=== PATIENT | female | born 1950 | race Caucasian/White ===

== ENCOUNTER → 2019-10-12 | Outpatient (CLI) | payer MEDICARE ==
--- NOTE | 2019-10-12 16:05 | US ---
"EXAMINATION TYPE: US kidneys/renal and bladder DATE OF EXAM: 10/12/2019 COMPARISON: NONE CLINICAL HISTORY: N18.3 CKD STAGE 3. EXAM MEASUREMENTS: Right Kidney: 12.1 x 5.5 x 6.8 cm Left Kidney: 11.6 x 4.7 x 4.7 cm Right Kidney: Masslike area measures 8.3 x 6.8 x 7.9 cm, possible 2 small satellite masses at inferio r end. Left Kidney: Focal hypoechoic area midpole measures 2.7 x 2.7 x 2.5 cm Bladder: wnl Bilateral Jets seen: Yes There is no evidence for hydronephrosis at this point in time. No nephrolithiasis is seen. The urina ry bladder is anechoic. Bilateral ureteral jets are seen. IMPRESSION: 1. Masslike area of the right kidney measures up to 8.3 cm. This is highly suspicious for neoplasm. F ull characterization with three-phase enhanced CT abdomen is recommended. 2. Focal hypoechoic area in the left mid pole does not demonstrate clear increased or transmission an d cannot be evaluated without recommended CT. A Yellow level critical message alert has been initiated for Kong Barbosa MD via the [employer] galo 360 | Critical Results System on 10/12/2019 4:02 PM. This message alert has been sent to Michael Barbosa MD via the preferences provided by the clinician for the receipt of Radiology Critical Findings. Message ID [id number]."
[2019-10-12 16:23] LABS: Creatinine 24 Hour,Urine 760.5 mg/24hr (800.0-1800.0)
[2019-10-12 19:07] LABS: Total Protein 24 Hour,Urine 143 mg/24hr (42.0-225.0); Total Volume 24 Hour,Urine 1300 mls (250-2400)
== END | disposition home or self-care (01) ==
LOC: RADUSWWP 15:11
PROVIDERS: ATTEND Family Medicine
DX: N28.89 Other specified disorders of kidney and ureter (principal); N18.3 Chronic kidney disease, stage 3 (moderate); Z88.2 Allergy status to sulfonamides; Z88.8 Allergy status to other drugs, medicaments and biological substances
CPT/HCPCS: 76770; 81050; 82575; 84156

== ENCOUNTER → 2019-11-16 | Outpatient (CLI) | payer MEDICARE ==
--- NOTE | 2019-11-17 09:25 | NM ---
EXAMINATION TYPE: NM parathyroid w/spect DATE OF EXAM: 11/16/2019 COMPARISON: NONE HISTORY: Hypercalcemia TECHNIQUE: Following administration of 24.0 mCi Tc99m Sestamibi. Anterior projection images of the neck and ches t were obtained 10 minutes and 3 hours post injection. SPECT images of the neck and chest were obtai rob and reconstructed in three axes. FINDINGS: Thyroid tracer washout: Delayed images demonstrate near-complete tracer washout from the right lobe t hyroid. Parathyroid uptake: 3 hour delayed images show persistent uptake within the region of the left thyroi d bed Normal uptake: There is physiological tracer uptake in the myocardium, salivary glands, and thyroid g land. 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
== END | disposition home or self-care (01) ==
LOC: RADNMMAIN 10:41
PROVIDERS: ATTEND Internal Medicine
DX: E83.52 Hypercalcemia (principal)
CPT/HCPCS: 78071; A9500

== ENCOUNTER → 2019-12-04 | Outpatient (CLI) | payer MEDICARE ==
[2019-12-04 11:51] LABS: Basophils # (A) 0.1 k/uL (0-0.2); Basophils % (A) 1 %; Eosinophils # (A) 0.1 k/uL (0-0.7); Eosinophils % (A) 2 %; HCT 42.8 % (34.0-46.0); HGB 13.3 gm/dL (11.4-16.0); Lymphocytes % (A) 24 %; MCH 28.1 pg (25.0-35.0); MCHC 31.1 g/dL (31.0-37.0); MCV 90.3 fL (80.0-100.0); Mean Platelet Volume 7.4; Monocytes # (A) 0.5 k/uL (0-1.0); Monocytes % (A) 6 %; Neutrophils # (A) 5.6 k/uL (1.3-7.7); Neutrophils % (A) 66 %; Platelet Count 337 k/uL (150-450); RBC 4.74 m/uL (3.80-5.40); RDW 14.7 % (11.5-15.5); WBC 8.4 k/uL (3.8-10.6)
[2019-12-04 11:56] LABS: Ionized Calcium 6.3 mg/dL (4.5-5.3)
[2019-12-04 12:16] LABS: Appearance,Urine Cloudy (Clear); Bacteria,Urine Occasional /hpf; Bilirubin,Urine Negative (Negative); Blood,Urine Negative (Negative); Color,Urine Yellow; Glucose,Urine (UA) Negative (Negative); Hyaline Casts,Urine 24 /lpf (0-2); Ketones,Urine Negative (Negative); Leukocyte Esterase,Urine Negative (Negative); Mucus,Urine Rare /hpf; Nitrite,Urine Negative (Negative); PH, Urine 5.5 (5.0-8.0); Protein,Urine Negative (Negative); RBC,Urine <1 /hpf (0-5); Squamous Epithelial Cell,Urine 8 /hpf (0-4); Urobilinogen,Urine <2.0 mg/dL (<2.0); WBC,Urine <1 /hpf (0-5)
[2019-12-04 17:38] LABS: Urine Creatinine 51.4 mg/dL
[2019-12-04 18:37] LABS: Ferritin 48.3 ng/mL (10.0-291.0)
[2019-12-04 18:46] LABS: % Iron Saturation 10.33 (12.00-45.00); African American GFR (CKD) 34.6 (60.0-200.0); Albumin 4.1 g/dL (3.80-4.90); Albumin/Globulin Ratio 1.46 (1.60-3.17); Anion Gap 10.6 mmol/L (4.00-12.00); BUN/Creat Ratio 22.94 Ratio (12.00-20.00); Calcium 10.8 mg/dL (8.7-10.3); Carbon Dioxide 21.4 mmol/L (21.6-31.8); Globulin 2.8 g/dL (1.6-3.3); Non-African American GFR(CKD) 29.8 (60.0-200.0); Phosphorus 3.1 mg/dL (2.4-5.1); Potassium 4.3 mmol/L (3.5-5.5); Total Bilirubin 0.3 mg/dL (0.3-1.2); Total Protein 6.9 g/dL (6.2-8.2); Uric Acid 7.2 mg/dL (2.9-7.7)
[2019-12-05 01:34] LABS: Calcium 24 Hour,Urine 57.2 mg/24Hr (100.0-250.0)
== END ==
LOC: LABWHC1 10:37
PROVIDERS: ATTEND Internal Medicine
DX: E83.52 Hypercalcemia (principal); N18.3 Chronic kidney disease, stage 3 (moderate); D63.1 Anemia in chronic kidney disease; E83.39 Other disorders of phosphorus metabolism; M10.9 Gout, unspecified; E55.9 Vitamin D deficiency, unspecified
CPT/HCPCS: 36415; 80053; 81001; 81050; 82043; 82164; 82306; 82330; 82340; 82570; 82728; 83519; 83540; 83550; 83735; 83883; 83970; 84100; 84166; 84550; 85025; 86334

== ENCOUNTER → 2019-12-11 | Outpatient (CLI) | payer MEDICARE ==
--- NOTE | 2019-12-11 14:58 | MM ---
Reason for exam: screening (asymptomatic). Last mammogram was performed 4 years and 10 months ago. History: Patient is postmenopausal. Took hormonal contraceptives for 7 years beginning at age 16. Physical Findings: A clinical breast exam by your physician is recommended on an annual basis and results should be correlated with mammographic findings. MG 3D Screening Mammo W/Cad Bilateral CC and MLO view(s) were taken. Prior study comparison: February 14, 2015, bilateral MG screening mammo w CAD. December 15, 2012, bilateral digital screening mammo w/CAD. There are scattered fibroglandular densities. There are benign appearing round linear calcifications bilaterally. There is chronic nodularity in the right breast. There is no new dominant lesion. ASSESSMENT: Benign, BI-RAD 2 RECOMMENDATION: Routine screening mammogram of both breasts in 1 year.
== END | disposition home or self-care (01) ==
LOC: RADMAMWWP 09:43
PROVIDERS: ATTEND Family Medicine
DX: Z12.31 Encounter for screening mammogram for malignant neoplasm of breast (principal)
CPT/HCPCS: 77063; 77067

== ENCOUNTER → 2019-12-29 | Outpatient (CLI) | payer MEDICARE ==
[2019-12-29 12:36] LABS: Basophils # (A) 0.1 k/uL (0-0.2); Basophils % (A) 1 %; Eosinophils # (A) 0.2 k/uL (0-0.7); Eosinophils % (A) 2 %; HCT 43.4 % (34.0-46.0); HGB 13.2 gm/dL (11.4-16.0); Hypochromasia Slight; Lymphocytes # (A) 2.1 k/uL (1.0-4.8); Lymphocytes % (A) 25 %; MCH 28.4 pg (25.0-35.0); MCHC 30.4 g/dL (31.0-37.0); MCV 93.5 fL (80.0-100.0); Mean Platelet Volume 7.1; Monocytes # (A) 0.4 k/uL (0-1.0); Monocytes % (A) 5 %; Neutrophils # (A) 5.4 k/uL (1.3-7.7); Neutrophils % (A) 65 %; Platelet Count 292 k/uL (150-450); RBC 4.64 m/uL (3.80-5.40); RDW 14.9 % (11.5-15.5); WBC 8.2 k/uL (3.8-10.6)
[2019-12-29 12:42] LABS: Calcium 9.6 mg/dL (8.4-10.2); Potassium 4.6 mmol/L (3.5-5.1)
[2019-12-29 12:50] LABS: Appearance,Urine Clear (Clear); Bilirubin,Urine Negative (Negative); Blood,Urine Negative (Negative); Color,Urine Yellow; Glucose,Urine (UA) Negative (Negative); Ketones,Urine Negative (Negative); Leukocyte Esterase,Urine Negative (Negative); Nitrite,Urine Negative (Negative); Protein,Urine Negative (Negative); Specific Gravity,Urine 1.008 (1.001-1.035); Urobilinogen,Urine <2.0 mg/dL (<2.0)
--- NOTE | 2019-12-29 16:08 | XR ---
EXAMINATION TYPE: XR chest 2V DATE OF EXAM: 12/29/2019 COMPARISON: NONE HISTORY: Shortness of breath TECHNIQUE: Frontal and lateral views of the chest are obtained. FINDINGS: There is no focal air space opacity, pleural effusion, or pneumothorax seen. The cardiac silhouette size is within normal limits. The aorta is dense. The osseous structures are intact. IMPRESSION: No acute cardiopulmonary process.
== END | disposition home or self-care (01) ==
LOC: LABPAT 11:33
PROVIDERS: ATTEND Urology
DX: Z01.818 Encounter for other preprocedural examination (principal); Z01.812 Encounter for preprocedural laboratory examination; C64.9 Malignant neoplasm of unspecified kidney, except renal pelvis; R06.02 Shortness of breath; R58 Hemorrhage, not elsewhere classified; Z51.81 Encounter for therapeutic drug level monitoring
CPT/HCPCS: 36415; 71046; 80048; 81003; 85025; 85610

== ENCOUNTER 2020-01-05 10:23 | Inpatient (IN) | payer MEDICARE ==
[2019-12-31 09:06] VITALS: BMI 43.5
--- NOTE | 2020-01-04 20:05 | P.HPIHPCON ---
History of Present Illness H&P Date: 01/05/20 Chief Complaint: right sided renal mass Ms Epperson is 69 yo female with hx of right sided renal mass. I discussed with her given the size of the tumor and complexity of the tumor a partial nephrectomy is not feasible. . We discussed with him the options of robotic ass isted radical nephrectomy vs open radical nephrectomy. He understood the risk of benefit of each approach. Discussed with him with robotic radical nephrectomy there is risk of bleeding, infection and injury to nearby organs. Discussed with him risk of injury to the liver, bowel, blood vessels. Discussed with him risk from anesthesia including heart attack, stroke, blood clot and even . I discussed with her given her CKD there is a risk she would require diaylsis post nephrectomy. I discussed with her the option of renal biopsy and benefit and risk from that, she declined a renal biopsy. Of note she underwent a sestamibi scan which showed low likelihood of Oncocytoma.She understood all risks and agreed to proceed with surgery Consent for Procedure: I have explained the operation/procedure to the patient, including the risks, benefits, side effects, alternative therapies (including not receiving the proposed treatment or service), the likelihood of the patient achieving his/her goals, and potential recuperation problems for the procedure/sedation/analgesia, as well as any blood products, if indicated. I also explained to the patient the risks, benefits and side effects of the alternatives, as well as the risks related to not receiving the proposed procedure, care, treatment, or services. - Constitutional Constitutional: Denies chills, Denies fever - Cardiovascular Cardiovascular: Denies chest pain, Denies dyspnea on exertion - Respiratory Respiratory: Denies cough, Denies dyspnea Past Medical History Past Medical History: Cancer, Diabetes Mellitus, GERD/Reflux, Hyperlipidemia, Hypertension Additional Past Medical History / Comment(s): rt kidney mass-pt states has kidney cancer History of Any Multi-Drug Resistant Organisms: None Reported Past Surgical History: Tonsillectomy, Tubal Ligation Past Anesthesia/Blood Transfusion Reactions: No Reported Reaction Smoking Status: Never smoker - Past Family History Mother Family Medical History: Cancer Additional Family Medical History / Comment(s): throat cancer Medications and Allergies Home Medications Medication Instructions Recorded Confirmed Type ALPRAZolam [Xanax] 0.25 mg PO DAILY PRN 12/31/19 12/31/19 History Allopurinol [Zyloprim] 100 mg PO DAILY 12/31/19 12/31/19 History Cinacalcet [Sensipar] 30 mg PO MOTU 12/31/19 12/31/19 History Furosemide [Lasix] 40 mg PO DAILY 12/31/19 12/31/19 History Insulin Lispro Protamin/Lispro 42 unit SQ AC-TID 12/31/19 12/31/19 History [humaLOG Mix 75-25 Kwikpen] Losartan Potassium [Cozaar] 100 mg PO DAILY 12/31/19 12/31/19 History Metoprolol Tartrate [Lopressor] 100 mg PO BID 12/31/19 12/31/19 History Omeprazole 20 mg PO DAILY 12/31/19 12/31/19 History Potassium Chloride [Klor-Con 10] 10 meq PO DAILY 12/31/19 12/31/19 History Simvastatin [Zocor] 20 mg PO HS 12/31/19 12/31/19 History Zolpidem [Ambien] 5 mg PO HS PRN 12/31/19 12/31/19 History amLODIPine BESYLATE 10 mg PO DAILY 12/31/19 12/31/19 History buPROPion HCL [Wellbutrin SR] 150 mg PO Q12H 12/31/19 12/31/19 History flavoxATE HCL [Flavoxate HCl] 200 mg PO TID 12/31/19 12/31/19 History hydrALAZINE HCL [Apresoline] 50 mg PO TID 12/31/19 12/31/19 History Allergies Allergy/AdvReac Type Severity Reaction Status Date / Time MILAGRO Inhibitors Allergy Cough Verified 12/31/19 08:50 clonidine [From Catapres] Allergy Cough Verified 12/31/19 08:50 hydrochlorothiazide Allergy Cough Verified 12/31/19 08:50 [From HydroDiuril] pseudoephedrine Allergy Rash/Hives Verified 12/31/19 08:50 angiotensin receptor blockers Allergy Cough Uncoded 12/31/19 08:50 Surgical - Exam - General well developed, well nourished, no distress, no pain - Respiratory normal expansion, normal respiratory effort - Abdomen Abdomen: soft, non tender - Psychiatric oriented to time, oriented to person, oriented to place Assessment and Plan Assessment: 69 yo with hx of right sided renal mass -OR for R sided radical nephrectomy
[2020-01-05] MEDS ORDERED: DEXAMETHASONE SOD PHOSPHATE 10 MG/ML 1 ML VIAL IV ONE (10:53)
[2020-01-05] MEDS ORDERED: MIDAZOLAM 2 MG/2 ML VIAL IV PRN (10:53)
[2020-01-05] MEDS ORDERED: ONDANSETRON 4 MG/2 ML VIAL IVP ONE (10:53)
[2020-01-05] MEDS ORDERED: LIDOCAINE 1% 20 ML VIAL (10MG/ML) FOR IV START INTRADERMA ONE ×2 (11:23)
[2020-01-05] MEDS: LACTATED RINGERS 1,000 ML IV SCH (11:23)
[2020-01-05 11:25] LABS: Glucose,Whole Blood 131 mg/dL (75-99)
[2020-01-05] MEDS ORDERED: MIDAZOLAM 2 MG/2 ML VIAL IVP ONE (11:28)
[2020-01-05] MEDS ORDERED: fentaNYL (PF) 50 MCG/ML 2 ML AMP IV ONE (11:29)
[2020-01-05] MEDS ORDERED: GLYCOPYRROLATE 0.2 MG/ML 2 ML VIAL ONE (11:49)
[2020-01-05] MEDS ORDERED: PROPOFOL 10 MG/ML 20 ML VIAL IV ONE (11:49)
[2020-01-05] MEDS ORDERED: SUCCINYLCHOLINE CHLORIDE 100 MG/5 ML SYR IV ONE (11:49)
[2020-01-05] MEDS ORDERED: DEXAMETHASONE SOD PHOSPHATE 4 MG/ML 1 ML VIAL ONE (11:49)
[2020-01-05] MEDS ORDERED: ROPIVACAINE 5 MG/ML 30 ML VIAL ONE (11:49)
[2020-01-05] MEDS ORDERED: MIDAZOLAM 2 MG/2 ML VIAL ONE (11:49)
[2020-01-05] MEDS ORDERED: fentaNYL (PF) 50 MCG/ML 2 ML AMP ONE (11:49)
[2020-01-05] MEDS ORDERED: ROCURONIUM BROMIDE 10 MG/ML 10 ML VIAL IV ONE (11:49)
[2020-01-05] MEDS ORDERED: NEOSTIGMINE 1 MG/ML 10 ML VIAL ONE (11:49)
[2020-01-05] MEDS ORDERED: LIDOCAINE 1% INJ 10MG/ML (20 ML MDV) ONE (11:49)
--- NOTE | 2020-01-05 12:25 | P.ANPRN ---
Procedure Note - Anesthesia - Nerve Block Performed Right Transversus Abdominis Single Time Out Performed: Yes Date of Procedure: 01/05/20 Procedure Start Time: 11:28 Procedure Stop Time: 11:37 Location of Patient: PreOp Indication: Requested by Surgeon Specifically requested for management of pain by DrSanti: Mane Moran Sedation Type: Sedate with meaningful contact maintained Preparation: Sterile Prep Position: Supine Needle Types: Pajunk Needle Gauge: 21 Ultrasound used to visualize needle placement: Yes Ultrasound used to observe medication spread: Yes Injectate: 0.5% Ropivacaine (see comment for volume) (20 ml) Blood Aspirated: No Pain Paresthesia on Injection Noted: No Resistance on Injection: Normal (plus dexamethason 4 mg)
[2020-01-05] MEDS ORDERED: BUPIVACAINE (PF) 0.5% 30 ML VIAL SQ ONE ×2 (13:05)
[2020-01-05] MEDS ORDERED: ACETAMINOPHEN TAB 325 MG TAB PO PRN (14:32)
[2020-01-05] MEDS ORDERED: ALPRAZolam 0.25 MG TAB PO PRN (14:35)
[2020-01-05] MEDS ORDERED: diphenhydrAMINE 50 MG/ML 1 ML VIAL IVP ONE (14:58)
[2020-01-05] MEDS: fentaNYL (PF) 50 MCG/ML 2 ML AMP IV PRN ×4 (14:58→15:37)
--- NOTE | 2020-01-05 15:03 | P.OP ---
Date of Procedure: 01/05/20 Preoperative Diagnosis: right renal mass Postoperative Diagnosis: same Procedure(s) Performed: robotic assisted radical nephrectomy on right Implants: none Anesthesia: AGUSTIN Surgeon: Mane Moran Patch Sander #1: Christiano Castro Estimated Blood Loss (ml): 200 Pathology: other (right kidney) Condition: stable Disposition: PACU Indications for Procedure: Ms Epperson is 69 yo female with hx of right sided renal mass. I discussed with her given the size of the tumor and complexity of the tumor a partial nephrectomy is not feasible. . We discussed with him the options of robotic assisted radical nephrectomy vs open radical nephrectomy. He understood the risk of benefit of each approach. Discussed with him with robotic radical nephrectomy there is risk of bleeding, infection and injury to nearby organs. Discussed with him risk of injury to the liver, bowel, blood vessels. Discussed with him risk from anesthesia including heart attack, stroke, blood clot and even . I discussed with her given her CKD there is a risk she would require diaylsis post nephrectomy. I discussed with her the option of renal biopsy and benefit and risk from that, she declined a renal biopsy. Of note she underwent a sestamibi scan which showed low likelihood of Oncocytoma.She understood all risks and agreed to proceed with surgery Description of Procedure: The patient was taken to the operating room . General anesthesia was induced. She was prepped and draped in sterile fashion, and was placed in modified flank position . All pressure points were padded. The abdominal insufflation was achieved with the Veress needle. A 8 mm camera port was placed. Robotic trocars and statistical assistant ports were placed under direct vision. a 5 mm liver retractor was placed. . The robot was docked into place. The colon was mobilized medially by incising along the white line of Toldt. Next the duodenum was kocherized. At this time the vena cava was exposed. Next the ureter was retracted anteriorly off the psoas muscle. Dissection proceeded cranially towards the renal hilum. The upper pole attachments were dissected. Care was taken to safely mobilize the kidney free of all visceral structures.The renal vessels were further dissected. The hilum was ligated using the vascular stapler. The adrenal gland was mobilized. Lateral and remaining kidney attachments were released. The ureter w as dissected further distally. The ureter was ligated using the vascular stapler. The kidney was placed in an Endo Catch bag. The robot was then de- docked and the specimen was then removed by extending the statistical assistant port. Fascia was closed with 1 layers using #1 Stratafix. Skin was closed with subcuticular sutures and dermabond. The patient was awoken from general anesthesia in stable condition. Please refer to the final pathology report for final diagnosis
[2020-01-05 15:17] LABS: Glucose,Whole Blood 177 mg/dL (75-99)
[2020-01-05] MEDS: HYDROmorphone 1 MG/ML 1 ML SYRINGE IVP ONE ×4 (15:40→16:40)
[2020-01-05] MEDS ORDERED: CINACALCET 30 MG TAB PO SCH (17:00)
[2020-01-05 17:14] LABS: Glucose,Whole Blood 198 mg/dL (75-99)
[2020-01-05] MEDS: INSULN ASP PRT/INSULIN ASPART 100 UNIT/ML 10 ML VIAL SQ SCH ×2 (18:21→22:04)
[2020-01-05] MEDS: HEPARIN SODIUM,PORCINE 5,000 UNIT/ML 1 ML VIAL SQ SCH ×2 (18:21→23:48)
[2020-01-05] MEDS: METHOCARBAMOL 750 MG TAB PO SCH ×2 (18:21→21:45)
[2020-01-05] MEDS: OXYBUTYNIN XL 5 MG TAB.ER.24 PO SCH (18:21)
[2020-01-05] MEDS: SODIUM CHLORIDE 0.9% 1,000 ML IV SCH (18:22)
[2020-01-05 19:50] LABS: Glucose,Whole Blood 221 mg/dL (75-99)
[2020-01-05] MEDS: ONDANSETRON 4 MG/2 ML VIAL IVP PRN (19:54)
[2020-01-05] MEDS: HYDROmorphone 1 MG/ML 1 ML SYRINGE IVP PRN (19:55)
[2020-01-05] MEDS: METOPROLOL TARTRATE 50 MG TAB PO SCH (21:45)
[2020-01-05] MEDS: ATORVASTATIN 10 MG TAB PO SCH (21:45)
[2020-01-05] MEDS: buPROPion SR 150 MG TABLET.ER PO SCH (21:45)
[2020-01-05 21:50] LABS: HCT 39.1 % (34.0-46.0); Hypochromasia Moderate; MCH 28.8 pg (25.0-35.0); MCHC 30.6 g/dL (31.0-37.0); Mean Platelet Volume 7.3; Platelet Count 283 k/uL (150-450); RBC 4.17 m/uL (3.80-5.40); RDW 15.2 % (11.5-15.5); WBC 11.9 k/uL (3.8-10.6)
[2020-01-05 21:52] LABS: Calcium 9.8 mg/dL (8.4-10.2); Potassium 5.2 mmol/L (3.5-5.1)
[2020-01-06] MEDS: SODIUM CHLORIDE 0.9% 1,000 ML IV SCH ×3 (02:54→12:59)
[2020-01-06] MEDS: HYDROmorphone 1 MG/ML 1 ML SYRINGE IVP PRN ×2 (05:10→20:47)
[2020-01-06 05:24] LABS: Glucose,Whole Blood 180 mg/dL (75-99)
[2020-01-06 06:54] LABS: Glucose,Whole Blood 165 mg/dL (75-99)
[2020-01-06 08:07] LABS: Calcium 9.5 mg/dL (8.4-10.2); Magnesium 1.9 mg/dL (1.6-2.3); Potassium 5.2 mmol/L (3.5-5.1)
[2020-01-06] MEDS: OXYBUTYNIN XL 5 MG TAB.ER.24 PO SCH (08:21)
[2020-01-06] MEDS: PANTOPRAZOLE 40 MG TABLET PO SCH (08:21)
[2020-01-06] MEDS: buPROPion SR 150 MG TABLET.ER PO SCH ×2 (08:21→20:42)
[2020-01-06] MEDS: INSULN ASP PRT/INSULIN ASPART 100 UNIT/ML 10 ML VIAL SQ SCH ×3 (08:22→17:39)
[2020-01-06] MEDS: ALLOPURINOL 100 MG TAB PO SCH (08:22)
[2020-01-06] MEDS: METHOCARBAMOL 750 MG TAB PO SCH ×4 (08:22→20:41)
[2020-01-06] MEDS: HEPARIN SODIUM,PORCINE 5,000 UNIT/ML 1 ML VIAL SQ SCH ×2 (08:22→17:42)
[2020-01-06] MEDS: LOSARTAN 50 MG TAB PO SCH (08:22)
[2020-01-06] MEDS: METOPROLOL TARTRATE 50 MG TAB PO SCH ×2 (08:22→20:41)
[2020-01-06] MEDS ORDERED: POTASSIUM CHLORIDE ER 10 MEQ TAB.ER.PRT PO SCH (09:00)
[2020-01-06] MEDS ORDERED: FUROSEMIDE 40 MG TAB PO SCH (09:00)
--- NOTE | 2020-01-06 11:13 | P.NPCON ---
History of Present Illness - Reason for Consult chronic renal failure - History of Present Illness Reason for consultation: Chronic kidney disease History of present illness: Patient is a 69-year-old female seen in renal consultation for chronic kidney disease. Patient has chronic kidney disease stage III with baseline creatinine 1.5-1.7. Patient was recently noted to have a kidney mass and underwent right- sided nephrectomy on January 05. Her creatinine today is 1.9. She denies chest pain or shortness of breath. Denies edema. She has a Goldberg catheter in place and is nonoliguric. No vomiting or diarrhea. Oral intake is gradually improving. Denies regular use of nonsteroidals. Hemodynamically stable. No active complaints at this time. Vital signs are stable. General: The patient appeared well nourished and normally developed. HEENT: Head exam is unremarkable. Neck is without jugular venous distension. LUNGS: Lungs are clear to auscultation and percussion. Breath sounds decreased. HEART: Rate and Rhythm are regular. First and second heart sounds normal. No murmurs, rubs or gallops. ABDOMEN: Abdominal exam reveals normal bowel sounds. Non-tender and non- distended. No evidence of peritonitis. EXTREMITITES: No clubbing, cyanosis, or edema. Past Medical History Past Medical History: Cancer, Diabetes Mellitus, GERD/Reflux, Hyperlipidemia, Hypertension Additional Past Medical History / Comment(s): rt kidney mass-pt states has kidney cancer History of Any Multi-Drug Resistant Organisms: None Reported Past Surgical History: Tonsillectomy, Tubal Ligation Past Anesthesia/Blood Transfusion Reactions: No Reported Reaction Smoking Status: Never smoker - Past Family History Mother Family Medical History: Cancer Additional Family Medical History / Comment(s): throat cancer Medications and Allergies Home Medications Medication Instructions Recorded Confirmed Type ALPRAZolam [Xanax] 0.25 mg PO DAILY PRN 12/31/19 12/31/19 History Allopurinol [Zyloprim] 100 mg PO DAILY 12/31/19 12/31/19 History Cinacalcet [Sensipar] 30 mg PO MOTU 12/31/19 12/31/19 History Furosemide [Lasix] 40 mg PO DAILY 12/31/19 12/31/19 History Insulin Lispro Protamin/Lispro 42 unit SQ AC-TID 12/31/19 12/31/19 History [humaLOG Mix 75-25 Kwikpen] Losartan Potassium [Cozaar] 100 mg PO DAILY 12/31/19 12/31/19 History Metoprolol Tartrate [Lopressor] 100 mg PO BID 12/31/19 12/31/19 History Omeprazole 20 mg PO DAILY 12/31/19 12/31/19 History Potassium Chloride [Klor-Con 10] 10 meq PO DAILY 12/31/19 12/31/19 History Simvastatin [Zocor] 20 mg PO HS 12/31/19 12/31/19 History Zolpidem [Ambien] 5 mg PO HS PRN 12/31/19 12/31/19 History amLODIPine BESYLATE 10 mg PO DAILY 12/31/19 12/31/19 History buPROPion HCL [Wellbutrin SR] 150 mg PO Q12H 12/31/19 12/31/19 History flavoxATE HCL [Flavoxate HCl] 200 mg PO TID 12/31/19 12/31/19 History hydrALAZINE HCL [Apresoline] 50 mg PO TID 12/31/19 12/31/19 History Allergies Allergy/AdvReac Type Severity Reaction Status Date / Time MILAGRO Inhibitors Allergy Cough Verified 01/05/20 11:03 clonidine [From Catapres] Allergy Cough Verified 01/05/20 11:03 hydrochlorothiazide Allergy Cough Verified 01/05/20 11:03 [From HydroDiuril] pseudoephedrine Allergy Rash/Hives Verified 01/05/20 11:03 angiotensin receptor blockers Allergy Cough Uncoded 01/05/20 11:03 Physical Exam Vitals: Vital Signs Temp Pulse Resp BP Pulse Ox 01/06/20 05:00 97.8 F 87 18 147/67 95 01/05/20 22:00 96 01/05/20 20:31 97.5 F L 69 18 139/62 95 01/05/20 18:15 97.3 F L 70 18 152/79 94 L 01/05/20 17:13 69 16 106/76 92 L 01/05/20 16:15 73 16 159/69 93 L 01/05/20 15:45 68 16 143/65 100 01/05/20 15:16 69 16 129/56 95 01/05/20 15:00 70 16 146/67 98 01/05/20 14:46 98.4 F 85 19 148/85 97 02/04/20 11:47 70 16 164/72 98 Intake and Output 01/05/20 01/06/20 01/06/20 22:59 06:59 14:59 Intake Total 400 900 Output Total 350 250 Balance 50 650 Intake: IV 200 Intake, IV Titration 900 Amount Sodium Chloride 0.9% 1, 900 000 ml @ 100 mls/hr IV . Q10H [facility] Rx#:[id number] Oral 200 Output: Urine 150 250 Uretheral (Goldberg) 100 250 Emesis 200 Other: Voiding Method Indwelling Catheter Indwelling Catheter Weight 111.2 kg Results - Lab Results Most recent lab results Calcium 9.5 mg/dL (8.4-10.2) 01/06/20 07:30 Magnesium 1.9 mg/dL (1.6-2.3) 01/06/20 07:30 01/05/20 20:44 01/06/20 07:30 Assessment and Plan Plan: Assessment: 1. Chronic kidney disease stage III with baseline creatinine in the range of 1.5-1.7. However need to establish new baseline as she underwent right-sided nephrectomy yesterday. Creatinine 1.9 today. 2. Right kidney mass status post nephrectomy. 3. Metabolic acidosis secondary to chronic kidney disease. 4. Mild hyperkalemia secondary to chronic kidney disease and metabolic acidosis. Patient is also on losartan. 5. Insulin-dependent diabetes mellitus. 6. Primary hyperparathyroidism maintained on Sensipar. Patient has an appointment with surgery outpatient for possible parathyroidectomy. Calcium l evel stable. 7. Hypertension with chronic kidney disease. Controlled. Plan: Hep-Lock IV fluids. Hold Lasix for now. Add oral sodium bicarbonate. Encourage oral intake. Repeat electrolytes in the morning. Thank you for the consultation. I will continue to follow patient with you during her hospital stay.
[2020-01-06 11:41] LABS: Glucose,Whole Blood 110 mg/dL (75-99)
[2020-01-06] MEDS: SODIUM BICARBONATE TAB 650 MG TAB PO SCH ×2 (12:59→20:41)
[2020-01-06] MEDS ORDERED: BENZOCAINE/MENTHOL LOZENG 1 EACH LOZENGE MUCOUS MEM PRN (15:14)
--- NOTE | 2020-01-06 16:13 | PN ---
PROGRESS NOTE DATE OF SERVICE: 01/06/2020 CHIEF COMPLAINT: Status post right nephrectomy. HISTORY OF PRESENT ILLNESS: This lady is doing well and she is not having a great deal of pain. She has had no fever or chills and she is not nauseated. PHYSICAL EXAMINATION: Chest is clear. Cardiac exam is normal. Color is good and hydration is good. Dressings are dry. Blood sugar and blood pressure are normal. IMPRESSION: 1. Status post right nephrectomy for renal cell carcinoma. 2. Hypertension. 3. Diabetes. PLAN: Monitor her blood sugars and vital signs today. She is expected to go home tomorrow. MMODL / IJN: [id number] /
[2020-01-06 17:39] LABS: Glucose,Whole Blood 55 mg/dL (75-99)
[2020-01-06] MEDS: hydrALAZINE HCL 50 MG TAB PO SCH ×2 (17:42→20:41)
[2020-01-06 18:02] LABS: Glucose,Whole Blood 46 mg/dL (75-99)
[2020-01-06 18:26] LABS: Glucose,Whole Blood 58 mg/dL (75-99)
[2020-01-06 18:46] LABS: Glucose,Whole Blood 64 mg/dL (75-99)
--- NOTE | 2020-01-06 19:49 | CONS ---
CONSULTATION CHIEF COMPLAINT: Renal mass. HISTORY OF PRESENT ILLNESS: This 69-year-old white female with type 2 IDDM under good control and is brought in for an elective nephrectomy. There is a mass in the right kidney which was found accidentally. She has had no hematuria. Her diabetes is under good control. She does have chronic kidney disease and this may be an issue after her nephrectomy. REVIEW OF SYSTEMS: She has had no headaches, CVAs, TIAs, change in vision or hearing, headaches, chest pain, shortness of breath, heart disease, murmurs, rheumatic fever, orthopnea, PND, angina, infarctions, syncope, palpitations, etc. She has had no abdominal pain, nausea, vomiting, hematemesis, melena, hematochezia, jaundice, hepatitis, cirrhosis, dysuria, frequency, urgency, incontinence, etc. Past medical history, family history, personal and social histories reveal that she is ALLERGIC TO CATAPRES, ARBS, MILAGRO INHIBITORS, THIAZIDE DIURETICS, AND SULFA. MEDICATIONS: She is on allopurinol 100 mg once a day, losartan 100 mg once a day, omeprazole 20 mg once a day, metoprolol 100 mg twice a day, hydralazine 100 mg t.i.d., Ambien 5 q.h.s. p.r.n., Humalog 75/25 42 units 3 times a day, Wellbutrin 150 mg twice a day, Xanax 0.25 t.i.d. p.r.n., amlodipine 10 mg once a day, potassium 10 mEq once a day, simvastatin 20 q.h.s. and Lasix 40 mg once a day. She has never been a smoker or drinker. PHYSICAL EXAMINATION: Blood pressure 122/76, pulse 68 and regular. Respirations 16. She is afebrile. In general, she appeared to be overweight, in no acute distress. Skin color is normal. Skin is warm, dry. Lymph nodes not enlarged. Head, ears, eyes, nose, mouth, and throat were normal. Neck veins not distended. Thyroid is not enlarged. Chest is clear to auscultation and percussion. Cardiac exam demonstrated normal sinus rhythm and no murmurs or extra sounds. Abdomen is soft, nontender without visceromegaly or masses. Flanks were nontender. Bowel sounds present. Extremities are normal. Neurological she is intact. She is admitted to the hospital with diagnoses: 1. Right renal mass. 2. Hypertension. 3. Insulin dependent diabetes mellitus with good control. 4. Hypertension. PLAN: To follow postoperatively and monitor vital signs, blood sugars, etc. Hopefully, her renal function will remain adequate. Thank you for this consultation. AMAURY / JONATHAN: [id number] /
[2020-01-06 20:40] LABS: Glucose,Whole Blood 81 mg/dL (75-99)
[2020-01-06] MEDS: ATORVASTATIN 10 MG TAB PO SCH (20:47)
[2020-01-06] MEDS: BENZOCAINE/MENTHOL LOZENG 1 EACH LOZENGE MUCOUS MEM PRN (20:47)
--- NOTE | 2020-01-06 22:38 | P.PN ---
Subjective Progress Note Date: 01/06/20 Principal diagnosis: right sided renal mass No acute overnight event, pain is controlled, tolerating diet, has not ambulated yet Objective - Vital Signs Vital signs: Vital Signs Temp 97.3 F L 01/06/20 21:00 Pulse 64 01/06/20 21:00 Resp 20 01/06/20 21:00 BP 138/79 01/06/20 21:00 Pulse Ox 95 01/06/20 21:00 Intake & Output 01/06/20 01/06/20 01/07/20 06:59 18:59 06:59 Intake Total 1100 400 Output Total 550 350 Balance 550 50 Intake: Intake, IV Titration 900 400 Amount Sodium Chloride 0.9% 1, 900 000 ml @ 100 mls/hr IV . Q10H [facility] Rx#:[id number] Sodium Chloride 0.9% 1, 400 000 ml @ 50 mls/hr IV . Q20H [facility] Rx#:[id number] Oral 200 Output: Urine 350 350 Uretheral ([place]) 350 Emesis 200 Other: Voiding Method Indwelling Catheter Toilet # Voids 1 - Constitutional General appearance: Present: no acute distress - Gastrointestinal General gastrointestinal: Present: soft. Absent: distended - Integumentary Integumentary Comment(s): Incision: CDI - Psychiatric Psychiatric: Present: A&O x's 3 - Labs CBC & Chem 7: 01/05/20 20:44 01/06/20 18:50 Labs: Abnormal Lab Results - Last 24 Hours (Table) 01/06/20 01/06/20 01/06/20 Range/Units 05:23 06:52 07:30 Potassium 5.2 H (3.5-5.1) mmol/L Chloride 109 H (98-107) mmol/L Carbon Dioxide 19 L (22-30) mmol/L BUN 43 H (7-17) mg/dL Creatinine 1.90 H (0.52-1.04) mg/dL Glucose 175 H (74-99) mg/dL POC Glucose (mg/dL) 180 H 165 H (75-99) mg/dL 01/06/20 01/06/20 01/06/20 Range/Units 11:36 17:37 17:59 Potassium (3.5-5.1) mmol/L Chloride (98-107) mmol/L Carbon Dioxide (22-30) mmol/L BUN (7-17) mg/dL Creatinine (0.52-1.04) mg/dL Glucose (74-99) mg/dL POC Glucose (mg/dL) 110 H 55 L 46 L (75-99) mg/dL 01/06/20 01/06/20 01/06/20 Range/Units 18:24 18:44 18:50 Potassium (3.5-5.1) mmol/L Chloride (98-107) mmol/L Carbon Dioxide (22-30) mmol/L BUN (7-17) mg/dL Creatinine (0.52-1.04) mg/dL Glucose 73 L (74-99) mg/dL POC Glucose (mg/dL) 58 L 64 L (75-99) mg/dL Assessment and Plan Assessment: POD #1 S/P right sided radical nephrectomy Plan: -D/C sauceda -ambulate -Discharge home tomorrow
[2020-01-07] MEDS: HEPARIN SODIUM,PORCINE 5,000 UNIT/ML 1 ML VIAL SQ SCH ×3 (00:05→15:58)
[2020-01-07 04:40] LABS: Glucose,Whole Blood 54 mg/dL (75-99)
[2020-01-07 05:08] LABS: Glucose,Whole Blood 49 mg/dL (75-99)
[2020-01-07 05:39] LABS: Glucose,Whole Blood 55 mg/dL (75-99)
[2020-01-07] MEDS ORDERED: DEXTROSE 10 % IN WATER 250 ML IV ONE (05:45)
[2020-01-07 06:30] LABS: Glucose,Whole Blood 161 mg/dL (75-99)
[2020-01-07 07:00] LABS: Glucose,Whole Blood 117 mg/dL (75-99)
[2020-01-07] MEDS: INSULN ASP PRT/INSULIN ASPART 100 UNIT/ML 10 ML VIAL SQ SCH ×3 (07:34→17:54)
[2020-01-07 08:16] LABS: Calcium 9.7 mg/dL (8.4-10.2); Magnesium 1.8 mg/dL (1.6-2.3); Potassium 4.3 mmol/L (3.5-5.1)
[2020-01-07] MEDS: hydrALAZINE HCL 50 MG TAB PO SCH ×3 (10:18→21:19)
[2020-01-07] MEDS: METHOCARBAMOL 750 MG TAB PO SCH ×4 (10:18→21:19)
[2020-01-07] MEDS: ALLOPURINOL 100 MG TAB PO SCH (10:18)
[2020-01-07] MEDS: amLODIPine 10 MG TAB PO SCH (10:18)
[2020-01-07] MEDS: METOPROLOL TARTRATE 50 MG TAB PO SCH ×2 (10:19→21:19)
[2020-01-07] MEDS: OXYBUTYNIN XL 5 MG TAB.ER.24 PO SCH (10:19)
[2020-01-07] MEDS: PANTOPRAZOLE 40 MG TABLET PO SCH (10:19)
[2020-01-07] MEDS: SODIUM BICARBONATE TAB 650 MG TAB PO SCH ×2 (10:19→21:19)
[2020-01-07] MEDS: buPROPion SR 150 MG TABLET.ER PO SCH ×2 (10:19→21:19)
[2020-01-07] MEDS: LOSARTAN 50 MG TAB PO SCH (10:19)
[2020-01-07 10:34] LABS: Glucose,Whole Blood 91 mg/dL (75-99)
--- NOTE | 2020-01-07 10:48 | P.PN ---
Subjective Patient is seen in follow-up for acute kidney injury on chronic kidney disease. Creatinine 2.33 today. Patient vomited this morning. No diarrhea. No chest pain or shortness of breath. Vital signs are stable. General: The patient appeared well nourished and normally developed. HEENT: Head exam is unremarkable. Neck is without jugular venous distension. LUNGS: Lungs are clear to auscultation and percussion. Breath sounds decreased. HEART: Rate and Rhythm are regular. First and second heart sounds normal. No murmurs, rubs or gallops. ABDOMEN: Abdominal exam reveals normal bowel sounds. Non-tender and non- distended. No evidence of peritonitis. EXTREMITITES: No clubbing, cyanosis, or edema. Objective - Vital Signs Vital signs: Vital Signs Temp 97.3 F L 01/07/20 04:48 Pulse 75 01/07/20 04:48 Resp 18 01/07/20 04:48 BP 144/68 01/07/20 04:48 Pulse Ox 93 L 01/07/20 04:48 Intake & Output 01/06/20 01/07/20 01/07/20 18:59 06:59 18:59 Intake Total 400 Output Total 350 Balance 50 Intake: Intake, IV Titration 400 Amount Sodium Chloride 0.9% 1, 400 000 ml @ 50 mls/hr IV . Q20H [facility] Rx#:[id number] Output: Urine 350 Other: Voiding Method Toilet Toilet # Voids 1 2 - Labs CBC & Chem 7: 01/05/20 20:44 01/07/20 07:38 Labs: Abnormal Lab Results - Last 24 Hours (Table) 01/06/20 01/06/20 01/06/20 Range/Units 11:36 17:37 17:59 BUN (7-17) mg/dL Creatinine (0.52-1.04) mg/dL Glucose (74-99) mg/dL POC Glucose (mg/dL) 110 H 55 L 46 L (75-99) mg/dL 01/06/20 01/06/20 01/06/20 Range/Units 18:24 18:44 18:50 BUN (7-17) mg/dL Creatinine (0.52-1.04) mg/dL Glucose 73 L (74-99) mg/dL POC Glucose (mg/dL) 58 L 64 L (75-99) mg/dL 01/07/20 01/07/20 01/07/20 Range/Units 04:38 04:57 05:37 BUN (7-17) mg/dL Creatinine (0.52-1.04) mg/dL Glucose (74-99) mg/dL POC Glucose (mg/dL) 54 L 49 L 55 L (75-99) mg/dL 01/07/20 01/07/20 01/07/20 Range/Units 06:29 06:59 07:38 BUN 49 H (7-17) mg/dL Creatinine 2.33 H (0.52-1.04) mg/dL Glucose 110 H (74-99) mg/dL POC Glucose (mg/dL) 161 H 117 H (75-99) mg/dL Assessment and Plan Plan: Assessment: 1. Chronic kidney disease stage III with baseline creatinine in the range of 1 .5-1.7. However need to establish new baseline as she underwent right-sided nephrectomy on January 05. Creatinine 2.33 today. 2. Right kidney mass status post nephrectomy. 3. Metabolic acidosis secondary to chronic kidney disease maintained on oral sodium bicarbonate. Better. 4. Mild hyperkalemia secondary to chronic kidney disease and metabolic acidosis. Patient is also on losartan. Improved. 5. Insulin-dependent diabetes mellitus. 6. Primary hyperparathyroidism maintained on Sensipar. Patient has an appointment with surgery outpatient for possible parathyroidectomy. Calcium level stable. 7. Hypertension with chronic kidney disease. Controlled. Plan: Encouraged oral intake. Repeat electrolytes in the morning. Avoid nephrotoxins. Maintain gentle hydration.
[2020-01-07 12:00] LABS: Glucose,Whole Blood 89 mg/dL (75-99)
[2020-01-07] MEDS: SODIUM CHLORIDE 0.9% 1,000 ML IV SCH (15:59)
[2020-01-07] MEDS: ONDANSETRON 4 MG/2 ML VIAL IVP PRN (16:00)
[2020-01-07 16:49] LABS: Glucose,Whole Blood 86 mg/dL (75-99)
--- NOTE | 2020-01-07 17:15 | P.PN ---
Subjective Progress Note Date: 01/07/20 Principal diagnosis: right sided renal mass Was complaining of nausea with two episode of emesis. Pain is controlled, passing flatus. has not ambulated Objective - Vital Signs Vital signs: Vital Signs Temp 98 F 01/07/20 12:23 Pulse 90 01/07/20 12:23 Resp 18 01/07/20 12:23 BP 151/73 01/07/20 12:23 Pulse Ox 95 01/07/20 12:23 Intake & Output 01/06/20 01/07/20 01/07/20 18:59 06:59 18:59 Intake Total 400 400 Output Total 350 Balance 50 400 Intake: Intake, IV Titration 400 400 Amount Sodium Chloride 0.9% 1, 400 400 000 ml @ 50 mls/hr IV . Q20H [facility] Rx#:[id number] Output: Urine 350 Other: Voiding Method Toilet Toilet Toilet # Voids 1 2 - Gastrointestinal General gastrointestinal: Absent: distended, tenderness - Psychiatric Psychiatric: Present: A&O x's 3 - Labs CBC & Chem 7: 01/05/20 20:44 01/07/20 07:38 Labs: Abnormal Lab Results - Last 24 Hours (Table) 01/06/20 01/06/20 01/06/20 Range/Units 17:37 17:59 18:24 BUN (7-17) mg/dL Creatinine (0.52-1.04) mg/dL Glucose (74-99) mg/dL POC Glucose (mg/dL) 55 L 46 L 58 L (75-99) mg/dL 01/06/20 01/06/20 01/07/20 Range/Units 18:44 18:50 04:38 BUN (7-17) mg/dL Creatinine (0.52-1.04) mg/dL Glucose 73 L (74-99) mg/dL POC Glucose (mg/dL) 64 L 54 L (75-99) mg/dL 01/07/20 01/07/20 01/07/20 Range/Units 04:57 05:37 06:29 BUN (7-17) mg/dL Creatinine (0.52-1.04) mg/dL Glucose (74-99) mg/dL POC Glucose (mg/dL) 49 L 55 L 161 H (75-99) mg/dL 01/07/20 01/07/20 Range/Units 06:59 07:38 BUN 49 H (7-17) mg/dL Creatinine 2.33 H (0.52-1.04) mg/dL Glucose 110 H (74-99) mg/dL POC Glucose (mg/dL) 117 H (75-99) mg/dL Assessment and Plan Assessment: POD #1 S/P right sided radical nephrectomy Plan: -Zofran for nausea -ambulate -Potential discharge home tomorrow
[2020-01-07 20:15] LABS: Glucose,Whole Blood 98 mg/dL (75-99)
--- NOTE | 2020-01-07 21:11 | PN ---
PROGRESS NOTE CHIEF COMPLAINT: Carcinoma of the right kidney. HISTORY OF PRESENT ILLNESS: This lady is having some problems with nausea and vomiting. She is having some discomfort in the abdomen, but she is passing a small amount of gas. PHYSICAL EXAMINATION: Her vital signs are normal. Her chest is clear. Cardiac exam is normal. The abdomen is slightly distended and slightly tender. Bowel sounds are heard. IMPRESSION: 1. Status post right nephrectomy. 2. Nausea. PLAN: Antiemetics and continue to monitor her nausea and discomfort. MMODL / IJN: [id number] /
[2020-01-07] MEDS: ATORVASTATIN 10 MG TAB PO SCH (21:19)
[2020-01-08] MEDS: HEPARIN SODIUM,PORCINE 5,000 UNIT/ML 1 ML VIAL SQ SCH ×4 (00:04→23:14)
[2020-01-08] MEDS: SODIUM CHLORIDE 0.9% 1,000 ML IV SCH (02:34)
[2020-01-08 07:18] LABS: Glucose,Whole Blood 125 mg/dL (75-99)
[2020-01-08] MEDS: INSULN ASP PRT/INSULIN ASPART 100 UNIT/ML 10 ML VIAL SQ SCH ×3 (08:39→17:31)
[2020-01-08] MEDS: LOSARTAN 50 MG TAB PO SCH (08:40)
[2020-01-08] MEDS: buPROPion SR 150 MG TABLET.ER PO SCH ×2 (08:40→20:39)
[2020-01-08] MEDS: METHOCARBAMOL 750 MG TAB PO SCH ×4 (08:40→20:39)
[2020-01-08] MEDS: SODIUM BICARBONATE TAB 650 MG TAB PO SCH ×2 (08:40→20:39)
[2020-01-08] MEDS: METOPROLOL TARTRATE 50 MG TAB PO SCH ×2 (08:41→20:40)
[2020-01-08] MEDS: OXYBUTYNIN XL 5 MG TAB.ER.24 PO SCH (08:41)
[2020-01-08] MEDS: amLODIPine 10 MG TAB PO SCH (08:41)
[2020-01-08] MEDS: PANTOPRAZOLE 40 MG TABLET PO SCH (08:41)
[2020-01-08] MEDS: hydrALAZINE HCL 50 MG TAB PO SCH ×3 (08:41→20:40)
[2020-01-08] MEDS: ALLOPURINOL 100 MG TAB PO SCH (08:41)
[2020-01-08] MEDS: BENZOCAINE/MENTHOL LOZENG 1 EACH LOZENGE MUCOUS MEM PRN ×2 (08:44→21:31)
[2020-01-08 09:39] LABS: Potassium 4.4 mmol/L (3.5-5.1)
[2020-01-08 11:48] LABS: Glucose,Whole Blood 127 mg/dL (75-99)
--- NOTE | 2020-01-08 11:51 | P.PN ---
Subjective Patient is seen in follow-up for acute kidney injury on chronic kidney disease. Creatinine slightly worse at 2.41 today. No vomiting today. Feels better today. No diarrhea. No chest pain or shortness of breath. Vital signs are stable. General: The patient appeared well nourished and normally developed. HEENT: Head exam is unremarkable. Neck is without jugular venous distension. LUNGS: Lungs are clear to auscultation and percussion. Breath sounds decreased. HEART: Rate and Rhythm are regular. First and second heart sounds normal. No mur murs, rubs or gallops. ABDOMEN: Abdominal exam reveals normal bowel sounds. Non-tender and non-dist ended. No evidence of peritonitis. EXTREMITITES: No clubbing, cyanosis, or edema. Objective - Vital Signs Vital signs: Vital Signs Temp 98.1 F 01/08/20 05:04 Pulse 79 01/08/20 05:04 Resp 18 01/08/20 05:04 BP 149/65 01/08/20 05:04 Pulse Ox 91 L 01/08/20 05:04 Intake & Output 01/07/20 01/08/20 01/08/20 18:59 06:59 18:59 Intake Total 400 1800 Balance 400 1800 Intake: Intake, IV Titration 400 600 Amount Sodium Chloride 0.9% 1, 400 600 000 ml @ 50 mls/hr IV . Q20H [facility] Rx#:[id number] Oral 1200 Other: Voiding Method Toilet Toilet Toilet # Voids 1 - Labs CBC & Chem 7: 01/05/20 20:44 01/08/20 08:58 Labs: Abnormal Lab Results - Last 24 Hours (Table) 01/08/20 01/08/20 01/08/20 Range/Units 07:13 08:58 11:38 BUN 45 H (7-17) mg/dL Creatinine 2.41 H (0.52-1.04) mg/dL Glucose 131 H (74-99) mg/dL POC Glucose (mg/dL) 125 H 127 H (75-99) mg/dL Assessment and Plan Plan: Assessment: 1. Chronic kidney disease stage III with baseline creatinine in the range of 1.5-1.7. However need to establish new baseline as she underwent right-sided nephrectomy on January 05. Creatinine 2.41 today. 2. Right kidney mass status post nephrectomy. 3. Metabolic acidosis secondary to chronic kidney disease maintained on oral sodium bicarbonate. Better. 4. Mild hyperkalemia secondary to chronic kidney disease and metabolic acidosis. Patient is also on losartan. Improved. 5. Insulin-dependent diabetes mellitus. 6. Primary hyperparathyroidism maintained on Sensipar. Patient has an appoin tment with surgery outpatient for possible parathyroidectomy. Calcium level stable. 7. Hypertension with chronic kidney disease. Controlled. Plan: Encouraged oral intake. Repeat electrolytes in the morning. Avoid nephrotoxins. Maintain gentle hydration. Continue to hold diuretics.
--- NOTE | 2020-01-08 16:13 | P.PN ---
Subjective Progress Note Date: 01/08/20 Principal diagnosis: right sided renal mass POD #3 S/P Right sided radical nephrectomy No acute overnight events, pain is controlled. Denies any nausea and vomiting. is ambulating and passing flatus Objective - Vital Signs Vital signs: Vital Signs Temp 98.4 F 01/08/20 11:30 Pulse 82 01/08/20 11:30 Resp 18 01/08/20 11:30 BP 167/83 01/08/20 11:30 Pulse Ox 95 01/08/20 11:30 Intake & Output 01/07/20 01/08/20 01/08/20 18:59 06:59 18:59 Intake Total 400 1800 400 Balance 400 1800 400 Intake: Intake, IV Titration 400 600 400 Amount Sodium Chloride 0.9% 1, 400 600 400 000 ml @ 50 mls/hr IV . Q20H [facility] Rx#:[id number] Oral 1200 Other: Voiding Method Toilet Toilet Toilet # Voids 1 - Constitutional General appearance: Present: no acute distress, obese - Gastrointestinal General gastrointestinal: Present: soft. Absent: distended, tenderness - Psychiatric Psychiatric: Present: A&O x's 3 - Labs CBC & Chem 7: 01/05/20 20:44 01/08/20 08:58 Labs: Abnormal Lab Results - Last 24 Hours (Table) 01/08/20 01/08/20 01/08/20 Range/Units 07:13 08:58 11:38 BUN 45 H (7-17) mg/dL Creatinine 2.41 H (0.52-1.04) mg/dL Glucose 131 H (74-99) mg/dL POC Glucose (mg/dL) 125 H 127 H (75-99) mg/dL Assessment and Plan Assessment: POD #3 S/P right sided radical nephrectomy Plan: -ambulate -We will recheck her Chem-7, if creating stable will discharge home tomorrow
[2020-01-08 17:04] LABS: Glucose,Whole Blood 155 mg/dL (75-99)
[2020-01-08 20:19] LABS: Glucose,Whole Blood 78 mg/dL (75-99)
[2020-01-08] MEDS: ATORVASTATIN 10 MG TAB PO SCH (21:02)
--- NOTE | 2020-01-08 21:13 | PN ---
PROGRESS NOTE CHIEF COMPLAINT: Status post right nephrectomy. HISTORY OF PRESENT ILLNESS: This lady is doing a lot better today. She is not nauseated. She is passing gas. Vital signs are normal. PHYSICAL EXAMINATION: Color is good. Chest is clear. Cardiac exam is normal. Abdomen is soft and bowel sounds are present. IMPRESSION: 1. Status post right nephrectomy. 2. Hypertension. 3. Diabetes. PLAN: Progress activity and diet and await for further recommendations from Urology. MMODL / IJN: [id number] /
[2020-01-09] MEDS: SODIUM CHLORIDE 0.9% 1,000 ML IV SCH (05:45)
[2020-01-09 07:06] LABS: Glucose,Whole Blood 98 mg/dL (75-99)
[2020-01-09] MEDS: SODIUM BICARBONATE TAB 650 MG TAB PO SCH (08:41)
[2020-01-09] MEDS: HEPARIN SODIUM,PORCINE 5,000 UNIT/ML 1 ML VIAL SQ SCH (08:41)
[2020-01-09] MEDS: amLODIPine 10 MG TAB PO SCH (08:42)
[2020-01-09] MEDS: buPROPion SR 150 MG TABLET.ER PO SCH (08:42)
[2020-01-09] MEDS: LOSARTAN 50 MG TAB PO SCH (08:42)
[2020-01-09] MEDS: ALLOPURINOL 100 MG TAB PO SCH (08:42)
[2020-01-09] MEDS: hydrALAZINE HCL 50 MG TAB PO SCH (08:42)
[2020-01-09] MEDS: METOPROLOL TARTRATE 50 MG TAB PO SCH (08:43)
[2020-01-09] MEDS: METHOCARBAMOL 750 MG TAB PO SCH ×2 (08:43→12:35)
[2020-01-09] MEDS: OXYBUTYNIN XL 5 MG TAB.ER.24 PO SCH (08:43)
[2020-01-09] MEDS: PANTOPRAZOLE 40 MG TABLET PO SCH (08:45)
[2020-01-09] MEDS: INSULN ASP PRT/INSULIN ASPART 100 UNIT/ML 10 ML VIAL SQ SCH ×2 (08:45→12:19)
[2020-01-09 11:08] LABS: Glucose,Whole Blood 108 mg/dL (75-99)
[2020-01-09 11:43] VITALS: BP 173/73; PULSE 74; RESP 17; TEMP 97.5
--- NOTE | 2020-01-09 12:35 | P.PN ---
Subjective Progress Note Date: 01/09/20 Follow-up for acute kidney injury on chronic kidney disease. Feels better today. No nausea vomiting diarrhea. Objective - Vital Signs Vital signs: Vital Signs Temp 97.5 F L 01/09/20 11:08 Pulse 74 01/09/20 11:08 Resp 17 01/09/20 11:08 BP 173/73 01/09/20 11:08 Pulse Ox 94 L 01/09/20 11:08 Intake & Output 01/08/20 01/09/20 01/09/20 18:59 06:59 18:59 Intake Total 400 600 Balance 400 600 Intake: Intake, IV Titration 400 600 Amount Sodium Chloride 0.9% 1, 400 600 000 ml @ 50 mls/hr IV . Q20H [facility] Rx#:[id number] Other: Voiding Method Toilet Toilet Toilet # Voids 1 - Exam No acute distress S1-S2 heard Lungs clear No edema - Labs CBC & Chem 7: 01/05/20 20:44 01/08/20 08:58 Labs: Abnormal Lab Results - Last 24 Hours (Table) 01/08/20 01/09/20 Range/Units 17:03 11:06 POC Glucose (mg/dL) 155 H 108 H (75-99) mg/dL Assessment and Plan Assessment: #1 acute kidney injury with rising creatinine. No new labs to compare today. #2 chronic kidney disease stage III with a baseline of 1.5-1.7 MG per DL. Unclear baseline because of recent nephrectomy. #3 metabolic acidosis #4 primary hyperparathyroidism on Sensipar #5 hypertension with chronic kidney disease #6 right nephrectomy Plan: #1 no new labs today. She admits she is going home today. 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 Fernández as outpatient in a week. #2 hold losartan and diuretics at discharge #3 avoid nephrotoxic agents and hypotensive episodes #4 if stays in the hospital. Check labs in the morning
--- NOTE | 2020-01-09 13:06 | P.DS ---
Providers Date of admission: 01/08/20 15:44 Attending physician: Mane Moran MD Consults: 01/05/20 14:43 Consult Physician Routine Consulting Provider: Irwin Fernández Consult Reason/Comments: CKD, underwent Nephrectomy Do you want consulting provider notified?: Yes 01/07/20 12:03 Consult Physician Routine Consulting Provider: Kong Barbosa Consult Reason/Comments: medical management Do you want consulting provider notified?: Yes Primary care physician: Kong Barbosa Hospital Course: Ms. Reynolds is 69 yo female with hx of right sided renal mass she underwent a robotic radical nephrectomy on 2. Case uncomplicated, please see op note dated 2 for full surgery details. She was admitted to the floor post operatively. Goldberg was removed on POD #1. She was prolonged hospital course secondary to her Oxygen requirement and her CKD. She was discharged home on POD #4. At time of discharge she was tolerating diet, ambulating and pain was controlled. At time of her discharge her creat stabalized at 2.4 Patient Condition at Discharge: Good Plan - Discharge Summary Discharge Rx Participant: No New Discharge Prescriptions: Discontinued Furosemide [Lasix] 40 mg PO DAILY Losartan Potassium [Cozaar] 100 mg PO DAILY No Action buPROPion HCL [Wellbutrin SR] 150 mg PO Q12H Simvastatin [Zocor] 20 mg PO HS ALPRAZolam [Xanax] 0.25 mg PO DAILY PRN PRN Reason: Anxiety Omeprazole 20 mg PO DAILY Metoprolol Tartrate [Lopressor] 100 mg PO BID hydrALAZINE HCL [Apresoline] 50 mg PO TID Potassium Chloride [Klor-Con 10] 10 meq PO DAILY Insulin Lispro Protamin/Lispro [humaLOG Mix 75-25 Kwikpen] 42 unit SQ AC-TID flavoxATE HCL [Flavoxate HCl] 200 mg PO TID amLODIPine BESYLATE 10 mg PO DAILY Cinacalcet [Sensipar] 30 mg PO MOTU Zolpidem [Ambien] 5 mg PO HS PRN PRN Reason: Insomnia Allopurinol [Zyloprim] 100 mg PO DAILY Discharge Medication List ALPRAZolam [Xanax] 0.25 mg PO DAILY PRN 12/31/19 [History] Allopurinol [Zyloprim] 100 mg PO DAILY 12/31/19 [History] Cinacalcet [Sensipar] 30 mg PO MOTU 12/31/19 [History] Insulin Lispro Protamin/Lispro [humaLOG Mix 75-25 Kwikpen] 42 unit SQ AC-TID 12/31/19 [History] Metoprolol Tartrate [Lopressor] 100 mg PO BID 12/31/19 [History] Omeprazole 20 mg PO DAILY 12/31/19 [History] Potassium Chloride [Klor-Con 10] 10 meq PO DAILY 12/31/19 [History] Simvastatin [Zocor] 20 mg PO HS 12/31/19 [History] Zolpidem [Ambien] 5 mg PO HS PRN 12/31/19 [History] amLODIPine BESYLATE 10 mg PO DAILY 12/31/19 [History] buPROPion HCL [Wellbutrin SR] 150 mg PO Q12H 12/31/19 [History] flavoxATE HCL [Flavoxate HCl] 200 mg PO TID 12/31/19 [History] hydrALAZINE HCL [Apresoline] 50 mg PO TID 12/31/19 [History] Follow up Appointment(s)/Referral(s): Irwin Fernández DO [STAFF PHYSICIAN] - 1 Week Mane Moran MD [STAFF PHYSICIAN] - 1 Week Activity/Diet/Wound Care/Special Instructions: You may shower, but no baths No heavy lifting or straining for 6 weeks Stop taking your Lasix and Losartan, Follow up with Dr Woods to discuss management of your hypertension medications
--- NOTE | 2020-01-09 16:14 | PN ---
PROGRESS NOTE CHIEF COMPLAINT: Status post right nephrectomy. HISTORY OF PRESENT ILLNESS: This lady is doing well. She has not had a bowel movement yet, but she is passing gas. Pain is under good control and she has no nausea. She expects to go home today. PHYSICAL EXAMINATION: Color is good and chest is clear. Cardiac exam is normal. The abdomen is soft and bowel sounds are present. IMPRESSION: 1. Status post right nephrectomy. 2. Insulin-dependent diabetes mellitus. 3. Hypertension. PLAN: Go home today and we will follow her up some time this week. MMODL / IJN: [id number] /
== END 2020-01-09 14:00 | disposition home or self-care (01) | DRG 657 ==
LOC: OR 10:23 → 5NMEDONC 16:49 → OR 01-07 09:01 → OBSVTOIN 01-07 09:01 → 5NMEDONC 01-07 09:01 → INTOOBSV 01-07 09:01 → OBSVTOIN 01-08 15:44
PROVIDERS: ADMIT Urology; ATTEND Urology
PROC: 8E0W4CZ Robotic Assisted Procedure of Trunk Region, Percutaneous Endoscopic Approach (ICD-10-PCS; 2020-01-05)
PROC: 0TT04ZZ Resection of Right Kidney, Percutaneous Endoscopic Approach (ICD-10-PCS; principal; 2020-01-05 11:55)
DX: C64.1 Malignant neoplasm of right kidney, except renal pelvis (principal); E87.2 Acidosis; N17.9 Acute kidney failure, unspecified; Z68.41 Body mass index [BMI] 40.0-44.9, adult; E11.22 Type 2 diabetes mellitus with diabetic chronic kidney disease; E21.0 Primary hyperparathyroidism; E78.5 Hyperlipidemia, unspecified; E87.5 Hyperkalemia; I12.9 Hypertensive chronic kidney disease with stage 1 through stage 4 chronic kidney disease, or unspecified chronic kidney disease; N18.3 Chronic kidney disease, stage 3 (moderate); Z79.4 Long term (current) use of insulin; Z79.899 Other long term (current) drug therapy; Z80.8 Family history of malignant neoplasm of other organs or systems; Z88.8 Allergy status to other drugs, medicaments and biological substances; Z98.51 Tubal ligation status; E66.3 Overweight
CPT/HCPCS: 64486; 80048; 82947; 83735; 85027; 86850; 86900; 86901; 88305; 88307

== ENCOUNTER 2020-01-10 17:36 | Inpatient (IN) | payer MEDICARE ==
[2020-01-10] MEDS ORDERED: SODIUM CHLORIDE 0.9% 1,000 ML IV STA ×2 (18:20)
[2020-01-10] MEDS ORDERED: ACETAMINOPHEN TAB 500 MG TAB PO STA (18:20)
[2020-01-10] MEDS ORDERED: SODIUM CHLORIDE 0.9% 500 ML 500 ML IV STA (18:20)
[2020-01-10] MEDS ORDERED: IBUPROFEN 600 MG TAB PO STA (18:20)
--- NOTE | 2020-01-10 18:20 | ED ---
Fever HPI - General Chief Complaint: Nausea/Vomiting/Diarrhea Stated Complaint: vomiting Time Seen by Provider: 01/10/20 17:49 Source: patient, RN notes reviewed, old records reviewed Mode of arrival: wheelchair Limitations: no limitations - History of Present Illness Initial Comments: This is a 29-year-old female DF for evaluation not feeling well dehydration fever or chills sweats. Patient is positive medical history for recent kidney surgery secondary to tumor mass. Patient is also a cough and occasional shortness of breath. No abdominal pain currently no dysuria no rashes noted. No known sick contacts aside from the recent inpatient hospitalization. MD Complaint: fever, malaise, weakness -: days(s) Temperature Source: subjective Context: recent procedure Associated Symptoms: chills, myalgias, cough Treatments Prior to Arrival: none - Related Data Home Medications Medication Instructions Recorded Confirmed ALPRAZolam [Xanax] 0.25 mg PO DAILY PRN 12/31/19 12/31/19 Allopurinol [Zyloprim] 100 mg PO DAILY 12/31/19 12/31/19 Cinacalcet [Sensipar] 30 mg PO MOTU 12/31/19 12/31/19 Insulin Lispro Protamin/Lispro 42 unit SQ AC-TID 12/31/19 12/31/19 [humaLOG Mix 75-25 Kwikpen] Metoprolol Tartrate [Lopressor] 100 mg PO BID 12/31/19 12/31/19 Omeprazole 20 mg PO DAILY 12/31/19 12/31/19 Potassium Chloride [Klor-Con 10] 10 meq PO DAILY 12/31/19 12/31/19 Simvastatin [Zocor] 20 mg PO HS 12/31/19 12/31/19 Zolpidem [Ambien] 5 mg PO HS PRN 12/31/19 12/31/19 amLODIPine BESYLATE 10 mg PO DAILY 12/31/19 12/31/19 buPROPion HCL [Wellbutrin SR] 150 mg PO Q12H 12/31/19 12/31/19 flavoxATE HCL [Flavoxate HCl] 200 mg PO TID 12/31/19 12/31/19 hydrALAZINE HCL [Apresoline] 50 mg PO TID 12/31/19 12/31/19 Allergies Allergy/AdvReac Type Severity Reaction Status Date / Time MILAGRO Inhibitors Allergy Cough Verified 01/10/20 17:46 clonidine [From Catapres] Allergy Cough Verified 01/10/20 17:46 hydrochlorothiazide Allergy Cough Verified 01/10/20 17:46 [From HydroDiuril] pseudoephedrine Allergy Rash/Hives Verified 01/10/20 17:46 angiotensin receptor blockers Allergy Cough Uncoded 01/10/20 17:46 Review of Systems ROS Statement: Those systems with pertinent positive or pertinent negative responses have been documented in the HPI. ROS Other: All systems not noted in ROS Statement are negative. Past Medical History Past Medical History: Cancer, Diabetes Mellitus, GERD/Reflux, Hyperlipidemia, Hypertension Additional Past Medical History / Comment(s): rt kidney mass-pt states has kidney cancer History of Any Multi-Drug Resistant Organisms: None Reported Past Surgical History: Tonsillectomy, Tubal Ligation Additional Past Surgical History / Comment(s): right kidney removal Past Anesthesia/Blood Transfusion Reactions: No Reported Reaction Past Psychological History: Depression Smoking Status: Never smoker Past Alcohol Use History: None Reported Past Drug Use History: None Reported - Past Family History Mother Family Medical History: Cancer Additional Family Medical History / Comment(s): throat cancer General Exam Limitations: no limitations General appearance: alert, in no apparent distress Head exam: Present: atraumatic, normocephalic, normal inspection Eye exam: Present: normal appearance, PERRL, EOMI. Absent: scleral icterus, conjunctival injection, periorbital swelling ENT exam: Present: normal exam, mucous membranes dry Neck exam: Present: normal inspection. Absent: tenderness, meningismus, lymphadenopathy Respiratory exam: Present: normal lung sounds bilaterally. Absent: respiratory distress, wheezes, rales, rhonchi, stridor Cardiovascular Exam: Present: normal rhythm, tachycardia, normal heart sounds. Absent: systolic murmur, diastolic murmur, rubs, gallop, clicks GI/Abdominal exam: Present: soft, normal bowel sounds. Absent: distended, tenderness, guarding, rebound, rigid Extremities exam: Present: normal inspection, full ROM, normal capillary refill. Absent: tenderness, pedal edema, joint swelling, calf tenderness Back exam: Present: normal inspection Neurological exam: Present: alert, oriented X3, CN II-XII intact Psychiatric exam: Present: normal affect, normal mood Skin exam: Present: warm, dry, intact, normal color. Absent: rash Course Vital Signs 01/10/20 01/10/20 17:40 19:17 Temperature 102.7 F H 98.5 F Pulse Rate 109 H 100 Respiratory 20 18 Rate Blood Pressure 160/84 169/56 O2 Sat by Pulse 92 L 93 L Oximetry - Reevaluation(s) Reevaluation #1: 01/10/20 18:20 Medical record is reviewed Reevaluation #2: 01/10/20 20:09 Patient's symptoms are improved with IV hydration and fever control Reevaluation #3: 01/10/20 20:09 We'll treat patient with antibiotics secondary to cough, patient is also positive for flu - Consultations Consultation #1: Spoke with Dr. Barbosa regarding admission, he is agreeable Medical Decision Making - Medical Decision Making 69 female to the ED for eval. Fever. Patient was placed on IV antibiotics to possible underlying symptomatic pneumonia as well as treatment for flu. - Lab Data Result diagrams: 01/10/20 18:33 01/10/20 18:33 Lab Results 01/10/20 01/10/20 01/10/20 Range/Units 18:33 18:33 18:33 WBC 9.7 (3.8-10.6) k/uL RBC 3.72 L (3.80-5.40) m/uL Hgb 10.8 L (11.4-16.0) gm/dL Hct 34.1 (34.0-46.0) % MCV 91.6 (80.0-100.0) fL MCH 29.0 (25.0-35.0) pg MCHC 31.6 (31.0-37.0) g/dL RDW 15.4 (11.5-15.5) % Plt Count 221 (150-450) k/uL Neutrophils % 87 % Lymphocytes % 3 % Monocytes % 7 % Eosinophils % 0 % Basophils % 1 % Neutrophils # 8.4 H (1.3-7.7) k/uL Lymphocytes # 0.3 L (1.0-4.8) k/uL Monocytes # 0.7 (0-1.0) k/uL Eosinophils # 0.0 (0-0.7) k/uL Basophils # 0.1 (0-0.2) k/uL PT (9.0-12.0) sec INR (<1.2) APTT (22.0-30.0) sec Sodium 137 (137-145) mmol/L Potassium 4.2 (3.5-5.1) mmol/L Chloride 107 (98-107) mmol/L Carbon Dioxide 21 L (22-30) mmol/L Anion Gap 9 mmol/L BUN 29 H (7-17) mg/dL Creatinine 2.02 H (0.52-1.04) mg/dL Est GFR (CKD-EPI)AfAm 28 (>60 ml/min/1.73 sqM) Est GFR (CKD-EPI)NonAf 24 (>60 ml/min/1.73 sqM) Glucose 175 H (74-99) mg/dL Plasma Lactic Acid Bryn 2.3 H* (0.7-2.0) mmol/L Calcium 9.6 (8.4-10.2) mg/dL Phosphorus 1.8 L (2.5-4.5) mg/dL Magnesium 1.7 (1.6-2.3) mg/dL Total Bilirubin 1.0 (0.2-1.3) mg/dL AST 41 H (14-36) U/L ALT 20 (4-34) U/L Alkaline Phosphatase 130 H (38-126) U/L Troponin I (0.000-0.034) ng/mL NT-Pro-B Natriuret Pep pg/mL Total Protein 6.5 (6.3-8.2) g/dL Albumin 3.3 L (3.5-5.0) g/dL Influenza Type A RNA (Not Detectd) Influenza Type B (PCR) (Not Detectd) 01/10/20 01/10/20 01/10/20 Range/Units 18:33 18:33 18:33 WBC (3.8-10.6) k/uL RBC (3.80-5.40) m/uL Hgb (11.4-16.0) gm/dL Hct (34.0-46.0) % MCV (80.0-100.0) fL MCH (25.0-35.0) pg MCHC (31.0-37.0) g/dL RDW (11.5-15.5) % Plt Count (150-450) k/uL Neutrophils % % Lymphocytes % % Monocytes % % Eosinophils % % Basophils % % Neutrophils # (1.3-7.7) k/uL Lymphocytes # (1.0-4.8) k/uL Monocytes # (0-1.0) k/uL Eosinophils # (0-0.7) k/uL Basophils # (0-0.2) k/uL PT 10.3 (9.0-12.0) sec INR 1.0 (<1.2) APTT 19.3 L (22.0-30.0) sec Sodium (137-145) mmol/L Potassium (3.5-5.1) mmol/L Chloride (98-107) mmol/L Carbon Dioxide (22-30) mmol/L Anion Gap mmol/L BUN (7-17) mg/dL Creatinine (0.52-1.04) mg/dL Est GFR (CKD-EPI)AfAm (>60 ml/min/1.73 sqM) Est GFR (CKD-EPI)NonAf (>60 ml/min/1.73 sqM) Glucose (74-99) mg/dL Plasma Lactic Acid Bryn (0.7-2.0) mmol/L Calcium (8.4-10.2) mg/dL Phosphorus (2.5-4.5) mg/dL Magnesium (1.6-2.3) mg/dL Total Bilirubin (0.2-1.3) mg/dL AST (14-36) U/L ALT (4-34) U/L Alkaline Phosphatase (38-126) U/L Troponin I 0.089 H* (0.000-0.034) ng/mL NT-Pro-B Natriuret Pep 08178 pg/mL Total Protein (6.3-8.2) g/dL Albumin (3.5-5.0) g/dL Influenza Type A RNA (Not Detectd) Influenza Type B (PCR) (Not Detectd) 01/10/20 Range/Units 18:46 WBC (3.8-10.6) k/uL RBC (3.80-5.40) m/uL Hgb (11.4-16.0) gm/dL Hct (34.0-46.0) % MCV (80.0-100.0) fL MCH (25.0-35.0) pg MCHC (31.0-37.0) g/dL RDW (11.5-15.5) % Plt Count (150-450) k/uL Neutrophils % % Lymphocytes % % Monocytes % % Eosinophils % % Basophils % % Neutrophils # (1.3-7.7) k/uL Lymphocytes # (1.0-4.8) k/uL Monocytes # (0-1.0) k/uL Eosinophils # (0-0.7) k/uL Basophils # (0-0.2) k/uL PT (9.0-12.0) sec INR (<1.2) APTT (22.0-30.0) sec Sodium (137-145) mmol/L Potassium (3.5-5.1) mmol/L Chloride (98-107) mmol/L Carbon Dioxide (22-30) mmol/L Anion Gap mmol/L BUN (7-17) mg/dL Creatinine (0.52-1.04) mg/dL Est GFR (CKD-EPI)AfAm (>60 ml/min/1.73 sqM) Est GFR (CKD-EPI)NonAf (>60 ml/min/1.73 sqM) Glucose (74-99) mg/dL Plasma Lactic Acid Bryn (0.7-2.0) mmol/L Calcium (8.4-10.2) mg/dL Phosphorus (2.5-4.5) mg/dL Magnesium (1.6-2.3) mg/dL Total Bilirubin (0.2-1.3) mg/dL AST (14-36) U/L ALT (4-34) U/L Alkaline Phosphatase (38-126) U/L Troponin I (0.000-0.034) ng/mL NT-Pro-B Natriuret Pep pg/mL Total Protein (6.3-8.2) g/dL Albumin (3.5-5.0) g/dL Influenza Type A RNA Detected H (Not Detectd) Influenza Type B (PCR) Not Detected (Not Detectd) - EKG Data -: EKG Interpreted by Me (EKG shows sinus tachycardia 116, MI 160, QRS 86, QTc 439) - Radiology Data Radiology results: report reviewed (Chest x-rays negative for significant acute disease maybe some atelectasis versus effusion), image reviewed Disposition Clinical Impression: Fever, Postoperative fever, Influenza A Disposition: ADMITTED IP TO THIS HOSP Condition: Fair Is patient prescribed a controlled substance at d/c from ED?: No Referrals: Kong Barbosa MD [Primary Care Provider] - 1-2 days
[2020-01-10 18:54] LABS: Basophils # (A) 0.1 k/uL (0-0.2); Basophils % (A) 1 %; Eosinophils % (A) 0 %; HCT 34.1 % (34.0-46.0); HGB 10.8 gm/dL (11.4-16.0); Lymphocytes # (A) 0.3 k/uL (1.0-4.8); Lymphocytes % (A) 3 %; MCHC 31.6 g/dL (31.0-37.0); MCV 91.6 fL (80.0-100.0); Mean Platelet Volume 7.4; Monocytes # (A) 0.7 k/uL (0-1.0); Monocytes % (A) 7 %; Neutrophils # (A) 8.4 k/uL (1.3-7.7); Neutrophils % (A) 87 %; Platelet Count 221 k/uL (150-450); RBC 3.72 m/uL (3.80-5.40); RDW 15.4 % (11.5-15.5); WBC 9.7 k/uL (3.8-10.6)
[2020-01-10 19:07] LABS: Potassium 4.2 mmol/L (3.5-5.1)
[2020-01-10 19:08] LABS: Albumin 3.3 g/dL (3.5-5.0); Calcium 9.6 mg/dL (8.4-10.2); Magnesium 1.7 mg/dL (1.6-2.3); Phosphorus 1.8 mg/dL (2.5-4.5); Total Protein 6.5 g/dL (6.3-8.2)
--- NOTE | 2020-01-10 19:13 | XR ---
EXAMINATION TYPE: XR chest 2V DATE OF EXAM: 01/10/2020 COMPARISON: 12/29/2019 HISTORY: Short of breath TECHNIQUE: 2 views FINDINGS: There is no heart failure nor confluent pneumonic infiltrate. There is some pleural reactio n at the posterior lung bases. Bony thorax is intact. There are no hilar masses. IMPRESSION: There is new mild pleural reaction or fluid at the lung bases compared to last exam. No o bvious heart failure.
[2020-01-10 19:14] LABS: Prothrombin Time 10.3 sec (9.0-12.0)
[2020-01-10 19:17] LABS: Partial Thromboplastin Time 19.3 sec (22.0-30.0)
[2020-01-10] MEDS ORDERED: PIPERACILLIN-TAZOBACTAM 3.375 GM in SODIUM CHLORIDE 0.9% 100 ML IVPB STA (20:07)
[2020-01-10] MEDS ORDERED: LEVOFLOXACIN 750MG-D5W PMX 750 MG in DEXTROSE/WATER 1 150ML.BAG IVPB STA (20:07)
[2020-01-10] MEDS ORDERED: PNEUMONIA PROTOCOL UTILIZED 1 EACH MISC PO PRN (20:07)
[2020-01-10] MEDS ORDERED: OSELTAMIVIR 75 MG CAP PO STA (20:08)
[2020-01-10] MEDS ORDERED: ACETAMINOPHEN TAB 325 MG TAB PO PRN (20:09)
[2020-01-10 22:07] LABS: Appearance,Urine Clear (Clear); Bilirubin,Urine Negative (Negative); Blood,Urine Negative (Negative); Color,Urine Yellow; Glucose,Urine (UA) Negative (Negative); Hyaline Casts,Urine 1 /lpf (0-2); Ketones,Urine Trace (Negative); Leukocyte Esterase,Urine Small (Negative); Mucus,Urine Rare /hpf; Nitrite,Urine Negative (Negative); PH, Urine 5.5 (5.0-8.0); Protein,Urine 1+ (Negative); RBC,Urine 1 /hpf (0-5); Specific Gravity,Urine 1.014 (1.001-1.035); Squamous Epithelial Cell,Urine 3 /hpf (0-4); Urobilinogen,Urine <2.0 mg/dL (<2.0); WBC,Urine 1 /hpf (0-5)
[2020-01-10] MEDS: IPRATROPIUM-ALBUTEROL 3 ML NEB INHALATION PRN (22:14)
--- NOTE | 2020-01-10 23:24 | US ---
EXAMINATION TYPE: US venous doppler duplex LE DATE OF EXAM: 01/10/2020 10:51 PM COMPARISON: NONE CLINICAL HISTORY: PE. SOB SIDE PERFORMED: Bilateral TECHNIQUE: The lower extremity deep venous system is examined utilizing real time linear array sonog nikolas with graded compression, doppler sonography and color-flow sonography. VESSELS IMAGED: External Iliac Vein (EIV) Common Femoral Vein Deep Femoral Vein Greater Saphenous Vein * Femoral Vein Popliteal Vein Small Saphenous Vein * Proximal Calf Veins (* superficial vessels) Morbidly obese pt, difficult exam Bilateral popliteal vein compressions unable to be clearly visualized due to pt's large size, color flow visualized Right Leg: Negative for DVT Left Leg: Negative for DVT IMPRESSION: No evidence of deep venous thrombosis in both legs.
[2020-01-11] MEDS ORDERED: buPROPion SR 150 MG TABLET.ER PO SCH (04:00)
[2020-01-11] MEDS: hydrALAZINE HCL 50 MG TAB PO SCH ×4 (04:03→20:46)
[2020-01-11] MEDS: METOPROLOL TARTRATE 50 MG TAB PO SCH ×3 (04:03→20:46)
[2020-01-11 04:07] LABS: Glucose,Whole Blood 143 mg/dL (75-99)
[2020-01-11] MEDS: IPRATROPIUM-ALBUTEROL 3 ML NEB INHALATION PRN ×3 (06:13→15:06)
[2020-01-11 07:20] LABS: Glucose,Whole Blood 114 mg/dL (75-99)
[2020-01-11 07:27] LABS: Basophils # (A) 0.1 k/uL (0-0.2); Basophils % (A) 2 %; Eosinophils # (A) 0.1 k/uL (0-0.7); Eosinophils % (A) 1 %; HCT 32.8 % (34.0-46.0); HGB 10.3 gm/dL (11.4-16.0); Hypochromasia Slight; Lymphocytes # (A) 0.4 k/uL (1.0-4.8); Lymphocytes % (A) 5 %; MCH 28.8 pg (25.0-35.0); MCHC 31.2 g/dL (31.0-37.0); MCV 92.4 fL (80.0-100.0); Mean Platelet Volume 7.6; Monocytes # (A) 0.6 k/uL (0-1.0); Monocytes % (A) 7 %; Neutrophils # (A) 6.7 k/uL (1.3-7.7); Neutrophils % (A) 83 %; Platelet Count 205 k/uL (150-450); RBC 3.55 m/uL (3.80-5.40); RDW 15.5 % (11.5-15.5)
[2020-01-11] MEDS: INSULIN ASPART (NovoLOG) 100 UNIT/ML VIAL SQ SCH ×4 (08:08→20:48)
[2020-01-11] MEDS: INSULN ASP PRT/INSULIN ASPART 100 UNIT/ML 10 ML VIAL SQ SCH ×3 (08:11→17:23)
[2020-01-11] MEDS: PIPERACILLIN-TAZOBACTAM 3.375 GM in SODIUM CHLORIDE 0.9% 100 ML IVPB SCH ×2 (08:11→17:30)
[2020-01-11] MEDS: OXYBUTYNIN 15 MG TAB.ER.24 PO SCH (08:12)
[2020-01-11] MEDS: PANTOPRAZOLE 40 MG TABLET PO SCH (08:12)
[2020-01-11] MEDS: POTASSIUM CHLORIDE ER 10 MEQ TAB.ER.PRT PO SCH (08:12)
[2020-01-11] MEDS: buPROPion SR 150 MG TABLET.ER PO SCH ×2 (08:12→20:46)
[2020-01-11] MEDS: ALLOPURINOL 100 MG TAB PO SCH (08:12)
[2020-01-11] MEDS: amLODIPine 10 MG TAB PO SCH (08:12)
[2020-01-11] MEDS: CINACALCET 30 MG TAB PO SCH (08:12)
[2020-01-11] MEDS ORDERED: OSELTAMIVIR 75 MG CAP PO SCH (09:00)
[2020-01-11 12:01] LABS: Glucose,Whole Blood 132 mg/dL (75-99)
--- NOTE | 2020-01-11 13:25 | XR ---
EXAMINATION TYPE: XR chest 2V DATE OF EXAM: 01/11/2020 COMPARISON: 01/10/2020 TECHNIQUE: PA and lateral views submitted. HISTORY: Cough FINDINGS: There is a left perihilar and lower lobe infiltrate with small effusion. Increased interstitium. Biap ical pleural thickening. Heart is enlarged. Atherosclerotic change aorta. IMPRESSION: 1. Correlate for CHF otherwise consider pneumonia.
--- NOTE | 2020-01-11 13:25 | NM ---
EXAMINATION TYPE: NM pul vent and perfuse DATE OF EXAM: 01/11/2020 COMPARISON: Chest x-ray 01/11/2020 HISTORY: Shortness of breath TECHNIQUE: Utilizing inhalation of 37.5 mCi Tc 99m DTPA aerosol and intravenous injection of 5.3 mCi of Tc 99m MAA, ventilation and perfusion images are acquired post injection in multiple projections. FINDINGS: Exam limited by reduced radiotracer uptake and ventilation images. There appears to be matched defect in the left upper lobe. IMPRESSION: Limited exam with triple match involving the left lung suggestive of intermediate probability for pul monary embolism
[2020-01-11 17:13] LABS: Glucose,Whole Blood 129 mg/dL (75-99)
[2020-01-11] MEDS: LOSARTAN 50 MG TAB PO SCH (17:31)
[2020-01-11] MEDS: ATORVASTATIN 10 MG TAB PO SCH (20:46)
[2020-01-11 20:49] LABS: Glucose,Whole Blood 132 mg/dL (75-99)
[2020-01-11] MEDS ORDERED: LEVOFLOXACIN 750MG-D5W PMX 750 MG in DEXTROSE/WATER 1 150ML.BAG IVPB SCH (21:00)
[2020-01-11 21:55] LABS: Potassium 4.4 mmol/L (3.5-5.1)
--- NOTE | 2020-01-11 23:04 | PN ---
PROGRESS NOTE CHIEF COMPLAINT: Dehydration, influenza and intractable nausea and vomiting. HISTORY OF PRESENT ILLNESS: This lady is still quite nauseated and throwing up. She has had no melena, hematochezia or diarrhea. PHYSICAL EXAMINATION: She is still dehydrated. Mucous membranes are dry. Neck is supple. Chest is clear. Cardiac exam demonstrates tachycardia and the abdomen is soft and nontender. Bowel sounds are present and slightly hyperactive. Extremities are normal. IMPRESSION: 1. Influenza A. 2. Intractable nausea and vomiting. 3. Dehydration. 4. Type 2 diabetes. PLAN: Continue with IV fluids and antiemetics. MMODL / IJN: [id number] /
--- NOTE | 2020-01-11 23:04 | HP ---
HISTORY AND PHYSICAL CHIEF COMPLAINT: Fever, cough, chills, nausea and vomiting. HISTORY OF PRESENT ILLNESS: This is another admission for this 69-year-old white female who just went home 2 or 3 days ago after a right nephrectomy for renal cell carcinoma. She went home and did well for a day or so, then developed cough, fever, chills, headache, myalgias, nausea and vomiting. She tested positive for influenza A and was admitted. REVIEW OF SYSTEMS: She has had no neurologic problems, visual or hearing changes, hemoptysis, chest pain, hematemesis, melena, hematochezia, dysuria, frequency, urgency, etc. Blood sugars are elevated. Past medical history, family history, and personal and social histories are all otherwise unremarkable and unchanged from her recent admitting and discharge summaries. PHYSICAL EXAMINATION: Blood pressure is 142/90 with a pulse of 97, respirations 32, and she is afebrile. In general she appeared to be slightly dehydrated. Skin color was normal. Head, ears, eyes, nose, mouth and throat were normal except for coryza. Chest was clear to auscultation. Cardiac exam demonstrated sinus tachycardia and the abdomen was soft and nontender without any masses or visceromegaly. Bowel sounds were present. Extremities were normal. Neurologically she was intact. ADMITTING DIAGNOSES: She is admitted to the hospital with the diagnoses: 1. Influenza A. 2. Intractable nausea and vomiting. 3. Dehydration. 4. Type 2 oau-[id number]-nosqiviyc diabetes mellitus. 5. Status post recent right nephrectomy for renal cell carcinoma. PLAN: 1. Bed rest. 2. IV fluids. 3. Antiemetics. MMODL / SIRENAN: [id number] /
[2020-01-11] MEDS ORDERED: VANCOMYCIN IV PER PHARMACY 1 EACH MISC MISCELLANE PRN (23:32)
--- NOTE | 2020-01-11 23:43 | P.CONS ---
History of Present Illness - Reason for Consult Consult date: 01/11/20 Fever Requesting physician: Kong Barbosa - Chief Complaint cough and fever x few days - History of Present Illness Patient is a 69 year female who is status post right nephrectomy because of for tumor that was done on 01/05/2020 patient subsequently discharged home however the patient now presented back to [facility] yesterday with chief complaints of increasing shortness of breath and cough apparently has symptom has been going on since surgery patient complaining of cough which is mostly moderate in intensity congested with occasional sputum no hemoptysis with associated shortness of breath along with fever and chills, the patient on [facility] did have a fever of 102F she was tachycardic with heart rate 109, the patient white count was not elevated did have a left shift though UA was negative patient influenza A PCR came back positive chest x-ray showing bibasilar infiltrate question of pneumonia the patient has been admitted to the hospital the patient was started on Zosyn and Levaquin patient blood cultures obtained on admission one of them is coming positive gram-positive cocci in chains infectious disease has been consulted for further recommendation regarding antibiotic therapy Review of Systems Positive point has been mentioned in the HPI rest of the systems are negative Past Medical History Past Medical History: Cancer, Diabetes Mellitus, GERD/Reflux, Hyperlipidemia, Hypertension Additional Past Medical History / Comment(s): rt kidney mass-pt states has kidney cancer removed 01/05/2020 History of Any Multi-Drug Resistant Organisms: None Reported Past Surgical History: Tonsillectomy, Tubal Ligation Additional Past Surgical History / Comment(s): right kidney removal Past Anesthesia/Blood Transfusion Reactions: No Reported Reaction Past Psychological History: Depression Smoking Status: Never smoker Past Alcohol Use History: None Reported Past Drug Use History: None Reported - Past Family History Mother Family Medical History: Cancer Additional Family Medical History / Comment(s): throat cancer Medications and Allergies Home Medications Medication Instructions Recorded Confirmed Type ALPRAZolam [Xanax] 0.25 mg PO TID PRN 12/31/19 01/11/20 History Allopurinol [Zyloprim] 100 mg PO DAILY 12/31/19 01/11/20 History Cinacalcet [Sensipar] 30 mg PO MOTU 12/31/19 01/11/20 History Insulin Lispro Protamin/Lispro 42 unit SQ AC-TID 12/31/19 01/11/20 History [humaLOG Mix 75-25 Kwikpen] Metoprolol Tartrate [Lopressor] 100 mg PO BID 12/31/19 01/11/20 History Omeprazole 20 mg PO DAILY 12/31/19 01/11/20 History Potassium Chloride [Klor-Con 10] 10 meq PO DAILY 12/31/19 01/11/20 History Simvastatin [Zocor] 20 mg PO HS 12/31/19 01/11/20 History Zolpidem [Ambien] 5 mg PO HS PRN 12/31/19 01/11/20 History amLODIPine BESYLATE 10 mg PO DAILY 12/31/19 01/11/20 History buPROPion HCL [Wellbutrin SR] 150 mg PO Q12H 12/31/19 01/11/20 History flavoxATE HCL [Flavoxate HCl] 200 mg PO TID 12/31/19 01/11/20 History Furosemide [Lasix] 40 mg PO DAILY 01/11/20 01/11/20 History Losartan Potassium [Cozaar] 100 mg PO DAILY 01/11/20 01/11/20 History hydrALAZINE HCL [Apresoline] 100 mg PO TID 01/11/20 01/11/20 History Allergies Allergy/AdvReac Type Severity Reaction Status Date / Time MILAGRO Inhibitors Allergy Cough Verified 01/11/20 10:49 clonidine [From Catapres] Allergy Cough Verified 01/11/20 10:49 hydrochlorothiazide Allergy Cough Verified 01/11/20 10:49 [From HydroDiuril] pseudoephedrine Allergy Rash/Hives Verified 01/11/20 10:49 angiotensin receptor blockers Allergy Cough Uncoded 01/10/20 17:46 Physical Exam Vitals: Vital Signs Temp Pulse Pulse Pulse Resp BP BP 01/11/20 21:20 98.3 F 99 24 172/63 01/11/20 15:15 98 01/11/20 15:06 98 01/11/20 12:20 98.1 F 90 18 141/75 01/11/20 11:03 88 01/11/20 10:52 86 01/11/20 06:19 84 01/11/20 06:14 84 01/11/20 06:07 98.5 F 84 24 169/77 01/11/20 04:15 102 H 22 01/11/20 03:20 98.0 F 106 H 22 168/82 01/11/20 02:51 98.2 F 87 16 131/49 Pulse Ox 01/11/20 21:20 92 L 01/11/20 15:15 01/11/20 15:06 01/11/20 12:20 92 L 01/11/20 11:03 01/11/20 10:52 01/11/20 06:19 01/11/20 06:14 01/11/20 06:07 91 L 01/11/20 04:15 01/11/20 03:20 93 L 01/11/20 02:51 89 L Intake and Output 01/11/20 01/11/20 01/12/20 14:59 22:59 06:59 Intake Total 900 540 Balance 900 540 Intake: Intake, IV Titration 900 Amount Piperacillin-Tazobactam 3 100 .375 gm In Sodium Chloride 0.9% 100 ml @ 25 mls/hr IVPB Q8HR JASE Rx# :[id number] Sodium Chloride 0.9% 1, 800 000 ml @ 100 mls/hr IV . Q10H STA Rx#:[id number] Oral 540 Other: # Voids 2 1 # Bowel Movements 1 GENERAL DESCRIPTION: An elderly female lying in bed, no distress. No tachypnea or accessory muscle of respiration use. HEENT: Shows Pallor , no scleral icterus. Oral mucous membrane is dry. No pharyngeal erythema or thrush NECK: Trachea central, no thyromegaly. LUNGS: Unlabored breathing. Coarse breath sounds at the bases bilaterally. No wheeze or crackle. HEART: S1, S2, regular rate and rhythm. No loud murmur ABDOMEN: Soft, no tenderness , anterior abdominal wall incision looks clean she did have significant bruising though, no organomegaly EXTREMITIES: No edema of feet. SKIN: No rash, no masses palpable. NEUROLOGICAL: The patient is awake, alert, oriented x3, mood and affect normal. Results CBC & Chem 7: 01/11/20 07:12 01/11/20 21:28 Labs: Abnormal Lab Results - Last 24 Hours (Table) 01/11/20 01/11/20 01/11/20 Range/Units 04:05 07:12 07:14 RBC 3.55 L (3.80-5.40) m/uL Hgb 10.3 L (11.4-16.0) gm/dL Hct 32.8 L (34.0-46.0) % Lymphocytes # 0.4 L (1.0-4.8) k/uL Sodium (137-145) mmol/L Chloride (98-107) mmol/L Carbon Dioxide (22-30) mmol/L BUN (7-17) mg/dL Creatinine (0.52-1.04) mg/dL Glucose (74-99) mg/dL POC Glucose (mg/dL) 143 H 114 H (75-99) mg/dL 01/11/20 01/11/20 01/11/20 Range/Units 11:54 17:02 20:48 RBC (3.80-5.40) m/uL Hgb (11.4-16.0) gm/dL Hct (34.0-46.0) % Lymphocytes # (1.0-4.8) k/uL Sodium (137-145) mmol/L Chloride (98-107) mmol/L Carbon Dioxide (22-30) mmol/L BUN (7-17) mg/dL Creatinine (0.52-1.04) mg/dL Glucose (74-99) mg/dL POC Glucose (mg/dL) 132 H 129 H 132 H (75-99) mg/dL 01/11/20 Range/Units 21:28 RBC (3.80-5.40) m/uL Hgb (11.4-16.0) gm/dL Hct (34.0-46.0) % Lymphocytes # (1.0-4.8) k/uL Sodium 136 L (137-145) mmol/L Chloride 110 H (98-107) mmol/L Carbon Dioxide 17 L (22-30) mmol/L BUN 30 H (7-17) mg/dL Creatinine 1.87 H (0.52-1.04) mg/dL Glucose 125 H (74-99) mg/dL POC Glucose (mg/dL) (75-99) mg/dL Microbiology - Last 24 Hours (Table) 01/10/20 20:35 Blood Culture - Preliminary Blood No Growth after 24 hours 01/10/20 18:33 Blood Culture Gram Stain - Preliminary Blood 01/10/20 18:33 Blood Culture - Final Blood Assessment and Plan Assessment: 1-patient presented to the hospital with sepsis in this patient who did have a fever tachycardia predominately respiratory symptoms in this patient who did have a congested cough with evidence of bilateral pulmonary fitted highly suspicious for pneumonia concern for possible nosocomial pathogen in view of the symptoms started after surgery however community acquired pathogen not excluded 2-patient with a positive blood culture with gram-positive cocci in chains questionably strep pneumo and the source of pneumonia 3-acute influenza A (1) Sepsis Current Visit: Yes Status: Acute Code(s): A41.9 - SEPSIS, UNSPECIFIED ORGANISM SNOMED Code(s): 49367139 (2) Gram-positive bacteremia Current Visit: Yes Status: Acute Code(s): R78.81 - BACTEREMIA SNOMED Code(s): 825366527727 (3) Influenza A Current Visit: Yes Status: Acute Code(s): J10.1 - FLU DUE TO OTH IDENT INFLUENZA VIRUS W OTH RESP MANIFEST SNOMED Code(s): 057494275 Plan: 1- blood cultures will be repeated to document clearance of bacteremia 2-obtain sputum for Gram stain and culture 3-Tamiflu 75 mg by mouth twice a day for 5 days 4-discontinue Zosyn and Levaquin 5-Vancomycin pharmacy to dose target trough of 15 while watching his kidney function and Vanco trough closely 6-Rocephin 2 g daily We will follow on clinical condition and cultures to further adjust medication if needed Thank you for this consultation will follow this patient with you Time with Patient: Greater than 30
[2020-01-12] MEDS ORDERED: VANCOMYCIN 2,000 MG in SODIUM CHLORIDE 0.9% 500 ML 500 ML IVPB ONE (00:30)
[2020-01-12 07:13] LABS: Glucose,Whole Blood 111 mg/dL (75-99)
[2020-01-12] MEDS ORDERED: LEVOFLOXACIN 750MG-D5W PMX 750 MG in DEXTROSE/WATER 1 150ML.BAG IVPB SCH (09:00)
[2020-01-12] MEDS: IPRATROPIUM-ALBUTEROL 3 ML NEB INHALATION PRN ×3 (09:05→22:33)
[2020-01-12] MEDS: INSULIN ASPART (NovoLOG) 100 UNIT/ML VIAL SQ SCH ×4 (09:12→21:53)
[2020-01-12] MEDS: INSULN ASP PRT/INSULIN ASPART 100 UNIT/ML 10 ML VIAL SQ SCH ×3 (09:13→17:44)
[2020-01-12] MEDS: METOPROLOL TARTRATE 50 MG TAB PO SCH ×2 (09:15→22:14)
[2020-01-12] MEDS: LOSARTAN 50 MG TAB PO SCH (09:15)
[2020-01-12] MEDS: POTASSIUM CHLORIDE ER 10 MEQ TAB.ER.PRT PO SCH (09:15)
[2020-01-12] MEDS: PANTOPRAZOLE 40 MG TABLET PO SCH (09:16)
[2020-01-12] MEDS: ALLOPURINOL 100 MG TAB PO SCH (09:16)
[2020-01-12] MEDS: amLODIPine 10 MG TAB PO SCH (09:16)
[2020-01-12] MEDS: OXYBUTYNIN 15 MG TAB.ER.24 PO SCH (09:16)
[2020-01-12] MEDS: hydrALAZINE HCL 50 MG TAB PO SCH ×3 (09:16→22:14)
[2020-01-12] MEDS: buPROPion SR 150 MG TABLET.ER PO SCH ×2 (09:16→22:14)
[2020-01-12] MEDS: OSELTAMIVIR 60 MG/10 ML ORAL SYRINGE PO SCH (09:17)
[2020-01-12] MEDS: CINACALCET 30 MG TAB PO SCH (10:20)
[2020-01-12 11:02] LABS: Basophils # (A) 0.1 k/uL (0-0.2); Basophils % (A) 1 %; Eosinophils % (A) 0 %; HCT 34.4 % (34.0-46.0); HGB 10.6 gm/dL (11.4-16.0); Hypochromasia Slight; Lymphocytes # (A) 0.8 k/uL (1.0-4.8); Lymphocytes % (A) 10 %; MCH 28.6 pg (25.0-35.0); MCHC 30.8 g/dL (31.0-37.0); MCV 92.8 fL (80.0-100.0); Mean Platelet Volume 7.6; Monocytes # (A) 0.4 k/uL (0-1.0); Monocytes % (A) 5 %; Neutrophils # (A) 6.7 k/uL (1.3-7.7); Neutrophils % (A) 83 %; Platelet Count 217 k/uL (150-450); RDW 15.7 % (11.5-15.5); WBC 8.1 k/uL (3.8-10.6)
[2020-01-12 11:50] LABS: Albumin 2.8 g/dL (3.5-5.0); Potassium 4.3 mmol/L (3.5-5.1); Total Bilirubin 0.6 mg/dL (0.2-1.3); Total Protein 5.9 g/dL (6.3-8.2)
[2020-01-12 11:55] LABS: Glucose,Whole Blood 144 mg/dL (75-99)
--- NOTE | 2020-01-12 12:45 | P.GSCN ---
History of Present Illness Consult date: 01/11/20 Reason for Consult: Dyspnea on exertion, renal cell carcinoma Requesting physician: Kong Barbosa History of present illness: The patient is a 69-year-old white female well-known to our service. She was recently found to have an 8 cm right renal mass and underwent a robotic-assisted laparoscopic right radical nephrectomy on 01/05/2020. Pathologically, she was found to have grade 1 renal cell carcinoma, clear cell variant, without involvement of the perinephric fat or surgical margins. She was discharged home on 01/09/2020. She presented back to the emergency room the following day with a primary complaint of dyspnea on exertion. Review of Systems - Constitutional Reports poor appetite, Denies chills, Denies fever - Cardiovascular Reports dyspnea on exertion, Denies chest pain - Gastrointestinal Denies abdominal pain Past Medical History Past Medical History: Cancer, Diabetes Mellitus, GERD/Reflux, Hyperlipidemia, Hypertension Additional Past Medical History / Comment(s): rt kidney mass-pt states has kidney cancer removed 01/05/2020 History of Any Multi-Drug Resistant Organisms: None Reported Past Surgical History: Tonsillectomy, Tubal Ligation Additional Past Surgical History / Comment(s): right kidney removal Past Anesthesia/Blood Transfusion Reactions: No Reported Reaction Past Psychological History: Depression Smoking Status: Never smoker Past Alcohol Use History: None Reported Past Drug Use History: None Reported - Past Family History Mother Family Medical History: Cancer Additional Family Medical History / Comment(s): throat cancer Medications and Allergies Home Medications Medication Instructions Recorded Confirmed Type ALPRAZolam [Xanax] 0.25 mg PO TID PRN 12/31/19 01/11/20 History Allopurinol [Zyloprim] 100 mg PO DAILY 12/31/19 01/11/20 History Cinacalcet [Sensipar] 30 mg PO MOTU 12/31/19 01/11/20 History Insulin Lispro Protamin/Lispro 42 unit SQ AC-TID 12/31/19 01/11/20 History [humaLOG Mix 75-25 Kwikpen] Metoprolol Tartrate [Lopressor] 100 mg PO BID 12/31/19 01/11/20 History Omeprazole 20 mg PO DAILY 12/31/19 01/11/20 History Potassium Chloride [Klor-Con 10] 10 meq PO DAILY 12/31/19 01/11/20 History Simvastatin [Zocor] 20 mg PO HS 12/31/19 01/11/20 History Zolpidem [Ambien] 5 mg PO HS PRN 12/31/19 01/11/20 History amLODIPine BESYLATE 10 mg PO DAILY 12/31/19 01/11/20 History buPROPion HCL [Wellbutrin SR] 150 mg PO Q12H 12/31/19 01/11/20 History flavoxATE HCL [Flavoxate HCl] 200 mg PO TID 12/31/19 01/11/20 History Furosemide [Lasix] 40 mg PO DAILY 01/11/20 01/11/20 History Losartan Potassium [Cozaar] 100 mg PO DAILY 01/11/20 01/11/20 History hydrALAZINE HCL [Apresoline] 100 mg PO TID 01/11/20 01/11/20 History Allergies Allergy/AdvReac Type Severity Reaction Status Date / Time MILAGRO Inhibitors Allergy Cough Verified 01/11/20 10:49 clonidine [From Catapres] Allergy Cough Verified 01/11/20 10:49 hydrochlorothiazide Allergy Cough Verified 01/11/20 10:49 [From HydroDiuril] pseudoephedrine Allergy Rash/Hives Verified 01/11/20 10:49 angiotensin receptor blockers Allergy Cough Uncoded 01/10/20 17:46 Surgical - Exam Vital Signs Temp Pulse Resp BP Pulse Ox 102.7 F H 109 H 20 160/84 92 L 01/10/20 17:40 01/10/20 17:40 01/10/20 17:40 01/10/20 17:40 01/10/20 17:40 - General well developed, well nourished, no distress - Respiratory normal respiratory effort - Abdomen Soft, non-tender, non-distended. Incisions are clean, dry, and intact. Abdominal wall ecchymosis is noted, as expected. Results - Labs 01/12/20 10:34 01/12/20 10:34 Abnormal Lab Results - Last 24 Hours (Table) 01/10/20 01/10/20 01/11/20 Range/Units 18:33 21:45 04:05 RBC (3.80-5.40) m/uL Hgb (11.4-16.0) gm/dL Hct (34.0-46.0) % Lymphocytes # (1.0-4.8) k/uL POC Glucose (mg/dL) 143 H (75-99) mg/dL Troponin I 0.089 H* (0.000-0.034) ng/mL Urine Protein 1+ H (Negative) Urine Ketones Trace H (Negative) Ur Leukocyte Esterase Small H (Negative) Urine Mucus Rare H (None) /hpf 01/11/20 01/11/20 01/11/20 Range/Units 07:12 07:14 11:54 RBC 3.55 L (3.80-5.40) m/uL Hgb 10.3 L (11.4-16.0) gm/dL Hct 32.8 L (34.0-46.0) % Lymphocytes # 0.4 L (1.0-4.8) k/uL POC Glucose (mg/dL) 114 H 132 H (75-99) mg/dL Troponin I (0.000-0.034) ng/mL Urine Protein (Negative) Urine Ketones (Negative) Ur Leukocyte Esterase (Negative) Urine Mucus (None) /hpf 01/11/20 Range/Units 17:02 RBC (3.80-5.40) m/uL Hgb (11.4-16.0) gm/dL Hct (34.0-46.0) % Lymphocytes # (1.0-4.8) k/uL POC Glucose (mg/dL) 129 H (75-99) mg/dL Troponin I (0.000-0.034) ng/mL Urine Protein (Negative) Urine Ketones (Negative) Ur Leukocyte Esterase (Negative) Urine Mucus (None) /hpf Microbiology - Last 24 Hours (Table) 01/10/20 18:33 Blood Culture Gram Stain - Preliminary Blood 01/10/20 18:33 Blood Culture - Final Blood Diabetes panel 01/11/20 Range/Units 07:12 Potassium 4.3 (3.5-5.1) mmol/L Pituitary panel 01/11/20 Range/Units 07:12 Potassium 4.3 (3.5-5.1) mmol/L Adrenal panel 01/11/20 Range/Units 07:12 Potassium 4.3 (3.5-5.1) mmol/L Assessment and Plan (1) Cancer of kidney Current Visit: No Status: Acute Code(s): C64.9 - MALIGNANT NEOPLASM OF UNSP KIDNEY, EXCEPT RENAL PELVIS SNOMED Code(s): 065256473 Plan: The patient's primary complaint is dyspnea on exertion. She also reports generalized malaise and decreased appetite. There are no findings to suggest i ntra-abdominal pathology. She was reassured that her pathology report was favorable, and that adjuvant therapy will not be recommended.
--- NOTE | 2020-01-12 14:42 | XR ---
EXAMINATION TYPE: XR chest 2V DATE OF EXAM: 01/12/2020 COMPARISON: Chest x-ray 01/11/2020 HISTORY: Shortness of breath TECHNIQUE: Frontal and lateral views of the chest are obtained. FINDINGS: Retrocardiac density with obscured left hemidiaphragm persists. Questionable right upper l obe airspace disease. No evident pneumothorax. Heart is enlarged. Aorta is dense. There are overlying cardiac leads. Central vascularity is increased, there is perihilar vascular indistinctness. IMPRESSION: There may be progression of patient's airspace disease possibly right upper lobe. Correl ate for congestive heart failure. Pneumonia not excluded.
[2020-01-12 17:27] LABS: Glucose,Whole Blood 110 mg/dL (75-99)
[2020-01-12 18:22] LABS: Hemoglobin A1C 5.3 % (4.0-6.0)
--- NOTE | 2020-01-12 20:33 | PN ---
PROGRESS NOTE CHIEF COMPLAINT: Influenza. HISTORY OF PRESENT ILLNESS: This lady is not doing well. She is quite short of breath and she is quite congested. She has had no cough, hemoptysis, chest pain etc. PHYSICAL EXAMINATION: She does have bilateral rales and rhonchi scattered throughout both lung wallace anterior and posteriorly. Color is good. VITAL SIGNS: Normal. Abdomen is soft, nontender. IMPRESSION: 1. Influenza. 2. Bronchitis. 3. Rule out other etiology of pulmonary congestion. PLAN: 1. Updrafts. 2. BNP. 3. D-dimer. 4. Repeat chest x-ray. MMODL / IJN: [id number] /
[2020-01-12 20:49] LABS: Glucose,Whole Blood 107 mg/dL (75-99)
[2020-01-12] MEDS: ATORVASTATIN 10 MG TAB PO SCH (22:14)
--- NOTE | 2020-01-12 23:41 | PN ---
PROGRESS NOTE DATE OF SERVICE: 01/12/2020 REASON FOR FOLLOWUP: 1. Acute influenza. 2. Pneumonia with bacteremia. INTERVAL HISTORY: The patient is currently afebrile. The patient is breathing slightly comfortably. The patient continues to have a cough, but less productive. No chest pain. No nausea, no vomiting. No abdominal pain. No diarrhea. PHYSICAL EXAMINATION: Blood pressure 156/71 with a pulse of 78, temperature 97.9. She is 92% on 6 L nasal cannula. General description is an elderly female lying in bed in no distress. RESPIRATORY SYSTEM: Unlabored breathing. Coarse breath sounds bilaterally. No wheeze. HEART: S1, S2. Regular rate and rhythm. ABDOMEN: Soft. No tenderness. LABS: Hemoglobin is 10.6, white count 8.1, creatinine 1.98. Blood cultures with alpha- hemolytic Streptococcus. Blood culture repeat is so far negative. DIAGNOSTIC IMPRESSION AND PLAN: 1. Patient admitted to hospital with a fever and a cough in this patient who did have a diagnosis of acute influenza, for which she will continue with Tamiflu to finish a 5-day course of therapy. 2. Patient with possible pneumonia with Gram-positive bacteremia, alpha-hemolytic streptococcus, possible Streptococcus pneumoniae. Patient is covered with ceftriaxone and vancomycin. That will continue while monitoring her kidney function closely. Continue with supportive care. MMODL / IJN: [id number] /
[2020-01-13] MEDS: ZOLPIDEM 5 MG TAB PO PRN (02:41)
[2020-01-13] MEDS ORDERED: VANCOMYCIN 2,000 MG in SODIUM CHLORIDE 0.9% 500 ML 500 ML IVPB ONE (05:00)
[2020-01-13 07:23] LABS: Glucose,Whole Blood 102 mg/dL (75-99)
[2020-01-13] MEDS: INSULIN ASPART (NovoLOG) 100 UNIT/ML VIAL SQ SCH ×4 (07:32→22:03)
[2020-01-13] MEDS: INSULN ASP PRT/INSULIN ASPART 100 UNIT/ML 10 ML VIAL SQ SCH ×3 (07:36→16:54)
[2020-01-13] MEDS: amLODIPine 10 MG TAB PO SCH (07:37)
[2020-01-13] MEDS: buPROPion SR 150 MG TABLET.ER PO SCH ×2 (07:37→22:11)
[2020-01-13] MEDS: METOPROLOL TARTRATE 50 MG TAB PO SCH ×2 (07:37→22:02)
[2020-01-13] MEDS: LOSARTAN 50 MG TAB PO SCH (07:37)
[2020-01-13] MEDS: hydrALAZINE HCL 50 MG TAB PO SCH ×3 (07:37→22:02)
[2020-01-13] MEDS: POTASSIUM CHLORIDE ER 10 MEQ TAB.ER.PRT PO SCH (07:37)
[2020-01-13] MEDS: OXYBUTYNIN 15 MG TAB.ER.24 PO SCH (07:37)
[2020-01-13] MEDS: ALLOPURINOL 100 MG TAB PO SCH (07:38)
[2020-01-13] MEDS: PANTOPRAZOLE 40 MG TABLET PO SCH (07:38)
[2020-01-13] MEDS: OSELTAMIVIR 60 MG/10 ML ORAL SYRINGE PO SCH (07:38)
[2020-01-13 12:08] LABS: Glucose,Whole Blood 113 mg/dL (75-99)
[2020-01-13] MEDS: IPRATROPIUM-ALBUTEROL 3 ML NEB INHALATION PRN ×3 (12:15→20:38)
[2020-01-13] MEDS: FUROSEMIDE 10 MG/ML 4 ML VIAL IV SCH ×2 (12:46→18:19)
[2020-01-13 13:09] LABS: Basophils # (A) 0.1 k/uL (0-0.2); Basophils % (A) 1 %; Eosinophils % (A) 0 %; HCT 34.3 % (34.0-46.0); HGB 10.7 gm/dL (11.4-16.0); Hypochromasia Slight; Lymphocytes # (A) 1.1 k/uL (1.0-4.8); Lymphocytes % (A) 10 %; MCH 28.6 pg (25.0-35.0); MCHC 31.2 g/dL (31.0-37.0); MCV 91.6 fL (80.0-100.0); Mean Platelet Volume 7.6; Monocytes # (A) 0.5 k/uL (0-1.0); Monocytes % (A) 5 %; Neutrophils # (A) 9.2 k/uL (1.3-7.7); Neutrophils % (A) 82 %; Platelet Count 288 k/uL (150-450); RBC 3.74 m/uL (3.80-5.40); RDW 15.8 % (11.5-15.5); WBC 11.3 k/uL (3.8-10.6)
[2020-01-13 13:18] LABS: Calcium 9.1 mg/dL (8.4-10.2); Potassium 4.7 mmol/L (3.5-5.1); Total Bilirubin 0.7 mg/dL (0.2-1.3); Total Protein 6.2 g/dL (6.3-8.2)
--- NOTE | 2020-01-13 14:31 | XR ---
EXAMINATION TYPE: XR chest 2V DATE OF EXAM: 01/13/2020 COMPARISON: 01/12/2020 TECHNIQUE: PA and lateral views submitted. HISTORY: Shortness of breath FINDINGS: Diffuse bilateral airspace disease with pleural effusion and cardiomegaly. No pneumothorax. Atheroscl erotic change aorta. Hypertrophic and degenerative change of the spine. IMPRESSION: 1. Correlate for pulmonary edema versus diffuse pneumonia.
[2020-01-13 17:06] LABS: Glucose,Whole Blood 115 mg/dL (75-99)
[2020-01-13] MEDS ORDERED: FUROSEMIDE 10 MG/ML 10 ML VIAL IV STA (18:15)
[2020-01-13] MEDS ORDERED: methylPREDNISolone SOD SUCCI 125 MG/2 ML VIAL IV STA (18:15)
--- NOTE | 2020-01-13 20:23 | PN ---
PROGRESS NOTE CHIEF COMPLAINT: Influenza and shortness of breath. HISTORY OF PRESENT ILLNESS: This lady is getting more and more short of breath. She has had no fever or chills and she has had no chest pain, hemoptysis, purulent sputum production, etc. She has had no chest pain, abdominal pain, etc. PHYSICAL EXAMINATION: Blood pressure and vital signs are normal. She is afebrile. Head, ears, eyes, nose, mouth and throat are normal. Chest demonstrates extensive rales, rhonchi and expiratory wheezing in both lung wallace. Cardiac exam demonstrates tachycardia. Abdomen is soft and nontender. Bowel sounds are present. Extremities are normal. IMPRESSION: 1. Respiratory distress. 2. ? congestive heart failure? 3. Pneumonitis. 4. Rule out pulmonary embolism. PLAN: 1. Echocardiogram. 2. IV Lasix. 3. Repeat laboratory studies. 4. Consult with Pulmonology and Cardiology. MMODL / IJN: [id number] /
[2020-01-13 20:33] LABS: Glucose,Whole Blood 135 mg/dL (75-99)
[2020-01-13] MEDS: ATORVASTATIN 10 MG TAB PO SCH (22:02)
[2020-01-13] MEDS: HEPARIN SODIUM,PORCINE 5,000 UNIT/ML 1 ML VIAL SQ SCH (22:04)
--- NOTE | 2020-01-13 23:11 | PN ---
PROGRESS NOTE DATE OF SERVICE: 01/13/2020 REASON FOR FOLLOWUP: 1. Acute influenza. 2. Pneumonia with bacteremia. INTERVAL HISTORY: The patient is currently afebrile. The patient breathing slightly comfortably. The patient continued to have a cough though slightly decreased intensity. Remains to be dry in nature. No nausea, no vomiting. No abdominal pain. No diarrhea. PHYSICAL EXAMINATION: Blood pressure 142/84 with a pulse of 89, temperature 97.7, she is 91% on 6 L nasal cannula. General description is an elderly female lying in bed in no distress. Respiratory system: Unlabored breathing decreased intensity of breath sounds. No wheeze. Heart S1, S2. Regular rate and rhythm. ABDOMEN: Soft, no tenderness. LABS: Hemoglobin is 10.7, white count 11.3, creatinine is 1.81. Blood culture with alpha- hemolytic Streptococcus. Had a detailed discussion with the lab and with the sensitivity. DIAGNOSTIC IMPRESSION AND PLAN: Patient admitted to the hospital with increasing shortness of breath and cough. This patient has been diagnosed with acute influenza and pneumonia. Blood culture with Strep. Possible . Patient is covered with Rocephin and vancomycin to continue along with Tamiflu. Waiting for the ID and sensitivity. Continue supportive care. MMODL / IJN: [id number] /
[2020-01-13] MEDS: methylPREDNISolone SOD SUCCI 40 MG/ML 1 ML VIAL IV SCH (23:59)
--- NOTE | 2020-01-14 07:10 | ECHOF ---
Referral Reason:CHF MEASUREMENTS -------- HEIGHT: 160.0 cm WEIGHT: 117.9 kg BP: 178/75 RVIDd: 3.6 cm (< 3.3) IVSd: 1.3 cm (0.6 - 1.1) LVIDd: 4.6 cm (3.9 - 5.3) LVPWd: 1.1 cm (0.6 - 1.1) IVSs: 1.9 cm LVIDs: 3.0 cm LVPWs: 1.6 cm LA Diam: 3.8 cm (2.7 - 3.8) LAESV Index (A-L): 26.43 ml/m Ao Diam: 2.8 cm (2.0 - 3.7) AV Cusp: 1.9 cm (1.5 - 2.6) MV EXCURSION: 16.216 mm (> 18.000) MV EF SLOPE: 55 mm/s (70 - 150) EPSS: 0.5 cm MV E Jermaine: 1.30 m/s MV DecT: 233 ms MV A Jermaine: 1.17 m/s MV E/A Ratio: 1.11 RAP: 5.00 mmHg RVSP: 50.21 mmHg FINDINGS -------- Sinus rhythm. This was a technically adequate study. The left ventricular size is normal. There is mild concentric left ventricular hypertrophy. Overa ll left ventricular systolic function is normal with, an EF between 60 - 65 %. The right ventricle is mildly enlarged. Normal LA size by volume 22+/-6 ml/m2. The right atrium is normal in size. Interatrial and interventricular septum intact. The aortic valve is trileaflet and appears structurally normal. The mitral valve is normal. Mild tricuspid regurgitation present. There is moderate pulmonary hypertension. The right ventric ular systolic pressure, as measured by Doppler, is 50.21mmHg. The pulmonic valve was not well visualized. The aortic root size is normal. Normal inferior vena cava with normal inspiratory collapse consistent with estimated right atrial pre ssure of 5 mmHg. The inferior vena cava is mildly dilated. There is a trivial pericardial effusion present. CONCLUSIONS -------- 1. Sinus rhythm. 2. This was a technically adequate study. 3. The left ventricular size is normal. 4. There is mild concentric left ventricular hypertrophy. 5. Overall left ventricular systolic function is normal with, an EF between 60 - 65 %. 6. The right ventricle is mildly enlarged. 7. Normal LA size by volume 22+/-6 ml/m2. 8. The right atrium is normal in size. 9. Interatrial and interventricular septum intact. 10. The aortic valve is trileaflet and appears structurally normal. 11. The mitral valve is normal. 12. Mild tricuspid regurgitation present. 13. There is moderate pulmonary hypertension. 14. The right ventricular systolic pressure, as measured by Doppler, is 50.21mmHg. 15. The pulmonic valve was not well visualized. 16. The aortic root size is normal. 17. Normal inferior vena cava with normal inspiratory collapse consistent with estimated right atrial pressure of 5 mmHg. 18. The inferior vena cava is mildly dilated. 19. There is a trivial pericardial effusion present. [employer]: SONIA Aragon
[2020-01-14 07:17] LABS: Glucose,Whole Blood 162 mg/dL (75-99)
[2020-01-14] MEDS: methylPREDNISolone SOD SUCCI 40 MG/ML 1 ML VIAL IV SCH (08:15)
[2020-01-14] MEDS: HEPARIN SODIUM,PORCINE 5,000 UNIT/ML 1 ML VIAL SQ SCH ×2 (08:16→21:44)
[2020-01-14] MEDS: INSULIN ASPART (NovoLOG) 100 UNIT/ML VIAL SQ SCH ×4 (08:16→21:45)
[2020-01-14] MEDS: INSULN ASP PRT/INSULIN ASPART 100 UNIT/ML 10 ML VIAL SQ SCH ×3 (08:16→18:05)
[2020-01-14] MEDS: FUROSEMIDE 10 MG/ML 4 ML VIAL IV SCH ×2 (08:17→21:44)
--- NOTE | 2020-01-14 08:24 | CDI ---
Documentation Clarification Form Date: 01/14/2020 07:25:18 AM From: Elisabeth Burciaga RN, CCDS Admit Date: 01/10/2020 08:09:00 PM Patient Name: Quiana Reynolds Visit Number: [id number] Discharge Date: ATTENTION: The Clinical Documentation Specialists (CDI) and [facility] Coding Staff appreciate your assistance in clarifying documentation. Please respond to the clarification below the line at the bottom and electronically sign. The CDI & [facility] Coding staff will review the response and follow-up if needed. Please note: Queries are made part of the Legal Health Record. If you have any questions, please contact the author of this message via ITS. Dr. Kong Barbosa The patient presented to the emergency department on 01/10/20 with nausea, vomiting and diarrhea. She had cough and occasional shortness of breath. The ED assessment/impression was fever, Influenza A 01/11/20 ID (Dr. Dougherty) Impression: "Patient presented to the hospital with sepsis in this patient who did have fever tachycardia predominately respiratory symptoms" "sepsis, gram-positive bacteremia, influenza A" 01/12/20 ID (Dr. Dougherty) Impression: Patient with possible pneumonia with Gram- positive bacteremia alpha-hemolytic streptococcus, "possible Streptococcus pneumonia". "Patient is covered with Ceftriaxone and Vancomycin." History/Risk Factors: Clinical Indicators: 69-year-old to ER for evaluation of not feeling well dehydration fever, chills, sweats, cough and occasional shortness of breath. Vital signs on admission 01/10 at 17:40: 160/84 109 20 102.7 92 % 01/10 Labs: WBC 9.7 BUN29, Creatinine 2.02 Influenza A detected; Troponin I 0.089 01/10 Lactic acid: 2.3 Blood cultures: 01/10 Alpha Hemolytic Streptococcus, Final: Gram Positive Cocci 01/10 Chest x-ray: New mild pleural reaction or fluid at the lung bases. No obvious heart failure 01/11 Chest x-ray: Correlate for CHF otherwise consider pneumonia Treatment: Tamiflu 75 m po STA than @ 12HR, 9 doses Vancomycin 2,000 mg IV once, continue per pharmacy protocol Rocephin 2 gm IV Q 24 HR Duoneb 0.5 mg-3mg/soln Q 4 HRS PRN Solu-Medrol 125 MG IV once stat; than 40 mg IV q 8 HR / .9 Saline 500mls/hr x1IV Bolus, .9 Saline 1000 mls hr IV Bolus X2 In your professional opinion, please clarify if these findings signify one of the following conditions: Sepsis ruled in and present on admission Sepsis ruled out Other, please specify Unable to determine Identify the (suspected) organism Link or clarify if there is associated (due to/with): Organ failure Shock SIRS Criteria (2 or more of the following may indicate SIRS): -Temperature < 96.8F (36C) or > 101.0F (38.3C) -Heart Rate > 90 bpm -Respiratory Rate > 20 breaths/min or PaCO2 < 32 mmHg -White Blood Cell Count > 12,000 or < 4,000 cells/mm3 or > 10% bands -Lactate >2.0 mmol/L (>4.0 is equivalent to septic shock) (Last Revision: March 2018) MTDD
[2020-01-14] MEDS: hydrALAZINE HCL 50 MG TAB PO SCH ×3 (09:03→21:43)
[2020-01-14] MEDS: buPROPion SR 150 MG TABLET.ER PO SCH ×2 (09:04→21:56)
[2020-01-14] MEDS: POTASSIUM CHLORIDE ER 10 MEQ TAB.ER.PRT PO SCH (09:04)
[2020-01-14] MEDS: METOPROLOL TARTRATE 50 MG TAB PO SCH ×2 (09:05→21:43)
[2020-01-14] MEDS: amLODIPine 10 MG TAB PO SCH (09:05)
[2020-01-14] MEDS: PANTOPRAZOLE 40 MG TABLET PO SCH (09:05)
[2020-01-14] MEDS: ALLOPURINOL 100 MG TAB PO SCH (09:05)
[2020-01-14] MEDS: LOSARTAN 50 MG TAB PO SCH (09:06)
[2020-01-14] MEDS: OXYBUTYNIN 15 MG TAB.ER.24 PO SCH (09:06)
[2020-01-14] MEDS: OSELTAMIVIR 60 MG/10 ML ORAL SYRINGE PO SCH (09:06)
--- NOTE | 2020-01-14 09:14 | CDI ---
Documentation Clarification Form Date: 01/14/2020 08:27:53 AM From: Elisabeth Burciaga Phone: Admit Date: 01/10/2020 08:09:00 PM Patient Name: Quiana Reynolds Visit Number: [id number] Discharge Date: ATTENTION: The Clinical Documentation Specialists (CDI) and [facility] Coding Staff appreciate your assistance in clarifying documentation. Please respond to the clarification below the line at the bottom and electronically sign. The CDI & [facility] Coding staff will review the response and follow-up if needed. Please note: Queries are made part of the Legal Health Record. If you have any questions, please contact the author of this message via ITS. Dr. Kong Barbosa 01/11 in the H&P patient complaints of fever, cough, chills, nausea and vomiting. On admission 01/10 her BUN 29, Creatinine 2.02, GFR 24. The lab findings are not specified and further clarification is needed. History/Risk Factors: Diabetes Mellitus, Hypertension, Renal cell cancer, Right kidney removal Clinical Indicators: 69-year-old female who present on 01/10 to ED with complaints of nausea, vomiting and diarrhea. She had fever, malaise, and weakness on admission. She is positive for recent kidney surgery secondary to tumor mass with removal of right kidney on 01/05/20. Patients baseline 01/10/20 BUN 29 CR/ 2.02 GFR 24 01/11 08:00 BUN 30 Cr 1.87 GFR 27 01/12 08:00 BUN 29 Cr 1.98 GFR 25 01/13 12:00 BUN 36 Cr 1.88 GFR 27 Treatment: 01/10 IV Fluid bolus .9 NS 500 mls/hr X1, IV Bolus .9 NS 1000 mls/hr X2 Monitor BUN, CR, CBC, LYTES In order to capture the severity of condition, please clarify if the condition signifies: Acute renal failure Please specifies etiology (if known): Cortical Necrosis Medullary Necrosis Tubular Necrosis Acute on chronic renal failure CKD Stage 3 GFR 30-59 CKD Stage 4 GFR 15-29 Chronic renal failure/Chronic Kidney diseases (CKD) please stage (if known): CKD Stage 3 GFR 30-59 CKD Stage 4 GFR 15-29 Other, please specify Unable to determine (Last Revision: March 2018) MTDD
[2020-01-14 10:04] LABS: Vancomycin,Random 24.8 ug/mL
--- NOTE | 2020-01-14 10:19 | P.CRDCN ---
History of Present Illness History of present illness: HISTORY OF PRESENTING ILLNESS This is a pleasant 69-year-old female past medical history significant for kidney carcinoma status post removal, diabetes mellitus, hypertension and d yslipidemia. She denies prior history of coronary artery disease. We have been asked to see in consultation for elevated troponin. She presented to the hospital 01/10/2020 with symptoms of fever, cough and shortness of breath. She has been diagnosed with Influenza A and underlying pneumonia. She was initiated on antibiotics, tamiflu and IV steroids. Chest x-ray on admission revealed mild pleural reaction or fluid Up on the basis with no heart failure. Repeat yesterday revealed pneumonia versus pulmonary edema. Echocardiogram obtained revealed hyperdynamic LV systolic function with ejection fraction 60-65%, mild TR and moderate pulmonary hypertension with an RVSP of 50 mmHg. Laboratory data reviewed, WBC 11.3, hemoglobin 10.7, platelets 288, d-dimer 3.8, sodium 137, potassium 4.7, creatinine 1.88 with a GFR 27, troponin 0.089, 0.042, 0.039 and T proBNP 6300. Currently maintained on amlodipine 10 mg daily, atorvastatin 10 mg daily, Lasix 40 mg IV twice a day, hydralazine 100 mg 3 times a day, losartan 100 mg daily and Lopressor 100 mg twice a day. EKG on admission reveals sinus tachycardia with a heart rate of 116 with PACs. Bilateral lower extremity Doppler negative for DVTs, VQ scan was a limited study with triple matched involving the left lung suggestive of intermediate probability for PE. She is seen and examined sitting up in bed in no acute distress. She denies chest pain, shortness of breath, dizziness or palpitations. She states yesterday was a rough day but today she is feeling much better overall. REVIEW OF SYSTEMS At the time of my exam: CONSTITUTIONAL: Denies fever or chills. CARDIOVASCULAR: Denies chest pain, shortness of breath, orthopnea, PND or p alpitations. RESPIRATORY: Denies cough. GASTROINTESTINAL: Denies abdominal pain, diarrhea, constipation, nausea or vomiting. MUSCULOSKELETAL: Denies myalgias. NEUROLOGIC: Denies numbness, tingling or weakness. ENDOCRINE: Denies fatigue, weight change, polydipsia or polyurina. GENITOURINARY: Denies burning, hematuria or urgency with micturation. HEMATOLOGIC: Denies history of anemia or bleeding. PHYSICAL EXAMINATION Blood pressure 143/75 heart rate 84 afebrile and maintaining oxygen saturation on nasal cannula. CONSTITUTIONAL: No apparent distress. Obese. HEENT: Head is normocephalic. Pupils are equal, round. Sclerae anicteric. Mucous membranes of the mouth are moist. No JVD. No carotid bruit. CHEST EXAMINATION: Faint bibasilar rales. No rhonchi or wheezes. No chest wall tenderness is noted on palpation or with deep breathing. Diminished bilaterally. HEART EXAMINATION: Regular rate and rhythm. S1, S2 heard. No murmurs, gallops or rub. ABDOMEN: Soft, nontender. Positive bowel sounds. EXTREMITIES: 2+ peripheral pulses, no lower extremity edema and no calf tenderness. NEUROLOGIC EXAMINATION: Patient is awake, alert and oriented x3. ASSESSMENT Influenza A Pneumonia Bacteremia Leukocytosis Troponin elevation secondary to sepsis. No rise and fall pattern, not suggestive of myocardial injury. s/p right nephrectomy secondary to carcinoma Diabetes mellitus Hypertension Dyslipidemia Morbid obesity, BMI 46 PLAN Echocardiogram reviewed, no wall motion abnormalities. Troponin elevation not suggestive of myocardial injury. Continue current medical regimen. We will follow along as needed, thank you kindly for this consultation. Nurse Practitioner note has been reviewed, I agree with a documented findings and plan of care. Patient was seen and examined. Past Medical History Past Medical History: Cancer, Diabetes Mellitus, GERD/Reflux, Hyperlipidemia, Hypertension Additional Past Medical History / Comment(s): rt kidney mass-pt states has kidney cancer removed 01/05/2020 History of Any Multi-Drug Resistant Organisms: None Reported Past Surgical History: Tonsillectomy, Tubal Ligation Additional Past Surgical History / Comment(s): right kidney removal Past Anesthesia/Blood Transfusion Reactions: No Reported Reaction Past Psychological History: Depression Smoking Status: Never smoker Past Alcohol Use History: None Reported Past Drug Use History: None Reported - Past Family History Mother Family Medical History: Cancer Additional Family Medical History / Comment(s): throat cancer Medications and Allergies Home Medications Medication Instructions Recorded Confirmed Type ALPRAZolam [Xanax] 0.25 mg PO TID PRN 12/31/19 01/11/20 History Allopurinol [Zyloprim] 100 mg PO DAILY 12/31/19 01/11/20 History Cinacalcet [Sensipar] 30 mg PO MOTU 12/31/19 01/11/20 History Insulin Lispro Protamin/Lispro 42 unit SQ AC-TID 12/31/19 01/11/20 History [humaLOG Mix 75-25 Kwikpen] Metoprolol Tartrate [Lopressor] 100 mg PO BID 12/31/19 01/11/20 History Omeprazole 20 mg PO DAILY 12/31/19 01/11/20 History Potassium Chloride [Klor-Con 10] 10 meq PO DAILY 12/31/19 01/11/20 History Simvastatin [Zocor] 20 mg PO HS 12/31/19 01/11/20 History Zolpidem [Ambien] 5 mg PO HS PRN 12/31/19 01/11/20 History amLODIPine BESYLATE 10 mg PO DAILY 12/31/19 01/11/20 History buPROPion HCL [Wellbutrin SR] 150 mg PO Q12H 12/31/19 01/11/20 History flavoxATE HCL [Flavoxate HCl] 200 mg PO TID 12/31/19 01/11/20 History Furosemide [Lasix] 40 mg PO DAILY 01/11/20 01/11/20 History Losartan Potassium [Cozaar] 100 mg PO DAILY 01/11/20 01/11/20 History hydrALAZINE HCL [Apresoline] 100 mg PO TID 01/11/20 01/11/20 History Allergies Allergy/AdvReac Type Severity Reaction Status Date / Time MILAGRO Inhibitors Allergy Cough Verified 01/11/20 10:49 clonidine [From Catapres] Allergy Cough Verified 01/11/20 10:49 hydrochlorothiazide Allergy Cough Verified 01/11/20 10:49 [From HydroDiuril] pseudoephedrine Allergy Rash/Hives Verified 01/11/20 10:49 angiotensin receptor blockers Allergy Cough Uncoded 01/10/20 17:46 Physical Exam Vitals: Vital Signs Temp Pulse Pulse Resp BP Pulse Ox 01/14/20 07:24 97.8 F 82 23 149/64 97 01/14/20 06:02 97.8 F 80 22 162/53 95 01/13/20 20:51 93 01/13/20 20:38 89 01/13/20 20:25 97.7 F 89 24 142/84 91 L 01/13/20 16:43 88 24 01/13/20 16:29 89 24 90 L 02/12/20 12:27 80 01/13/20 12:16 77 01/13/20 12:05 91 L 01/13/20 12:00 97.7 F 80 23 163/69 88 L Intake and Output 01/13/20 01/14/20 01/14/20 22:59 06:59 14:59 Output Total 450 375 Balance -450 -375 Output: Urine 450 375 Other: Voiding Method Toilet Toilet # Voids 0 Results 01/13/20 12:36 01/13/20 12:36 Cardiac Enzymes 01/13/20 01/13/20 01/13/20 Range/Units 12:36 12:36 18:29 AST 41 H (14-36) U/L Troponin I 0.042 H* 0.039 H* (0.000-0.034) ng/mL CBC 01/13/20 Range/Units 12:36 WBC 11.3 H (3.8-10.6) k/uL RBC 3.74 L (3.80-5.40) m/uL Hgb 10.7 L (11.4-16.0) gm/dL Hct 34.3 (34.0-46.0) % Plt Count 288 (150-450) k/uL Comprehensive Metabolic Panel 01/13/20 Range/Units 12:36 Sodium 137 (137-145) mmol/L Potassium 4.7 (3.5-5.1) mmol/L Chloride 110 H (98-107) mmol/L Carbon Dioxide 17 L (22-30) mmol/L BUN 36 H (7-17) mg/dL Creatinine 1.88 H (0.52-1.04) mg/dL Glucose 122 H (74-99) mg/dL Calcium 9.1 (8.4-10.2) mg/dL AST 41 H (14-36) U/L ALT 20 (4-34) U/L Alkaline Phosphatase 119 (38-126) U/L Total Protein 6.2 L (6.3-8.2) g/dL Albumin 3.0 L (3.5-5.0) g/dL Current Medications Generic Name Dose Route Start Last Admin Trade Name Freq PRN Reason Stop Dose Admin Acetaminophen 650 mg 01/10/20 20:09 Tylenol Tab PO Q4HR PRN Fever and/ or Pain Albuterol/Ipratropium 3 ml 01/10/20 20:07 01/13/20 20:38 Duoneb 0.5 Mg-3 Mg/3 Ml Soln INHALATION 3 ml RT-Q4H PRN Administration shortness of breath Allopurinol 100 mg 01/11/20 09:00 01/14/20 09:05 Zyloprim PO 100 mg DAILY JASE Administration Alprazolam 0.25 mg 01/11/20 03:35 Xanax PO DAILY PRN Anxiety Amlodipine Besylate 10 mg 01/11/20 09:00 01/14/20 09:05 Norvasc PO 10 mg DAILY JASE Administration Atorvastatin Calcium 10 mg 01/11/20 21:00 01/13/20 22:02 Lipitor PO 10 mg HS JASE Administration Bupropion HCl 150 mg 01/11/20 09:00 01/14/20 09:04 Wellbutrin Sr PO 150 mg Q12H JASE Administration Cinacalcet 30 mg 01/11/20 09:00 01/12/20 10:20 Sensipar PO 30 mg MoTu@0900 JASE Administration Furosemide 40 mg 01/13/20 12:30 01/14/20 08:17 Lasix IV 40 mg Q12HR JASE Administration Heparin Sodium (Porcine) 5,000 unit 01/13/20 21:00 01/14/20 08:16 Heparin SQ 5,000 unit Q12HR JASE Administration Hydralazine HCl 100 mg 01/11/20 16:00 01/14/20 09:03 Apresoline PO 100 mg TID JASE Administration Ceftriaxone Sodium 2 gm/ 50 mls @ 100 mls/hr 01/12/20 09:00 01/14/20 08:17 Sodium Chloride IVPB 100 mls/hr Q24HR JASE Administration Insulin Aspart 42 unit 01/11/20 07:30 01/14/20 08:16 Novolog Mix 70-30 Vial SQ 42 unit AC-TID JASE Administration Insulin Aspart 0 unit 01/11/20 07:30 01/14/20 08:16 Novolog SQ 2 unit ACHS JASE Administration Protocol Losartan Potassium 100 mg 01/11/20 12:00 01/14/20 09:06 Cozaar PO 100 mg DAILY JASE Administration Methylprednisolone Sodium Succinate 40 mg 01/14/20 00:00 01/14/20 08:15 Solu-Medrol IV 40 mg Q8HR JASE Administration Metoprolol Tartrate 100 mg 01/11/20 04:00 01/14/20 09:05 Lopressor PO 100 mg BID JASE Administration Miscellaneous Information 1 each 01/10/20 20:07 Pneumonia Protocol Utilized PO ONCE PRN Per Protocol Miscellaneous Information 1 each 01/11/20 23:32 Pharmacy To Dose Iv Vancomycin MISCELLANE DIRECTED PRN Per Protocol Protocol Oseltamivir Phosphate 30 mg 01/12/20 09:00 01/14/20 09:06 Tamiflu PO 01/15/20 09:01 30 mg DAILY JASE Administration Oxybutynin Chloride 15 mg 01/11/20 09:00 01/14/20 09:06 Ditropan Xl PO 15 mg DAILY JASE Administration Pantoprazole Sodium 40 mg 01/11/20 09:00 01/14/20 09:05 Protonix PO 40 mg DAILY JASE Administration Potassium Chloride 10 meq 01/11/20 09:00 01/14/20 09:04 K-Dur 10 PO 10 meq DAILY JASE Administration Zolpidem Tartrate 5 mg 01/11/20 04:00 01/13/20 02:41 Ambien PO 5 mg HS PRN Administration Insomnia Intake and Output 01/13/20 01/14/20 01/14/20 22:59 06:59 14:59 Output Total 450 375 Balance -450 -375 Output: Urine 450 375 Other: Voiding Method Toilet Toilet # Voids 0 01/13/20 12:36 01/13/20 12:36
[2020-01-14] MEDS: IPRATROPIUM-ALBUTEROL 3 ML NEB INHALATION PRN ×3 (10:28→19:51)
[2020-01-14 12:11] LABS: Glucose,Whole Blood 117 mg/dL (75-99)
[2020-01-14 17:11] LABS: Glucose,Whole Blood 169 mg/dL (75-99)
--- NOTE | 2020-01-14 17:37 | PN ---
PROGRESS NOTE CHIEF COMPLAINT: Difficulty breathing. HISTORY OF PRESENT ILLNESS: This lady feels that she is doing a little bit better. She is a little bit less congested. She has had no fever or chills and she has had no purulent sputum production. The etiology for this event is not clear. PHYSICAL EXAMINATION: Breath sounds are better. She has slightly less wheezing, fewer rhonchi and is much less dyspneic. Cardiac exam is normal. IMPRESSION: 1. Acute respiratory failure. 2. Reactive airway disease, etiology unknown. 3. Status post right nephrectomy. 4. Diabetes. 5. Hypertension. PLAN: Continue with current program and introduce Pulmicort 0.5 mL twice a day. MMODL / IJN: [id number] /
--- NOTE | 2020-01-14 19:33 | PN ---
PROGRESS NOTE DATE OF SERVICE: 01/14/2020. REASON FOR FOLLOWUP: 1. Acute influenza. 2. Pneumonia with bacteremia. INTERVAL HISTORY: The patient is currently afebrile. The patient has been breathing comfortably. The patient continues to have some cough and is bringing up some sputum. No hemoptysis. No chest pain. No nausea, no vomiting, no abdominal pain, no diarrhea. PHYSICAL EXAMINATION: Blood pressure 129/78 with a pulse of 84, temperature 98.7. She is 94% on 6 L nasal cannula. General description is an elderly female up in the bed in no distress. RESPIRATORY SYSTEM: Unlabored breathing. Coarse breath sounds in the bases. No wheeze. HEART: S1, S2. Regular rate and rhythm. ABDOMEN: Soft. No tenderness. LABS: The patient's creatinine is up to 2.12. Vancomycin trough is slightly elevated. Blood with alpha-hemolytic strep which unfortunately has not been identified yet. DIAGNOSTIC IMPRESSION AND PLAN: 1. Patient admitted to hospital with a fever and respiratory symptoms has been diagnosed with acute influenza, for which the patient continues on Tamiflu to finish her 5-day course of therapy. 2. Patient with pneumonia and evidence of alpha-hemolytic Streptococcus bacteremia with concern for possible . Patient to continue Rocephin. Will discontinue vancomycin and monitor her kidney function closely. MMODL / IJN: [id number] /
[2020-01-14] MEDS ORDERED: BUDESONIDE 0.5 MG/2 ML NEBU INHALATION SCH (20:00)
[2020-01-14 20:14] LABS: Glucose,Whole Blood 181 mg/dL (75-99)
--- NOTE | 2020-01-14 20:34 | CONS ---
CONSULTATION PULMONARY/CRITICAL CARE CONSULTATION: DATE OF SERVICE: January 14, 2020 HISTORY OF PRESENT ILLNESS: This is a 69-year-old female who apparently was admitted to the hospital back on January 10. She was recently in the hospital. According to her urologist, she was found to have an 8 cm right renal mass. On January 05, she underwent a robotically assisted laparoscopic right radical nephrectomy. Pathologically, she was found to have a grade 1 renal cell carcinoma, clear cell variant. There was no involvement of the perinephric fat or surgical margins. She was discharged in good health on January 09, but re-presented to the hospital on the . She came in primarily with shortness of breath on exertion. Currently, she is receiving nasal O2. Her chest x-ray shows fluid overload. Her N-terminal proBNP is elevated. The patient does have a cough. She is not producing any phlegm. In addition, she has some fever, chills, and muscle aches. She was found to be influenza A positive. The patient has no prior history of any lung issues per se. She is a lifelong nonsmoker. PAST MEDICAL HISTORY: Positive for renal cell carcinoma or hypernephroma, diabetes mellitus, GERD, hyperlipidemia, hypertension. She had a mass on the right kidney, 8 cm in size, that was robotically removed on January 05. She was discharged from the hospital on that admission on the . SURGICAL HISTORY: Includes previous tonsillectomy and tubal ligation. SOCIAL HISTORY: Negative for tobacco, alcohol or illicit drug use. FAMILY HISTORY: Positive for mother with throat cancer. HOME MEDICATIONS: Include Xanax, Zyloprim, Sensipar, insulin, metoprolol, omeprazole, potassium chloride, simvastatin, Ambien, amlodipine, Wellbutrin, Lasix, losartan and Apresoline. ALLERGIES: INCLUDE MILAGRO INHIBITORS, CATAPRES, HYDRODIURIL, SUDAFED, AND ARBS. REVIEW OF SYSTEMS: CONSTITUTIONAL negative. NEUROLOGIC negative. HEENT negative. CARDIOVASCULAR negative. PULMONARY shortness of breath. Dry cough. GI negative. negative. RHEUMATOLOGIC negative. IMMUNOLOGIC negative. ENDOCRINOLOGIC negative. DERMATOLOGIC negative. PHYSICAL EXAMINATION: VITAL SIGNS: Current vital signs are reviewed. Temperature is 98.7. Heart rate 78, respiratory rate 20, blood pressure 129/78, mean 95, 6 L saturation 96%. GENERAL: Appears in no acute distress. Certainly not having any respiratory distress. HEENT examination is grossly unremarkable. NECK: Supple. Full range of motion. No adenopathy. Neck veins are flat. CARDIOVASCULAR: Examination reveals regular rhythm and rate. Heart rate mid 70s to low 80s. S1, S2 normal. Heart sounds are regular. There is no murmur. LUNGS: Reveal bibasilar crackles. Breath sounds are diminished. There are no wheezes or rhonchi. ABDOMEN: Obese. Bowel sounds are heard. EXTREMITIES are intact. There is some lower extremity edema, 1+ and pitting. SKIN: Without rash. NEUROLOGIC: Examination is brief but nonfocal. She has had a couple of chest x-rays here in the hospital. They all show evidence of pulmonary edema. She had a ventilation perfusion lung scan that was determined to be indeterminate. Dopplers of lower extremities are negative. LABS: Reviewed. White count 11.3, hemoglobin 10.7, hematocrit 34.3, platelet count 288,000. PT/INR, PTT all normal. D-dimer 3.8. Sodium 137, potassium 4.7, chloride 110, CO2 17, anion gap is 10, BUN and creatinine were 36 and 1.88. Her troponin was 0.089 and 0.039. Her N-terminal proBNPs have been 12,179 and 6300. Albumin is 3. Urine is thought to be negative. There is 1+ protein, trace ketones and very small leukocyte esterase. No bacteria. Influenza A was detected. Echocardiogram showed excellent systolic function with an ejection fraction of 60-65 percent. The rest of the echo looks pretty good. Medications are evaluated. ASSESSMENT: 1. Shortness of breath, likely multifactorial, in part related to underlying influenza pneumonitis, fluid overload, and possible pneumonia. 2. Recent robotically assisted laparoscopic right nephrectomy for hypernephroma. 3. No history to suggest intrinsic lung disease. 4. Diabetes mellitus. 5. Gastroesophageal reflux disease. 6. Hyperlipidemia. 7. Hypertension. 8. Obesity. 9. Insomnia. 10.Anxiety. PLAN: Patient's medications are reviewed. Additional recommendations and suggestions are forthcoming. We will keep her on oxygen therapy and bronchodilators. I do not believe she needs corticosteroids. Antibiotics are fine for right now. I will check a procalcitonin level. I am not sure that she has an active bacterial infection. She may have some viral pneumonitis, secondary to influenza A. Additional recommendations and suggestions are forthcoming. Prognosis is guarded. MMODL / IJN: [id number] / MTDD
[2020-01-14] MEDS: ATORVASTATIN 10 MG TAB PO SCH (21:44)
[2020-01-15 07:07] LABS: Glucose,Whole Blood 143 mg/dL (75-99)
[2020-01-15] MEDS: POTASSIUM CHLORIDE ER 10 MEQ TAB.ER.PRT PO SCH (07:59)
[2020-01-15] MEDS: OSELTAMIVIR 60 MG/10 ML ORAL SYRINGE PO SCH (08:00)
[2020-01-15] MEDS: amLODIPine 10 MG TAB PO SCH (08:00)
[2020-01-15] MEDS: buPROPion SR 150 MG TABLET.ER PO SCH ×2 (08:00→21:29)
[2020-01-15] MEDS: FUROSEMIDE 10 MG/ML 4 ML VIAL IV SCH ×2 (08:00→15:55)
[2020-01-15] MEDS: OXYBUTYNIN 15 MG TAB.ER.24 PO SCH (08:00)
[2020-01-15] MEDS: hydrALAZINE HCL 50 MG TAB PO SCH ×3 (08:01→21:29)
[2020-01-15] MEDS: ALLOPURINOL 100 MG TAB PO SCH (08:01)
[2020-01-15] MEDS: INSULIN ASPART (NovoLOG) 100 UNIT/ML VIAL SQ SCH ×4 (08:01→21:30)
[2020-01-15] MEDS: LOSARTAN 50 MG TAB PO SCH (08:01)
[2020-01-15] MEDS: INSULN ASP PRT/INSULIN ASPART 100 UNIT/ML 10 ML VIAL SQ SCH ×3 (08:01→17:28)
[2020-01-15] MEDS: METOPROLOL TARTRATE 50 MG TAB PO SCH ×2 (08:01→21:30)
[2020-01-15] MEDS: PANTOPRAZOLE 40 MG TABLET PO SCH (08:01)
[2020-01-15] MEDS: HEPARIN SODIUM,PORCINE 5,000 UNIT/ML 1 ML VIAL SQ SCH ×2 (08:08→21:30)
[2020-01-15] MEDS: IPRATROPIUM-ALBUTEROL 3 ML NEB INHALATION PRN ×3 (09:41→19:03)
[2020-01-15 11:50] LABS: Glucose,Whole Blood 96 mg/dL (75-99)
--- NOTE | 2020-01-15 13:44 | P.PN ---
Subjective Progress Note Date: 01/15/20 Principal diagnosis: Dyspnea secondary to fluid volume overload, influenza pneumonitis and possible pneumonia The patient is seen today 01/15/2020 in follow-up on the regular medical floor. She is awake and alert in no acute distress. She is still having ongoing issues with shortness of breath, cough and congestion. Maintaining O2 saturations in the 90s on 6 L high flow nasal cannula. Sputum culture positive for Annette only. Follow-up blood cultures show no growth. Creatinine 2.30. She remains on DuoNeb inhalations, antibiotics in the form of ceftriaxone, IV diuretics. Objective - Vital Signs Vital signs: Vital Signs Temp 98.2 F 01/15/20 07:33 Pulse 80 01/15/20 09:52 Resp 23 01/15/20 08:00 BP 167/62 01/15/20 07:33 Pulse Ox 96 01/15/20 07:33 Intake & Output 01/14/20 01/15/20 01/15/20 18:59 06:59 18:59 Intake Total 590 Balance 590 Weight 118 kg Intake: IV 50 cefTRIAXone 2 gm In 50 Sodium Chloride 0.9% 50 ml @ 100 mls/hr IVPB Q24HR [facility] Rx#:[id number] Oral 540 Other: Voiding Method Toilet Bedside Commode # Voids 2 2 1 # Bowel Movements 1 1 - Exam GENERAL EXAM: Alert, still somewhat dyspneic, on 6 L high flow nasal cannula, fairly comfortable in no apparent distress. HEAD: Normocephalic. EYES: Normal reaction of pupils, equal size. NOSE: Clear with pink turbinates. THROAT: No erythema or exudates. NECK: No masses, no JVD. CHEST: No chest wall deformity. LUNGS: Equal air entry with crackles in the posterior bases, scattered rhonchi. CVS: S1 and S2 normal with no audible murmur, regular rhythm. ABDOMEN: No hepatosplenomegaly, normal bowel sounds, no guarding or rigidity. SPINE: No scoliosis or deformity SKIN: No rashes CENTRAL NERVOUS SYSTEM: No focal deficits, tone is normal in all 4 extremities. EXTREMITIES: There is no peripheral edema. No clubbing, no cyanosis. Peripheral pulses are intact. - Labs CBC & Chem 7: 01/13/20 12:36 01/15/20 09:01 Labs: Abnormal Lab Results - Last 24 Hours (Table) 01/14/20 01/14/20 01/15/20 Range/Units 16:59 20:08 06:55 Creatinine (0.52-1.04) mg/dL POC Glucose (mg/dL) 169 H 181 H 143 H (75-99) mg/dL 01/15/20 Range/Units 09:01 Creatinine 2.30 H (0.52-1.04) mg/dL POC Glucose (mg/dL) (75-99) mg/dL Microbiology - Last 24 Hours (Table) 01/10/20 18:33 Blood Culture Gram Stain - Final Blood Blood Culture - Final Alpha Hemolytic Streptococcus 01/13/20 21:15 Gram Stain - Preliminary Sputum Sputum Culture - Preliminary Annette albicans 01/11/20 21:28 Blood Culture - Preliminary Blood No Growth after 72 hours 01/10/20 20:35 Blood Culture - Preliminary Blood No Growth after 96 hours 01/13/20 12:36 Blood Culture - Preliminary Blood No Growth after 24 hours Assessment and Plan Assessment: 1 Acute hypoxic respiratory failure secondary to influenza pneumonitis, fluid v olume overload and possible pneumonia. 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 Joya. He did increase her Lasix from 40 mg IV every 12 to 40 mg IV every 8 hours. She remains on ceftriaxone. Continue to bronchodilators. She's completed her course of Tamiflu. Follow-up chest x-ray in the a.m. We'll continue to follow. I, the cosigning physician, performed a history & physical examination of the patient. Lungs sounds with crackles in the posterior bases, scattered rhonchi Maintaining good O2 saturations in the 90s on 6 L high flow nasal cannula. I discussed the assessment and plan of care with my nurse practitioner, Patty Hussein. I attest to the above note as dictated by her.
--- NOTE | 2020-01-15 14:47 | PN ---
PROGRESS NOTE CHIEF COMPLAINT: Pulmonary congestion, pneumonitis and bronchitis. HISTORY OF PRESENT ILLNESS: This lady is doing a little bit better. She is still very congested and short of breath, but she is improving. REVIEW OF SYSTEMS: She has had no chest pain, hemoptysis, chills, fever, etc. PHYSICAL EXAMINATION: She still has extensive rales and rhonchi throughout both lung wallace. Cardiac exam is normal. Abdomen is soft. IMPRESSION: 1. Bronchial pneumonia. 2. Bronchitis. 3. Congestive heart failure. PLAN: Continue with the current program until she is stable enough to move about without oxygen. MMODL / IJN: [id number] /
--- NOTE | 2020-01-15 16:24 | CDI ---
Documentation Clarification Form Date: 01/15/2020 04:04:09 PM From: Elisabeth Burciaga RN, CCDS Admit Date: 01/10/2020 08:09:00 PM Patient Name: Quiana Reynolds Visit Number: [id number] Discharge Date: ATTENTION: The Clinical Documentation Specialists (CDI) and [facility] Coding Staff appreciate your assistance in clarifying documentation. Please respond to the clarification below the line at the bottom and electronically sign. The CDI & [facility] Coding staff will review the response and follow-up if needed. Please note: Queries are made part of the Legal Health Record. If you have any questions, please contact the author of this message via ITS. Dr. Kong Barbosa CHF is documented in your progress note on 01/15/20 and further clarification for the acuity and type of CHF. History/Risk Factors: Hypertension, Diabetes Mellitus Clinical Indicators: ED on 01/10 with complaint of vomiting fever weakness cough and shortness of breath. 01/11 Chest x-ray: Correlate fro CHF otherwise consider pneumonia 01/12 Chest x-ray: There may be progression of patient's airspace disease possibly right upper lobe. Correlate for congestive heart failure. Pneumonia not excluded. 01/13 ECHO Overall left ventricular systolic function is normal, with an EF between 60- 65 % 01/10/20 VS/Pulse OX: 164/84 109 20 102.7 92 % RA 01/14/20 at 10:11 VS: 143/75 84 23 97 % 6/L NC, noted at o8:00 on 01/14 shortness of breath, labored, pursed lip breathing. respiratory depth-shallow, pattern-Irregular 01/10 BNP:19075, 01/12 BNP 7960, 01/13 BNP 6300 Treatment: Monitor O2 Sat's (titrate) Lasix 40 mg IV Q 8HR Monitor I/0 Monitor Chest x-ray (per orders) In your professional opinion, can you please clarify the acuity and type of CHF if known? Acute Diastolic Heart Failure: Unable to Determine Other, please specify (Last Revision: March 2018) MTDD
[2020-01-15 16:59] LABS: Glucose,Whole Blood 103 mg/dL (75-99)
[2020-01-15 20:39] LABS: Glucose,Whole Blood 180 mg/dL (75-99)
[2020-01-15] MEDS: ATORVASTATIN 10 MG TAB PO SCH (21:29)
--- NOTE | 2020-01-15 22:50 | PN ---
PROGRESS NOTE DATE OF SERVICE: 01/15/2020. REASON FOR FOLLOWUP: 1. Acute influenza. 2. Pneumonia with bacteremia. INTERVAL HISTORY: The patient is currently afebrile. The patient has been breathing comfortably. The patient denies having any chest pain or shortness of breath. Cough has decreased in intensity. No nausea, no vomiting. No abdominal pain or diarrhea. PHYSICAL EXAMINATION: Blood pressure 157/62 with a pulse of 72, temperature 97.8. She is 94% on 6 L nasal cannula. General description is an elderly female lying in bed in no distress. RESPIRATORY SYSTEM: Some coarse breath sounds at the bases. No wheeze. HEART: S1, S2. Regular rate and rhythm. ABDOMEN: Soft. No tenderness. LABS: Creatinine is 2.30. DIAGNOSTIC IMPRESSION AND PLAN: 1. Patient with acute influenza the patient had completed her 5-day course of Tamiflu. 2. Patient with pneumonia with bacteremia. Unfortunately, blood culture has not been finalized. Sputum is showing a elza. Patient is covered with Rocephin 2 grams daily. Hopefully to finish therapy with oral antibiotics. Continue with supportive care. MMODL / IJN: [id number] /
[2020-01-16] MEDS: FUROSEMIDE 10 MG/ML 4 ML VIAL IV SCH ×3 (00:12→17:15)
[2020-01-16 07:14] LABS: Glucose,Whole Blood 93 mg/dL (75-99)
--- NOTE | 2020-01-16 08:48 | XR ---
EXAMINATION TYPE: XR chest 2V DATE OF EXAM: 01/16/2020 HISTORY: CHF. REFERENCE: Previous study dated 01/13/2020. FINDINGS: There is a worsening right-sided opacity and a stable left-sided opacity. The heart is not appear enlarged. There is blunting of both CP angles. I could not exclude small effusions. IMPRESSION: 1. WORSENING RIGHT-SIDED OPACITY. 2. STABLE LEFT-SIDED OPACITY. 3. I COULD NOT EXCLUDE SMALL, BILATERAL EFFUSIONS.
[2020-01-16] MEDS: INSULIN ASPART (NovoLOG) 100 UNIT/ML VIAL SQ SCH ×4 (08:53→21:50)
[2020-01-16] MEDS: LOSARTAN 50 MG TAB PO SCH (09:05)
[2020-01-16] MEDS: OXYBUTYNIN 15 MG TAB.ER.24 PO SCH (09:05)
[2020-01-16] MEDS: ALLOPURINOL 100 MG TAB PO SCH (09:05)
[2020-01-16] MEDS: amLODIPine 10 MG TAB PO SCH (09:05)
[2020-01-16] MEDS: POTASSIUM CHLORIDE ER 10 MEQ TAB.ER.PRT PO SCH (09:05)
[2020-01-16] MEDS: buPROPion SR 150 MG TABLET.ER PO SCH ×2 (09:05→21:50)
[2020-01-16] MEDS: PANTOPRAZOLE 40 MG TABLET PO SCH (09:05)
[2020-01-16] MEDS: METOPROLOL TARTRATE 50 MG TAB PO SCH ×2 (09:05→21:50)
[2020-01-16] MEDS: hydrALAZINE HCL 50 MG TAB PO SCH ×3 (09:05→21:50)
[2020-01-16] MEDS: HEPARIN SODIUM,PORCINE 5,000 UNIT/ML 1 ML VIAL SQ SCH ×2 (09:06→21:50)
[2020-01-16] MEDS: INSULN ASP PRT/INSULIN ASPART 100 UNIT/ML 10 ML VIAL SQ SCH ×3 (09:06→17:15)
[2020-01-16] MEDS: guaiFENesin-Coden 100-10MG/5ML 10 ML CUP PO PRN ×2 (09:22→22:35)
[2020-01-16 11:18] LABS: Glucose,Whole Blood 111 mg/dL (75-99)
--- NOTE | 2020-01-16 13:30 | PN ---
PROGRESS NOTE PULMONARY/CRITICAL CARE PROGRESS NOTE: DATE OF SERVICE: 01/16/2020 This is a 69-year-old female with a history of acute hypoxemic respiratory failure secondary to influenza pneumonitis. She also likely has fluid overload and possible bacterial pneumonia. 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 Yesterday, we did bump up her Lasix from 40 q.12 to 40 q.8. Her breathing is about the same as it was yesterday. She remains on ceftriaxone. She is also completing her Tamiflu. She apparently now has developed some nausea, vomiting, and diarrhea as well. Current vital signs are reviewed. Temperature 98.1, heart rate 81, respiratory rate 22, blood pressure 178/68 mean 104, saturations are 90% to 91% on 6 L nasal cannula. Appears mildly tachypneic and dyspneic. HEENT: Examination is grossly unremarkable. Nasal O2 in place. NECK: Supple, full range of motion. No adenopathy. Neck veins are flat. CARDIOVASCULAR: Examination reveals regular rhythm and rate. S1, S2 normal. Heart sounds are distant. Heart rate 81. LUNGS: Reveal some coarse rhonchi bilaterally. Some bibasilar crackles. No wheezes. ABDOMEN: Obese, bowel sounds are heard. EXTREMITIES: Intact. There is edema. SKIN: Without rash. NEUROLOGIC: Examination is brief but nonfocal. Microbiologic study show blood cultures positive for alpha hemolytic streptococci. Chest x-ray shows diffuse bilateral infiltrates, more significant on the right side. LABS: Reviewed. Currently, no new labs from today. Medications are reviewed. Currently, from the pulmonary standpoint, she is on Rocephin, guaifenesin with codeine for cough, and updrafts. In addition, the patient's Lasix was increased from 40 q.12 to 40 q.8. ASSESSMENT: 1. Acute hypoxemic respiratory failure, multifactorial, in part related to influenza pneumonitis, fluid overload, and possible bacterial pneumonia. 2. Recent robotically-assisted laparoscopic right nephrectomy for hypernephroma. 3. Diabetes mellitus. 4. Gastroesophageal reflux disease. 5. Hyperlipidemia. 6. Hypertension. 7. Obesity. 8. Insomnia. 9. Anxiety. PLAN: Currently, the patient's situation is about the same. The chest x-ray is worse on the right side. Will continue to follow closely. Additional recommendations and suggestions are forthcoming. Microbiologic studies are negative say for the alpha hemolytic strep in her bloodstream. Will continue to follow. MMODL / IJN: [id number] /
[2020-01-16] MEDS: IPRATROPIUM-ALBUTEROL 3 ML NEB INHALATION PRN ×2 (15:54→19:51)
[2020-01-16 17:15] LABS: Glucose,Whole Blood 113 mg/dL (75-99)
[2020-01-16 21:02] LABS: Glucose,Whole Blood 183 mg/dL (75-99)
[2020-01-16] MEDS: ATORVASTATIN 10 MG TAB PO SCH (21:50)
--- NOTE | 2020-01-16 23:43 | PN ---
PROGRESS NOTE CHIEF COMPLAINT: Influenza pneumonia. HISTORY OF PRESENT ILLNESS: This lady is doing a little bit better. She is complaining of some diarrhea and stool will be obtained for Clostridium difficile toxin. Shortness of breath and congestion are improving. PHYSICAL EXAMINATION: Color is improved. She is sitting up in a chair. She still has bilateral wheezing, rhonchi and rales, but chest is slowly clearing. Cardiac exam is normal. Abdomen is soft, nontender. IMPRESSION: 1. Influenza pneumonia. 2. Status post right nephrectomy. 3. Diarrhea. PLAN: 1. She will be given something to help with her cough. 2. Stool for Clostridium difficile toxin. 3. Continue current program and she is slowly improving. MMODL / IJN: [id number] /
[2020-01-17] MEDS: FUROSEMIDE 10 MG/ML 4 ML VIAL IV SCH ×3 (00:59→18:05)
[2020-01-17 06:57] LABS: Glucose,Whole Blood 170 mg/dL (75-99)
[2020-01-17] MEDS: HEPARIN SODIUM,PORCINE 5,000 UNIT/ML 1 ML VIAL SQ SCH ×2 (07:29→23:52)
[2020-01-17] MEDS: INSULIN ASPART (NovoLOG) 100 UNIT/ML VIAL SQ SCH ×4 (07:30→22:01)
[2020-01-17] MEDS: INSULN ASP PRT/INSULIN ASPART 100 UNIT/ML 10 ML VIAL SQ SCH ×3 (07:30→17:44)
[2020-01-17] MEDS: OXYBUTYNIN 15 MG TAB.ER.24 PO SCH (07:31)
[2020-01-17] MEDS: LOSARTAN 50 MG TAB PO SCH (07:31)
[2020-01-17] MEDS: POTASSIUM CHLORIDE ER 10 MEQ TAB.ER.PRT PO SCH (07:31)
[2020-01-17] MEDS: METOPROLOL TARTRATE 50 MG TAB PO SCH ×2 (07:31→23:51)
[2020-01-17] MEDS: amLODIPine 10 MG TAB PO SCH (07:31)
[2020-01-17] MEDS: ALLOPURINOL 100 MG TAB PO SCH (07:31)
[2020-01-17] MEDS: buPROPion SR 150 MG TABLET.ER PO SCH ×2 (07:31→23:52)
[2020-01-17] MEDS: CHOLESTYRAMINE (WITH SUGAR) 4 GM PACKET PO SCH ×2 (07:31→18:05)
[2020-01-17] MEDS: PANTOPRAZOLE 40 MG TABLET PO SCH (07:31)
[2020-01-17] MEDS: hydrALAZINE HCL 50 MG TAB PO SCH ×3 (07:31→23:51)
[2020-01-17] MEDS: guaiFENesin-Coden 100-10MG/5ML 10 ML CUP PO PRN (07:32)
[2020-01-17 08:03] LABS: Basophils # (A) 0.1 k/uL (0-0.2); Basophils % (A) 1 %; Eosinophils % (A) 0 %; HGB 10.3 gm/dL (11.4-16.0); Lymphocytes % (A) 12 %; MCH 28.3 pg (25.0-35.0); MCHC 31.4 g/dL (31.0-37.0); MCV 90.2 fL (80.0-100.0); Mean Platelet Volume 7.9; Monocytes # (A) 0.6 k/uL (0-1.0); Monocytes % (A) 6 %; Neutrophils % (A) 79 %; Platelet Count 223 k/uL (150-450); RBC 3.65 m/uL (3.80-5.40); RDW 15.9 % (11.5-15.5); WBC 8.8 k/uL (3.8-10.6)
[2020-01-17 08:19] LABS: Potassium 3.6 mmol/L (3.5-5.1)
[2020-01-17] MEDS: IPRATROPIUM-ALBUTEROL 3 ML NEB INHALATION PRN ×3 (11:18→19:45)
--- NOTE | 2020-01-17 11:38 | PN ---
PROGRESS NOTE DATE OF SERVICE: 01/16/2020 REASON FOR FOLLOW UP: 1. Acute influenza. 2. Pneumonia. INTERVAL HISTORY: The patient is currently afebrile. She is breathing more comfortably. She continues to have a cough, though decreased in intensity, less productive. No nausea, no vomiting, no abdominal pain or diarrhea. PHYSICAL EXAMINATION: VITAL SIGNS: Blood pressure 155/69 with a pulse of 95, temperature 98.1, she is 94% on 10 liters of high-flow oxygen. General description is an elderly female, lying in bed, in no distress. RESPIRATORY SYSTEM: Unlabored breathing with decreased intensity of breath sounds at the bases. HEART: S1 and S2. Regular rate and rhythm. ABDOMEN: Soft. No tenderness. LABORATORY DATA: No new labs have been obtained for the last few days. Sputum has been Annette albicans. Blood culture has been negative. DIAGNOSTIC IMPRESSION AND PLAN: 1. Patient with acute influenza that has been adequately treated. She received a five day course of oral Tamiflu. 2. Patient with pneumonia with alpha-hemolytic streptococcal bacteremia. Unfortunately, that was not finalized, although requested. We will repeat her blood culture tomorrow. Continue with Rocephin. With her symptom of diarrhea, we will check a stool for C diff and treat if positive. MMODL / IJN: [id number] /
[2020-01-17 11:44] LABS: Glucose,Whole Blood 73 mg/dL (75-99)
--- NOTE | 2020-01-17 12:54 | P.PN ---
Subjective Progress Note Date: 01/17/20 Principal diagnosis: Dyspnea secondary to fluid volume overload, influenza pneumonitis and possible pneumonia The patient is seen today 01/17/2020 in follow-up on the regular medical floor. She is currently resting comfortably in bed. She continues to have ongoing issues with shortness of breath, cough and congestion. Not much improved. Requiring 10 L high flow nasal cannula to maintain O2 saturations in the low 90s. She's afebrile. Sputum culture positive for Annette only. Follow-up blood cultures reveal no growth. White count 8.8. Hemoglobin 10.3. Sodium 138. Potassium 3.6. Creatinine 2.59. She is continued on DuoNeb inhalations, antibiotics in the form of ceftriaxone. She remains on IV diuretics. Heparin for DVT prophylaxis. Protonix for GI prophylaxis. She has complete her course of Tamiflu. Objective - Vital Signs Vital signs: Vital Signs Temp 97.8 F 01/17/20 04:30 Pulse 74 01/17/20 11:31 Resp 24 01/17/20 04:30 BP 149/69 01/17/20 04:30 Pulse Ox 92 L 01/17/20 04:30 Intake & Output 01/16/20 01/17/20 01/17/20 18:59 06:59 18:59 Weight 115.8 kg Other: Voiding Method Bedside Commode # Voids 3 4 # Bowel Movements 1 - Exam GENERAL EXAM: Alert, still somewhat dyspneic, on 10 L high flow nasal cannula, fairly comfortable in no apparent distress. HEAD: Normocephalic. EYES: Normal reaction of pupils, equal size. NOSE: Clear with pink turbinates. THROAT: No erythema or exudates. NECK: No masses, no JVD. CHEST: No chest wall deformity. LUNGS: Equal air entry with crackles in the posterior bases, scattered rhonchi. CVS: S1 and S2 normal with no audible murmur, regular rhythm. ABDOMEN: No hepatosplenomegaly, normal bowel sounds, no guarding or rigidity. SPINE: No scoliosis or deformity SKIN: No rashes CENTRAL NERVOUS SYSTEM: No focal deficits, tone is normal in all 4 extremities. EXTREMITIES: There is no peripheral edema. No clubbing, no cyanosis. Peripheral pulses are intact. - Labs CBC & Chem 7: 01/17/20 07:04 01/17/20 07:04 Labs: Abnormal Lab Results - Last 24 Hours (Table) 01/16/20 01/16/20 01/17/20 Range/Units 17:12 21:01 06:54 RBC (3.80-5.40) m/uL Hgb (11.4-16.0) gm/dL Hct (34.0-46.0) % RDW (11.5-15.5) % BUN (7-17) mg/dL Creatinine (0.52-1.04) mg/dL Glucose (74-99) mg/dL POC Glucose (mg/dL) 113 H 183 H 170 H (75-99) mg/dL 01/17/20 01/17/20 01/17/20 Range/Units 07:04 07:04 11:42 RBC 3.65 L (3.80-5.40) m/uL Hgb 10.3 L (11.4-16.0) gm/dL Hct 33.0 L (34.0-46.0) % RDW 15.9 H (11.5-15.5) % BUN 62 H (7-17) mg/dL Creatinine 2.59 H (0.52-1.04) mg/dL Glucose 170 H (74-99) mg/dL POC Glucose (mg/dL) 73 L (75-99) mg/dL Microbiology - Last 24 Hours (Table) 01/11/20 21:28 Blood Culture - Preliminary Blood No Growth after 120 hours 01/10/20 20:35 Blood Culture - Final Blood No Growth after 144 hours 01/13/20 12:36 Blood Culture - Preliminary Blood No Growth after 72 hours 01/13/20 21:15 Gram Stain - Final Sputum Sputum Culture - Final Annette albicans Assessment and Plan Assessment: 1 Acute hypoxic respiratory failure secondary to influenza pneumonitis, fluid volume overload and possible pneumonia. 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 Joya. She is still requiring high flow nasal cannula currently at 10 L. We'll repeat a chest x-ray in the a.m. She remains on ceftriaxone. Continue to bronchodilators. We'll continue to follow. I, the cosigning physician, performed a history & physical examination of the patient. Lungs sounds with crackles in the posterior bases, scattered rhonchi Maintaining good O2 saturations in the 90s on 10 L high flow nasal cannula. I discussed the assessment and plan of care with my nurse practitioner, Patty Hussein. I attest to the above note as dictated by her.
[2020-01-17 16:51] LABS: Glucose,Whole Blood 92 mg/dL (75-99)
--- NOTE | 2020-01-17 19:49 | PN ---
PROGRESS NOTE CHIEF COMPLAINT: Influenza pneumonia. HISTORY OF PRESENT ILLNESS: This lady is still slowly improving. She is still congested, short of breath, but each day she is slightly better. PHYSICAL EXAM: Rales and rhonchi are still present along with some wheezing, but they are diminished. Cardiac exam is normal. Abdomen is soft, nontender. IMPRESSION: Influenza pneumonia. PLAN: Continue with current program with updrafts and diuretics and she will probably be able to go home in the next day or 2. MMODL / IJN: [id number] /
--- NOTE | 2020-01-17 22:46 | PN ---
PROGRESS NOTE DATE OF SERVICE: 01/17/2020 REASON FOR FOLLOWUP: 1. Acute influenza A. 2. Pneumonia. INTERVAL HISTORY: The patient is currently afebrile. She is breathing comfortably. Denies having any chest pain. She did have some cough but not bringing up any sputum. No nausea, no vomiting. Overall abdominal pain and diarrhea have improved. PHYSICAL EXAMINATION: Blood pressure 127/55 with a pulse of 71, temperature 97.7, she is 94% on room air. General description is an elderly female up in the bed in no distress. Respiratory system: Unlabored breathing. Decreased breath sounds at the bases, no wheeze. Heart S1, S2. Regular rate and rhythm. Abdomen soft, no tenderness. LABS: Hemoglobin 10.8, white count 8.8, creatinine 2.59. Sputum with Annette albicans. DIAGNOSTIC IMPRESSION/PLAN: 1. Patient with acute influenza A for which the patient will get a five day course of oral Levaquin. 2. Patient with pneumonia with positive blood culture alpha-hemolytic streptococcal bacteremia. Unfortunately, that was not finalized although requested. Sputum has been ( ) negative for any resistant pathogen. Patient covered with Rocephin, transition to oral antibiotic on discharge. Continue supportive care. MMODL / IJN: [id number] /
[2020-01-17] MEDS: ATORVASTATIN 10 MG TAB PO SCH (23:51)
[2020-01-18 00:03] LABS: Glucose,Whole Blood 140 mg/dL (75-99)
[2020-01-18] MEDS: FUROSEMIDE 10 MG/ML 4 ML VIAL IV SCH ×4 (01:19→22:39)
[2020-01-18] MEDS: guaiFENesin-Coden 100-10MG/5ML 10 ML CUP PO PRN (01:23)
[2020-01-18 07:22] LABS: Glucose,Whole Blood 138 mg/dL (75-99)
--- NOTE | 2020-01-18 07:54 | XR ---
EXAMINATION TYPE: XR chest 2V DATE OF EXAM: 01/18/2020 COMPARISON: 01/16/2020 TECHNIQUE: PA and lateral views submitted. HISTORY: Cough FINDINGS: Heart is normal in size. Bilateral patchy areas of infiltrate greater on the right. No sizable pleura l effusion or pneumothorax. Biapical pleural thickening. Findings are stable from prior exam. IMPRESSION: 1. Stable x-ray correlate for multifocal pneumonia or atypical pneumonia. Asymmetric pulmonary edema also in the differential diagnosis. Correlate clinically.
[2020-01-18] MEDS: IPRATROPIUM-ALBUTEROL 3 ML NEB INHALATION PRN ×4 (08:15→20:06)
[2020-01-18] MEDS: METOPROLOL TARTRATE 50 MG TAB PO SCH ×2 (08:27→21:25)
[2020-01-18] MEDS: INSULIN ASPART (NovoLOG) 100 UNIT/ML VIAL SQ SCH ×4 (08:27→20:55)
[2020-01-18] MEDS: hydrALAZINE HCL 50 MG TAB PO SCH ×3 (08:27→21:25)
[2020-01-18] MEDS: LOSARTAN 50 MG TAB PO SCH (08:27)
[2020-01-18] MEDS: buPROPion SR 150 MG TABLET.ER PO SCH ×2 (08:27→21:25)
[2020-01-18] MEDS: CHOLESTYRAMINE (WITH SUGAR) 4 GM PACKET PO SCH ×2 (08:27→17:35)
[2020-01-18] MEDS: HEPARIN SODIUM,PORCINE 5,000 UNIT/ML 1 ML VIAL SQ SCH ×2 (08:28→21:25)
[2020-01-18] MEDS: OXYBUTYNIN 15 MG TAB.ER.24 PO SCH (08:28)
[2020-01-18] MEDS: amLODIPine 10 MG TAB PO SCH (08:28)
[2020-01-18] MEDS: CINACALCET 30 MG TAB PO SCH (08:28)
[2020-01-18] MEDS: PANTOPRAZOLE 40 MG TABLET PO SCH (08:28)
[2020-01-18] MEDS: ALLOPURINOL 100 MG TAB PO SCH (08:28)
[2020-01-18] MEDS: POTASSIUM CHLORIDE ER 10 MEQ TAB.ER.PRT PO SCH (08:31)
[2020-01-18] MEDS: INSULN ASP PRT/INSULIN ASPART 100 UNIT/ML 10 ML VIAL SQ SCH ×3 (08:31→17:20)
[2020-01-18 11:56] LABS: Glucose,Whole Blood 65 mg/dL (75-99)
[2020-01-18 12:11] LABS: Glucose,Whole Blood 62 mg/dL (75-99)
[2020-01-18 12:19] LABS: Glucose,Whole Blood 76 mg/dL (75-99)
--- NOTE | 2020-01-18 13:13 | P.PN ---
Subjective Progress Note Date: 01/18/20 Principal diagnosis: Dyspnea secondary to fluid volume overload, influenza pneumonitis and possible pneumonia The patient is seen today January 18 2020 in follow-up on the regular medical floor. She is currently sitting up in a chair at bedside. Awake and alert in no acute distress. She is feeling a bit better today compared to yesterday. Still on 10 L high flow nasal cannula. Sputum culture with Annette only. Follow-up blood cultures reveal no growth. She is continued on DuoNeb inhalations, antibiotics in the form of ceftriaxone. She remains on IV diuretics. Heparin for DVT prophylaxis. Protonix for GI prophylaxis. She has complete her course of Tamiflu. Objective - Vital Signs Vital signs: Vital Signs Temp 97.7 F 01/18/20 12:00 Pulse 68 01/18/20 12:00 Resp 22 01/18/20 12:00 BP 177/50 01/18/20 12:00 Pulse Ox 98 01/18/20 12:00 Intake & Output 01/17/20 01/18/20 01/18/20 18:59 06:59 18:59 Intake Total 540 100 Balance 540 100 Intake: Oral 540 100 Other: Voiding Method Bedside Commode Bedside Commode # Voids 2 1 1 # Bowel Movements 1 - Exam GENERAL EXAM: Alert, still somewhat dyspneic, on 10 L high flow nasal cannula, fairly comfortable in no apparent distress. HEAD: Normocephalic. EYES: Normal reaction of pupils, equal size. NOSE: Clear with pink turbinates. THROAT: No erythema or exudates. NECK: No masses, no JVD. CHEST: No chest wall deformity. LUNGS: Equal air entry with crackles in the posterior bases, scattered rhonchi. CVS: S1 and S2 normal with no audible murmur, regular rhythm. ABDOMEN: No hepatosplenomegaly, normal bowel sounds, no guarding or rigidity. SPINE: No scoliosis or deformity SKIN: No rashes CENTRAL NERVOUS SYSTEM: No focal deficits, tone is normal in all 4 extremities. EXTREMITIES: There is no peripheral edema. No clubbing, no cyanosis. Peripheral pulses are intact. - Labs CBC & Chem 7: 01/17/20 07:04 01/17/20 07:04 Labs: Abnormal Lab Results - Last 24 Hours (Table) 01/17/20 01/18/20 01/18/20 Range/Units 07:04 00:00 07:19 POC Glucose (mg/dL) 140 H 138 H (75-99) mg/dL Procalcitonin 0.34 H (0.02-0.09) ng/mL 01/18/20 01/18/20 Range/Units 11:44 12:00 POC Glucose (mg/dL) 65 L 62 L (75-99) mg/dL Procalcitonin (0.02-0.09) ng/mL Microbiology - Last 24 Hours (Table) 01/11/20 21:28 Blood Culture - Final Blood No Growth after 144 hours 01/13/20 12:36 Blood Culture - Preliminary Blood No Growth after 96 hours Assessment and Plan Assessment: 1 Acute hypoxic respiratory failure secondary to influenza pneumonitis, fluid volume overload and pneumonia. 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 Wooten. She is improved today damon red to yesterday. We will titrate down the FiO2 as tolerated. Repeat a chest x-ray in the a.m. She remains on ceftriaxone. Continue bronchodilators. Continue diuretics. We'll continue to follow. I, the cosigning physician, performed a history & physical examination of the patient. Lungs sounds with crackles in the posterior bases, scattered rhonchi. Maintaining good O2 saturations in the 90s on 10 L high flow nasal cannula. I discussed the assessment and plan of care with my nurse practitioner, Patty Hussein. I attest to the above note as dictated by her.
[2020-01-18 17:13] LABS: Glucose,Whole Blood 98 mg/dL (75-99)
--- NOTE | 2020-01-18 19:44 | PN ---
PROGRESS NOTE CHIEF COMPLAINT: Influenza pneumonia. HISTORY OF PRESENT ILLNESS: This lady is slowly improving. PHYSICAL EXAMINATION: She is a little bit less congested every day. She still has rales and rhonchi bilaterally and she is still very short of breath just ambulating to the bathroom. Cardiac exam is normal. IMPRESSION: Influenza pneumonia. PLAN: Continue with current treatment until she is stable enough to be discharged. MMODL / IJN: [id number] /
[2020-01-18 20:52] LABS: Glucose,Whole Blood 127 mg/dL (75-99)
[2020-01-18] MEDS: ATORVASTATIN 10 MG TAB PO SCH (21:25)
--- NOTE | 2020-01-19 05:47 | PN ---
PROGRESS NOTE DATE OF SERVICE: 01/18/2020 REASON FOR FOLLOWUP: 1. Acute influenza. 2. Pneumonia. INTERVAL HISTORY: The patient is afebrile. She has been breathing slightly comfortably. The patient denies having any chest pain, cough has decreased in intensity. No nausea, no vomiting. No abdominal pain. Diarrhea resolved. PHYSICAL EXAMINATION: Blood pressure 177/50 with a pulse of 68 temperature is 97.7. She is 98% on high-flow oxygen. General description is an elderly female, lying in bed in no distress. RESPIRATORY SYSTEM: Unlabored breathing. Coarse breath sounds in the bases. No wheeze. HEART: S1, S2. Regular rate and rhythm. ABDOMEN: Soft, no tenderness. LABS: No new labs have been obtained today. DIAGNOSTIC IMPRESSION AND PLAN: 1. Patient with acute influenza which has been adequately treated. 2. The patient with pneumonia possibly community acquired. Sputum has been negative for resistant pathogen. Patient covered with Rocephin, finishing therapy with oral antibiotic on discharge. Continue with supportive care. MMODL / IJN: [id number] /
--- NOTE | 2020-01-19 07:18 | XR ---
EXAMINATION TYPE: XR chest 1V portable DATE OF EXAM: 01/19/2020 COMPARISON: 01/18/2020 HISTORY: Shortness of breath TECHNIQUE: Single frontal view of the chest is obtained. FINDINGS: Heart is normal in size. Bilateral patchy areas of infiltrate greater on the right. No siz able pleural effusion or pneumothorax. Biapical pleural thickening. Findings are stable from prior ex am. IMPRESSION: Stable x-ray correlate for multifocal pneumonia or atypical pneumonia. Asymmetric pulmon zac edema also in the differential diagnosis. Correlate clinically.
[2020-01-19] MEDS: IPRATROPIUM-ALBUTEROL 3 ML NEB INHALATION PRN ×3 (07:20→15:40)
[2020-01-19 07:22] LABS: Glucose,Whole Blood 181 mg/dL (75-99)
[2020-01-19] MEDS: INSULN ASP PRT/INSULIN ASPART 100 UNIT/ML 10 ML VIAL SQ SCH ×3 (07:37→17:56)
[2020-01-19] MEDS: INSULIN ASPART (NovoLOG) 100 UNIT/ML VIAL SQ SCH ×4 (07:38→21:07)
[2020-01-19] MEDS: hydrALAZINE HCL 50 MG TAB PO SCH ×3 (08:21→21:30)
[2020-01-19] MEDS: amLODIPine 10 MG TAB PO SCH (08:21)
[2020-01-19] MEDS: ALLOPURINOL 100 MG TAB PO SCH (08:21)
[2020-01-19] MEDS: LOSARTAN 50 MG TAB PO SCH (08:21)
[2020-01-19] MEDS: METOPROLOL TARTRATE 50 MG TAB PO SCH ×2 (08:21→21:30)
[2020-01-19] MEDS: HEPARIN SODIUM,PORCINE 5,000 UNIT/ML 1 ML VIAL SQ SCH ×2 (08:21→21:29)
[2020-01-19] MEDS: FUROSEMIDE 10 MG/ML 4 ML VIAL IV SCH (08:21)
[2020-01-19] MEDS: OXYBUTYNIN 15 MG TAB.ER.24 PO SCH (08:22)
[2020-01-19] MEDS: buPROPion SR 150 MG TABLET.ER PO SCH ×2 (08:22→21:30)
[2020-01-19] MEDS: CINACALCET 30 MG TAB PO SCH (08:22)
[2020-01-19] MEDS: PANTOPRAZOLE 40 MG TABLET PO SCH (09:02)
[2020-01-19] MEDS: POTASSIUM CHLORIDE ER 10 MEQ TAB.ER.PRT PO SCH (09:02)
--- NOTE | 2020-01-19 11:01 | P.PN ---
Subjective Progress Note Date: 01/19/20 On today's evaluation of 01/19/2020 and seeing the patient for a follow-up. The patient is in the hospital because of bilateral pneumonia. She checked positive for influenza A. Her blood was also positive for alphahemolytic strep. The patient is currently completed her antibiotics with Tamiflu. She is currently on IV Rocephin. Feeling well. Still on 10 L of oxygen by nasal cannula. Chest x-ray shows stable bilateral pulmonary infiltrates not majorly changed compared to yesterday. Clinically however the patient is feeling better and she is less congested compared to yesterday. She is afebrile. She is on IV Lasix. Creatinine is up to 2.5 and this is to be discontinued for now. Objective - Vital Signs Vital signs: Vital Signs Temp 98.1 F 01/19/20 08:29 Pulse 86 01/19/20 08:29 Resp 20 01/19/20 08:29 BP 151/66 01/19/20 08:29 Pulse Ox 95 01/19/20 08:29 Intake & Output 01/18/20 01/19/20 01/19/20 18:59 06:59 18:59 Other: Voiding Method Bedside Commode Bedside Commode Bedside Commode # Voids 1 2 # Bowel Movements 0 # Emeses 1 - Exam GENERAL EXAM: Alert, still somewhat dyspneic, on 10 L high flow nasal cannula, fairly comfortable in no apparent distress. HEAD: Normocephalic. EYES: Normal reaction of pupils, equal size. NOSE: Clear with pink turbinates. THROAT: No erythema or exudates. NECK: No masses, no JVD. CHEST: No chest wall deformity. LUNGS: Equal air entry with crackles in the posterior bases, scattered rhonchi. CVS: S1 and S2 normal with no audible murmur, regular rhythm. ABDOMEN: No hepatosplenomegaly, normal bowel sounds, no guarding or rigidity. SPINE: No scoliosis or deformity SKIN: No rashes CENTRAL NERVOUS SYSTEM: No focal deficits, tone is normal in all 4 extremities. EXTREMITIES: There is no peripheral edema. No clubbing, no cyanosis. Peripheral pulses are intact. - Labs CBC & Chem 7: 01/17/20 07:04 01/17/20 07:04 Labs: Abnormal Lab Results - Last 24 Hours (Table) 01/17/20 01/18/20 01/18/20 Range/Units 07:04 11:44 12:00 POC Glucose (mg/dL) 65 L 62 L (75-99) mg/dL Procalcitonin 0.34 H (0.02-0.09) ng/mL 01/18/20 01/19/20 Range/Units 20:46 07:18 POC Glucose (mg/dL) 127 H 181 H (75-99) mg/dL Procalcitonin (0.02-0.09) ng/mL Microbiology - Last 24 Hours (Table) 01/13/20 12:36 Blood Culture - Preliminary Blood No Growth after 120 hours Assessment and Plan Plan: 1 Acute hypoxic respiratory failure secondary to influenza pneumonitis, and possibly superinfection with strep as the patient was found to have output and with acceptable blood. Currently on Rocephin. Completed Tamiflu. 2 Recent robotically =-ssisted laparoscopic right nephrectomy for hyper nephroma 3 Diabetes mellitus 4 Esophageal reflux disease 5 Hyperlipidemia 6 Hypertension 7 Obesity noted 8 Insomnia 9 Anxiety 10 acute on chronic kidney injury. The patient has chronic kidney failure secondary to previous nephrectomy her baseline creatinine was around 1.7. She developed an acute kidney injury probably related to aggressive diuretics Plan: Discontinue the IV Lasix Encourage hydration orally Repeat the chest x-ray in a.m. Continue IV Rocephin Wean down the FiO2 down to 8 L and later on down to 6 or 5 L of possible Provide an incentive spirometer We'll continue to follow
[2020-01-19 11:57] LABS: Glucose,Whole Blood 67 mg/dL (75-99)
[2020-01-19] MEDS: CHOLESTYRAMINE (WITH SUGAR) 4 GM PACKET PO SCH ×2 (12:03→17:57)
[2020-01-19 12:16] LABS: Glucose,Whole Blood 78 mg/dL (75-99)
--- NOTE | 2020-01-19 13:39 | PN ---
PROGRESS NOTE CHIEF COMPLAINT: Influenza pneumonia. HISTORY OF PRESENT ILLNESS: This lady is still extremely dyspneic and can barely get to the bathroom and back. She is not running a fever. She has had no chest pain. PHYSICAL EXAM: Chest still demonstrates copious rales and rhonchi throughout with a prolonged expiratory phase. Cardiac exam is normal. Abdomen is soft, nontender. IMPRESSION: Influenza pneumonia with significant respiratory depression. PLAN: No change in program and continue with treatment until she is cleared enough that she can go home safely. MMODL / IJN: [id number] /
[2020-01-19 17:11] LABS: Glucose,Whole Blood 91 mg/dL (75-99)
[2020-01-19 20:54] LABS: Glucose,Whole Blood 118 mg/dL (75-99)
[2020-01-19] MEDS: guaiFENesin-Coden 100-10MG/5ML 10 ML CUP PO PRN (21:29)
[2020-01-19] MEDS: ATORVASTATIN 10 MG TAB PO SCH (21:30)
--- NOTE | 2020-01-20 05:33 | PN ---
PROGRESS NOTE DATE OF SERVICE: 01/19/2020. REASON FOR FOLLOWUP: 1. Acute influenza. 2. Pneumonia. INTERVAL HISTORY: The patient is currently afebrile. She has been breathing comfortably. The patient denies having any chest pain. Cough decreased in intensity. No nausea, no vomiting. No abdominal pain. Diarrhea has improved. PHYSICAL EXAMINATION: On examination, blood pressure 132/61 with pulse 86, temperature 98.7. She is 96% on 6 L high-flow oxygen. General description is an elderly female up in the chair in no distress. RESPIRATORY SYSTEM: Unlabored breathing, decreased breath sounds in the bases. No wheeze. HEART: S1, S2. Regular rate and rhythm. ABDOMEN: Soft, no tenderness. LABS: No new labs have been obtained today. DIAGNOSTIC IMPRESSION AND PLAN: 1. Patient with acute influenza adequately treated. 2. The patient with pneumonia, did have alpha-hemolytic streptococcus in the blood. requested to be has not been done by the micro lab. Follow up blood culture has been negative. Patient is currently on the Rocephin transition to the Ceftin to finish course of therapy. Continue with supportive care. MMODL / IJN: [id number] /
[2020-01-20 07:21] LABS: Glucose,Whole Blood 137 mg/dL (75-99)
[2020-01-20] MEDS: IPRATROPIUM-ALBUTEROL 3 ML NEB INHALATION PRN ×4 (07:52→21:23)
[2020-01-20] MEDS: INSULN ASP PRT/INSULIN ASPART 100 UNIT/ML 10 ML VIAL SQ SCH ×3 (08:00→17:02)
[2020-01-20] MEDS: INSULIN ASPART (NovoLOG) 100 UNIT/ML VIAL SQ SCH ×4 (08:01→22:05)
[2020-01-20] MEDS: HEPARIN SODIUM,PORCINE 5,000 UNIT/ML 1 ML VIAL SQ SCH ×2 (08:01→22:04)
[2020-01-20] MEDS: CHOLESTYRAMINE (WITH SUGAR) 4 GM PACKET PO SCH ×2 (08:02→17:07)
[2020-01-20] MEDS: METOPROLOL TARTRATE 50 MG TAB PO SCH ×2 (08:02→22:04)
[2020-01-20] MEDS: ALLOPURINOL 100 MG TAB PO SCH (08:03)
[2020-01-20] MEDS: amLODIPine 10 MG TAB PO SCH (08:03)
[2020-01-20] MEDS: LOSARTAN 50 MG TAB PO SCH (08:03)
[2020-01-20] MEDS: POTASSIUM CHLORIDE ER 10 MEQ TAB.ER.PRT PO SCH (08:03)
[2020-01-20] MEDS: hydrALAZINE HCL 50 MG TAB PO SCH ×3 (08:03→22:04)
[2020-01-20] MEDS: PANTOPRAZOLE 40 MG TABLET PO SCH (08:03)
[2020-01-20] MEDS: buPROPion SR 150 MG TABLET.ER PO SCH ×2 (08:05→22:05)
[2020-01-20] MEDS: OXYBUTYNIN 15 MG TAB.ER.24 PO SCH (08:05)
--- NOTE | 2020-01-20 09:47 | XR ---
EXAMINATION TYPE: XR chest 2V DATE OF EXAM: 01/20/2020 COMPARISON: Prior chest x-ray 01/19/2020 HISTORY: Shortness of breath TECHNIQUE: Frontal and lateral views of the chest are obtained. FINDINGS: Bilateral airspace disease is again seen. Aorta is dense. Heart size within normal limits accounting for patient rotation. No evident pneumothorax. IMPRESSION: Correlate for pneumonia, follow-up to resolution.
[2020-01-20 10:43] LABS: Calcium 8.7 mg/dL (8.4-10.2); Potassium 4.1 mmol/L (3.5-5.1)
[2020-01-20 12:06] LABS: Glucose,Whole Blood 172 mg/dL (75-99)
--- NOTE | 2020-01-20 12:52 | P.PN ---
Subjective Progress Note Date: 01/20/20 On today's evaluation of 01/20/2020 the patient is feeling better. She is less short of breath. She was able to get up and ambulate. She was on 10 L of oxygen yesterday and he weaned her down to 5 L. Her chest x-ray shows some slight improvement in the bilateral pulmonary infiltration. She was taken off the Lasix. She was encouraged to take oral hydration. Creatinine is down to 2.5. No chest pain. No fever or chills. No other significant events overnight. She is on IV Rocephin. The course of Tamiflu was completed. Off diuretics for now. Objective - Vital Signs Vital signs: Vital Signs Temp 97.1 F L 01/20/20 04:45 Pulse 69 01/20/20 11:21 Resp 20 01/20/20 04:45 BP 153/70 01/20/20 04:45 Pulse Ox 93 L 01/20/20 04:45 Intake & Output 01/19/20 01/20/20 01/20/20 18:59 06:59 18:59 Intake Total 540 Balance 540 Intake: Oral 540 Other: Voiding Method Bedside Commode Bedside Commode Bedside Commode # Voids 3 2 # Bowel Movements 1 - Exam GENERAL EXAM: Alert, still somewhat dyspneic, on 5 L high flow nasal cannula, fairly comfortable in no apparent distress. HEAD: Normocephalic. EYES: Normal reaction of pupils, equal size. NOSE: Clear with pink turbinates. THROAT: No erythema or exudates. NECK: No masses, no JVD. CHEST: No chest wall deformity. LUNGS: Equal air entry with crackles in the posterior bases, scattered rhonchi. CVS: S1 and S2 normal with no audible murmur, regular rhythm. ABDOMEN: No hepatosplenomegaly, normal bowel sounds, no guarding or rigidity. SPINE: No scoliosis or deformity SKIN: No rashes CENTRAL NERVOUS SYSTEM: No focal deficits, tone is normal in all 4 extremities. EXTREMITIES: There is no peripheral edema. No clubbing, no cyanosis. Peripheral pulses are intact. - Labs CBC & Chem 7: 01/17/20 07:04 01/20/20 10:09 Labs: Abnormal Lab Results - Last 24 Hours (Table) 01/19/20 01/20/20 01/20/20 Range/Units 20:43 07:13 10:09 Sodium 136 L (137-145) mmol/L BUN 44 H (7-17) mg/dL Creatinine 2.24 H (0.52-1.04) mg/dL Glucose 184 H (74-99) mg/dL POC Glucose (mg/dL) 118 H 137 H (75-99) mg/dL 01/20/20 Range/Units 11:49 Sodium (137-145) mmol/L BUN (7-17) mg/dL Creatinine (0.52-1.04) mg/dL Glucose (74-99) mg/dL POC Glucose (mg/dL) 172 H (75-99) mg/dL Microbiology - Last 24 Hours (Table) 01/13/20 12:36 Blood Culture - Final Blood No Growth after 144 hours Assessment and Plan Plan: 1 Acute hypoxic respiratory failure secondary to influenza pneumonitis, and possibly superinfection with strep as the patient was found to have output and with acceptable blood. Currently on Rocephin. Completed Tamiflu. Clinically the patient is feeling better. Oxidation is improved and the patient is currently down to 5 L of oxygen by nasal cannula. She remains on IV Rocephin for now. Chest x-ray shows bilateral disease, improved compared to yesterday. 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 The patient has chronic kidney failure secondary to previous nephrectomy her baseline creatinine was around 1.7. She developed an acute kidney injury probably related to aggressive diuretics. Kidney function is improving. Plan: Encourage hydration orally Repeat the chest x-ray in a.m. Continue IV Rocephin Wean down the FiO2 down 5 L of possible Provide an incentive spirometer We'll continue to follow
[2020-01-20] MEDS: guaiFENesin-Coden 100-10MG/5ML 10 ML CUP PO PRN ×2 (15:16→22:11)
[2020-01-20 16:58] LABS: Glucose,Whole Blood 124 mg/dL (75-99)
--- NOTE | 2020-01-20 18:57 | PN ---
PROGRESS NOTE DATE OF SERVICE: 01/20/2020 REASON FOR FOLLOWUP: 1. Acute influenza. 2. Pneumonia. INTERVAL HISTORY: The patient is currently afebrile. She has been breathing comfortably. The patient's cough has decreased in intensity. No nausea, vomiting. No abdominal pain and diarrhea has resolved. PHYSICAL EXAMINATION: Blood pressure 131/58 with a pulse of 80. Temperature 98.4. She is 93% on 5 L nasal cannula. General description is an elderly female up in the bed in no distress. Respiratory system: Unlabored breathing. Decreased breath sounds at the base. No wheeze. Heart S1, S2. Regular rate and rhythm. Abdomen soft, no tenderness. LABS: White count 8.8 as of 01/17. The patient creatinine is currently stable at 2.24. IMPRESSION/PLAN: 1. Acute with influenza that has been adequately treated. 2. The patient secondary bacterial pneumonia in this patient currently covered with Rocephin, sputum was negative for any resistant pathogen. FiO2 is down to 6 L. Plan to finish therapy with a short course of oral antibiotics. 3. Continue supportive care. MMODL / IJN: [id number] /
--- NOTE | 2020-01-20 19:57 | PN ---
PROGRESS NOTE CHIEF COMPLAINT: Influenza pneumonia. HISTORY OF PRESENT ILLNESS: This lady is slowly improving, but she is still very congested. She is able to get up and walk up and down the degroot now without being extremely short of breath and dropping her pulse ox. PHYSICAL EXAMINATION: She still has bilateral rhonchi and rales scattered throughout both lung wallace. Cardiac exam is normal. Abdomen is soft, nontender. IMPRESSION: Bilateral influenza bronchial pneumonia. PLAN: Continue to increase activity and she will probably be able to be discharged in the next few days. MMODL / IJN: [id number] /
[2020-01-20 21:01] LABS: Glucose,Whole Blood 144 mg/dL (75-99)
[2020-01-20] MEDS: ATORVASTATIN 10 MG TAB PO SCH (22:04)
[2020-01-21 07:11] LABS: Glucose,Whole Blood 157 mg/dL (75-99)
[2020-01-21] MEDS: PANTOPRAZOLE 40 MG TABLET PO SCH (07:23)
[2020-01-21] MEDS: LOSARTAN 50 MG TAB PO SCH (07:24)
[2020-01-21] MEDS: hydrALAZINE HCL 50 MG TAB PO SCH ×3 (07:24→21:14)
[2020-01-21] MEDS: OXYBUTYNIN 15 MG TAB.ER.24 PO SCH (07:24)
[2020-01-21] MEDS: METOPROLOL TARTRATE 50 MG TAB PO SCH ×2 (07:24→21:14)
[2020-01-21] MEDS: buPROPion SR 150 MG TABLET.ER PO SCH ×2 (07:24→21:17)
[2020-01-21] MEDS: amLODIPine 10 MG TAB PO SCH (07:25)
[2020-01-21] MEDS: HEPARIN SODIUM,PORCINE 5,000 UNIT/ML 1 ML VIAL SQ SCH ×2 (07:25→21:14)
[2020-01-21] MEDS: INSULN ASP PRT/INSULIN ASPART 100 UNIT/ML 10 ML VIAL SQ SCH ×2 (07:25→12:06)
[2020-01-21] MEDS: ALLOPURINOL 100 MG TAB PO SCH (07:25)
[2020-01-21] MEDS: POTASSIUM CHLORIDE ER 10 MEQ TAB.ER.PRT PO SCH (07:25)
[2020-01-21] MEDS: INSULIN ASPART (NovoLOG) 100 UNIT/ML VIAL SQ SCH ×4 (07:26→21:18)
[2020-01-21] MEDS: IPRATROPIUM-ALBUTEROL 3 ML NEB INHALATION PRN ×3 (08:24→20:33)
[2020-01-21] MEDS: CHOLESTYRAMINE (WITH SUGAR) 4 GM PACKET PO SCH ×2 (10:32→18:07)
--- NOTE | 2020-01-21 11:36 | XR ---
EXAMINATION TYPE: XR chest 2V DATE OF EXAM: 01/21/2020 COMPARISON: R chest x-ray 01/20/2020 HISTORY: Bilateral pneumonia TECHNIQUE: Frontal and lateral views of the chest are obtained. FINDINGS: Bilateral airspace disease persists. Heart size is stable. Aorta is dense. No pneumothorax or evident effusion. IMPRESSION: Stable findings. Correlate for pneumonia, edema
--- NOTE | 2020-01-21 11:54 | P.PN ---
Subjective Progress Note Date: 01/21/20 On today's evaluation of 01/21/2020, the patient is feeling well. She was on high flow oxygen at 10 L. I further down to 5 L. Unable to wean her further as the patient's oxygenation is borderline at this point in time. Nevertheless, she felt that she is feeling better. She has a dry cough. Chest x-ray still showing patchy bilateral pulmonary infiltrates which is gradually improving comparing all these x-rays. She completed the course of Tamiflu. She is currently on IV Rocephin. She is taking 2 g of Rocephin every 24 hours as the patient had positive alphahemolytic Streptococcus. Her surgical wound site over the abdomen is dry clean and intact. No chest pain. No pleurisy. No hemopt ysis. No fever. No chills. She is off diuretics. The follow-up blood work is pending from today. Objective - Vital Signs Vital signs: Vital Signs Temp 96.7 F L 01/21/20 04:10 Pulse 80 01/21/20 08:38 Resp 22 01/21/20 08:00 BP 170/73 01/21/20 04:10 Pulse Ox 93 L 01/21/20 08:26 Intake & Output 01/20/20 01/21/20 01/21/20 18:59 06:59 18:59 Weight 112.9 kg Other: Voiding Method Bedside Commode Bedside Commode # Voids 1 1 # Bowel Movements 1 - Exam GENERAL EXAM: Alert, still somewhat dyspneic, on 5 L high flow nasal cannula, fairly comfortable in no apparent distress. HEAD: Normocephalic. EYES: Normal reaction of pupils, equal size. NOSE: Clear with pink turbinates. THROAT: No erythema or exudates. NECK: No masses, no JVD. CHEST: No chest wall deformity. LUNGS: Equal air entry with crackles in the posterior bases, scattered rhonchi. CVS: S1 and S2 normal with no audible murmur, regular rhythm. ABDOMEN: No hepatosplenomegaly, normal bowel sounds, no guarding or rigidity. The surgical wound site over the anterior abdominal wall is dry clean and intact and there is adequate bowel sounds. No drainage and the wound is clean. SPINE: No scoliosis or deformity SKIN: No rashes CENTRAL NERVOUS SYSTEM: No focal deficits, tone is normal in all 4 extremities. EXTREMITIES: There is no peripheral edema. No clubbing, no cyanosis. Periph eral pulses are intact. - Labs CBC & Chem 7: 01/17/20 07:04 01/20/20 10:09 Labs: Abnormal Lab Results - Last 24 Hours (Table) 01/20/20 01/20/20 01/20/20 Range/Units 11:49 16:50 21:00 POC Glucose (mg/dL) 172 H 124 H 144 H (75-99) mg/dL 01/21/20 Range/Units 06:48 POC Glucose (mg/dL) 157 H (75-99) mg/dL Assessment and Plan Plan: 1 Acute hypoxic respiratory failure secondary to influenza pneumonitis, and possibly superinfection with strep as the patient was found to have output and with acceptable blood. Currently on Rocephin. Completed Tamiflu. Clinically the patient is feeling better. Oxidation is improved and the patient is currently down to 5 L of oxygen by nasal cannula. She remains on IV Rocephin for now. Chest x-ray shows bilateral disease stable compared to yesterday. The patient got wean down from 10 L down to 5 L. Nevertheless unable to wean any further because of her borderline oxygenation. 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 The patient has chronic kidney failure secondary to previous nephrectomy her baseline creatinine was around 1.7. She developed an acute kidney injury probably related to aggressive diuretics. Kidney function is improving. Plan: Currently is on incentive spirometer. Wean FiO2 possible. Continue IV Rocephin. Electrolytes today Pro-calcitonin today Chest x-ray in a.m. We'll continue to follow.
[2020-01-21 11:57] LABS: Glucose,Whole Blood 55 mg/dL (75-99)
[2020-01-21 12:20] LABS: Glucose,Whole Blood 69 mg/dL (75-99)
[2020-01-21 12:32] LABS: Glucose,Whole Blood 72 mg/dL (75-99)
[2020-01-21 13:33] LABS: Calcium 8.9 mg/dL (8.4-10.2); Potassium 4.4 mmol/L (3.5-5.1)
[2020-01-21 17:10] LABS: Glucose,Whole Blood 138 mg/dL (75-99)
[2020-01-21] MEDS: ATORVASTATIN 10 MG TAB PO SCH (21:14)
[2020-01-21 21:17] LABS: Glucose,Whole Blood 139 mg/dL (75-99)
--- NOTE | 2020-01-22 05:06 | PN ---
PROGRESS NOTE DATE OF SERVICE: 01/21/2020 REASON FOR FOLLOWUP: Pneumonia. INTERVAL HISTORY: The patient is currently afebrile. She is breathing comfortably. The patient denies having any chest pain. She did have a cough, though decreased intensity, less . No nausea, no vomiting. No abdominal pain. No diarrhea. PHYSICAL EXAMINATION: Blood pressure 151/65, pulse of 87, temperature of 96.6. She is 94% on 4 L nasal cannula. General description is an elderly female up in the chair in no distress. RESPIRATORY SYSTEM: Unlabored breathing. Decreased breath sounds in the bases. No wheeze. HEART: S1, S2. Regular rate and rhythm. ABDOMEN: Soft, no tenderness. LABS: Procalcitonin 0.31, creatinine is 2.25. DIAGNOSTIC IMPRESSION AND PLAN: 1. Patient with acute influenza adequately treated. 2. The patient with pneumonia. Chest x-ray has been stable. Patient is covered with Rocephin. Sputum has been negative for any resistant pathogen. Continue supportive care. MMODL / IJN: [id number] /
[2020-01-22 07:07] LABS: Glucose,Whole Blood 139 mg/dL (75-99)
[2020-01-22] MEDS: INSULIN ASPART (NovoLOG) 100 UNIT/ML VIAL SQ SCH ×4 (07:14→21:05)
[2020-01-22] MEDS: IPRATROPIUM-ALBUTEROL 3 ML NEB INHALATION PRN ×3 (07:24→18:30)
[2020-01-22] MEDS: HEPARIN SODIUM,PORCINE 5,000 UNIT/ML 1 ML VIAL SQ SCH ×2 (07:38→20:13)
[2020-01-22] MEDS: METOPROLOL TARTRATE 50 MG TAB PO SCH ×2 (07:38→20:13)
[2020-01-22] MEDS: PANTOPRAZOLE 40 MG TABLET PO SCH (07:38)
[2020-01-22] MEDS: ALLOPURINOL 100 MG TAB PO SCH (07:38)
[2020-01-22] MEDS: hydrALAZINE HCL 50 MG TAB PO SCH ×3 (07:38→20:12)
[2020-01-22] MEDS: LOSARTAN 50 MG TAB PO SCH (07:38)
[2020-01-22] MEDS: CHOLESTYRAMINE (WITH SUGAR) 4 GM PACKET PO SCH ×2 (07:38→17:10)
[2020-01-22] MEDS: amLODIPine 10 MG TAB PO SCH (07:39)
[2020-01-22] MEDS: OXYBUTYNIN 15 MG TAB.ER.24 PO SCH (07:39)
[2020-01-22] MEDS: POTASSIUM CHLORIDE ER 10 MEQ TAB.ER.PRT PO SCH (07:39)
[2020-01-22] MEDS: buPROPion SR 150 MG TABLET.ER PO SCH ×2 (07:39→20:12)
[2020-01-22 11:38] LABS: Glucose,Whole Blood 141 mg/dL (75-99)
--- NOTE | 2020-01-22 12:36 | P.PN ---
Subjective Progress Note Date: 01/22/20 On today's evaluation of 01/22/2020, the patient is on 4 L of oxygen by nasal cannula. Pulse ox is 91%. The follow-up chest x-rays to follow. The patient is currently on IV Rocephin 2 g every 24 hours. Note that she was septic with an alpha monitoring Streptococcus. Doing well. No new complaints. He was able to sit up on a chair or a bedside recliner. No nausea. No vomiting. Diarrhea. No abdominal pain. Renal function is stable. No other significant events overnight. The patient seems to getting anxious and she wants to go home. I told her that the chest x-ray from yesterday was showing bilateral consolidation in the follow-up chest x-ray was needed. Objective - Vital Signs Vital signs: Vital Signs Temp 97.2 F L 01/22/20 05:04 Pulse 76 01/22/20 12:19 Resp 18 01/22/20 11:18 BP 149/67 01/22/20 05:04 Pulse Ox 91 L 01/22/20 11:18 Intake & Output 01/21/20 01/22/20 01/22/20 18:59 06:59 18:59 Weight 113.7 kg 113.7 kg Other: Voiding Method Bedside Commode Bedside Commode # Voids 1 1 # Bowel Movements 1 1 - Exam GENERAL EXAM: Alert, still somewhat dyspneic, on 4 L high flow nasal cannula, fairly comfortable in no apparent distress. HEAD: Normocephalic. EYES: Normal reaction of pupils, equal size. NOSE: Clear with pink turbinates. THROAT: No erythema or exudates. NECK: No masses, no JVD. CHEST: No chest wall deformity. LUNGS: Equal air entry with crackles in the posterior bases, scattered rhonchi. CVS: S1 and S2 normal with no audible murmur, regular rhythm. ABDOMEN: No hepatosplenomegaly, normal bowel sounds, no guarding or rigidity. The surgical wound site over the anterior abdominal wall is dry clean and intact and there is adequate bowel sounds. No drainage and the wound is clean. SPINE: No scoliosis or deformity SKIN: No rashes CENTRAL NERVOUS SYSTEM: No focal deficits, tone is normal in all 4 extremities. EXTREMITIES: There is no peripheral edema. No clubbing, no cyanosis. Peripheral pulses are intact. - Labs CBC & Chem 7: 01/17/20 07:04 01/21/20 12:39 Labs: Abnormal Lab Results - Last 24 Hours (Table) 01/21/20 01/21/20 01/21/20 Range/Units 12:39 12:39 17:01 BUN 40 H (7-17) mg/dL Creatinine 2.25 H (0.52-1.04) mg/dL POC Glucose (mg/dL) 138 H (75-99) mg/dL Procalcitonin 0.31 H (0.02-0.09) ng/mL 01/21/20 01/22/20 01/22/20 Range/Units 21:15 07:04 11:36 BUN (7-17) mg/dL Creatinine (0.52-1.04) mg/dL POC Glucose (mg/dL) 139 H 139 H 141 H (75-99) mg/dL Procalcitonin (0.02-0.09) ng/mL Assessment and Plan Plan: 1 Acute hypoxic respiratory failure secondary to influenza pneumonitis, and possibly superinfection with strep as the patient was found to have output and with acceptable blood. Currently on Rocephin. Completed Tamiflu. Clinically the patient is feeling better. Nevertheless, the oxygenation is still impaired and the patient still requiring 4 L of oxygen by nasal cannula. 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 The patient has chronic kidney failure secondary to previous nephrectomy her baseline creatinine was around 1.7. She developed an acute kidney injury probably related to aggressive diuretics. Kidney function is improving. Note that the most recent creatinine currently is at 2.25 from yesterday. Plan: Currently is on incentive spirometer. Wean FiO2 possible. Currently she is down to 40s about 2 by nasal cannula. Continue IV Rocephin. Electrolytes today Pro-calcitonin level is elevated at 0.34. Nevertheless the patient has some underlying kidney failure which could impair the levels. Chest x-ray today is pending and this will be reviewed once available. I do not think she is ready for discharge. He has would like to wean the FiO2 further and evaluate her ability to walk and ambulate and assess his readiness to be discharged home. We'll continue to follow.
--- NOTE | 2020-01-22 13:05 | XR ---
EXAMINATION TYPE: XR chest 1V DATE OF EXAM: 01/22/2020 COMPARISON: Prior chest x-ray 01/21/2020 HISTORY: Pneumonia TECHNIQUE: Single frontal view of the chest is obtained. FINDINGS: Findings are similar to prior exam. Bilateral airspace disease persists. No evident pneumo thorax or pleural effusion. Heart size appears enlarged or at the upper limit of normal, aorta is den se. IMPRESSION: Stable findings. Correlate for pneumonia. Follow-up recommended.
--- NOTE | 2020-01-22 15:07 | PN ---
PROGRESS NOTE DATE OF SERVICE: 01/22/2020 REASON FOR FOLLOWUP: Pneumonia. INTERVAL HISTORY: The patient is currently afebrile. The patient overall is feeling better. He is breathing comfortably. The patient has cough but decreased intensity. No nausea, no vomiting. No abdominal pain, no diarrhea. PHYSICAL EXAMINATION: Blood pressure 149/65, pulse ( ), temperature 98.2. She is 92% on 4 L nasal cannula. General description is an elderly female up in the chair in no distress. Respiratory system: Unlabored breath. Decreased breath sounds in the bases. No wheeze. Heart S1, S2. Regular rate and rhythm. Abdomen soft, no tenderness. LABS: No new labs have been obtained. Chest x-ray - stable findings. DIAGNOSTIC IMPRESSION AND PLAN: 1. Patient with acute influenza, adequately treated. 2. Patient with pneumonia, sputum with Annette. Blood cultures ( ). All the blood cultures were negative. Patient is covered with Rocephin, to continue ( ). Continue supportive care. MMODL / IJN: [id number] /
[2020-01-22 16:56] LABS: Glucose,Whole Blood 125 mg/dL (75-99)
--- NOTE | 2020-01-22 19:31 | PN ---
PROGRESS NOTE DATE OF SERVICE: 01/21/2020 CHIEF COMPLAINT: Influenza pneumonia. HISTORY OF PRESENT ILLNESS: This lady still continues to struggle. She is still very congested and becomes winded with very little activity. PHYSICAL EXAMINATION: She still has decreased breath sounds throughout and extensive rales, rhonchi and wheezing with a congested cough. Cardiac exam is normal. Abdomen is soft, nontender. IMPRESSION: 1. Influenza, bronchial pneumonia. 2. Diabetes. 3. Carcinoma of the kidney. PLAN: Continue with current inpatient treatment until she is able to be safely discharged. MMODL / IJN: [id number] /
--- NOTE | 2020-01-22 19:40 | PN ---
PROGRESS NOTE DATE OF SERVICE: 01/22/2020 CHIEF COMPLAINT: Influenza pneumonia. HISTORY OF PRESENT ILLNESS: This lady has continued to have trouble. Apparently early this morning she had a great deal of difficulty with breathing and had received another updraft. Her progress is slow. PHYSICAL EXAMINATION: She is afebrile. Chest is the same with rales, rhonchi, wheezing and a prolonged expiratory phase. Cardiac exam is normal. Abdomen is soft, nontender. IMPRESSION: 1. Influenza pneumonia. 2. Diabetes. 3. Status post nephrectomy. PLAN: Continue with current program until she is able to be discharged. Progress is slow. MMODL / IJN: [id number] /
[2020-01-22] MEDS: ATORVASTATIN 10 MG TAB PO SCH (20:12)
[2020-01-22] MEDS: guaiFENesin-Coden 100-10MG/5ML 10 ML CUP PO PRN (20:13)
[2020-01-22 21:00] LABS: Glucose,Whole Blood 135 mg/dL (75-99)
[2020-01-23 07:23] LABS: Glucose,Whole Blood 139 mg/dL (75-99)
[2020-01-23] MEDS: IPRATROPIUM-ALBUTEROL 3 ML NEB INHALATION PRN ×3 (07:41→20:38)
[2020-01-23] MEDS: HEPARIN SODIUM,PORCINE 5,000 UNIT/ML 1 ML VIAL SQ SCH ×2 (08:00→20:00)
[2020-01-23] MEDS: LOSARTAN 50 MG TAB PO SCH (08:00)
[2020-01-23] MEDS: POTASSIUM CHLORIDE ER 10 MEQ TAB.ER.PRT PO SCH (08:00)
[2020-01-23] MEDS: INSULIN ASPART (NovoLOG) 100 UNIT/ML VIAL SQ SCH ×4 (08:00→20:12)
[2020-01-23] MEDS: ALLOPURINOL 100 MG TAB PO SCH (08:00)
[2020-01-23] MEDS: amLODIPine 10 MG TAB PO SCH (08:00)
[2020-01-23] MEDS: METOPROLOL TARTRATE 50 MG TAB PO SCH ×2 (08:00→20:00)
[2020-01-23] MEDS: hydrALAZINE HCL 50 MG TAB PO SCH ×3 (08:00→20:00)
[2020-01-23] MEDS: PANTOPRAZOLE 40 MG TABLET PO SCH (08:00)
[2020-01-23] MEDS: OXYBUTYNIN 15 MG TAB.ER.24 PO SCH (08:01)
[2020-01-23] MEDS: CHOLESTYRAMINE (WITH SUGAR) 4 GM PACKET PO SCH ×2 (08:01→17:14)
[2020-01-23] MEDS: buPROPion SR 150 MG TABLET.ER PO SCH ×2 (08:01→19:59)
[2020-01-23 08:11] LABS: HGB 9.7 gm/dL (11.4-16.0); MCH 28.3 pg (25.0-35.0); MCHC 31.4 g/dL (31.0-37.0); Mean Platelet Volume 7.9; Platelet Count 252 k/uL (150-450); RBC 3.45 m/uL (3.80-5.40); RDW 15.6 % (11.5-15.5); WBC 10.6 k/uL (3.8-10.6)
[2020-01-23 08:20] LABS: Calcium 8.9 mg/dL (8.4-10.2); Potassium 4.8 mmol/L (3.5-5.1)
--- NOTE | 2020-01-23 10:47 | P.PN ---
Subjective Progress Note Date: 01/23/20 On 01/23/2020 the patient is on 4 L. Unable to wean her down on it further as the patient desaturates below 90%. Chest x-ray from yesterday still showing stable bilateral pulmonary infiltrates. She does have some crackles bilaterally. She gets short of breath with limited amount of activity. No fever or chills. No chest pain. Creatinine continues to improve. No nausea. No vomiting. No abdominal pain.She remains on IV Rocephin 2 g every 24 hours. I'm going to add systemic steroids. I'm also going to obtain a noncontrast CAT scan of the chest to further characterize the pulmonary abnormalities. Objective - Vital Signs Vital signs: Vital Signs Temp 97.8 F 01/23/20 04:06 Pulse 80 01/23/20 07:53 Resp 18 01/23/20 08:00 BP 149/63 01/23/20 04:06 Pulse Ox 94 L 01/23/20 04:06 Intake & Output 01/22/20 01/23/20 01/23/20 18:59 06:59 18:59 Intake Total 540 Output Total 1 1 Balance 539 -1 Weight 113.7 kg Intake: Oral 540 Output: Stool 1 1 Other: Voiding Method Bedside Commode Bedside Commode Bedside Commode # Voids 2 1 # Bowel Movements 1 - Exam GENERAL EXAM: Alert, still somewhat dyspneic, on 4 L high flow nasal cannula, fairly comfortable in no apparent distress. HEAD: Normocephalic. EYES: Normal reaction of pupils, equal size. NOSE: Clear with pink turbinates. THROAT: No erythema or exudates. NECK: No masses, no JVD. CHEST: No chest wall deformity. LUNGS: Equal air entry with crackles in the posterior bases, scattered rhonchi. CVS: S1 and S2 normal with no audible murmur, regular rhythm. ABDOMEN: No hepatosplenomegaly, normal bowel sounds, no guarding or rigidity. The surgical wound site over the anterior abdominal wall is dry clean and intact and there is adequate bowel sounds. No drainage and the wound is clean. SPINE: No scoliosis or deformity SKIN: No rashes CENTRAL NERVOUS SYSTEM: No focal deficits, tone is normal in all 4 extremities. EXTREMITIES: There is no peripheral edema. No clubbing, no cyanosis. Peripheral pulses are intact. - Labs CBC & Chem 7: 01/23/20 07:48 01/23/20 07:48 Labs: Abnormal Lab Results - Last 24 Hours (Table) 01/22/20 01/22/20 01/22/20 Range/Units 11:36 16:54 20:55 RBC (3.80-5.40) m/uL Hgb (11.4-16.0) gm/dL Hct (34.0-46.0) % RDW (11.5-15.5) % Sodium (137-145) mmol/L BUN (7-17) mg/dL Creatinine (0.52-1.04) mg/dL Glucose (74-99) mg/dL POC Glucose (mg/dL) 141 H 125 H 135 H (75-99) mg/dL 01/23/20 01/23/20 01/23/20 Range/Units 07:16 07:48 07:48 RBC 3.45 L (3.80-5.40) m/uL Hgb 9.7 L (11.4-16.0) gm/dL Hct 31.0 L (34.0-46.0) % RDW 15.6 H (11.5-15.5) % Sodium 136 L (137-145) mmol/L BUN 34 H (7-17) mg/dL Creatinine 2.07 H (0.52-1.04) mg/dL Glucose 159 H (74-99) mg/dL POC Glucose (mg/dL) 139 H (75-99) mg/dL Assessment and Plan Plan: 1 Acute hypoxic respiratory failure secondary to influenza pneumonitis, and possibly superinfection with strep as the patient was found to have output and with acceptable blood. Currently on Rocephin. Completed Tamiflu. Clinically the patient is feeling better. Nevertheless, the oxygenation is still impaired and the patient still requiring 4 L of oxygen by nasal cannula. 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 Creatinine continues to improve and is down to 2.0. Plan: IV Solu-Medrol 40 mg every 8 hours Drop down the FiO2 to 3 L per minute nasal cannula Obtain a noncontrast CAT scan of the chest Continue IV Rocephin Not ready for discharge yet. We'll continue to follow.
[2020-01-23 11:59] LABS: Glucose,Whole Blood 119 mg/dL (75-99)
[2020-01-23] MEDS: methylPREDNISolone SOD SUCCI 40 MG/ML 1 ML VIAL IV SCH ×2 (12:43→15:00)
--- NOTE | 2020-01-23 13:18 | CT ---
EXAMINATION TYPE: CT chest wo con DATE OF EXAM: 01/23/2020 COMPARISON: None. HISTORY: Thai. Pulmonary infiltrate CT DLP: 672 mGycm. Automated Exposure Control for Dose Reduction was Utilized. TECHNIQUE: CT scan of the thorax is performed without IV contrast. FINDINGS: There are patchy, bilateral opacities most marked in the upper lobes bilaterally. There are bilateral pleural effusions, greater on the right left. There is no significant axillary adenopathy. There is some shotty mediastinal adenopathy. There is no pericardial fluid. The heart is enlarged. There is moderate atheromatous calcification of the visualized arterial tree including the coronary a rteries. There is a 1.1 x 2.4 cm calculus in the cortical region of the middle pole region of the left kidney. The right kidney has been removed. Visualized portions of the upper abdomen are unremarkable otherwi se. There is mild hypertrophic spondylosis within the spine. IMPRESSION: 1. DIFFUSE, PATCHY BILATERAL OPACITIES MOST MARKED IN THE UPPER LOBES BILATERALLY. 2. BILATERAL PLEURAL EFFUSIONS, GREATER ON THE RIGHT THAN THE LEFT. 3. CARDIOMEGALY. 4. CORTICAL CALCIFICATION IN THE LEFT KIDNEY. 5. DEGENERATIVE CHANGES WITHIN THE SPINE.
--- NOTE | 2020-01-23 15:25 | PN ---
PROGRESS NOTE CHIEF COMPLAINT: Pneumonia. HISTORY OF PRESENT ILLNESS: This lady continues to have extreme shortness of breath with congestion. It is improving, but only very slowly. PHYSICAL EXAMINATION: She has breath sounds bilaterally, but they are still significantly decreased with rales, rhonchi and wheezing bilaterally. Cardiac exam is normal. IMPRESSION: 1. Influenza pneumonia. 2. Congestive heart failure. 3. Diabetes. PLAN: No change in program. BMP will be repeated. AMAURY / IJN: [id number] /
[2020-01-23 17:02] LABS: Glucose,Whole Blood 161 mg/dL (75-99)
[2020-01-23] MEDS: ATORVASTATIN 10 MG TAB PO SCH (20:00)
[2020-01-23 20:17] LABS: Glucose,Whole Blood 252 mg/dL (75-99)
[2020-01-24] MEDS: methylPREDNISolone SOD SUCCI 40 MG/ML 1 ML VIAL IV SCH ×3 (00:38→16:38)
[2020-01-24] MEDS: METOPROLOL TARTRATE 50 MG TAB PO SCH ×2 (05:19→21:49)
[2020-01-24 07:05] LABS: Glucose,Whole Blood 233 mg/dL (75-99)
[2020-01-24] MEDS: INSULIN ASPART (NovoLOG) 100 UNIT/ML VIAL SQ SCH ×4 (07:45→22:02)
[2020-01-24] MEDS: POTASSIUM CHLORIDE ER 10 MEQ TAB.ER.PRT PO SCH (07:46)
[2020-01-24] MEDS: ALLOPURINOL 100 MG TAB PO SCH (07:46)
[2020-01-24] MEDS: hydrALAZINE HCL 50 MG TAB PO SCH ×3 (07:46→21:50)
[2020-01-24] MEDS: LOSARTAN 50 MG TAB PO SCH (07:46)
[2020-01-24] MEDS: CHOLESTYRAMINE (WITH SUGAR) 4 GM PACKET PO SCH ×2 (07:47→16:39)
[2020-01-24] MEDS: PANTOPRAZOLE 40 MG TABLET PO SCH (07:47)
[2020-01-24] MEDS: HEPARIN SODIUM,PORCINE 5,000 UNIT/ML 1 ML VIAL SQ SCH ×2 (07:47→21:50)
[2020-01-24] MEDS: amLODIPine 10 MG TAB PO SCH (07:47)
[2020-01-24] MEDS: buPROPion SR 150 MG TABLET.ER PO SCH ×2 (07:48→21:50)
[2020-01-24] MEDS: OXYBUTYNIN 15 MG TAB.ER.24 PO SCH (07:48)
[2020-01-24] MEDS: IPRATROPIUM-ALBUTEROL 3 ML NEB INHALATION PRN ×4 (08:33→20:02)
[2020-01-24 12:06] LABS: Glucose,Whole Blood 250 mg/dL (75-99)
--- NOTE | 2020-01-24 12:39 | P.PN ---
Subjective Progress Note Date: 01/24/20 On 01/24/2020, seeing the patient for a follow-up. She is comfortable on 4 L of oxygen by nasal cannula. Nevertheless, the noncontrast CAT scan of the chest that was done showed extensive consolidation bilaterally. Going back to the history, the patient had an influenza and following that she had a positive blood culture for strep. Since then, the patient completed the flu treatment and she has been on IV Rocephin. Nevertheless, her chest x-ray and pulmonary infiltrates have not. Repeat sputum Gram stain and culture showed positive annette. She remains on 4 L of oxygen by nasal cannula. I added IV Solu-Medrol yesterday. She is afebrile. Surgical wound site is dry clean and intact. Note that these are all new onset pulmonary patient did not have the those infiltrates based on the chest x-ray that was done on 12/29/2019. She may need a bronchoscopy to rule out any ongoing infectious cause for this pulmonary infiltration the hypoxemic respiratory failure. 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 Objective - Vital Signs Vital signs: Vital Signs Temp 97.7 F 01/24/20 05:15 Pulse 84 01/24/20 11:57 Resp 19 01/24/20 05:15 BP 185/62 01/24/20 05:15 Pulse Ox 92 L 01/24/20 05:15 Intake & Output 01/23/20 01/24/20 01/24/20 18:59 06:59 18:59 Weight 114.1 kg Other: Voiding Method Bedside Commode Bedside Commode # Voids 1 1 # Bowel Movements 1 0 - Exam GENERAL EXAM: Alert, still somewhat dyspneic, on 4 L high flow nasal cannula, fairly comfortable in no apparent distress. HEAD: Normocephalic. EYES: Normal reaction of pupils, equal size. NOSE: Clear with pink turbinates. THROAT: No erythema or exudates. NECK: No masses, no JVD. CHEST: No chest wall deformity. LUNGS: Equal air entry with crackles in the posterior bases, scattered rhonchi. CVS: S1 and S2 normal with no audible murmur, regular rhythm. ABDOMEN: No hepatosplenomegaly, normal bowel sounds, no guarding or rigidity. The surgical wound site over the anterior abdominal wall is dry clean and intact and there is adequate bowel sounds. No drainage and the wound is clean. SPINE: No scoliosis or deformity SKIN: No rashes CENTRAL NERVOUS SYSTEM: No focal deficits, tone is normal in all 4 extremities. EXTREMITIES: There is no peripheral edema. No clubbing, no cyanosis. Peripheral pulses are intact. - Labs CBC & Chem 7: 01/23/20 07:48 01/23/20 07:48 Labs: Abnormal Lab Results - Last 24 Hours (Table) 01/23/20 01/23/20 01/24/20 Range/Units 16:51 20:08 06:58 POC Glucose (mg/dL) 161 H 252 H 233 H (75-99) mg/dL 01/24/20 Range/Units 12:03 POC Glucose (mg/dL) 250 H (75-99) mg/dL Assessment and Plan Plan: 1 Acute hypoxic respiratory failure secondary to influenza pneumonitis, and possibly superinfection with strep as the patient was found to have output and with acceptable blood. Currently on Rocephin. Completed Tamiflu. Clinically the patient is feeling better. Nevertheless, the oxygenation is still impaired and the patient still requiring 4 L of oxygen by nasal cannula. The patient continued to be hypoxemic on 4 L of oxygen by nasal cannula to maintain a saturation above 90%. Chest x-ray showed dense consolidations bilaterally. There is ongoing pulmonary infiltration ongoing hypoxic respiratory failure. Repeat sputum analysis showed Annette. Meanwhile, the patient is still on IV Rocephin regarding alphahemolytic streptococcal positive blood cultures. Consider superinfection. 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 Creatinine continues to improve and is down to 2.0. Plan: IV Solu-Medrol 40 mg every 8 hours Continue IV Rocephin Consider bronchoscopy within the next 24-48 hours Not ready for discharge yet. We'll continue to follow.
[2020-01-24 16:51] LABS: Glucose,Whole Blood 321 mg/dL (75-99)
--- NOTE | 2020-01-24 17:24 | PN ---
PROGRESS NOTE DATE OF SERVICE: 01/24/2020 REASON FOR FOLLOWUP: Left lower lung pneumonia. INTERVAL HISTORY: The patient is currently afebrile. She has been breathing more comfortably. Denies having any chest pain. She did have some cough but not bringing up any sputum. No nausea or vomiting. No abdominal pain. No diarrhea. PHYSICAL EXAMINATION: Blood pressure 156/64 with a pulse of 94, temperature 98.2. She is 94% on 4 L nasal cannula. General description is an elderly female up in the chair in no distress. Respiratory system: Unlabored breathing. Decreased breath sounds in the bases. No wheeze. Heart S1, S2. Regular rate and rhythm. Abdomen soft, no tenderness. LABS: No new labs have been obtained today. Last white count was 10.6 on January 23 yesterday. Sputum has been Annette. Blood culture repeat has been negative. DIAGNOSTIC IMPRESSION AND PLAN: 1. Patient with acute influenza that has been adequately treated. 2. The patient with pneumonia, positive blood cultures which was not finalized despite request to the lab. The patient is currently on Rocephin to continue and hopefully to finish a short course of oral antibiotics and monitor clinical course closely. 3. Continue supportive care. MMODL / IJN: [id number] /
[2020-01-24] MEDS: ATORVASTATIN 10 MG TAB PO SCH (21:49)
[2020-01-24 22:00] LABS: Glucose,Whole Blood 314 mg/dL (75-99)
[2020-01-24] MEDS: guaiFENesin-Coden 100-10MG/5ML 10 ML CUP PO PRN (22:13)
--- NOTE | 2020-01-24 22:34 | PN ---
PROGRESS NOTE CHIEF COMPLAINT: Influenza pneumonia. HISTORY OF PRESENT ILLNESS: This lady continues to have difficulty. She is comfortable, sitting at rest with oxygen, whenever this taken off she becomes hypoxic. PHYSICAL EXAM: There are still rales and rhonchi although they might be slightly improved. Cardiac exam is normal. Abdomen is soft, nontender. Extremities are normal. IMPRESSION: 1. Influenza pneumonia with respiratory failure. 2. Diabetes. PLAN: Continue with conservative management. The end point of her problem is not clear. She may wind up having to go to a rehab facility. MMODL / IJN: [id number] /
[2020-01-25] MEDS: methylPREDNISolone SOD SUCCI 40 MG/ML 1 ML VIAL IV SCH ×3 (00:44→15:59)
[2020-01-25 07:13] LABS: Glucose,Whole Blood 249 mg/dL (75-99)
[2020-01-25] MEDS: INSULIN DETEMIR (LEVEMIR) 100 UNIT/ML SYR SQ SCH (07:40)
[2020-01-25] MEDS: CHOLESTYRAMINE (WITH SUGAR) 4 GM PACKET PO SCH ×2 (07:40→17:18)
[2020-01-25] MEDS: INSULIN ASPART (NovoLOG) 100 UNIT/ML VIAL SQ SCH ×4 (07:40→21:00)
[2020-01-25] MEDS: LOSARTAN 50 MG TAB PO SCH (07:41)
[2020-01-25] MEDS: PANTOPRAZOLE 40 MG TABLET PO SCH (07:41)
[2020-01-25] MEDS: METOPROLOL TARTRATE 50 MG TAB PO SCH ×2 (07:41→21:02)
[2020-01-25] MEDS: POTASSIUM CHLORIDE ER 10 MEQ TAB.ER.PRT PO SCH (07:42)
[2020-01-25] MEDS: ALLOPURINOL 100 MG TAB PO SCH (07:42)
[2020-01-25] MEDS: amLODIPine 10 MG TAB PO SCH (07:42)
[2020-01-25] MEDS: hydrALAZINE HCL 50 MG TAB PO SCH ×3 (07:42→21:02)
[2020-01-25] MEDS: HEPARIN SODIUM,PORCINE 5,000 UNIT/ML 1 ML VIAL SQ SCH ×2 (07:42→21:02)
[2020-01-25] MEDS: OXYBUTYNIN 15 MG TAB.ER.24 PO SCH (07:43)
[2020-01-25] MEDS: buPROPion SR 150 MG TABLET.ER PO SCH ×2 (07:43→21:01)
[2020-01-25] MEDS: CINACALCET 30 MG TAB PO SCH (07:43)
[2020-01-25 11:48] LABS: Glucose,Whole Blood 297 mg/dL (75-99)
[2020-01-25] MEDS: ALPRAZolam 0.25 MG TAB PO PRN (12:12)
--- NOTE | 2020-01-25 12:24 | P.PN ---
Subjective Progress Note Date: 01/25/20 Principal diagnosis: Dyspnea secondary to fluid volume overload, influenza pneumonitis and possible pneumonia The patient is seen today 01/25/2020 in follow-up on the regular medical floor. She is currently sitting up in a chair at the bedside. Awake and alert in no acute distress. She is still not quite back to her baseline as far as her pulmonary status. Still coughing and congested. Unable to expectorate any phlegm. Maintaining O2 saturations in the low 90s on 2 L/m per nasal cannula. Afebrile, hemodynamically stable. He is continued on DuoNeb inhalations, IV So leeanna-Medrol, ceftriaxone. Objective - Vital Signs Vital signs: Vital Signs Temp 98.5 F 01/25/20 04:15 Pulse 92 01/25/20 04:15 Resp 24 01/25/20 04:15 BP 138/64 01/25/20 04:15 Pulse Ox 93 L 01/25/20 04:15 Intake & Output 01/24/20 01/25/20 01/25/20 18:59 06:59 18:59 Intake Total 300 Output Total 0 Balance 300 Intake: Oral 300 Output: Stool 0 Other: Voiding Method Bedside Commode Bedside Commode # Voids 1 1 # Bowel Movements 1 1 - Exam GENERAL EXAM: Alert, pleasant 69-year-old female patient, up in a chair at the bedside, and 2 L nasal cannula, still somewhat dyspneic, fairly comfortable in no apparent distress. HEAD: Normocephalic. EYES: Normal reaction of pupils, equal size. NOSE: Clear with pink turbinates. THROAT: No erythema or exudates. NECK: No masses, no JVD. CHEST: No chest wall deformity. LUNGS: Equal air entry with crackles in the posterior bases, scattered rhonchi. CVS: S1 and S2 normal with no audible murmur, regular rhythm. ABDOMEN: No hepatosplenomegaly, normal bowel sounds, no guarding or rigidity. SPINE: No scoliosis or deformity SKIN: No rashes CENTRAL NERVOUS SYSTEM: No focal deficits, tone is normal in all 4 extremities. EXTREMITIES: There is no peripheral edema. No clubbing, no cyanosis. Peripheral pulses are intact. - Labs CBC & Chem 7: 01/23/20 07:48 01/23/20 07:48 Labs: Abnormal Lab Results - Last 24 Hours (Table) 01/24/20 01/24/20 01/25/20 Range/Units 16:49 21:58 07:09 POC Glucose (mg/dL) 321 H 314 H 249 H (75-99) mg/dL 01/25/20 Range/Units 11:42 POC Glucose (mg/dL) 297 H (75-99) mg/dL Assessment and Plan Assessment: 1 Acute hypoxic respiratory failure secondary to influenza pneumonitis, fluid volume overload and pneumonia. Currently on Rocephin. Completed Tamiflu. The oxygenation is still impaired and the patient still requiring 2 L of oxygen by nasal cannula. The patient continued to be hypoxemic on 2 L of oxygen by nasal cannula to maintain a saturation above 90%. Chest x-ray showed dense consolidations bilaterally. The patient is still on IV Rocephin regarding alphahemolytic streptococcal positive blood cultures. Consider superinfection. 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 Computed tomography scan of the chest continues to show diffuse, patchy bilateral opacities most marketed in the upper lobes bilaterally. Bilateral pleural effusions right greater than left. Cardiomegaly. 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 Campbell. The patient has been slow to progress. We'll plan for bronchoscopy with BAL tomorrow. She remains on ceftriaxone. Continue bronchodilators. IV Solu-Medrol. We'll continue to follow and make further recommendations based on her clinical status. I, the cosigning physician, performed a history & physical examination of the patient. Lungs sounds with crackles in the posterior bases, scattered rhonchi. Maintaining good O2 saturations in the 90s on 2 L nasal cannula. I discussed the assessment and plan of care with my nurse practitioner, Patty Hussein. I attest to the above note as dictated by her.
--- NOTE | 2020-01-25 16:14 | MISC ---
MISCELLANOUS REPORT QUERY: Sepsis ruled out. MMODL / IJN: [id number] /
--- NOTE | 2020-01-25 16:20 | MISC ---
MISCELLANOUS REPORT QUERY: Acute renal failure; it states none of those. Chronic renal failure is stage IV. MMODL / IJN: [id number] /
--- NOTE | 2020-01-25 16:26 | MISC ---
MISCELLANOUS REPORT QUERY: Acute diastolic heart failure. MMODL / IJN: [id number] /
[2020-01-25 17:00] LABS: Glucose,Whole Blood 195 mg/dL (75-99)
[2020-01-25] MEDS: LACTATED RINGERS 1,000 ML IV SCH (17:17)
--- NOTE | 2020-01-25 19:17 | PN ---
PROGRESS NOTE CHIEF COMPLAINT: Influenza pneumonia. HISTORY OF PRESENT ILLNESS: This lady continues to have difficulty. She still has a lot of shortness of breath when she is up and about. She is down to 2 or 3 liters of oxygen per nasal catheter, which is a slight improvement. PHYSICAL EXAMINATION: She still has extensive wheezing, rales, rhonchi, and productive cough. Cardiac exam is normal. The abdomen is soft. Extremities are normal. IMPRESSION: Persistent influenza pneumonia. PLAN: Wait for any further recommendations that may be made by Pulmonology. MMODL / IJN: [id number] /
[2020-01-25 20:37] LABS: Glucose,Whole Blood 219 mg/dL (75-99)
[2020-01-25] MEDS: guaiFENesin-Coden 100-10MG/5ML 10 ML CUP PO PRN (21:01)
[2020-01-25] MEDS: ATORVASTATIN 10 MG TAB PO SCH (21:01)
[2020-01-25] MEDS: ZOLPIDEM 5 MG TAB PO PRN (21:03)
[2020-01-26] MEDS: methylPREDNISolone SOD SUCCI 40 MG/ML 1 ML VIAL IV SCH ×3 (00:02→16:31)
--- NOTE | 2020-01-26 05:39 | PN ---
PROGRESS NOTE DATE OF SERVICE: 01/25/2020 REASON FOR FOLLOWUP: Pneumonia. INTERVAL HISTORY: The patient is currently afebrile. The patient is still complaining of shortness of breath. She did have a cough but not bringing up any sputum. No chest pain. No nausea, vomiting. No abdominal pain. No diarrhea. PHYSICAL EXAMINATION: On examination, her blood pressure is 161/69 with a pulse of 79, temperature 98.2. General description is an elderly female up in the chair in no distress. RESPIRATORY SYSTEM: Unlabored breathing with decreased breath sounds in the bases, no wheeze. HEART: S1, S2. Regular rate and rhythm. ABDOMEN: Soft, no tenderness. LABS: No new labs have been obtained today. DIAGNOSTIC IMPRESSION AND PLAN: Patient with a pneumonia versus bronchiolitis obliterans organizing pneumonia. This patient did have recent influenza and has been adequately treated. Possible bronchoscopy tomorrow. The patient is currently covered with Rocephin. Continue to monitor clinical course closely. MMODL / IJN: [id number] /
[2020-01-26] MEDS: IPRATROPIUM-ALBUTEROL 3 ML NEB INHALATION PRN ×4 (05:49→20:27)
[2020-01-26] MEDS ORDERED: FUROSEMIDE 10 MG/ML 4 ML VIAL IV STA (06:32)
[2020-01-26 07:17] LABS: Glucose,Whole Blood 203 mg/dL (75-99)
[2020-01-26] MEDS: POTASSIUM CHLORIDE ER 10 MEQ TAB.ER.PRT PO SCH (08:00)
[2020-01-26] MEDS: buPROPion SR 150 MG TABLET.ER PO SCH ×2 (08:00→21:37)
[2020-01-26] MEDS: hydrALAZINE HCL 50 MG TAB PO SCH ×3 (08:00→20:04)
[2020-01-26] MEDS: OXYBUTYNIN 15 MG TAB.ER.24 PO SCH (08:00)
[2020-01-26] MEDS: LOSARTAN 50 MG TAB PO SCH (08:00)
[2020-01-26] MEDS: CINACALCET 30 MG TAB PO SCH (08:00)
[2020-01-26] MEDS: METOPROLOL TARTRATE 50 MG TAB PO SCH ×2 (08:00→20:04)
[2020-01-26] MEDS: PANTOPRAZOLE 40 MG TABLET PO SCH (08:00)
[2020-01-26] MEDS: ALLOPURINOL 100 MG TAB PO SCH (08:01)
[2020-01-26] MEDS: amLODIPine 10 MG TAB PO SCH (08:01)
[2020-01-26] MEDS: INSULIN ASPART (NovoLOG) 100 UNIT/ML VIAL SQ SCH ×4 (08:01→21:37)
[2020-01-26] MEDS: INSULIN DETEMIR (LEVEMIR) 100 UNIT/ML SYR SQ SCH (08:01)
[2020-01-26] MEDS: HEPARIN SODIUM,PORCINE 5,000 UNIT/ML 1 ML VIAL SQ SCH ×2 (08:01→20:05)
[2020-01-26] MEDS: CHOLESTYRAMINE (WITH SUGAR) 4 GM PACKET PO SCH ×2 (08:02→17:54)
--- NOTE | 2020-01-26 09:05 | XR ---
EXAMINATION TYPE: XR chest 1V portable DATE OF EXAM: 01/26/2020 COMPARISON: Chest x-ray 01/22/2020, chest CT 01/23/2020 HISTORY: Shortness of breath TECHNIQUE: Single frontal view of the chest is obtained. FINDINGS: Findings similar to prior exams. IMPRESSION: Bilateral pneumonia. Patient's pleural effusions are not seen on frontal view.
[2020-01-26 09:49] LABS: ABG Base Excess -6.1 mmol/L; ABG HCO3 19 mmol/L (21-25); ABG Oxygen Saturation 97.1 % (94-97); ABG PCO2 34 mmHg (35-45); ABG PH 7.36 (7.35-7.45); ABG PO2 89 mmHg (83-108); ABG TCO2 20 mmol/L (19-24); Allen Test Performed? Yes
[2020-01-26 09:52] LABS: Anisocytosis Slight; HCT 32.2 % (34.0-46.0); HGB 10.2 gm/dL (11.4-16.0); MCH 28.7 pg (25.0-35.0); MCHC 31.6 g/dL (31.0-37.0); MCV 90.7 fL (80.0-100.0); Mean Platelet Volume 7.5; Platelet Count 375 k/uL (150-450); RBC 3.55 m/uL (3.80-5.40); RDW 16.1 % (11.5-15.5); WBC 12.3 k/uL (3.8-10.6)
--- NOTE | 2020-01-26 09:53 | P.PN ---
Subjective Progress Note Date: 01/26/20 Principal diagnosis: Dyspnea secondary to fluid volume overload, influenza pneumonitis and possible pneumonia The patient is seen today 01/26/2020 in follow-up on the regular medical floor. Earlier this morning she developed increasing shortness of breath, acute hypoxic respiratory failure requiring BiPAP support 10/5 and 50% FiO2. She was given a dose of Lasix. Chest x-ray shows bilateral worsening pneumonia. Yesterday she had been down to 2 L/m per nasal cannula. Throughout the night she was increased back to 10 L high flow nasal cannula to maintain saturations in the 90s. Initial sputum culture had revealed Annette only. She had been continuing on DuoNeb inhalations, IV Solu-Medrol, antibiotics in the form of ceftriaxone. The plan was for bronchoscopy with BAL this morning however based on her worsening condition we'll hold off for now. She'll be transferred to the ICU. Objective - Vital Signs Vital signs: Vital Signs Temp 96.2 F L 01/26/20 05:15 Pulse 75 01/26/20 05:58 Resp 22 01/26/20 05:20 BP 147/67 01/26/20 05:15 Pulse Ox 93 L 01/26/20 08:20 Intake & Output 01/25/20 01/26/20 01/26/20 18:59 06:59 18:59 Intake Total 540 Balance 540 Weight 116 kg Intake: Oral 540 Other: Voiding Method Bedside Commode Bedside Commode # Voids 2 2 # Bowel Movements 2 - Exam GENERAL EXAM: Alert, 69-year-old morbidly obese female patient, who developed respiratory distress stress this a.m. Placed on BiPAP 10/5 and 50% FiO2. HEAD: Normocephalic. EYES: Normal reaction of pupils, equal size. NOSE: Clear with pink turbinates. THROAT: No erythema or exudates. NECK: No masses, no JVD. CHEST: No chest wall deformity. LUNGS: Equal air entry with crackles in the posterior bases, scattered rhonchi. CVS: S1 and S2 normal with no audible murmur, regular rhythm. ABDOMEN: No hepatosplenomegaly, normal bowel sounds, no guarding or rigidity. SPINE: No scoliosis or deformity SKIN: No rashes CENTRAL NERVOUS SYSTEM: No focal deficits, tone is normal in all 4 extremities. EXTREMITIES: There is no peripheral edema. No clubbing, no cyanosis. Peripheral pulses are intact. - Labs CBC & Chem 7: 01/23/20 07:48 01/23/20 07:48 Labs: Abnormal Lab Results - Last 24 Hours (Table) 01/25/20 01/25/20 01/25/20 Range/Units 11:42 16:57 20:26 POC Glucose (mg/dL) 297 H 195 H 219 H (75-99) mg/dL 01/26/20 Range/Units 07:14 POC Glucose (mg/dL) 203 H (75-99) mg/dL Assessment and Plan Assessment: 1 Acute hypoxic respiratory failure secondary to influenza A pneumonitis, fluid volume overload and pneumonia. Currently on Rocephin. Completed Tamiflu. On 01/26/2020 the patient developed worsening shortness of breath, cough, congestion and hypoxic respiratory failure. She had been down to 2 L nasal cannula yesterday and throughout the night required up to 10 L high flow nasal cannula and eventually placed on BiPAP this morning 10/5 and 50% FiO2. Chest x- ray shows bilateral pneumonia. Plan was for bronchoscopy with BAL today. We'll hold off for now. Should the patient require intubation mechanical ventilatory support will definitely do the bronchoscopy. Sputum culture had revealed Annette only. The patient is still on IV Rocephin regarding alphahemolytic streptococcal positive blood cultures. Consider superinfection. 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 Computed tomography scan of the chest continues to show diffuse, patchy bilateral opacities most marketed in the upper lobes bilaterally. Bilateral pleural effusions right greater than left. 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 Campbell. Chest x-ray reviewed. Labs are pending. ABGs pending. The patient required increasing high flow nasal cannula throughout the night and eventual BiPAP support this morning 10/550% FiO2. We'll transfer her to the intensive care unit for further monitoring. We'll hold off on bronchoscopy with BAL to avoid probable intra/postoperative intubation. Should the patient worsen however and require intubation and mechanical ventilator support we'll do a bronchoscopy then. Adjust antibiotics accordingly. Continue DuoNeb inhalations, IV Solu-Medrol. We will continue to follow and make further recommendations based on her clinical status. I, the cosigning physician, performed a history & physical examination of the patient. Lungs sounds with crackles in the posterior bases, scattered rhonchi. Maintaining good O2 saturations in the 90s on 50% FiO2 on BiPAP 10/5. I discussed the assessment and plan of care with my nurse practitioner, Patty Hussein. I attest to the above note as dictated by her. Time with Patient: Greater than 30
[2020-01-26 09:56] LABS: Albumin 3.5 g/dL (3.5-5.0); Calcium 9.7 mg/dL (8.4-10.2); Potassium 5.7 mmol/L (3.5-5.1); Total Bilirubin 0.4 mg/dL (0.2-1.3)
[2020-01-26 10:18] LABS: Glucose,Whole Blood 205 mg/dL (75-99)
[2020-01-26 12:55] LABS: Glucose,Whole Blood 179 mg/dL (75-99)
[2020-01-26] MEDS: LACTATED RINGERS 1,000 ML IV SCH (13:02)
--- NOTE | 2020-01-26 15:17 | PN ---
PROGRESS NOTE DATE OF SERVICE: 01/26/2020 REASON FOR FOLLOWUP: Acute influenza with pneumonia. INTERVAL HISTORY: The patient has been transferred out of the ICU and she was noticed to have increasing shortness of breath early this morning. The patient has been dialyzed subsequently and did have some improvement in her symptoms. The patient did have a cough which has been dry in nature. No nausea, no vomiting. No abdominal pain and no diarrhea. PHYSICAL EXAMINATION: Blood pressure is 106/64 with a pulse of 74, temperature of 98, she is 93% on 6 L of oxygen. General description is an elderly female up in the bed in no distress. RESPIRATORY SYSTEM: Unlabored breathing, decreased breath sounds, no wheeze. HEART S1, S2. Regular rate and rhythm. ABDOMEN: Soft, no tenderness. LABS: Hemoglobin is 7.1, white count of 12.3, BUN of 55, creatinine is 2.41. DIAGNOSTIC IMPRESSION AND PLAN: Patient with acute respiratory failure, which is likely multifactorial in this patient who did have acute influenza that has been adequately treated now with a component of pneumonia. The patient is currently on Rocephin with no evidence of any resistant pathogen of sputum culture. Continue monitoring clinical course closely. Continue supportive care. MMODL / IJN: [id number] /
[2020-01-26] MEDS: FUROSEMIDE 10 MG/ML 4 ML VIAL IV SCH ×2 (16:31→20:04)
[2020-01-26 17:42] LABS: Glucose,Whole Blood 202 mg/dL (75-99)
[2020-01-26] MEDS: ATORVASTATIN 10 MG TAB PO SCH (20:04)
[2020-01-26] MEDS: ALPRAZolam 0.25 MG TAB PO PRN (20:09)
[2020-01-26 21:34] LABS: Glucose,Whole Blood 170 mg/dL (75-99)
[2020-01-27] MEDS: methylPREDNISolone SOD SUCCI 40 MG/ML 1 ML VIAL IV SCH ×4 (00:07→23:09)
[2020-01-27 03:39] LABS: ABG Base Excess -4.5 mmol/L; ABG HCO3 20 mmol/L (21-25); ABG Oxygen Saturation 96.6 % (94-97); ABG PCO2 34 mmHg (35-45); ABG PH 7.39 (7.35-7.45); ABG PO2 85 mmHg (83-108); ABG TCO2 22 mmol/L (19-24); Allen Test Performed? Yes
[2020-01-27 04:39] LABS: HCT 33.2 % (34.0-46.0); HGB 10.2 gm/dL (11.4-16.0); Hypochromasia Marked; MCH 28.7 pg (25.0-35.0); MCHC 30.7 g/dL (31.0-37.0); MCV 93.4 fL (80.0-100.0); Mean Platelet Volume 7.4; Platelet Count 301 k/uL (150-450); RBC 3.56 m/uL (3.80-5.40); RDW 15.6 % (11.5-15.5); WBC 8.5 k/uL (3.8-10.6)
[2020-01-27 04:49] LABS: Albumin 3.5 g/dL (3.5-5.0); Calcium 9.3 mg/dL (8.4-10.2); Potassium 5.2 mmol/L (3.5-5.1); Total Bilirubin 0.5 mg/dL (0.2-1.3); Total Protein 6.9 g/dL (6.3-8.2)
[2020-01-27 06:41] LABS: Glucose,Whole Blood 173 mg/dL (75-99)
[2020-01-27] MEDS: INSULIN ASPART (NovoLOG) 100 UNIT/ML VIAL SQ SCH ×4 (06:46→20:57)
[2020-01-27] MEDS: IPRATROPIUM-ALBUTEROL 3 ML NEB INHALATION PRN ×3 (07:33→16:42)
--- NOTE | 2020-01-27 08:05 | XR ---
EXAMINATION TYPE: XR chest 1V portable DATE OF EXAM: 01/27/2020 COMPARISON: Prior chest x-ray 01/26/2020 HISTORY: Pneumonia, congestive heart failure TECHNIQUE: Single frontal view of the chest is obtained. FINDINGS: There is some improvement in aeration bilaterally, density is less confluent. No evident p neumothorax or pleural effusion. Patient is rotated. Heart is likely stable. Aorta is dense. IMPRESSION: There is some improvement in aeration.
[2020-01-27] MEDS: INSULIN DETEMIR (LEVEMIR) 100 UNIT/ML SYR SQ SCH (08:51)
[2020-01-27] MEDS: METOPROLOL TARTRATE 50 MG TAB PO SCH ×2 (09:42→20:00)
[2020-01-27] MEDS: ALLOPURINOL 100 MG TAB PO SCH (09:42)
[2020-01-27] MEDS: PANTOPRAZOLE 40 MG TABLET PO SCH (09:42)
[2020-01-27] MEDS: LOSARTAN 50 MG TAB PO SCH (09:42)
[2020-01-27] MEDS: FUROSEMIDE 10 MG/ML 4 ML VIAL IV SCH ×2 (09:42→20:00)
[2020-01-27] MEDS: hydrALAZINE HCL 50 MG TAB PO SCH ×3 (09:42→20:00)
[2020-01-27] MEDS: amLODIPine 10 MG TAB PO SCH (09:42)
[2020-01-27] MEDS: HEPARIN SODIUM,PORCINE 5,000 UNIT/ML 1 ML VIAL SQ SCH ×2 (09:42→20:00)
[2020-01-27] MEDS: POTASSIUM CHLORIDE ER 10 MEQ TAB.ER.PRT PO SCH (09:43)
[2020-01-27] MEDS: OXYBUTYNIN 15 MG TAB.ER.24 PO SCH (10:22)
[2020-01-27] MEDS: buPROPion SR 150 MG TABLET.ER PO SCH ×2 (10:22→20:04)
[2020-01-27] MEDS: ALPRAZolam 0.25 MG TAB PO PRN (10:22)
[2020-01-27] MEDS: CHOLESTYRAMINE (WITH SUGAR) 4 GM PACKET PO SCH ×2 (10:22→17:09)
--- NOTE | 2020-01-27 11:06 | P.PN ---
Subjective Progress Note Date: 01/27/20 Principal diagnosis: Acute hypoxic respiratory failure secondary to influenza A pneumonitis, underlying pneumonia, and suspect fluid volume overload. The patient is seen today 01/26/2020 in follow-up on the regular medical floor. Earlier this morning she developed increasing shortness of breath, acute hypoxic respiratory failure requiring BiPAP support 10/5 and 50% FiO2. She was given a dose of Lasix. Chest x-ray shows bilateral worsening pneumonia. Yesterday she had been down to 2 L/m per nasal cannula. Throughout the night she was increased back to 10 L high flow nasal cannula to maintain saturations in the 90s. Initial sputum culture had revealed Annette only. She had been continuing on DuoNeb inhalations, IV Solu-Medrol, antibiotics in the form of ceftriaxone. The plan was for bronchoscopy with BAL this morning however based on her worsening condition we'll hold off for now. She'll be transferred to the ICU. Patient was reevaluated today in the ICU on 01/27/2020, patient is presently on BiPAP, she received Lasix yesterday, and her chest x-ray is showing significant improvement. There seems to be better aeration, and less interstitial edema noted in both lungs. Patient is on BiPAP with IPAP of 10 and EPAP of 5 and FiO2 of 40%. Her O2 saturation is 97% on this setting. Clinically the patient is feeling better, remains on diuretics, she remains on antibiotics, and she is also on bronchodilators. At one point I was considering bronchoscopy on this patient, however her pulmonary status remains marginal, and considering the patient is improving with diuretics, I will continue the same. No plans to perform bronchoscopy at this point. However will continue diuretics, continue antibiotics, and bronchodilators. Objective - Vital Signs Vital signs: Vital Signs Temp 97.5 F L 01/27/20 08:00 Pulse 100 01/27/20 10:00 Resp 22 01/27/20 10:00 BP 150/63 01/27/20 10:00 Pulse Ox 96 01/27/20 09:00 Intake & Output 01/26/20 01/27/20 01/27/20 18:59 06:59 18:59 Intake Total 60 240 80 Output Total 700 1000 4915 Balance -650 -733 -8805 Weight 117.1 kg 119.1 kg Intake: IV 60 240 80 Lactated Ringers 1,000 ml 60 240 80 @ 20 mls/hr IV .Q24H [facility] Rx#:[id number] Output: Urine 700 1000 1325 Other: Voiding Method Bedside Commode Bedside Commode - Exam GENERAL EXAM: Revealed 69-year-old female obese, on BiPAP, comfortable.. HEENT: PERRLA, EOMI, no icterus, no neck masses, no JVD, short obese neck was noted. CHEST: No chest wall deformity. LUNGS: Crackles and rhonchi noted bilaterally. Symmetrical chest expansion. CVS: S1 and S2 normal with 2/6 systolic murmur thought the precordium. ABDOMEN: No hepatosplenomegaly, normal bowel sounds, no guarding or rigidity. SPINE: No scoliosis or deformity SKIN: No rashes CENTRAL NERVOUS SYSTEM: Alert and oriented 3 no gross focal neurologic deficits. EXTREMITIES: There is no peripheral edema. No clubbing, no cyanosis. Peripheral pulses are intact. Psychiatric: Normal mood affect and normal mental status examination - Labs CBC & Chem 7: 01/27/20 04:15 01/27/20 04:15 Labs: Abnormal Lab Results - Last 24 Hours (Table) 01/26/20 01/26/20 01/26/20 Range/Units 11:09 11:09 12:54 RBC (3.80-5.40) m/uL Hgb (11.4-16.0) gm/dL Hct (34.0-46.0) % MCHC (31.0-37.0) g/dL RDW (11.5-15.5) % D-Dimer 2.13 H (<0.60) mg/L FEU ABG pCO2 (35-45) mmHg ABG HCO3 (21-25) mmol/L Sodium (137-145) mmol/L Potassium (3.5-5.1) mmol/L Chloride (98-107) mmol/L Carbon Dioxide (22-30) mmol/L BUN (7-17) mg/dL Creatinine (0.52-1.04) mg/dL Glucose (74-99) mg/dL POC Glucose (mg/dL) 179 H (75-99) mg/dL AST (14-36) U/L ALT (4-34) U/L Procalcitonin 0.17 H (0.02-0.09) ng/mL 01/26/20 01/26/20 01/27/20 Range/Units 17:41 21:32 03:37 RBC (3.80-5.40) m/uL Hgb (11.4-16.0) gm/dL Hct (34.0-46.0) % MCHC (31.0-37.0) g/dL RDW (11.5-15.5) % D-Dimer (<0.60) mg/L FEU ABG pCO2 34 L (35-45) mmHg ABG HCO3 20 L (21-25) mmol/L Sodium (137-145) mmol/L Potassium (3.5-5.1) mmol/L Chloride (98-107) mmol/L Carbon Dioxide (22-30) mmol/L BUN (7-17) mg/dL Creatinine (0.52-1.04) mg/dL Glucose (74-99) mg/dL POC Glucose (mg/dL) 202 H 170 H (75-99) mg/dL AST (14-36) U/L ALT (4-34) U/L Procalcitonin (0.02-0.09) ng/mL 01/27/20 01/27/20 01/27/20 Range/Units 04:15 04:15 06:39 RBC 3.56 L (3.80-5.40) m/uL Hgb 10.2 L (11.4-16.0) gm/dL Hct 33.2 L (34.0-46.0) % MCHC 30.7 L (31.0-37.0) g/dL RDW 15.6 H (11.5-15.5) % D-Dimer (<0.60) mg/L FEU ABG pCO2 (35-45) mmHg ABG HCO3 (21-25) mmol/L Sodium 136 L (137-145) mmol/L Potassium 5.2 H (3.5-5.1) mmol/L Chloride 108 H (98-107) mmol/L Carbon Dioxide 16 L (22-30) mmol/L BUN 65 H (7-17) mg/dL Creatinine 2.47 H (0.52-1.04) mg/dL Glucose 162 H (74-99) mg/dL POC Glucose (mg/dL) 173 H (75-99) mg/dL AST 52 H (14-36) U/L ALT 50 H (4-34) U/L Procalcitonin (0.02-0.09) ng/mL Assessment and Plan Assessment: Impression: Acute hypoxic respiratory failure, multifactorial. Secondary to: Influenza a infection Fluid overload and suspect some component of diastolic congestive heart failure, acute Underlying pneumonia is not entirely ruled out. Multiple comorbidities including recent laparoscopic right radical nephrectomy for renal cell carcinoma, Type 2 diabetes GERD with esophagitis Hypertension Morbid obesity Generalized anxiety disorder Dyslipidemia Recommendation: Continue diuretics. Continue BiPAP. Continue antibiotics. Continue bronchodilators. We'll continue to hold on bronchoscopy for now, We'll continue to monitor the patient in the ICU Repeat chest x-ray in a.m. Will follow. Time with Patient: Less than 30
[2020-01-27 11:49] LABS: Glucose,Whole Blood 239 mg/dL (75-99)
--- NOTE | 2020-01-27 14:58 | PN ---
PROGRESS NOTE DATE OF SERVICE: 01/27/2020 REASON FOR FOLLOWUP: Pneumonia. INTERVAL HISTORY: The patient is currently afebrile. She is noted to be pleasantly confused this morning. She is on BiPAP. Hemodynamically stable. No vomiting or any diarrhea reported. PHYSICAL EXAMINATION: Blood pressure is 147/66, pulse 85, temperature is 98.5, she is 95% on 5 L nasal cannula. General description is an elderly female up in the bed in no distress. RESPIRATORY SYSTEM: Decreased breath sounds, no wheeze. HEART: S1, S2. Regular rate and rhythm. ABDOMEN: Soft, no tenderness. LABS: Hemoglobin is 10.1, white count 8.5, BUN of 65, creatinine is 2.47. DIAGNOSTIC IMPRESSION AND PLAN: 1. Patient with acute influenza, has been adequately treated. 2. Patient with pneumonia +/- fluid overload. Patient clinically this morning with Rocephin to continue. . Will monitor clinical course closely. MMEMMAL / IJN: [id number] /
[2020-01-27] MEDS: LACTATED RINGERS 1,000 ML IV SCH (16:17)
[2020-01-27 16:48] LABS: Glucose,Whole Blood 202 mg/dL (75-99)
--- NOTE | 2020-01-27 16:49 | PN ---
PROGRESS NOTE CHIEF COMPLAINT: Acute respiratory failure and delirium. HISTORY OF PRESENT ILLNESS: This lady developed acute respiratory failure and shortness of breath yesterday and was transferred to the ICU. At this point, this looks mostly like a process secondary to her influenza pneumonia as well as congestive heart failure. BNP is high. She is in BiPAP at this time. The other concern is that her renal function seems to be deteriorating which was originally a concern when her kidney was taken out with regard to whether or no she could be supported on one kidney. REVIEW OF SYSTEMS: Unobtainable. PHYSICAL EXAMINATION: Vital signs are normal. She is delirious at this time. She is hallucinating. She does not drink alcohol at all. There is apparently no history of headache, chest pain, abdominal pain, etc. Color is good. Hydration is good. Chest demonstrates rales and rhonchi throughout with a loose and productive cough. Cardiac exam demonstrates tachycardia. The abdomen is soft. Extremities are normal. IMPRESSION: 1. Acute respiratory failure. 2. Delirium. 3. Viral pneumonitis. 4. Congestive heart failure. 5. Type 2 insulin-dependent diabetes mellitus. 6. Renal failure. 7. History of recent nephrectomy for renal cell carcinoma. PLAN: No change in her treatment management at this time and follow with Intensive Medicine. Nephrology may have to get involved if her renal function does not improve. MMODL / IJN: [id number] /
[2020-01-27] MEDS: ZOLPIDEM 5 MG TAB PO PRN (20:00)
[2020-01-27] MEDS: ATORVASTATIN 10 MG TAB PO SCH (20:00)
[2020-01-27 20:27] LABS: Glucose,Whole Blood 262 mg/dL (75-99)
[2020-01-27] MEDS ORDERED: HALOPERIDOL LACTATE 5 MG/ML 1 ML VIAL IVP ONE (23:03)
--- NOTE | 2020-01-28 00:28 | CT ---
EXAMINATION TYPE: CT brain wo con DATE OF EXAM: 01/28/2020 COMPARISON: None HISTORY: AMS from fall. R/O brain bleed. CT DLP: 1121.4 mGycm Automated exposure control for dose reduction was used. Ventricles have normal size. There is no mass effect nor midline shift. There is no sign of intracran ial hemorrhage. There is some patchy hypodensity in the periventricular white matter. The calvarium i s intact. IMPRESSION: White matter hypodensity suggestive of chronic small vessel ischemia or demyelinating disease. No hay dence of cortical infarct. No hemorrhage.
[2020-01-28 01:48] LABS: Glucose,Whole Blood 165 mg/dL (75-99)
[2020-01-28 06:45] LABS: Basophils % (A) 0 %; Eosinophils # (A) 0.1 k/uL (0-0.7); Eosinophils % (A) 1 %; HCT 30.2 % (34.0-46.0); HGB 9.7 gm/dL (11.4-16.0); Lymphocytes # (A) 0.5 k/uL (1.0-4.8); Lymphocytes % (A) 6 %; MCH 29.2 pg (25.0-35.0); MCHC 32.3 g/dL (31.0-37.0); MCV 90.3 fL (80.0-100.0); Mean Platelet Volume 7.7; Monocytes # (A) 0.4 k/uL (0-1.0); Monocytes % (A) 5 %; Neutrophils % (A) 88 %; Platelet Count 279 k/uL (150-450); RBC 3.34 m/uL (3.80-5.40); WBC 9.1 k/uL (3.8-10.6)
[2020-01-28 06:51] LABS: Glucose,Whole Blood 213 mg/dL (75-99)
[2020-01-28] MEDS: INSULIN ASPART (NovoLOG) 100 UNIT/ML VIAL SQ SCH ×4 (07:00→22:28)
[2020-01-28] MEDS: INSULIN DETEMIR (LEVEMIR) 100 UNIT/ML SYR SQ SCH (07:00)
[2020-01-28 07:09] LABS: Potassium 4.6 mmol/L (3.5-5.1)
--- NOTE | 2020-01-28 08:04 | XR ---
EXAMINATION TYPE: XR chest 1V portable DATE OF EXAM: 01/28/2020 COMPARISON: Prior chest x-ray 01/27/2020 HISTORY: Pneumonia, congestive heart failure TECHNIQUE: Single frontal view of the chest is obtained. FINDINGS: There may be some worsening of airspace disease in the perihilar locations. There are diff erences in technique. Heart is stable. No evident pneumothorax or pleural effusion. Difficult to excl ude mediastinal adenopathy. IMPRESSION: There may be slight worsening in patient's airspace disease
[2020-01-28] MEDS: HEPARIN SODIUM,PORCINE 5,000 UNIT/ML 1 ML VIAL SQ SCH ×2 (08:30→22:22)
[2020-01-28] MEDS: methylPREDNISolone SOD SUCCI 40 MG/ML 1 ML VIAL IV SCH ×2 (08:30→15:52)
[2020-01-28] MEDS: FUROSEMIDE 10 MG/ML 4 ML VIAL IV SCH ×2 (08:30→22:22)
[2020-01-28] MEDS: ALLOPURINOL 100 MG TAB PO SCH (08:31)
[2020-01-28] MEDS: hydrALAZINE HCL 50 MG TAB PO SCH ×3 (08:31→22:20)
[2020-01-28] MEDS: LOSARTAN 50 MG TAB PO SCH (08:31)
[2020-01-28] MEDS: PANTOPRAZOLE 40 MG TABLET PO SCH (08:31)
[2020-01-28] MEDS: METOPROLOL TARTRATE 50 MG TAB PO SCH ×2 (08:31→22:21)
[2020-01-28] MEDS: amLODIPine 10 MG TAB PO SCH (08:31)
[2020-01-28] MEDS: CHOLESTYRAMINE (WITH SUGAR) 4 GM PACKET PO SCH ×2 (08:31→17:17)
[2020-01-28] MEDS: POTASSIUM CHLORIDE ER 10 MEQ TAB.ER.PRT PO SCH (08:31)
[2020-01-28] MEDS: buPROPion SR 150 MG TABLET.ER PO SCH ×2 (08:32→22:21)
[2020-01-28] MEDS: OXYBUTYNIN 15 MG TAB.ER.24 PO SCH (08:32)
[2020-01-28 11:54] LABS: Glucose,Whole Blood 179 mg/dL (75-99)
--- NOTE | 2020-01-28 12:08 | P.PN ---
Subjective Progress Note Date: 01/28/20 Principal diagnosis: Acute hypoxic respiratory failure secondary to influenza A pneumonitis, underlying pneumonia, and suspect fluid volume overload. The patient is seen today 01/26/2020 in follow-up on the regular medical floor. Earlier this morning she developed increasing shortness of breath, acute hypoxic respiratory failure requiring BiPAP support 10/5 and 50% FiO2. She was given a dose of Lasix. Chest x-ray shows bilateral worsening pneumonia. Yesterday she had been down to 2 L/m per nasal cannula. Throughout the night she was increased back to 10 L high flow nasal cannula to maintain saturations in the 90s. Initial sputum culture had revealed Annette only. She had been continuing on DuoNeb inhalations, IV Solu-Medrol, antibiotics in the form of ceftriaxone. The plan was for bronchoscopy with BAL this morning however based on her worsening condition we'll hold off for now. She'll be transferred to the ICU. Patient was reevaluated today in the ICU on 01/27/2020, patient is presently on BiPAP, she received Lasix yesterday, and her chest x-ray is showing significant improvement. There seems to be better aeration, and less interstitial edema noted in both lungs. Patient is on BiPAP with IPAP of 10 and EPAP of 5 and FiO2 of 40%. Her O2 saturation is 97% on this setting. Clinically the patient is feeling better, remains on diuretics, she remains on antibiotics, and she is also on bronchodilators. At one point I was considering bronchoscopy on this patient, however her pulmonary status remains marginal, and considering the patient is improving with diuretics, I will continue the same. No plans to perform bronchoscopy at this point. However will continue diuretics, continue antibiotics, and bronchodilators. Reevaluated today on 01/28/20, remains in the intensive care unit, intermittently on BiPAP, presently on 6 L nasal cannula. Patient tells me that she is feeling better, however she continues to have quite abnormal chest x-ray, bilateral air space disease noted bilaterally. She also has diffuse rhonchi and wheezes bilaterally more so on forced expiratory maneuver. Cannot bring up much sputum, but feels congested. No fever no chills, no hemodynamic instability. O2 saturation is 93% on 6 L high flow nasal cannula. Remains on bronchodilators, diuretics, steroids, antibiotics, with some improvement, but clearly not ready to be discharged out of the ICU at this point yet. Objective - Vital Signs Vital signs: Vital Signs Temp 97.3 F L 01/28/20 08:00 Pulse 75 01/28/20 11:00 Resp 22 01/28/20 11:00 BP 141/96 01/28/20 11:00 Pulse Ox 93 L 01/28/20 11:00 Intake & Output 01/27/20 01/28/20 01/28/20 18:59 06:59 18:59 Intake Total 320 240 430 Output Total 1860 1095 705 Balance -1540 -855 -275 Weight 114.6 kg Intake: IV 320 240 130 Lactated Ringers 1,000 ml 220 240 80 @ 20 mls/hr IV .Q24H [facility] Rx#:[id number] cefTRIAXone 2 gm In 100 50 Sodium Chloride 0.9% 50 ml @ 100 mls/hr IVPB Q24HR [facility] Rx#:[id number] Oral 300 Output: Urine 1860 1095 705 Other: Voiding Method Indwelling Catheter Indwelling Catheter Indwelling Catheter - Exam GENERAL EXAM: Revealed 69-year-old female obese, on 6 L high flow nasal cannula, HEENT: PERRLA, EOMI, no icterus, no neck masses, no JVD, short obese neck was noted. CHEST: No chest wall deformity. LUNGS: Crackles and rhonchi noted bilaterally. Symmetrical chest expansion. CVS: S1 and S2 normal with 2/6 systolic murmur thought the precordium. ABDOMEN: No hepatosplenomegaly, normal bowel sounds, no guarding or rigidity. SPINE: No scoliosis or deformity SKIN: No rashes CENTRAL NERVOUS SYSTEM: Alert and oriented 3 no gross focal neurologic deficits. EXTREMITIES: There is no peripheral edema. No clubbing, no cyanosis. Peripheral pulses are intact. Psychiatric: Normal mood affect and normal mental status examination - Labs CBC & Chem 7: 01/28/20 06:30 01/28/20 06:30 Labs: Abnormal Lab Results - Last 24 Hours (Table) 01/27/20 01/27/20 01/28/20 Range/Units 16:45 20:26 01:45 RBC (3.80-5.40) m/uL Hgb (11.4-16.0) gm/dL Hct (34.0-46.0) % RDW (11.5-15.5) % Neutrophils # (1.3-7.7) k/uL Lymphocytes # (1.0-4.8) k/uL Sodium (137-145) mmol/L Carbon Dioxide (22-30) mmol/L BUN (7-17) mg/dL Creatinine (0.52-1.04) mg/dL Glucose (74-99) mg/dL POC Glucose (mg/dL) 202 H 262 H 165 H (75-99) mg/dL Calcium (8.4-10.2) mg/dL 01/28/20 01/28/20 01/28/20 Range/Units 06:30 06:30 06:49 RBC 3.34 L (3.80-5.40) m/uL Hgb 9.7 L (11.4-16.0) gm/dL Hct 30.2 L (34.0-46.0) % RDW 16.0 H (11.5-15.5) % Neutrophils # 8.0 H (1.3-7.7) k/uL Lymphocytes # 0.5 L (1.0-4.8) k/uL Sodium 134 L (137-145) mmol/L Carbon Dioxide 15 L (22-30) mmol/L BUN 77 H (7-17) mg/dL Creatinine 2.63 H (0.52-1.04) mg/dL Glucose 193 H (74-99) mg/dL POC Glucose (mg/dL) 213 H (75-99) mg/dL Calcium 8.0 L (8.4-10.2) mg/dL 01/28/20 Range/Units 11:51 RBC (3.80-5.40) m/uL Hgb (11.4-16.0) gm/dL Hct (34.0-46.0) % RDW (11.5-15.5) % Neutrophils # (1.3-7.7) k/uL Lymphocytes # (1.0-4.8) k/uL Sodium (137-145) mmol/L Carbon Dioxide (22-30) mmol/L BUN (7-17) mg/dL Creatinine (0.52-1.04) mg/dL Glucose (74-99) mg/dL POC Glucose (mg/dL) 179 H (75-99) mg/dL Calcium (8.4-10.2) mg/dL Assessment and Plan Assessment: Impression: Acute hypoxic respiratory failure, multifactorial. Secondary to: Influenza a infection Fluid overload and suspect some component of diastolic congestive heart failure, acute Underlying pneumonia is not entirely ruled out. Multiple comorbidities including recent laparoscopic right radical nephrectomy for renal cell carcinoma, Type 2 diabetes GERD with esophagitis Hypertension Morbid obesity Generalized anxiety disorder Dyslipidemia Recommendation: Continue diuretics. Continue BiPAP. As needed, presently on high flow nasal cannula at 6 L. Continue antibiotics. Continue bronchodilators. We'll continue to hold on bronchoscopy for now, We'll continue to monitor the patient in the ICU Patient may require bronchoscopy, however since he is marginal, she is not a good set up for bronchoscopy as she may require intubation and mechanical ventilation. Time with Patient: Less than 30
[2020-01-28] MEDS: PIPERACILLIN-TAZOBACTAM 3.375 GM in SODIUM CHLORIDE 0.9% 100 ML IVPB SCH (12:10)
--- NOTE | 2020-01-28 12:15 | PN ---
PROGRESS NOTE DATE OF SERVICE: 01/28/2020 CHIEF COMPLAINT: Influenza pneumonia with congestive heart failure and delirium. HISTORY OF PRESENT ILLNESS: This lady is struggling. Breathing is a little bit better and she is on nasal O2 at 6 to 7 L a minute and not on BiPAP. She remains confused and delirious. She apparently fell last night and struck her head. A CT of the brain was normal. REVIEW OF SYSTEMS: Unobtainable. She is not offering any complaints and states her breathing is better. PHYSICAL EXAM: Head ears, eyes, nose, mouth, and throat are normal. Breath sounds are diminished throughout with extensive rales and rhonchi with some expiratory wheezing. Cardiac exam is normal. The abdomen is soft, nontender. IMPRESSION: 1. Influenza pneumonia. 2. Influenza. 3. Congestive heart failure. 4. Delirium. 5. Insulin-dependent diabetes mellitus. 6. Status post nephrectomy. 7. Deteriorating renal function. PLAN: Continue to follow with intensive medicine. Will also ask Nephrology to follow as her GFR is falling. MMODL / IJN: [id number] /
[2020-01-28 12:33] LABS: Appearance,Urine Clear (Clear); Bacteria,Urine Rare /hpf; Bilirubin,Urine Negative (Negative); Blood,Urine Moderate (Negative); Color,Urine Light Yellow; Glucose,Urine (UA) Negative (Negative); Hyaline Casts,Urine 1 /lpf (0-2); Ketones,Urine Negative (Negative); Leukocyte Esterase,Urine Negative (Negative); Mucus,Urine Rare /hpf; Nitrite,Urine Negative (Negative); Protein,Urine Negative (Negative); RBC,Urine 135 /hpf (0-5); Specific Gravity,Urine 1.009 (1.001-1.035); Squamous Epithelial Cell,Urine <1 /hpf (0-4); Urobilinogen,Urine <2.0 mg/dL (<2.0); WBC,Urine 1 /hpf (0-5)
--- NOTE | 2020-01-28 13:09 | PN ---
PROGRESS NOTE DATE OF SERVICE: 01/28/2020 REASON FOR FOLLOWUP: Pneumonia. INTERVAL HISTORY: The patient is currently afebrile. However, the patient is pleasantly confused. Apparently, the patient did have a fall yesterday. CT of the brain was negative for any bleed. The patient remains to be sleepy, lethargic, though arousable; however, no report of any history. No vomiting or diarrhea has been reported. PHYSICAL EXAMINATION: Blood pressure 141/93 with a pulse of 75, temperature 97.7, saturation is 93% with oxygen. General description is an elderly female, lying in bed in no distress. RESPIRATORY SYSTEM: Unlabored breathing, decreased breath sounds at the base, no wheeze. HEART: S1, S2. Regular rate and rhythm. ABDOMEN: Soft, no tenderness. LABS: Hemoglobin 9.7, white count 9.1, BUN of 77, creatinine is 2.6. DIAGNOSTIC IMPRESSION AND PLAN: Patient admitted to the hospital with acute influenza and did have complex pneumonia, subsequent did have worsening of her clinical status, possible metabolic encephalopathy, less likely any worsening infection in view patient with no fever or elevated white count. However, will go ahead and repeat cultures and borderline antibiotic with Zosyn and monitor clinical course closely. Continue supportive care. MMODL / IJN: [id number] /
[2020-01-28] MEDS: ALPRAZolam 0.25 MG TAB PO PRN (15:51)
[2020-01-28] MEDS: SODIUM CHLORIDE 0.9% 500 ML 500 ML IV SCH (15:53)
[2020-01-28 16:40] LABS: Glucose,Whole Blood 169 mg/dL (75-99)
[2020-01-28 20:33] LABS: Glucose,Whole Blood 205 mg/dL (75-99)
--- NOTE | 2020-01-28 22:02 | CONS ---
CONSULTATION REASON FOR CONSULT: Renal failure. HISTORY OF PRESENT ILLNESS: Patient is a 69-year-old female who is status post right radical nephrectomy for renal cell cancer. It was clear cell variant without involvement of the perinephric fat. This was done on 01/05/2020. Patient was discharged home, and she came back with complaints of shortness of breath. She did have influenza on 01/10/2020. Influenza A was detected. Patient has been maintained on Tamiflu. However, she also had pneumonia, and patient is maintained on antibiotics. There was evidence of pulmonary vascular congestion and patient is also being diuresed at this time. Chest CT done on 01/23/2020 shows diffuse patchy bilateral opacities, cardiomegaly. Bilateral pleural effusions are noted. Patient's serum creatinine is currently at 2.6 mg/dL. It was at about 2.0 on admission this hospitalization. Previous creatinine was 1.59 prior to the nephrectomy. Currently patient has an indwelling Goldberg catheter. She has excellent urine output with 24-hour urine output of about 2.9 L. No IV fluids running. No nephrotoxic medications noted. Patient's blood pressure is actually on the higher side. She is maintained on Cozaar at 100 mg p.o. daily. PAST MEDICAL HISTORY: Renal cell cancer, status post right nephrectomy on 01/05/2020, type 2 diabetes, gastroesophageal reflux disease, hyperlipidemia, hypertension. PAST SURGICAL HISTORY: Recent nephrectomy, tonsillectomy, tubal ligation. SOCIAL HISTORY: Negative for smoking, drug abuse, alcohol abuse. MEDICATIONS: Medications at home prior to admission included Xanax, Zyloprim, Sensipar, metoprolol, omeprazole, potassium, Zocor, Ambien, amlodipine, Wellbutrin, Lasix, Cozaar, hydralazine. ALLERGIES: ALLERGIES are multiple, which include MILAGRO INHIBITORS causing cough, CLONIDINE causing cough. HYDROCHLOROTHIAZIDE also causes cough. PSEUDOEPHEDRINE causes rash and hives. ANGIOTENSIN RECEPTOR BLOCKERS also listed on the med list for allergies; however, patient is maintained on Cozaar and she had been tolerating it fairly okay. REVIEW OF SYSTEMS: As per HPI. Other systems negative. PHYSICAL EXAMINATION: On examination, patient is comfortable, awake. She is not in any acute distress. Blood pressure was this morning 151/53, heart rate of 73 per minute. Patient is afebrile. EXAMINATION OF THE HEART: S1 and S2. EXAMINATION OF LUNGS: Bilateral breath sounds are heard. Decreased breath sounds at bases. Some crackles are heard at the bases. ABDOMEN: Soft, non-tender. Morbidly obese. Examination of lower extremities shows edema 2+ bilaterally. AUDIO VISUAL DESIGN ENGINEER exam is grossly intact. LABS/IMAGING: Hemoglobin 9.7 g/dL, sodium 134, potassium 4.6. CO2 is 15, BUN 77, serum creatinine 2.63, calcium 8.0. UA shows moderate blood. No protein is noted. Chest CT shows bilateral lung opacities. ASSESSMENT: 1. Acute kidney injury, acute tubular necrosis associated with current underlying infection and influenza. Renal function is slightly worse over the last couple of days. No nephrotoxic agents on board. Patient is maintained on Cozaar. If her renal function is again worse tomorrow, I will decrease the dose of Cozaar to 50 mg daily. 2. Chronic kidney disease, NKF stage III prior to nephrectomy. Creatinine about 1.59 prior to the nephrectomy. Etiology is likely nephrosclerosis. 3. Anion gap metabolic acidosis secondary to renal failure. 4. Volume overload, currently maintained on loop diuretics. 5. Anemia. Rule out iron deficiency. Iron saturation was low at 10% in December of 2019. 6. Primary hyperparathyroidism, maintained on Sensipar. Her serum calcium level is controlled. PLAN: Continue with IV Lasix. Add oral sodium bicarb. Repeat labs in a.m. If renal function is worse tomorrow, I will decrease the dose of Cozaar. Patient and family are advised that there is definitely an acute kidney injury post nephrectomy with loss of GFR. However, hopefully with time renal function will stabilize, although she might settle at stage IV. Thank you for this consultation. Will continue to follow the patient with you during her hospitalization. MMODL / IJN: [id number] /
[2020-01-28] MEDS: ATORVASTATIN 10 MG TAB PO SCH (22:21)
[2020-01-28 22:29] LABS: Glucose,Whole Blood 261 mg/dL (75-99)
[2020-01-29] MEDS: PIPERACILLIN-TAZOBACTAM 3.375 GM in SODIUM CHLORIDE 0.9% 100 ML IVPB SCH ×2 (01:01→12:03)
[2020-01-29 05:11] LABS: Basophils % (A) 0 %; Eosinophils % (A) 0 %; HCT 29.5 % (34.0-46.0); HGB 9.7 gm/dL (11.4-16.0); Lymphocytes # (A) 0.6 k/uL (1.0-4.8); Lymphocytes % (A) 5 %; MCH 29.2 pg (25.0-35.0); MCHC 32.8 g/dL (31.0-37.0); Mean Platelet Volume 7.4; Monocytes # (A) 0.7 k/uL (0-1.0); Monocytes % (A) 6 %; Neutrophils % (A) 88 %; Platelet Count 263 k/uL (150-450); RBC 3.32 m/uL (3.80-5.40); WBC 11.4 k/uL (3.8-10.6)
[2020-01-29 05:23] LABS: Calcium 8.4 mg/dL (8.4-10.2); Potassium 4.4 mmol/L (3.5-5.1)
[2020-01-29 06:53] LABS: Glucose,Whole Blood 241 mg/dL (75-99)
[2020-01-29] MEDS ORDERED: HALOPERIDOL LACTATE 5 MG/ML 1 ML VIAL IM PRN (06:54)
[2020-01-29] MEDS: INSULIN ASPART (NovoLOG) 100 UNIT/ML VIAL SQ SCH ×4 (07:57→22:14)
[2020-01-29] MEDS: ALPRAZolam 0.25 MG TAB PO PRN ×3 (08:17→21:31)
[2020-01-29] MEDS: METOPROLOL TARTRATE 50 MG TAB PO SCH ×2 (09:28→21:35)
[2020-01-29] MEDS: amLODIPine 10 MG TAB PO SCH (09:28)
[2020-01-29] MEDS: PANTOPRAZOLE 40 MG TABLET PO SCH (09:29)
[2020-01-29] MEDS: CHOLESTYRAMINE (WITH SUGAR) 4 GM PACKET PO SCH ×2 (09:30→19:57)
[2020-01-29] MEDS: hydrALAZINE HCL 50 MG TAB PO SCH ×3 (09:31→21:45)
[2020-01-29] MEDS: buPROPion SR 150 MG TABLET.ER PO SCH ×2 (09:32→22:14)
[2020-01-29] MEDS: ALLOPURINOL 100 MG TAB PO SCH (09:32)
[2020-01-29] MEDS: POTASSIUM CHLORIDE ER 10 MEQ TAB.ER.PRT PO SCH (09:32)
[2020-01-29] MEDS: SODIUM BICARBONATE TAB 650 MG TAB PO SCH ×2 (09:32→21:36)
[2020-01-29] MEDS: HEPARIN SODIUM,PORCINE 5,000 UNIT/ML 1 ML VIAL SQ SCH ×2 (09:33→21:34)
[2020-01-29] MEDS: OXYBUTYNIN 15 MG TAB.ER.24 PO SCH (09:33)
[2020-01-29] MEDS: INSULIN DETEMIR (LEVEMIR) 100 UNIT/ML SYR SQ SCH (09:33)
--- NOTE | 2020-01-29 11:08 | XR ---
EXAMINATION TYPE: XR chest 1V portable DATE OF EXAM: 01/29/2020 COMPARISON: Prior chest x-ray 01/28/2020 HISTORY: Congestive heart failure and pneumonia TECHNIQUE: Single frontal view of the chest is obtained. FINDINGS: Bilateral airspace disease persists. No evident pneumothorax or pleural effusion. Heart si ze is stable. There are overlying cardiac leads. Aorta is dense. Patient is rotated. IMPRESSION: Persistent bilateral airspace disease.
--- NOTE | 2020-01-29 11:44 | P.PN ---
Progress Note - Text Progress Note Date: 01/29/20 S/P robotic Radical Nephrectomy on 01/06/20 Patient is currently in ICU for respiratory distress. Urology was called back for evaluation of patient incision skin separation along the lower and mid portion of incision, subcuatenous fat exposed, depth of incision separation is approximetely 1 cm. no erythema or purulent drainage appreciated -No acute intervention, patient wound will heal by secondary intention. No signs of wound infection -Continue dressing change
[2020-01-29 11:58] LABS: Glucose,Whole Blood 167 mg/dL (75-99)
[2020-01-29] MEDS: methylPREDNISolone SOD SUCCI 40 MG/ML 1 ML VIAL IV SCH ×2 (12:03→21:35)
[2020-01-29] MEDS: FUROSEMIDE 10 MG/ML 4 ML VIAL IV SCH ×2 (12:03→21:34)
--- NOTE | 2020-01-29 12:22 | P.PN ---
Subjective Progress Note Date: 01/29/20 Principal diagnosis: Acute hypoxic respiratory failure secondary to influenza A pneumonitis, underlying pneumonia, and suspect fluid volume overload. The patient is seen today 01/26/2020 in follow-up on the regular medical floor. Earlier this morning she developed increasing shortness of breath, acute hypoxic respiratory failure requiring BiPAP support 10/5 and 50% FiO2. She was given a dose of Lasix. Chest x-ray shows bilateral worsening pneumonia. Yesterday she had been down to 2 L/m per nasal cannula. Throughout the night she was increased back to 10 L high flow nasal cannula to maintain saturations in the 90s. Initial sputum culture had revealed Annette only. She had been continuing on DuoNeb inhalations, IV Solu-Medrol, antibiotics in the form of ceftriaxone. The plan was for bronchoscopy with BAL this morning however based on her worsening condition we'll hold off for now. She'll be transferred to the ICU. Patient was reevaluated today in the ICU on 01/27/2020, patient is presently on BiPAP, she received Lasix yesterday, and her chest x-ray is showing significant improvement. There seems to be better aeration, and less interstitial edema noted in both lungs. Patient is on BiPAP with IPAP of 10 and EPAP of 5 and FiO2 of 40%. Her O2 saturation is 97% on this setting. Clinically the patient is feeling better, remains on diuretics, she remains on antibiotics, and she is also on bronchodilators. At one point I was considering bronchoscopy on this patient, however her pulmonary status remains marginal, and considering the patient is improving with diuretics, I will continue the same. No plans to perform bronchoscopy at this point. However will continue diuretics, continue antibiotics, and bronchodilators. Reevaluated today on 01/28/20, remains in the intensive care unit, intermittently on BiPAP, presently on 6 L nasal cannula. Patient tells me that she is feeling better, however she continues to have quite abnormal chest x-ray, bilateral air space disease noted bilaterally. She also has diffuse rhonchi and wheezes bilaterally more so on forced expiratory maneuver. Cannot bring up much sputum, but feels congested. No fever no chills, no hemodynamic instability. O2 saturation is 93% on 6 L high flow nasal cannula. Remains on bronchodilators, diuretics, steroids, antibiotics, with some improvement, but clearly not ready to be discharged out of the ICU at this point yet. Reevaluated today on 01/29/20, patient remains in the ICU, intermittently on BiPAP, but mostly on high flow nasal cannula at 6 L/m. Continues to have intermittent cough and wheezing, continues to have borderline oxygenation, patient remains a poor candidate for bronchoscopy without having to intubate the patient. Remains on antibiotics, bronchodilators, steroids, and diuretics. Chest x-ray today continues to show bilateral airspace disease involving both lungs, minimal improvement compared to chest x-ray a few days ago. CBC is relatively normal BUN is 92 creatinine 2.93. Objective - Vital Signs Vital signs: Vital Signs Temp 97.8 F 01/29/20 04:00 Pulse 73 01/29/20 11:00 Resp 14 01/29/20 11:00 BP 123/73 01/29/20 11:00 Pulse Ox 90 L 01/29/20 11:00 Intake & Output 01/28/20 01/29/20 01/29/20 18:59 06:59 18:59 Intake Total 1040 220 200 Output Total 1195 850 400 Balance -155 -630 -200 Weight 114.6 kg 115.9 kg Intake: IV 390 220 0 Lactated Ringers 1,000 ml 120 @ 20 mls/hr IV .Q24H [facility] Rx#:[id number] Piperacillin-Tazobactam 3 100 100 .375 gm In Sodium Chloride 0.9% 100 ml @ 25 mls/hr IVPB Q12H [facility] Rx# :[id number] Sodium Chloride 0.9% 500 120 120 0 ml 500 ml @ 20 mls/hr IV .Q24H [facility] Rx#:[id number] cefTRIAXone 2 gm In 50 Sodium Chloride 0.9% 50 ml @ 100 mls/hr IVPB Q24HR [facility] Rx#:[id number] Oral 650 200 Output: Urine 1195 850 400 Other: Voiding Method Indwelling Catheter Indwelling Catheter Indwelling Catheter - Exam GENERAL EXAM: Revealed 69-year-old female obese, on 6 L high flow nasal cannula, HEENT: PERRLA, EOMI, no icterus, no neck masses, no JVD, short obese neck was noted. CHEST: No chest wall deformity. LUNGS: Symmetrical chest expansion, crackles and rhonchi persist bilaterally. CVS: S1 and S2 normal with 2/6 systolic murmur thought the precordium. ABDOMEN: No hepatosplenomegaly, normal bowel sounds, no guarding or rigidity. I ncisional wound from recent laparoscopic surgery/nephrectomy, is unchanged. Seen by urology. SPINE: No scoliosis or deformity SKIN: No rashes CENTRAL NERVOUS SYSTEM: Alert and oriented 3 no gross focal neurologic deficits. EXTREMITIES: There is no peripheral edema. No clubbing, no cyanosis. Lia pheral pulses are intact. Psychiatric: Normal mood affect and normal mental status examination - Labs CBC & Chem 7: 01/29/20 04:50 01/29/20 04:50 Labs: Abnormal Lab Results - Last 24 Hours (Table) 01/28/20 01/28/20 01/28/20 Range/Units 12:00 16:38 20:30 WBC (3.8-10.6) k/uL RBC (3.80-5.40) m/uL Hgb (11.4-16.0) gm/dL Hct (34.0-46.0) % RDW (11.5-15.5) % Neutrophils # (1.3-7.7) k/uL Lymphocytes # (1.0-4.8) k/uL BUN (7-17) mg/dL Creatinine (0.52-1.04) mg/dL Glucose (74-99) mg/dL POC Glucose (mg/dL) 169 H 205 H (75-99) mg/dL Urine Blood Moderate H (Negative) Urine RBC 135 H (0-5) /hpf Urine Bacteria Rare H (None) /hpf Urine Mucus Rare H (None) /hpf 01/28/20 01/29/20 01/29/20 Range/Units 22:27 04:50 04:50 WBC 11.4 H (3.8-10.6) k/uL RBC 3.32 L (3.80-5.40) m/uL Hgb 9.7 L (11.4-16.0) gm/dL Hct 29.5 L (34.0-46.0) % RDW 16.0 H (11.5-15.5) % Neutrophils # 10.0 H (1.3-7.7) k/uL Lymphocytes # 0.6 L (1.0-4.8) k/uL BUN 92 H (7-17) mg/dL Creatinine 2.93 H (0.52-1.04) mg/dL Glucose 207 H (74-99) mg/dL POC Glucose (mg/dL) 261 H (75-99) mg/dL Urine Blood (Negative) Urine RBC (0-5) /hpf Urine Bacteria (None) /hpf Urine Mucus (None) /hpf 01/29/20 01/29/20 Range/Units 06:49 11:56 WBC (3.8-10.6) k/uL RBC (3.80-5.40) m/uL Hgb (11.4-16.0) gm/dL Hct (34.0-46.0) % RDW (11.5-15.5) % Neutrophils # (1.3-7.7) k/uL Lymphocytes # (1.0-4.8) k/uL BUN (7-17) mg/dL Creatinine (0.52-1.04) mg/dL Glucose (74-99) mg/dL POC Glucose (mg/dL) 241 H 167 H (75-99) mg/dL Urine Blood (Negative) Urine RBC (0-5) /hpf Urine Bacteria (None) /hpf Urine Mucus (None) /hpf Assessment and Plan Assessment: Impression: Acute hypoxic respiratory failure, multifactorial. Secondary to: Influenza a infection Fluid overload and suspect some component of diastolic congestive heart failure, acute Underlying pneumonia is not entirely ruled out. Multiple comorbidities including recent laparoscopic right radical nephrectomy for renal cell carcinoma, Type 2 diabetes GERD with esophagitis Hypertension Morbid obesity Generalized anxiety disorder Dyslipidemia Recommendation: Continue diuretics. Continue 6 L high flow nasal Alar. Continue antibiotics. Continue bronchodilators. We'll continue to hold on bronchoscopy for now, We'll continue to monitor the patient in the ICU Updated the patient and her family members on her condition, and prognosis remains quite guarded. We'll continue to follow. Time with Patient: Less than 30
--- NOTE | 2020-01-29 14:39 | PN ---
PROGRESS NOTE Patient is seen for followup for acute kidney injury. She is status post right nephrectomy on 01/05/2020. Patient was discharged home and readmitted to the hospital with complaints of shortness of breath. She did have influenza A and developed respiratory failure and fluid overload and has been in the ICU. Currently, she is being diuresed. Serum creatinine continues to climb up. She has had excellent urine output. Patient had been on Cozaar, which was discontinued today. There are no nephrotoxic medications on board and blood pressure has not been low, in fact it is on the higher side. PHYSICAL EXAMINATION: On examination today, patient is feeling better. She is not short of breath. Blood pressure is 123/73, heart rate 73 per minute, she is afebrile. Examination of the heart S1, S2. Examination of the lungs, bilateral breath sounds are heard. Basilar crackles are heard. Abdomen is soft, non-tender. Examination of the lower extremities shows edema 2+ bilaterally. PENS AND PENCILS DIPPER exam is grossly intact. LABS: Show sodium 137, potassium 4.4, chloride 106, CO2 is 22, BUN 92, creatinine 2.93 mg/dL. ASSESSMENT: 1. Acute kidney injury following nephrectomy as well as an element of acute tubular necrosis and cardiorenal syndrome. Cozaar was held today since renal function continues to worsen. Patient has good urine output, her UA does not show any significant proteinuria. Patient does have some hematuria. If her renal function continues to worsen, we will obtain another imaging study of the abdomen. In the meantime, continue with IV Lasix as patient remains volume overloaded. We will repeat labs in a.m. 2. Hypertension partly volume sensitive, somewhat improved. Cozaar has been held. If blood pressure remains elevated, we can increase the hydralazine further. 3. Metabolic acidosis maintained on sodium bicarb. I will decrease the dose to once a day if her CO2 remains above 20, as this is causing some degree of sodium load as well. 4. Volume overload, currently improving. 5. Chronic kidney disease stage 3 prior to nephrectomy with creatinine about 1.59 prior to nephrectomy. Etiology is nephrosclerosis. 6. Primary hyperparathyroidism maintained on Sensipar. Calcium is controlled. PLAN: Hold Cozaar. Repeat labs in a.m. Continue with IV Lasix. Decrease sodium bicarb to once a day in a.m., if acidosis remains controlled. MMODL / IJN: [id number] /
--- NOTE | 2020-01-29 15:03 | PN ---
PROGRESS NOTE DATE OF SERVICE: 01/29/2020 REASON FOR FOLLOWUP: Pneumonia. INTERVAL HISTORY: The patient is currently afebrile. The patient seemed to be more awake and alert today. She was sitting up in the chair, eating her lunch. Denies having any chest pain. She did have some cough. No sputum. No nausea, vomiting. No abdominal pain and no diarrhea. PHYSICAL EXAMINATION: Blood pressure 143/73 with a pulse of 57, temperature is 97.3, she is 96% on 3 L oxygen. General description is an elderly female, up in the chair, in no distress. RESPIRATORY SYSTEM: Unlabored breathing. Decreased breath sounds at the bases. Occasional wheeze. HEART: S1, S2. Regular rate and rhythm. ABDOMEN: Soft, no tenderness. LAB: Hemoglobin 9.7, white count of 11.4, BUN of 32, creatinine 2.93. DIAGNOSTIC IMPRESSION AND PLAN: Patient with bibasilar atelectasis/pneumonia, possible aspiration infection with some clinical improvement on Zosyn that will be continued. Will monitor clinical course closely. Continue supportive care. MMODL / IJN: [id number] /
--- NOTE | 2020-01-29 15:03 | PN ---
PROGRESS NOTE DATE OF SERVICE: 01/29/2020 CHIEF COMPLAINT: Influenza, pneumonia and delirium. HISTORY OF PRESENT ILLNESS: This lady became extremely agitated and delirious in the middle of the night once again. The Haldol seems to work. This morning she is much more steady and stable. She is still quite anxious, but she is oriented. PHYSICAL EXAMINATION: Her vital signs are normal. Chest still demonstrates copious rhonchi and a productive cough. The cardiac exam is normal and the abdomen is soft, nontender and extremities normal. IMPRESSION: 1. Influenza bronchial pneumonia. 2. Diabetes. 3. Delirium. PLAN: Continue efforts to improve her pulmonary picture. Her delirium will probably start to clear fairly soon and she will be treated p.r.n. with Haldol, which seems to help. MMEMMAL / IJN: [id number] /
[2020-01-29] MEDS: IPRATROPIUM-ALBUTEROL 3 ML NEB INHALATION PRN ×3 (15:20→23:10)
[2020-01-29] MEDS: SODIUM CHLORIDE 0.9% 500 ML 500 ML IV SCH (16:13)
[2020-01-29 17:06] LABS: Glucose,Whole Blood 151 mg/dL (75-99)
[2020-01-29] MEDS: ATORVASTATIN 10 MG TAB PO SCH (21:34)
[2020-01-29 21:54] LABS: Glucose,Whole Blood 229 mg/dL (75-99)
[2020-01-30] MEDS ORDERED: LORazepam 2 MG/ML INJ IV PRN ×2 (01:16→01:25)
[2020-01-30] MEDS: PIPERACILLIN-TAZOBACTAM 3.375 GM in SODIUM CHLORIDE 0.9% 100 ML IVPB SCH ×3 (01:28→23:49)
[2020-01-30 02:58] LABS: ABG Base Excess -5.2 mmol/L; ABG HCO3 21 mmol/L (21-25); ABG Oxygen Saturation 95.2 % (94-97); ABG PCO2 41 mmHg (35-45); ABG PH 7.32 (7.35-7.45); ABG PO2 82 mmHg (83-108); ABG TCO2 22 mmol/L (19-24); Allen Test Performed? Yes
[2020-01-30] MEDS: PROPOFOL 1,000 MG in EMPTY BAG 1 BAG IV SCH ×6 (04:00→23:50)
--- NOTE | 2020-01-30 04:53 | XR ---
EXAMINATION TYPE: XR chest 1V portable DATE OF EXAM: 01/30/2020 COMPARISON: Yesterday HISTORY: Check tube placement TECHNIQUE: FINDINGS: There is nasogastric tube well into the stomach. Endotracheal tube is 2.5 cm from the kalyani a. There is patchy pulmonary edema. There are chest leads. IMPRESSION: Patchy pulmonary edema unchanged compared to exam yesterday evening. This could relate to heart failure or RDS. Endotracheal tube in fairly good position.
[2020-01-30 05:49] LABS: Anisocytosis Slight; Basophils % (A) 0 %; Eosinophils % (A) 0 %; HCT 26.5 % (34.0-46.0); Hypochromasia Slight; Lymphocytes # (A) 0.2 k/uL (1.0-4.8); Lymphocytes % (A) 2 %; MCH 27.9 pg (25.0-35.0); MCHC 30.9 g/dL (31.0-37.0); MCV 90.4 fL (80.0-100.0); Mean Platelet Volume 7.7; Monocytes # (A) 0.4 k/uL (0-1.0); Monocytes % (A) 4 %; Neutrophils # (A) 8.4 k/uL (1.3-7.7); Neutrophils % (A) 92 %; Platelet Count 206 k/uL (150-450); RBC 2.93 m/uL (3.80-5.40); RDW 16.1 % (11.5-15.5); WBC 9.1 k/uL (3.8-10.6)
[2020-01-30 05:53] LABS: Albumin 2.5 g/dL (3.5-5.0); Calcium 7.8 mg/dL (8.4-10.2); HGB 8.2 gm/dL (11.4-16.0); Potassium 4.7 mmol/L (3.5-5.1); Total Bilirubin 0.4 mg/dL (0.2-1.3); Total Protein 5.2 g/dL (6.3-8.2)
[2020-01-30 06:05] LABS: Glucose,Whole Blood 228 mg/dL (75-99)
[2020-01-30] MEDS: INSULIN ASPART (NovoLOG) 100 UNIT/ML VIAL SQ SCH ×5 (06:20→23:49)
[2020-01-30 07:08] LABS: Magnesium 1.8 mg/dL (1.6-2.3); Phosphorus 5.7 mg/dL (2.5-4.5)
[2020-01-30] MEDS: INSULIN DETEMIR (LEVEMIR) 100 UNIT/ML SYR SQ SCH (08:09)
[2020-01-30 08:11] LABS: ABG Base Excess -5.3 mmol/L; ABG HCO3 20 mmol/L (21-25); ABG Oxygen Saturation 99.9 % (94-97); ABG PCO2 37 mmHg (35-45); ABG PH 7.35 (7.35-7.45); ABG PO2 245 mmHg (83-108); ABG TCO2 22 mmol/L (19-24); Allen Test Performed? Yes
[2020-01-30] MEDS: CISATRACURIUM 2 MG/ML 5 ML VIAL IV ONE (10:43)
[2020-01-30] MEDS: FUROSEMIDE 10 MG/ML 4 ML VIAL IV SCH (10:47)
[2020-01-30] MEDS: SODIUM CHLORIDE 0.9% 1,000 ML IV SCH (11:00)
[2020-01-30] MEDS: amLODIPine 10 MG TAB PO SCH (11:00)
[2020-01-30] MEDS: ALLOPURINOL 100 MG TAB PO SCH (11:00)
[2020-01-30] MEDS: hydrALAZINE HCL 50 MG TAB PO SCH ×3 (11:01→20:34)
[2020-01-30] MEDS: METOPROLOL TARTRATE 50 MG TAB PO SCH ×2 (11:01→20:08)
[2020-01-30] MEDS: methylPREDNISolone SOD SUCCI 40 MG/ML 1 ML VIAL IV SCH ×2 (11:01→20:08)
[2020-01-30] MEDS: HEPARIN SODIUM,PORCINE 5,000 UNIT/ML 1 ML VIAL SQ SCH ×2 (11:01→20:07)
[2020-01-30] MEDS: POTASSIUM CHLORIDE ER 10 MEQ TAB.ER.PRT PO SCH (11:02)
[2020-01-30] MEDS: PANTOPRAZOLE 40 MG TABLET PO SCH (11:02)
[2020-01-30] MEDS: OXYBUTYNIN 15 MG TAB.ER.24 PO SCH (11:02)
[2020-01-30] MEDS: SODIUM BICARBONATE TAB 650 MG TAB PO SCH ×2 (11:02→20:34)
[2020-01-30] MEDS: CHOLESTYRAMINE (WITH SUGAR) 4 GM PACKET PO SCH ×2 (11:02→18:10)
[2020-01-30] MEDS: buPROPion SR 150 MG TABLET.ER PO SCH ×2 (11:03→20:08)
[2020-01-30] MEDS: CHLORHEXIDINE GLUCONATE 15 ML CUP MUCOUS MEM SCH ×2 (11:14→20:07)
--- NOTE | 2020-01-30 11:37 | PCN ---
PROCEDURE NOTE OPERATIVE REPORT: Bronchoscopy and random bronchoalveolar lavage and bronchial washings. PREOPERATIVE DIAGNOSIS: Respiratory failure and bilateral airspace disease, pneumonia. POSTOPERATIVE DIAGNOSIS: Respiratory failure and bilateral airspace disease, pneumonia. ANESTHESIA USED: The patient was already on propofol. She was already on mechanical ventilation, and one dose of Nimbex 10 mg was given IV push prior to procedure. PROCEDURE: The patient was placed in the supine position. She was already on mechanical ventilation, we were already monitoring her blood pressure intermittently, cardiac rhythm was continuously monitored, and O2 saturation was continuously monitored. After adequate sedation, the bronchoscope was advanced through the endotracheal tube down to the distal trachea. Thorough examination was done of andres, right upper lobe, right middle lobe, right lower lobe, left upper lobe lingula and left lower lobe. There was no evidence of any significant purulent secretions, the secretions were clear in the different airways. Bronchoalveolar lavage was done of the right upper lobe, right middle lobe, right lower lobe, left upper lobe lingula and left lower lobe. Fluid was slightly purulent, was sent for different diagnostic studies. Procedure was well tolerated, no evidence of any immediate complications. MMODL / IJN: [id number] /
[2020-01-30 11:46] LABS: Glucose,Whole Blood 200 mg/dL (75-99)
[2020-01-30] MEDS: IPRATROPIUM-ALBUTEROL 3 ML NEB INHALATION PRN ×3 (11:48→19:47)
--- NOTE | 2020-01-30 11:57 | P.PN ---
Subjective Progress Note Date: 01/30/20 Principal diagnosis: Acute hypoxic respiratory failure secondary to influenza A pneumonitis, underlying pneumonia, and suspect fluid volume overload. The patient is seen today 01/26/2020 in follow-up on the regular medical floor. Earlier this morning she developed increasing shortness of breath, acute hypoxic respiratory failure requiring BiPAP support 10/5 and 50% FiO2. She was given a dose of Lasix. Chest x-ray shows bilateral worsening pneumonia. Yesterday she had been down to 2 L/m per nasal cannula. Throughout the night she was increased back to 10 L high flow nasal cannula to maintain saturations in the 90s. Initial sputum culture had revealed Annette only. She had been continuing on DuoNeb inhalations, IV Solu-Medrol, antibiotics in the form of ceftriaxone. The plan was for bronchoscopy with BAL this morning however based on her worsening condition we'll hold off for now. She'll be transferred to the ICU. Patient was reevaluated today in the ICU on 01/27/2020, patient is presently on BiPAP, she received Lasix yesterday, and her chest x-ray is showing significant improvement. There seems to be better aeration, and less interstitial edema noted in both lungs. Patient is on BiPAP with IPAP of 10 and EPAP of 5 and FiO2 of 40%. Her O2 saturation is 97% on this setting. Clinically the patient is feeling better, remains on diuretics, she remains on antibiotics, and she is also on bronchodilators. At one point I was considering bronchoscopy on this patient, however her pulmonary status remains marginal, and considering the patient is improving with diuretics, I will continue the same. No plans to perform bronchoscopy at this point. However will continue diuretics, continue antibiotics, and bronchodilators. Reevaluated today on 01/28/20, remains in the intensive care unit, intermittently on BiPAP, presently on 6 L nasal cannula. Patient tells me that she is feeling better, however she continues to have quite abnormal chest x-ray, bilateral air space disease noted bilaterally. She also has diffuse rhonchi and wheezes bilaterally more so on forced expiratory maneuver. Cannot bring up much sputum, but feels congested. No fever no chills, no hemodynamic instability. O2 saturation is 93% on 6 L high flow nasal cannula. Remains on bronchodilators, diuretics, steroids, antibiotics, with some improvement, but clearly not ready to be discharged out of the ICU at this point yet. Reevaluated today on 01/29/20, patient remains in the ICU, intermittently on BiPAP, but mostly on high flow nasal cannula at 6 L/m. Continues to have intermittent cough and wheezing, continues to have borderline oxygenation, patient remains a poor candidate for bronchoscopy without having to intubate the patient. Remains on antibiotics, bronchodilators, steroids, and diuretics. Chest x-ray today continues to show bilateral airspace disease involving both lungs, minimal improvement compared to chest x-ray a few days ago. CBC is relatively normal BUN is 92 creatinine 2.93. Reevaluated today on 01/30/20, patient had a downhill course last night, she became extremely agitated, restless, she was receiving Haldol and Ativan. Patient kept pulling her lines and her BiPAP off, and she was having intermittent episodes of desaturations and borderline oxygenation. I was notified about the patient about her overall condition, and I recommended immediate intubation. She is now on ventilatory support. Her assist-control rate is 2010 volume is 450 FiO2 is 50% and PEEP is 5. ABG post intubation showed a pO2 of 245 pCO2 of 37 pH of 7.35. And this was on on the percent FiO2. Her CBC is relatively normal today, hemoglobin is 8.2 lites are normal bicarb is 19. Renal functioning is worse with a BUN of 107 creatinine of 3.33, hence we'll hold on diuretics for now, and increase IV fluids with close monitoring of her pulmonary status. Underwent bronchoscopy and lavage of both lungs today, no clear-cut evidence of significant variance secretions in the lungs/airways. Nonetheless patient underwent lavage and the fluid was sent for different diagnostic studies. Objective - Vital Signs Vital signs: Vital Signs Temp 97.6 F 01/30/20 08:00 Pulse 62 01/30/20 11:49 Resp 20 01/30/20 11:00 BP 144/61 01/30/20 11:00 Pulse Ox 99 01/30/20 11:00 Intake & Output 01/29/20 01/30/20 01/30/20 18:59 06:59 18:59 Intake Total 540 616.326 210 Output Total 1000 485 260 Balance -460 131.326 -50 Weight 115.8 kg Intake: IV 140 360 210 Piperacillin-Tazobactam 3 100 100 .375 gm In Sodium Chloride 0.9% 100 ml @ 25 mls/hr IVPB Q12H [facility] Rx# :[id number] Sodium Chloride 0.9% 1, 50 000 ml @ 50 mls/hr IV . Q20H [facility] Rx#:[id number] Sodium Chloride 0.9% 500 140 260 60 ml 500 ml @ 20 mls/hr IV .Q24H [facility] Rx#:[id number] Intake, IV Titration 56.326 Amount Propofol 1,000 mg In 56.326 Empty Bag 1 bag @ Titrate IV .Q0M [facility] Rx#: [id number] Oral 400 200 Output: Urine 1000 485 260 Other: Voiding Method Indwelling Catheter Indwelling Catheter Indwelling Catheter # Bowel Movements 1 - Exam GENERAL EXAM: Revealed 69-year-old female obese, on mechanical ventilation, sedated, on propofol drip. HEENT: PERRLA, EOMI, no icterus, no neck masses, no JVD, short obese neck was noted. Endotracheal tube and orogastric tube are intact CHEST: No chest wall deformity. LUNGS: Symmetrical chest expansion, diminished breath sounds at the bases no crackles or rhonchi or wheezes. CVS: S1 and S2 normal with 2/6 systolic murmur thought the precordium. ABDOMEN: Obese, soft, nontender, surgical incisions from previous laparoscopic surgeries noted in the right upper quadrant. SPINE: No scoliosis or deformity SKIN: No rashes CENTRAL NERVOUS SYSTEM: On mechanical ventilation, could not be assessed, patient is sedated and on propofol. EXTREMITIES: There is no peripheral edema. No clubbing, no cyanosis. Peripheral pulses are intact. Psychiatric: Not be assessed today, patient is sedated and on propofol. - Labs CBC & Chem 7: 01/30/20 05:27 01/30/20 05:27 Labs: Abnormal Lab Results - Last 24 Hours (Table) 01/29/20 01/29/20 01/29/20 Range/Units 11:56 17:05 21:53 RBC (3.80-5.40) m/uL Hgb (11.4-16.0) gm/dL Hct (34.0-46.0) % MCHC (31.0-37.0) g/dL RDW (11.5-15.5) % Neutrophils # (1.3-7.7) k/uL Lymphocytes # (1.0-4.8) k/uL ABG pH (7.35-7.45) ABG pO2 (83-108) mmHg ABG HCO3 (21-25) mmol/L ABG O2 Saturation (94-97) % Sodium (137-145) mmol/L Carbon Dioxide (22-30) mmol/L BUN (7-17) mg/dL Creatinine (0.52-1.04) mg/dL Glucose (74-99) mg/dL POC Glucose (mg/dL) 167 H 151 H 229 H (75-99) mg/dL Calcium (8.4-10.2) mg/dL Phosphorus (2.5-4.5) mg/dL AST (14-36) U/L ALT (4-34) U/L Total Protein (6.3-8.2) g/dL Albumin (3.5-5.0) g/dL 01/30/20 01/30/20 01/30/20 Range/Units 02:55 05:27 05:27 RBC 2.93 L (3.80-5.40) m/uL Hgb 8.2 L D (11.4-16.0) gm/dL Hct 26.5 L (34.0-46.0) % MCHC 30.9 L (31.0-37.0) g/dL RDW 16.1 H (11.5-15.5) % Neutrophils # 8.4 H (1.3-7.7) k/uL Lymphocytes # 0.2 L (1.0-4.8) k/uL ABG pH 7.32 L (7.35-7.45) ABG pO2 82 L (83-108) mmHg ABG HCO3 (21-25) mmol/L ABG O2 Saturation (94-97) % Sodium 136 L (137-145) mmol/L Carbon Dioxide 19 L (22-30) mmol/L BUN 107 H* (7-17) mg/dL Creatinine 3.33 H (0.52-1.04) mg/dL Glucose 213 H (74-99) mg/dL POC Glucose (mg/dL) (75-99) mg/dL Calcium 7.8 L (8.4-10.2) mg/dL Phosphorus (2.5-4.5) mg/dL AST 44 H (14-36) U/L ALT 60 H (4-34) U/L Total Protein 5.2 L (6.3-8.2) g/dL Albumin 2.5 L (3.5-5.0) g/dL 01/30/20 01/30/20 01/30/20 Range/Units 05:27 06:04 08:09 RBC (3.80-5.40) m/uL Hgb (11.4-16.0) gm/dL Hct (34.0-46.0) % MCHC (31.0-37.0) g/dL RDW (11.5-15.5) % Neutrophils # (1.3-7.7) k/uL Lymphocytes # (1.0-4.8) k/uL ABG pH (7.35-7.45) ABG pO2 245 H (83-108) mmHg ABG HCO3 20 L (21-25) mmol/L ABG O2 Saturation 99.9 H (94-97) % Sodium (137-145) mmol/L Carbon Dioxide (22-30) mmol/L BUN (7-17) mg/dL Creatinine (0.52-1.04) mg/dL Glucose (74-99) mg/dL POC Glucose (mg/dL) 228 H (75-99) mg/dL Calcium (8.4-10.2) mg/dL Phosphorus 5.7 H (2.5-4.5) mg/dL AST (14-36) U/L ALT (4-34) U/L Total Protein (6.3-8.2) g/dL Albumin (3.5-5.0) g/dL 01/30/20 Range/Units 11:43 RBC (3.80-5.40) m/uL Hgb (11.4-16.0) gm/dL Hct (34.0-46.0) % MCHC (31.0-37.0) g/dL RDW (11.5-15.5) % Neutrophils # (1.3-7.7) k/uL Lymphocytes # (1.0-4.8) k/uL ABG pH (7.35-7.45) ABG pO2 (83-108) mmHg ABG HCO3 (21-25) mmol/L ABG O2 Saturation (94-97) % Sodium (137-145) mmol/L Carbon Dioxide (22-30) mmol/L BUN (7-17) mg/dL Creatinine (0.52-1.04) mg/dL Glucose (74-99) mg/dL POC Glucose (mg/dL) 200 H (75-99) mg/dL Calcium (8.4-10.2) mg/dL Phosphorus (2.5-4.5) mg/dL AST (14-36) U/L ALT (4-34) U/L Total Protein (6.3-8.2) g/dL Albumin (3.5-5.0) g/dL Microbiology - Last 24 Hours (Table) 01/30/20 04:32 Sputum Culture - Preliminary Sputum 01/28/20 12:06 Blood Culture - Preliminary Blood No Growth after 24 hours 01/28/20 12:13 Blood Culture - Preliminary Blood No Growth after 24 hours Assessment and Plan Assessment: Impression: Acute hypoxic respiratory failure, requiring intubation and mechanical ventilation. multifactorial. Secondary to: Influenza a infection Fluid overload and suspect some component of diastolic congestive heart failure, acute Underlying pneumonia is not entirely ruled out. Awaiting cultures from the BAL which was done today. Multiple comorbidities including recent laparoscopic right radical nephrectomy for renal cell carcinoma, Type 2 diabetes GERD with esophagitis Hypertension Morbid obesity Generalized anxiety disorder Dyslipidemia Recommendation: Ventilatory support. Start the nutritional support/enteral feeding. Hold diuretics. For the next 24 hours and assess the renal status and pulmonary status. Continue antibiotics. Continue bronchodilators. Bronchoscopy was performed., Updated her family members and the condition. prognosis remains quite guarded. Critical care time is 35 minutes, excluding time spent on bronchoscopy and BAL. We'll continue to follow. Time with Patient: Greater than 30
--- NOTE | 2020-01-30 12:05 | P.PN ---
Subjective Progress Note Date: 01/30/20 Follow-up for acute kidney injury. This morning was intubated for hypoxia currently on 100% FiO2. Bronchoscopy was done by the ICU was/pulmonary team. Urine output of 1500 ML's in the last 24 hours. Objective - Vital Signs Vital signs: Vital Signs Temp 97.6 F 01/30/20 08:00 Pulse 62 01/30/20 11:49 Resp 20 01/30/20 11:00 BP 144/61 01/30/20 11:00 Pulse Ox 99 01/30/20 11:00 Intake & Output 01/29/20 01/30/20 01/30/20 18:59 06:59 18:59 Intake Total 540 616.326 210 Output Total 1000 485 260 Balance -460 131.326 -50 Weight 115.8 kg Intake: IV 140 360 210 Piperacillin-Tazobactam 3 100 100 .375 gm In Sodium Chloride 0.9% 100 ml @ 25 mls/hr IVPB Q12H [facility] Rx# :[id number] Sodium Chloride 0.9% 1, 50 000 ml @ 50 mls/hr IV . Q20H [facility] Rx#:[id number] Sodium Chloride 0.9% 500 140 260 60 ml 500 ml @ 20 mls/hr IV .Q24H [facility] Rx#:[id number] Intake, IV Titration 56.326 Amount Propofol 1,000 mg In 56.326 Empty Bag 1 bag @ Titrate IV .Q0M [facility] Rx#: [id number] Oral 400 200 Output: Urine 1000 485 260 Other: Voiding Method Indwelling Catheter Indwelling Catheter Indwelling Catheter # Bowel Movements 1 - Exam No acute distress S1-S2 heard Oral intubation Bilateral air entry bronchial breathing Edema trace - Labs CBC & Chem 7: 01/30/20 05:27 01/30/20 05:27 Labs: Abnormal Lab Results - Last 24 Hours (Table) 01/29/20 01/29/20 01/29/20 Range/Units 11:56 17:05 21:53 RBC (3.80-5.40) m/uL Hgb (11.4-16.0) gm/dL Hct (34.0-46.0) % MCHC (31.0-37.0) g/dL RDW (11.5-15.5) % Neutrophils # (1.3-7.7) k/uL Lymphocytes # (1.0-4.8) k/uL ABG pH (7.35-7.45) ABG pO2 (83-108) mmHg ABG HCO3 (21-25) mmol/L ABG O2 Saturation (94-97) % Sodium (137-145) mmol/L Carbon Dioxide (22-30) mmol/L BUN (7-17) mg/dL Creatinine (0.52-1.04) mg/dL Glucose (74-99) mg/dL POC Glucose (mg/dL) 167 H 151 H 229 H (75-99) mg/dL Calcium (8.4-10.2) mg/dL Phosphorus (2.5-4.5) mg/dL AST (14-36) U/L ALT (4-34) U/L Total Protein (6.3-8.2) g/dL Albumin (3.5-5.0) g/dL 01/30/20 01/30/20 01/30/20 Range/Units 02:55 05:27 05:27 RBC 2.93 L (3.80-5.40) m/uL Hgb 8.2 L D (11.4-16.0) gm/dL Hct 26.5 L (34.0-46.0) % MCHC 30.9 L (31.0-37.0) g/dL RDW 16.1 H (11.5-15.5) % Neutrophils # 8.4 H (1.3-7.7) k/uL Lymphocytes # 0.2 L (1.0-4.8) k/uL ABG pH 7.32 L (7.35-7.45) ABG pO2 82 L (83-108) mmHg ABG HCO3 (21-25) mmol/L ABG O2 Saturation (94-97) % Sodium 136 L (137-145) mmol/L Carbon Dioxide 19 L (22-30) mmol/L BUN 107 H* (7-17) mg/dL Creatinine 3.33 H (0.52-1.04) mg/dL Glucose 213 H (74-99) mg/dL POC Glucose (mg/dL) (75-99) mg/dL Calcium 7.8 L (8.4-10.2) mg/dL Phosphorus (2.5-4.5) mg/dL AST 44 H (14-36) U/L ALT 60 H (4-34) U/L Total Protein 5.2 L (6.3-8.2) g/dL Albumin 2.5 L (3.5-5.0) g/dL 01/30/20 01/30/20 01/30/20 Range/Units 05:27 06:04 08:09 RBC (3.80-5.40) m/uL Hgb (11.4-16.0) gm/dL Hct (34.0-46.0) % MCHC (31.0-37.0) g/dL RDW (11.5-15.5) % Neutrophils # (1.3-7.7) k/uL Lymphocytes # (1.0-4.8) k/uL ABG pH (7.35-7.45) ABG pO2 245 H (83-108) mmHg ABG HCO3 20 L (21-25) mmol/L ABG O2 Saturation 99.9 H (94-97) % Sodium (137-145) mmol/L Carbon Dioxide (22-30) mmol/L BUN (7-17) mg/dL Creatinine (0.52-1.04) mg/dL Glucose (74-99) mg/dL POC Glucose (mg/dL) 228 H (75-99) mg/dL Calcium (8.4-10.2) mg/dL Phosphorus 5.7 H (2.5-4.5) mg/dL AST (14-36) U/L ALT (4-34) U/L Total Protein (6.3-8.2) g/dL Albumin (3.5-5.0) g/dL 01/30/20 Range/Units 11:43 RBC (3.80-5.40) m/uL Hgb (11.4-16.0) gm/dL Hct (34.0-46.0) % MCHC (31.0-37.0) g/dL RDW (11.5-15.5) % Neutrophils # (1.3-7.7) k/uL Lymphocytes # (1.0-4.8) k/uL ABG pH (7.35-7.45) ABG pO2 (83-108) mmHg ABG HCO3 (21-25) mmol/L ABG O2 Saturation (94-97) % Sodium (137-145) mmol/L Carbon Dioxide (22-30) mmol/L BUN (7-17) mg/dL Creatinine (0.52-1.04) mg/dL Glucose (74-99) mg/dL POC Glucose (mg/dL) 200 H (75-99) mg/dL Calcium (8.4-10.2) mg/dL Phosphorus (2.5-4.5) mg/dL AST (14-36) U/L ALT (4-34) U/L Total Protein (6.3-8.2) g/dL Albumin (3.5-5.0) g/dL Microbiology - Last 24 Hours (Table) 01/30/20 04:32 Sputum Culture - Preliminary Sputum 01/28/20 12:06 Blood Culture - Preliminary Blood No Growth after 24 hours 01/28/20 12:13 Blood Culture - Preliminary Blood No Growth after 24 hours Assessment and Plan Assessment: #1 nonoliguric acute kidney injury suspect hemodynamic ATN with the bile blood pressure. Cannot rule out prerenal process with overdiuresis and AIN with antibiotic use. #2 right nephrectomy secondary to renal mass #3 chronic kidney disease stage III with a baseline creatinine of 1.5-1.6 MG per DL, prior to nephrectomy. #4 hypertension with chronic kidney disease, labile blood pressure #5 secondary hyperparathyroidism on Sensipar #6 ventilator dependent respiratory failure #7 metabolic acidosis secondary to acute kidney injury Plan: #1 creatinine creeping. Agree with holding morning Lasix dose, stop Lasix completely today. #2 check urine analysis, urine sodium, urine creatinine, urine nitrogen to check Fena and FeUrea #3 agree with IV fluids for now. #4 avoid nephrotoxic agents and hypotensive episodes. #5 labs in the morning
--- NOTE | 2020-01-30 12:07 | PN ---
PROGRESS NOTE DATE OF SERVICE: 01/30/2020 CHIEF COMPLAINT: Influenza pneumonia with diabetes and delirium. HISTORY OF PRESENT ILLNESS: This lady became uncontrollable with delirium in middle of night and had to be sedated. She was intubated. PHYSICAL EXAMINATION: Vital signs normal. Temperature is normal. Chest is clear, on ventilator and cardiac exam is normal. Abdomen is soft. IMPRESSION: 1. Influenza pneumonia. 2. Insulin-dependent diabetes. 3. Uncontrollable delirium. 4. Status post nephrectomy for renal cell carcinoma. 5. Renal failure. PLAN: No change in program and she will be continued on ventilator support and sedation. She is being seen by Nephrology. She may undergo bronchoscopy. MMODL / IJN: [id number] /
[2020-01-30 12:47] LABS: Glucose,Whole Blood 204 mg/dL (75-99)
[2020-01-30 13:48] LABS: Appearance,BF Blood Tinged; Nucleated Cells, Body Fluid 100 /uL; RBC, Body Fluid 10700 /uL
[2020-01-30 13:50] LABS: Mononuclear WBC,Body Fluid 32 %; Polynuclear WBC,Body Fluid 68 %; Total Cells Counted,Body Fluid 100
[2020-01-30] MEDS: LOSARTAN 50 MG TAB PO SCH (13:54)
--- NOTE | 2020-01-30 17:04 | PN ---
PROGRESS NOTE DATE OF SERVICE: 01/30/2020 REASON FOR FOLLOWUP: Pneumonia. INTERVAL HISTORY: The patient did go into respiratory distress this morning and ended up getting intubated. Subsequently, the patient has been bronched. Patient is currently hemodynamically stable, not requiring any pressor support. FiO2 is currently down to 50%. No history could be obtained from the patient. PHYSICAL EXAMINATION: Blood pressure 129/55 with a pulse of 63, temperature 97.3. She is 94% on 50% FiO2. General description is an elderly female lying in bed in no distress. RESPIRATORY SYSTEM: Unlabored breathing, decreased breath sounds in the bases. No wheeze. HEART: S1, S2. Regular rate and rhythm. ABDOMEN: Soft, no tenderness. LABS: Hemoglobin 8.2, white count of 9.1, BUN 107, creatinine 3.33. Bronch culture is currently pending. DIAGNOSTIC IMPRESSION AND PLAN: Patient with acute respiratory failure which is likely multifactorial, possible component of pneumonia, status post bronchoscopy. Those cultures will follow. Keep the patient on Zosyn. Monitor clinical course closely. MMODL / IJN: [id number] /
[2020-01-30 17:43] LABS: Glucose,Whole Blood 211 mg/dL (75-99)
[2020-01-30 18:28] LABS: Appearance,Urine Cloudy (Clear); Bacteria,Urine Rare /hpf; Bilirubin,Urine Negative (Negative); Blood,Urine Moderate (Negative); Color,Urine Yellow; Glucose,Urine (UA) Negative (Negative); Hyaline Casts,Urine 3 /lpf (0-2); Ketones,Urine Negative (Negative); Leukocyte Esterase,Urine Large (Negative); Mucus,Urine Rare /hpf; Nitrite,Urine Negative (Negative); Protein,Urine Trace (Negative); RBC,Urine >182 /hpf (0-5); Specific Gravity,Urine 1.016 (1.001-1.035); Squamous Epithelial Cell,Urine 1 /hpf (0-4); Urobilinogen,Urine <2.0 mg/dL (<2.0); WBC,Urine 21 /hpf (0-5)
[2020-01-30 18:40] LABS: Creatinine,Urine Random 64.9 mg/dL
[2020-01-30 19:53] LABS: Glucose,Whole Blood 209 mg/dL (75-99)
[2020-01-30] MEDS: ATORVASTATIN 10 MG TAB PO SCH (20:08)
[2020-01-30 23:37] LABS: Glucose,Whole Blood 165 mg/dL (75-99)
[2020-01-31] MEDS ORDERED: SODIUM CHLORIDE 0.9% 1,000 ML IV ONE ×2 (01:20→09:00)
[2020-01-31] MEDS: PROPOFOL 1,000 MG in EMPTY BAG 1 BAG IV SCH ×7 (02:00→18:04)
[2020-01-31 04:28] LABS: Glucose,Whole Blood 220 mg/dL (75-99)
[2020-01-31] MEDS: INSULIN ASPART (NovoLOG) 100 UNIT/ML VIAL SQ SCH ×5 (04:31→19:27)
[2020-01-31 05:42] LABS: Anisocytosis Slight; Basophils % (A) 0 %; Eosinophils % (A) 0 %; HCT 25.8 % (34.0-46.0); HGB 8.1 gm/dL (11.4-16.0); Lymphocytes # (A) 0.3 k/uL (1.0-4.8); Lymphocytes % (A) 6 %; MCH 28.4 pg (25.0-35.0); MCHC 31.6 g/dL (31.0-37.0); Mean Platelet Volume 9.1; Monocytes # (A) 0.2 k/uL (0-1.0); Monocytes % (A) 3 %; Neutrophils # (A) 4.5 k/uL (1.3-7.7); Neutrophils % (A) 90 %; Platelet Count 186 k/uL (150-450); RBC 2.87 m/uL (3.80-5.40); RDW 16.3 % (11.5-15.5)
[2020-01-31 05:50] LABS: Calcium 7.4 mg/dL (8.4-10.2); Potassium 4.3 mmol/L (3.5-5.1)
[2020-01-31 06:06] LABS: Glucose,Whole Blood 215 mg/dL (75-99)
--- NOTE | 2020-01-31 06:19 | XR ---
EXAMINATION TYPE: XR chest 1V portable DATE OF EXAM: 01/31/2020 HISTORY: chf/pneumonia. REFERENCE: Previous study dated 01/30/2020. FINDINGS: The patient's ET tube and NG tube remain in place, unchanged in appearance. There continues be bilateral airspace disease. This is improved slightly on the right but worsened slightly on the l eft. Heart size upper limits of normal. I could not exclude a small right effusion. IMPRESSION: [place] BILATERAL AIRSPACE DISEASE. I COULD NOT EXCLUDE A SMALL RIGHT EFFUSION.
[2020-01-31] MEDS: INSULIN DETEMIR (LEVEMIR) 100 UNIT/ML SYR SQ SCH (06:22)
[2020-01-31] MEDS: SODIUM CHLORIDE 0.9% 1,000 ML IV SCH (06:23)
[2020-01-31 07:40] LABS: ABG HCO3 19 mmol/L (21-25); ABG Oxygen Saturation 96.7 % (94-97); ABG PCO2 33 mmHg (35-45); ABG PH 7.36 (7.35-7.45); ABG PO2 85 mmHg (83-108); ABG TCO2 20 mmol/L (19-24); Allen Test Performed? Yes
[2020-01-31 07:47] LABS: Magnesium 1.9 mg/dL (1.6-2.3); Phosphorus 5.3 mg/dL (2.5-4.5)
[2020-01-31] MEDS: buPROPion SR 150 MG TABLET.ER PO SCH ×2 (08:52→21:27)
[2020-01-31] MEDS: ALLOPURINOL 100 MG TAB PO SCH (08:52)
[2020-01-31] MEDS: PANTOPRAZOLE 40 MG TABLET PO SCH (08:53)
[2020-01-31] MEDS: HEPARIN SODIUM,PORCINE 5,000 UNIT/ML 1 ML VIAL SQ SCH ×2 (08:53→21:27)
[2020-01-31] MEDS: SODIUM BICARBONATE TAB 650 MG TAB PO SCH ×2 (08:53→21:27)
[2020-01-31] MEDS: CHLORHEXIDINE GLUCONATE 15 ML CUP MUCOUS MEM SCH ×2 (08:53→21:27)
[2020-01-31] MEDS: OXYBUTYNIN 15 MG TAB.ER.24 PO SCH (08:53)
[2020-01-31] MEDS: methylPREDNISolone SOD SUCCI 40 MG/ML 1 ML VIAL IV SCH ×2 (08:54→17:06)
[2020-01-31] MEDS ORDERED: FUROSEMIDE 10 MG/ML 4 ML VIAL IV STA (10:26)
[2020-01-31] MEDS: METOPROLOL TARTRATE 50 MG TAB PO SCH (10:53)
[2020-01-31] MEDS: amLODIPine 10 MG TAB PO SCH (10:53)
[2020-01-31] MEDS: hydrALAZINE HCL 50 MG TAB PO SCH (10:53)
[2020-01-31] MEDS: CHOLESTYRAMINE (WITH SUGAR) 4 GM PACKET PO SCH ×2 (10:54→16:52)
[2020-01-31 11:54] LABS: Glucose,Whole Blood 210 mg/dL (75-99)
--- NOTE | 2020-01-31 12:27 | P.PN ---
Subjective Progress Note Date: 01/31/20 Follow-up for acute kidney injury. Decreased urine output to about 20 ML's an hour since morning. Currently on ventilator with a FiO2 of 50% and PEEP of 5. No nausea vomiting diarrhea. Objective - Vital Signs Vital signs: Vital Signs Temp 95.7 F L 01/31/20 09:00 Pulse 67 01/31/20 09:00 Resp 16 01/31/20 09:00 BP 118/48 01/31/20 09:00 Pulse Ox 96 01/31/20 09:00 Intake & Output 01/30/20 01/31/20 01/31/20 18:59 06:59 18:59 Intake Total 990 2152.444 160 Output Total 582 261 43 Balance 408 1891.444 117 Weight 115.8 kg 116.6 kg Intake: IV 660 1600 100 Piperacillin-Tazobactam 3 200 .375 gm In Sodium Chloride 0.9% 100 ml @ 25 mls/hr IVPB Q12H [facility] Rx# :[id number] Sodium Chloride 0.9% 1, 400 600 100 000 ml @ 50 mls/hr IV . Q20H [facility] Rx#:[id number] Sodium Chloride 0.9% 1, 1000 000 ml @ 999 mls/hr IV . Q1H1M [facility] Rx#:[id number] Sodium Chloride 0.9% 500 60 ml 500 ml @ 20 mls/hr IV .Q24H [facility] Rx#:[id number] Intake, IV Titration 300 252.444 Amount Propofol 1,000 mg In 300 252.444 Empty Bag 1 bag @ Titrate IV .Q0M [facility] Rx#: [id number] Tube Feeding 30 180 30 Other 120 30 Output: Urine 582 261 43 Other: Voiding Method Indwelling Catheter Indwelling Catheter Indwelling Catheter - Exam No acute distress S1-S2 heard Oral intubation Bilateral air entry bronchial breathing Edema trace - Labs CBC & Chem 7: 01/31/20 05:16 01/31/20 05:16 Labs: Abnormal Lab Results - Last 24 Hours (Table) 01/30/20 01/30/20 01/30/20 Range/Units 12:45 17:41 19:01 RBC (3.80-5.40) m/uL Hgb (11.4-16.0) gm/dL Hct (34.0-46.0) % RDW (11.5-15.5) % Lymphocytes # (1.0-4.8) k/uL ABG pCO2 (35-45) mmHg ABG HCO3 (21-25) mmol/L Chloride (98-107) mmol/L Carbon Dioxide (22-30) mmol/L BUN (7-17) mg/dL Creatinine (0.52-1.04) mg/dL Glucose (74-99) mg/dL POC Glucose (mg/dL) 204 H 211 H (75-99) mg/dL Plasma Lactic Acid Bryn 0.6 L (0.7-2.0) mmol/L Calcium (8.4-10.2) mg/dL Phosphorus (2.5-4.5) mg/dL Urine Appearance (Clear) Urine Protein (Negative) Urine Blood (Negative) Ur Leukocyte Esterase (Negative) Urine RBC (0-5) /hpf Urine WBC (0-5) /hpf Urine Bacteria (None) /hpf Hyaline Casts (0-2) /lpf Urine Mucus (None) /hpf 01/30/20 01/30/20 01/30/20 Range/Units 19:52 23:36 Unknown RBC (3.80-5.40) m/uL Hgb (11.4-16.0) gm/dL Hct (34.0-46.0) % RDW (11.5-15.5) % Lymphocytes # (1.0-4.8) k/uL ABG pCO2 (35-45) mmHg ABG HCO3 (21-25) mmol/L Chloride (98-107) mmol/L Carbon Dioxide (22-30) mmol/L BUN (7-17) mg/dL Creatinine (0.52-1.04) mg/dL Glucose (74-99) mg/dL POC Glucose (mg/dL) 209 H 165 H (75-99) mg/dL Plasma Lactic Acid Bryn (0.7-2.0) mmol/L Calcium (8.4-10.2) mg/dL Phosphorus (2.5-4.5) mg/dL Urine Appearance Cloudy H (Clear) Urine Protein Trace H (Negative) Urine Blood Moderate H (Negative) Ur Leukocyte Esterase Large H (Negative) Urine RBC >182 H (0-5) /hpf Urine WBC 21 H (0-5) /hpf Urine Bacteria Rare H (None) /hpf Hyaline Casts 3 H (0-2) /lpf Urine Mucus Rare H (None) /hpf 01/31/20 01/31/20 01/31/20 Range/Units 04:27 05:16 05:16 RBC 2.87 L (3.80-5.40) m/uL Hgb 8.1 L (11.4-16.0) gm/dL Hct 25.8 L (34.0-46.0) % RDW 16.3 H (11.5-15.5) % Lymphocytes # 0.3 L (1.0-4.8) k/uL ABG pCO2 (35-45) mmHg ABG HCO3 (21-25) mmol/L Chloride 109 H (98-107) mmol/L Carbon Dioxide 16 L (22-30) mmol/L BUN 106 H* (7-17) mg/dL Creatinine 3.47 H (0.52-1.04) mg/dL Glucose 198 H (74-99) mg/dL POC Glucose (mg/dL) 220 H (75-99) mg/dL Plasma Lactic Acid Bryn (0.7-2.0) mmol/L Calcium 7.4 L (8.4-10.2) mg/dL Phosphorus (2.5-4.5) mg/dL Urine Appearance (Clear) Urine Protein (Negative) Urine Blood (Negative) Ur Leukocyte Esterase (Negative) Urine RBC (0-5) /hpf Urine WBC (0-5) /hpf Urine Bacteria (None) /hpf Hyaline Casts (0-2) /lpf Urine Mucus (None) /hpf 01/31/20 01/31/20 01/31/20 Range/Units 05:16 06:04 07:28 RBC (3.80-5.40) m/uL Hgb (11.4-16.0) gm/dL Hct (34.0-46.0) % RDW (11.5-15.5) % Lymphocytes # (1.0-4.8) k/uL ABG pCO2 33 L (35-45) mmHg ABG HCO3 19 L (21-25) mmol/L Chloride (98-107) mmol/L Carbon Dioxide (22-30) mmol/L BUN (7-17) mg/dL Creatinine (0.52-1.04) mg/dL Glucose (74-99) mg/dL POC Glucose (mg/dL) 215 H (75-99) mg/dL Plasma Lactic Acid Bryn (0.7-2.0) mmol/L Calcium (8.4-10.2) mg/dL Phosphorus 5.3 H (2.5-4.5) mg/dL Urine Appearance (Clear) Urine Protein (Negative) Urine Blood (Negative) Ur Leukocyte Esterase (Negative) Urine RBC (0-5) /hpf Urine WBC (0-5) /hpf Urine Bacteria (None) /hpf Hyaline Casts (0-2) /lpf Urine Mucus (None) /hpf 01/31/20 Range/Units 11:53 RBC (3.80-5.40) m/uL Hgb (11.4-16.0) gm/dL Hct (34.0-46.0) % RDW (11.5-15.5) % Lymphocytes # (1.0-4.8) k/uL ABG pCO2 (35-45) mmHg ABG HCO3 (21-25) mmol/L Chloride (98-107) mmol/L Carbon Dioxide (22-30) mmol/L BUN (7-17) mg/dL Creatinine (0.52-1.04) mg/dL Glucose (74-99) mg/dL POC Glucose (mg/dL) 210 H (75-99) mg/dL Plasma Lactic Acid Bryn (0.7-2.0) mmol/L Calcium (8.4-10.2) mg/dL Phosphorus (2.5-4.5) mg/dL Urine Appearance (Clear) Urine Protein (Negative) Urine Blood (Negative) Ur Leukocyte Esterase (Negative) Urine RBC (0-5) /hpf Urine WBC (0-5) /hpf Urine Bacteria (None) /hpf Hyaline Casts (0-2) /lpf Urine Mucus (None) /hpf Microbiology - Last 24 Hours (Table) 01/30/20 10:30 Gram Stain - Preliminary Bronchial Washings - Random Bronchial Washings Culture - Preliminary Annette albicans 01/30/20 04:32 Gram Stain - Preliminary Sputum Sputum Culture - Preliminary Annette albicans 01/30/20 10:30 Acid Fast Bacilli Culture - Preliminary Bronchial Washings - Random 01/30/20 10:30 Fungal Culture - Preliminary Bronchial Washings - Random 01/28/20 12:06 Blood Culture - Preliminary Blood No Growth after 48 hours 01/28/20 12:13 Blood Culture - Preliminary Blood No Growth after 48 hours Assessment and Plan Assessment: #1 nonoliguric acute kidney injury suspect hemodynamic ATN with labile blood pressure. Cannot rule out prerenal process with overdiuresis and AIN with antibiotic use. #2 right nephrectomy secondary to renal mass #3 chronic kidney disease stage III with a baseline creatinine of 1.5-1.6 MG per DL, prior to nephrectomy. #4 hypertension with chronic kidney disease, labile blood pressure #5 secondary hyperparathyroidism on Sensipar #6 ventilator dependent respiratory failure #7 metabolic acidosis secondary to acute kidney injury Plan: #1 creatinine creeping. Check renal ultrasound to rule out obstruction. #2 urine analysis consistent with hematuria and pyuria. On antibiotics for UTI. #3 continue with IV fluids #4 avoid nephrotoxic agents and hypotensive episodes. #5 no acute indication for renal replacement therapy at this time.
[2020-01-31] MEDS: PIPERACILLIN-TAZOBACTAM 3.375 GM in SODIUM CHLORIDE 0.9% 100 ML IVPB SCH (12:35)
--- NOTE | 2020-01-31 12:36 | P.PN ---
Subjective Progress Note Date: 01/31/20 Principal diagnosis: Acute hypoxic respiratory failure secondary to influenza A pneumonitis, underlying pneumonia, and suspect fluid volume overload. The patient is seen today 01/26/2020 in follow-up on the regular medical floor. Earlier this morning she developed increasing shortness of breath, acute hypoxic respiratory failure requiring BiPAP support 10/5 and 50% FiO2. She was given a dose of Lasix. Chest x-ray shows bilateral worsening pneumonia. Yesterday she had been down to 2 L/m per nasal cannula. Throughout the night she was increased back to 10 L high flow nasal cannula to maintain saturations in the 90s. Initial sputum culture had revealed Annette only. She had been continuing on DuoNeb inhalations, IV Solu-Medrol, antibiotics in the form of ceftriaxone. The plan was for bronchoscopy with BAL this morning however based on her worsening condition we'll hold off for now. She'll be transferred to the ICU. Patient was reevaluated today in the ICU on 01/27/2020, patient is presently on BiPAP, she received Lasix yesterday, and her chest x-ray is showing significant improvement. There seems to be better aeration, and less interstitial edema noted in both lungs. Patient is on BiPAP with IPAP of 10 and EPAP of 5 and FiO2 of 40%. Her O2 saturation is 97% on this setting. Clinically the patient is feeling better, remains on diuretics, she remains on antibiotics, and she is also on bronchodilators. At one point I was considering bronchoscopy on this patient, however her pulmonary status remains marginal, and considering the patient is improving with diuretics, I will continue the same. No plans to perform bronchoscopy at this point. However will continue diuretics, continue antibiotics, and bronchodilators. Reevaluated today on 01/28/20, remains in the intensive care unit, intermittently on BiPAP, presently on 6 L nasal cannula. Patient tells me that she is feeling better, however she continues to have quite abnormal chest x-ray, bilateral air space disease noted bilaterally. She also has diffuse rhonchi and wheezes bilaterally more so on forced expiratory maneuver. Cannot bring up much sputum, but feels congested. No fever no chills, no hemodynamic instability. O2 saturation is 93% on 6 L high flow nasal cannula. Remains on bronchodilators, diuretics, steroids, antibiotics, with some improvement, but clearly not ready to be discharged out of the ICU at this point yet. Reevaluated today on 01/29/20, patient remains in the ICU, intermittently on BiPAP, but mostly on high flow nasal cannula at 6 L/m. Continues to have intermittent cough and wheezing, continues to have borderline oxygenation, patient remains a poor candidate for bronchoscopy without having to intubate the patient. Remains on antibiotics, bronchodilators, steroids, and diuretics. Chest x-ray today continues to show bilateral airspace disease involving both lungs, minimal improvement compared to chest x-ray a few days ago. CBC is relatively normal BUN is 92 creatinine 2.93. Reevaluated today on 01/30/20, patient had a downhill course last night, she became extremely agitated, restless, she was receiving Haldol and Ativan. Patient kept pulling her lines and her BiPAP off, and she was having intermittent episodes of desaturations and borderline oxygenation. I was notified about the patient about her overall condition, and I recommended immediate intubation. She is now on ventilatory support. Her assist-control rate is 20 volume is 450 FiO2 is 50% and PEEP is 5. ABG post intubation showed a pO2 of 245 pCO2 of 37 pH of 7.35. And this was on on the percent FiO2. Her CBC is relatively normal today, hemoglobin is 8.2 lites are normal bicarb is 19. Renal functioning is worse with a BUN of 107 creatinine of 3.33, hence we'll h old on diuretics for now, and increase IV fluids with close monitoring of her pulmonary status. Underwent bronchoscopy and lavage of both lungs today, no clear-cut evidence of significant variance secretions in the lungs/airways. Nonetheless patient underwent lavage and the fluid was sent for different diagnostic studies. Reevaluated today on 01/31/20, patient remains on mechanical ventilation, assist control mode of mechanical ventilation. Tidal volume is 450., Rate is 20, FiO2 is 50% and PEEP is 5. ABG this morning showed a pO2 of 85 pCO2 of 33 pH of 7.36. Bicarb is 19. Her CBC showed WBC count of 5 hemoglobin is 8.1, renal profile is worsening with a BUN of 106 creatinine of 3.47. Overnight and this morning, patient received a total of 2 L of fluid boluses for hypotension, did not require norepinephrine. Urine output remains marginal, blood pressure is normal today. Chest x-ray is slightly worse. Hence I recommended Lasix to be given earlier this morning. Nephrology is recommending renal ultrasound to rule out obstructive uropathy. Patient is sedated, mostly on propofol. She is not requiring any narcotics, and not requiring any neuromuscular blocking agents, not requiring any pressors at this point. Remains on methylprednisolone and she is also on Zosyn. Remains on bronchodilators and on steroids. Patient was started on enteral feeding yesterday. IV fluid is mostly at 50 mL per hour in the form of 0.9 normal saline. Objective - Vital Signs Vital signs: Vital Signs Temp 95.7 F L 01/31/20 09:00 Pulse 67 01/31/20 09:00 Resp 16 01/31/20 09:00 BP 118/48 01/31/20 09:00 Pulse Ox 96 01/31/20 09:00 Intake & Output 01/30/20 01/31/20 01/31/20 18:59 06:59 18:59 Intake Total 990 2152.444 160 Output Total 582 261 43 Balance 408 1891.444 117 Weight 115.8 kg 116.6 kg Intake: IV 660 1600 100 Piperacillin-Tazobactam 3 200 .375 gm In Sodium Chloride 0.9% 100 ml @ 25 mls/hr IVPB Q12H [facility] Rx# :[id number] Sodium Chloride 0.9% 1, 400 600 100 000 ml @ 50 mls/hr IV . Q20H [facility] Rx#:[id number] Sodium Chloride 0.9% 1, 1000 000 ml @ 999 mls/hr IV . Q1H1M [facility] Rx#:[id number] Sodium Chloride 0.9% 500 60 ml 500 ml @ 20 mls/hr IV .Q24H [facility] Rx#:[id number] Intake, IV Titration 300 252.444 Amount Propofol 1,000 mg In 300 252.444 Empty Bag 1 bag @ Titrate IV .Q0M [facility] Rx#: [id number] Tube Feeding 30 180 30 Other 120 30 Output: Urine 582 261 43 Other: Voiding Method Indwelling Catheter Indwelling Catheter Indwelling Catheter - Exam GENERAL EXAM: Revealed 69-year-old female obese, on mechanical ventilation, sedated, on propofol drip. HEENT: PERRLA, EOMI, no icterus, no neck masses, no JVD, short obese neck was noted. Endotracheal tube and orogastric tube are intact CHEST: No chest wall deformity. LUNGS: Symmetrical chest expansion, diminished breath sounds at the bases no crackles or rhonchi or wheezes. CVS: S1 and S2 normal with 2/6 systolic murmur thought the precordium. ABDOMEN: Obese, soft, nontender, surgical incisions from previous laparoscopic surgeries noted in the right upper quadrant. SPINE: No scoliosis or deformity SKIN: No rashes CENTRAL NERVOUS SYSTEM: On mechanical ventilation, could not be assessed, patient is sedated and on propofol. EXTREMITIES: There is no peripheral edema. No clubbing, no cyanosis. Peripheral pulses are intact. Psychiatric: Not be assessed today, patient is sedated and on propofol. - Labs CBC & Chem 7: 01/31/20 05:16 01/31/20 05:16 Labs: Abnormal Lab Results - Last 24 Hours (Table) 01/30/20 01/30/20 01/30/20 Range/Units 12:45 17:41 19:01 RBC (3.80-5.40) m/uL Hgb (11.4-16.0) gm/dL Hct (34.0-46.0) % RDW (11.5-15.5) % Lymphocytes # (1.0-4.8) k/uL ABG pCO2 (35-45) mmHg ABG HCO3 (21-25) mmol/L Chloride (98-107) mmol/L Carbon Dioxide (22-30) mmol/L BUN (7-17) mg/dL Creatinine (0.52-1.04) mg/dL Glucose (74-99) mg/dL POC Glucose (mg/dL) 204 H 211 H (75-99) mg/dL Plasma Lactic Acid Bryn 0.6 L (0.7-2.0) mmol/L Calcium (8.4-10.2) mg/dL Phosphorus (2.5-4.5) mg/dL Urine Appearance (Clear) Urine Protein (Negative) Urine Blood (Negative) Ur Leukocyte Esterase (Negative) Urine RBC (0-5) /hpf Urine WBC (0-5) /hpf Urine Bacteria (None) /hpf Hyaline Casts (0-2) /lpf Urine Mucus (None) /hpf 01/30/20 01/30/20 01/30/20 Range/Units 19:52 23:36 Unknown RBC (3.80-5.40) m/uL Hgb (11.4-16.0) gm/dL Hct (34.0-46.0) % RDW (11.5-15.5) % Lymphocytes # (1.0-4.8) k/uL ABG pCO2 (35-45) mmHg ABG HCO3 (21-25) mmol/L Chloride (98-107) mmol/L Carbon Dioxide (22-30) mmol/L BUN (7-17) mg/dL Creatinine (0.52-1.04) mg/dL Glucose (74-99) mg/dL POC Glucose (mg/dL) 209 H 165 H (75-99) mg/dL Plasma Lactic Acid Bryn (0.7-2.0) mmol/L Calcium (8.4-10.2) mg/dL Phosphorus (2.5-4.5) mg/dL Urine Appearance Cloudy H (Clear) Urine Protein Trace H (Negative) Urine Blood Moderate H (Negative) Ur Leukocyte Esterase Large H (Negative) Urine RBC >182 H (0-5) /hpf Urine WBC 21 H (0-5) /hpf Urine Bacteria Rare H (None) /hpf Hyaline Casts 3 H (0-2) /lpf Urine Mucus Rare H (None) /hpf 01/31/20 01/31/20 01/31/20 Range/Units 04:27 05:16 05:16 RBC 2.87 L (3.80-5.40) m/uL Hgb 8.1 L (11.4-16.0) gm/dL Hct 25.8 L (34.0-46.0) % RDW 16.3 H (11.5-15.5) % Lymphocytes # 0.3 L (1.0-4.8) k/uL ABG pCO2 (35-45) mmHg ABG HCO3 (21-25) mmol/L Chloride 109 H (98-107) mmol/L Carbon Dioxide 16 L (22-30) mmol/L BUN 106 H* (7-17) mg/dL Creatinine 3.47 H (0.52-1.04) mg/dL Glucose 198 H (74-99) mg/dL POC Glucose (mg/dL) 220 H (75-99) mg/dL Plasma Lactic Acid Bryn (0.7-2.0) mmol/L Calcium 7.4 L (8.4-10.2) mg/dL Phosphorus (2.5-4.5) mg/dL Urine Appearance (Clear) Urine Protein (Negative) Urine Blood (Negative) Ur Leukocyte Esterase (Negative) Urine RBC (0-5) /hpf Urine WBC (0-5) /hpf Urine Bacteria (None) /hpf Hyaline Casts (0-2) /lpf Urine Mucus (None) /hpf 01/31/20 01/31/20 01/31/20 Range/Units 05:16 06:04 07:28 RBC (3.80-5.40) m/uL Hgb (11.4-16.0) gm/dL Hct (34.0-46.0) % RDW (11.5-15.5) % Lymphocytes # (1.0-4.8) k/uL ABG pCO2 33 L (35-45) mmHg ABG HCO3 19 L (21-25) mmol/L Chloride (98-107) mmol/L Carbon Dioxide (22-30) mmol/L BUN (7-17) mg/dL Creatinine (0.52-1.04) mg/dL Glucose (74-99) mg/dL POC Glucose (mg/dL) 215 H (75-99) mg/dL Plasma Lactic Acid Bryn (0.7-2.0) mmol/L Calcium (8.4-10.2) mg/dL Phosphorus 5.3 H (2.5-4.5) mg/dL Urine Appearance (Clear) Urine Protein (Negative) Urine Blood (Negative) Ur Leukocyte Esterase (Negative) Urine RBC (0-5) /hpf Urine WBC (0-5) /hpf Urine Bacteria (None) /hpf Hyaline Casts (0-2) /lpf Urine Mucus (None) /hpf 01/31/20 Range/Units 11:53 RBC (3.80-5.40) m/uL Hgb (11.4-16.0) gm/dL Hct (34.0-46.0) % RDW (11.5-15.5) % Lymphocytes # (1.0-4.8) k/uL ABG pCO2 (35-45) mmHg ABG HCO3 (21-25) mmol/L Chloride (98-107) mmol/L Carbon Dioxide (22-30) mmol/L BUN (7-17) mg/dL Creatinine (0.52-1.04) mg/dL Glucose (74-99) mg/dL POC Glucose (mg/dL) 210 H (75-99) mg/dL Plasma Lactic Acid Bryn (0.7-2.0) mmol/L Calcium (8.4-10.2) mg/dL Phosphorus (2.5-4.5) mg/dL Urine Appearance (Clear) Urine Protein (Negative) Urine Blood (Negative) Ur Leukocyte Esterase (Negative) Urine RBC (0-5) /hpf Urine WBC (0-5) /hpf Urine Bacteria (None) /hpf Hyaline Casts (0-2) /lpf Urine Mucus (None) /hpf Microbiology - Last 24 Hours (Table) 01/30/20 10:30 Gram Stain - Preliminary Bronchial Washings - Random Bronchial Washings Culture - Preliminary Annette albicans 01/30/20 04:32 Gram Stain - Preliminary Sputum Sputum Culture - Preliminary Annette albicans 01/30/20 10:30 Acid Fast Bacilli Culture - Preliminary Bronchial Washings - Random 01/30/20 10:30 Fungal Culture - Preliminary Bronchial Washings - Random 01/28/20 12:06 Blood Culture - Preliminary Blood No Growth after 48 hours 01/28/20 12:13 Blood Culture - Preliminary Blood No Growth after 48 hours Assessment and Plan Assessment: Impression: Acute hypoxic respiratory failure, requiring intubation and mechanical ventilation. multifactorial. Secondary to: Influenza a infection Fluid overload and suspect some component of diastolic congestive heart failure, acute Underlying pneumonia is not entirely ruled out. Awaiting cultures from the BAL which was done today. Multiple comorbidities including recent laparoscopic right radical nephrectomy for renal cell carcinoma, Type 2 diabetes GERD with esophagitis Hypertension Morbid obesity Generalized anxiety disorder Dyslipidemia Acute on chronic kidney injury. Recommendation: Ventilatory support. Start the nutritional support/enteral feeding. 1 dose of Lasix 40 mg IV push was given today. Continue antibiotics. Continue bronchodilators. Bronchoscopy was performed., Yesterday, cultures are pending. Updated her brother on her condition. prognosis remains quite guarded. Critical care time is 32 minutes, Chest x-ray was reviewed today, seems to be a bit worse, in spite of aggressive management as above. We'll continue to follow. Time with Patient: Greater than 30
--- NOTE | 2020-01-31 13:25 | PN ---
PROGRESS NOTE DATE OF SERVICE: 01/31/2020 CHIEF COMPLAINT: Respiratory failure and influenza pneumonia. HISTORY OF PRESENT ILLNESS: This lady continues on the ventilator. Apparently, bronchoscopy was done yesterday. She is also being plagued by the fact that her renal function is slowly deteriorating. This is being followed by Nephrology. Echo of the kidney of the remaining kidney has been ordered. PHYSICAL EXAM: At the present time, blood pressure is 151/82. She is on a ventilator. Hydration is good and color is good. Head, ears, eyes, nose, mouth, and throat are unremarkable otherwise. Breath sounds are heard on both sides. It sounds as though she is in sinus rhythm. Abdomen is soft. Extremities are normal. IMPRESSION: 1. Respiratory failure. 2. Influenza pneumonia. 3. Congestive heart failure. 4. Insulin-dependent diabetes mellitus. 5. Status post renal cell carcinoma with nephrectomy. 6. Progressive renal failure. PLAN: Continue to follow with Infectious Disease, Nephrology, and Intensive Medicine. MMODL / IJN: [id number] /
--- NOTE | 2020-01-31 14:35 | US ---
EXAMINATION TYPE: US renals and bladder DATE OF EXAM: 01/31/2020 COMPARISON: CT chest January 23, 2020. Renal ultrasound October 12, 2019 CLINICAL HISTORY: hydronephrosis. ICU patient. RK removed. Bladder catheter EXAM MEASUREMENTS: Left Kidney: 10.8 x 4.7 x 5.8 cm Limited visualization due to patient position and body habitus Right Kidney: Surgically absent Left Kidney: Cystic appearing leison within renal sinus- 2.9 x 2.3 x 2.9 cm with anterior echogenic f ocus with shadowing = 1.5 x 1.9 cm Bladder: Not visualized Bilateral Jets not visualized Absent right kidney. Left kidney poorly seen on images saved. Stable 2.9 cm thin-walled cyst left kid armida. Stable large adjacent calcification possible dystrophic calculus. No new hydronephrosis. The ur inary bladder is nondistended. IMPRESSION: Suboptimal study but no new left-sided hydronephrosis.
[2020-01-31] MEDS: IPRATROPIUM-ALBUTEROL 3 ML NEB INHALATION PRN ×2 (16:08→19:53)
[2020-01-31 16:51] LABS: Glucose,Whole Blood 209 mg/dL (75-99)
--- NOTE | 2020-01-31 18:04 | PN ---
PROGRESS NOTE DATE OF SERVICE: 01/31/2020. REASON FOR FOLLOWUP: Pneumonia. INTERVAL HISTORY: The patient did spike a fever of 100.6 early this morning. Subsequently she went into slightly hypothermic normal temperature. Now the patient is intubated on the vent. FiO2 is currently down to 50%. not requiring any pressor support and no diarrhea has been reported. PHYSICAL EXAMINATION: Blood pressure 126/51 with a pulse of 63, temperature 96.8. She is 95% on 50% FIO2. General description is an elderly female lying in bed in no distress. Respiratory system: Unlabored breathing. Decreased breath sounds in the base, with no wheeze. Heart is S1, S2. Regular rate and rhythm. Abdomen soft, no tenderness. LABS: Hemoglobin 8.1, white count 5.0. BUN of , creatinine 3.47. Bronchoscopy cultures showing Annette albicans. DIAGNOSTIC IMPRESSION AND PLAN: Patient with acute respiratory failure which is likely multifactorial in this patient currently covered with Zosyn to continue. We will follow up on the culture and adjust antibiotic further if needed. Continue supportive care. MMODL / IJN: [id number] /
[2020-01-31 19:24] LABS: Glucose,Whole Blood 182 mg/dL (75-99)
[2020-01-31 20:56] LABS: Glucose,Whole Blood 132 mg/dL (75-99)
[2020-01-31] MEDS: ATORVASTATIN 10 MG TAB PO SCH (21:27)
[2020-01-31 23:48] LABS: Glucose,Whole Blood 77 mg/dL (75-99)
[2020-02-01] MEDS: PIPERACILLIN-TAZOBACTAM 3.375 GM in SODIUM CHLORIDE 0.9% 100 ML IVPB SCH ×3 (01:07→23:33)
[2020-02-01] MEDS: INSULIN ASPART (NovoLOG) 100 UNIT/ML VIAL SQ SCH ×7 (01:08→23:50)
[2020-02-01] MEDS: methylPREDNISolone SOD SUCCI 40 MG/ML 1 ML VIAL IV SCH ×4 (01:10→23:33)
[2020-02-01] MEDS: SODIUM CHLORIDE 0.9% 1,000 ML IV SCH ×2 (03:55→23:08)
[2020-02-01 05:00] LABS: Glucose,Whole Blood 133 mg/dL (75-99)
[2020-02-01 05:08] LABS: Anisocytosis Slight; Basophils % (A) 0 %; Eosinophils % (A) 0 %; HCT 27.3 % (34.0-46.0); HGB 8.3 gm/dL (11.4-16.0); Hypochromasia Moderate; Lymphocytes # (A) 0.3 k/uL (1.0-4.8); Lymphocytes % (A) 8 %; MCH 28.8 pg (25.0-35.0); MCHC 30.5 g/dL (31.0-37.0); MCV 94.4 fL (80.0-100.0); Mean Platelet Volume 8.7; Monocytes # (A) 0.2 k/uL (0-1.0); Monocytes % (A) 6 %; Neutrophils # (A) 3.6 k/uL (1.3-7.7); Neutrophils % (A) 85 %; Platelet Count 167 k/uL (150-450); RBC 2.89 m/uL (3.80-5.40); RDW 16.5 % (11.5-15.5); WBC 4.3 k/uL (3.8-10.6)
[2020-02-01 05:18] LABS: Prothrombin Time 10.1 sec (9.0-12.0)
[2020-02-01 05:37] LABS: ABG Base Excess -8.8 mmol/L; ABG HCO3 17 mmol/L (21-25); ABG Oxygen Saturation 94.5 % (94-97); ABG PCO2 32 mmHg (35-45); ABG PH 7.33 (7.35-7.45); ABG PO2 74 mmHg (83-108); ABG TCO2 18 mmol/L (19-24); Allen Test Performed? Yes
[2020-02-01] MEDS: INSULIN DETEMIR (LEVEMIR) 100 UNIT/ML SYR SQ SCH (07:37)
[2020-02-01] MEDS: IPRATROPIUM-ALBUTEROL 3 ML NEB INHALATION PRN ×5 (07:49→23:23)
--- NOTE | 2020-02-01 08:03 | XR ---
EXAMINATION TYPE: XR chest 1V portable DATE OF EXAM: 02/01/2020 COMPARISON: 01/31/2020 HISTORY: Shortness of breath TECHNIQUE: Single frontal view of the chest is obtained. FINDINGS: ET tube low in position 1 cm above the andres. Bilateral areas of infiltrate and small eff usion are noted. NG tube stable heart size stable. IMPRESSION: 1. Bilateral pleural-parenchymal changes stable greater on the right. Underlying adenopathy or mass i n the differential diagnosis. Correlate to exclude pneumonia. 2. ET tube low in position approximately 1 cm above andres
[2020-02-01 08:11] LABS: Glucose,Whole Blood 190 mg/dL (75-99)
[2020-02-01] MEDS ORDERED: FUROSEMIDE 10 MG/ML 10 ML VIAL IV STA (08:25)
--- NOTE | 2020-02-01 08:26 | P.PN ---
Subjective Patient is seen in follow-up for acute kidney injury and chronic kidney disease. Creatinine 3.47 as of yesterday. Urine output 25-30 mL an hour. She is maintained on normal saline at 50 mL an hour and also receiving tube feeding at 15 mL an hour. Intubated. Vital signs are stable. General: The patient appeared well nourished and normally developed. HEENT: Head exam is unremarkable. Neck is without jugular venous distension. Intubated. LUNGS: Breath sounds decreased. HEART: Rate and Rhythm are regular. First and second heart sounds normal. No murmurs, rubs or gallops. ABDOMEN: Abdominal exam reveals normal bowel sounds. Non-tender and non- distended. EXTREMITITES: 1+ edema. Objective - Vital Signs Vital signs: Vital Signs Temp 97.0 F L 02/01/20 04:00 Pulse 80 02/01/20 08:12 Resp 20 02/01/20 07:00 BP 118/40 02/01/20 07:00 Pulse Ox 96 02/01/20 07:00 Intake & Output 01/31/20 02/01/20 02/01/20 18:59 06:59 18:59 Intake Total 2373.487 675 50 Output Total 273 360 40 Balance 2100.487 315 10 Weight 119 kg Intake: IV 1650 600 50 Piperacillin-Tazobactam 3 100 .375 gm In Sodium Chloride 0.9% 100 ml @ 25 mls/hr IVPB Q12H [facility] Rx# :[id number] Sodium Chloride 0.9% 1, 550 600 50 000 ml @ 50 mls/hr IV . Q20H [facility] Rx#:[id number] Sodium Chloride 0.9% 1, 1000 000 ml @ 999 mls/hr IV . Q1H1M [facility] Rx#:[id number] Intake, IV Titration 468.487 Amount Propofol 1,000 mg In 468.487 Empty Bag 1 bag @ Titrate IV .Q0M [facility] Rx#: [id number] Tube Feeding 165 75 Other 90 Output: Urine 273 360 40 Stool 0 Other: Voiding Method Indwelling Catheter Indwelling Catheter - Labs CBC & Chem 7: 02/01/20 04:28 01/31/20 05:16 Labs: Abnormal Lab Results - Last 24 Hours (Table) 01/31/20 01/31/20 01/31/20 Range/Units 11:53 16:49 19:23 RBC (3.80-5.40) m/uL Hgb (11.4-16.0) gm/dL Hct (34.0-46.0) % MCHC (31.0-37.0) g/dL RDW (11.5-15.5) % Lymphocytes # (1.0-4.8) k/uL ABG pH (7.35-7.45) ABG pCO2 (35-45) mmHg ABG pO2 (83-108) mmHg ABG HCO3 (21-25) mmol/L ABG Total CO2 (19-24) mmol/L POC Glucose (mg/dL) 210 H 209 H 182 H (75-99) mg/dL 01/31/20 02/01/20 02/01/20 Range/Units 20:54 04:28 04:47 RBC 2.89 L (3.80-5.40) m/uL Hgb 8.3 L (11.4-16.0) gm/dL Hct 27.3 L (34.0-46.0) % MCHC 30.5 L (31.0-37.0) g/dL RDW 16.5 H (11.5-15.5) % Lymphocytes # 0.3 L (1.0-4.8) k/uL ABG pH (7.35-7.45) ABG pCO2 (35-45) mmHg ABG pO2 (83-108) mmHg ABG HCO3 (21-25) mmol/L ABG Total CO2 (19-24) mmol/L POC Glucose (mg/dL) 132 H 133 H (75-99) mg/dL 02/01/20 02/01/20 Range/Units 05:35 08:09 RBC (3.80-5.40) m/uL Hgb (11.4-16.0) gm/dL Hct (34.0-46.0) % MCHC (31.0-37.0) g/dL RDW (11.5-15.5) % Lymphocytes # (1.0-4.8) k/uL ABG pH 7.33 L (7.35-7.45) ABG pCO2 32 L (35-45) mmHg ABG pO2 74 L (83-108) mmHg ABG HCO3 17 L (21-25) mmol/L ABG Total CO2 18 L (19-24) mmol/L POC Glucose (mg/dL) 190 H (75-99) mg/dL Microbiology - Last 24 Hours (Table) 01/30/20 10:30 Acid Fast Bacilli Smear - Final Bronchial Washings - Random Acid Fast Bacilli Culture - Preliminary 01/28/20 12:13 Blood Culture - Preliminary Blood No Growth after 72 hours 01/28/20 12:06 Blood Culture - Preliminary Blood No Growth after 72 hours 01/30/20 10:30 Gram Stain - Preliminary Bronchial Washings - Random Bronchial Washings Culture - Preliminary Annette albicans 01/30/20 04:32 Gram Stain - Preliminary Sputum Sputum Culture - Preliminary Annette albicans Assessment and Plan Plan: Assessment: 1. Acute kidney injury secondary to ATN secondary to hypotension and infection. Creatinine 3.47 as of yesterday. No hydronephrosis noted on kidney ultrasound. 2. Chronic kidney disease stage III with baseline creatinine 1.5-1.6 prior to nephrectomy. 3. Status post right-sided nephrectomy on 01/05/2020. 4. Insulin-dependent diabetes mellitus. 5. Moderate pulmonary hypertension. 6. Metabolic acidosis secondary to acute kidney injury maintained on oral sodium bicarb. 7. Volume overload. 8. Pneumonia maintained on antibiotics. Plan: Lasix 80 mg IV once today. Maintain tube feeding. Continue to monitor renal function and urine output. Avoid nephrotoxins. Morning labs pending. Continue to assess on daily basis for need for renal placement therapy.
[2020-02-01] MEDS: buPROPion SR 150 MG TABLET.ER PO SCH ×3 (08:32→20:21)
[2020-02-01 09:08] LABS: Albumin 2.4 g/dL (3.5-5.0); Calcium 7.7 mg/dL (8.4-10.2); Potassium 4.5 mmol/L (3.5-5.1); Total Bilirubin 0.3 mg/dL (0.2-1.3); Total Protein 4.9 g/dL (6.3-8.2)
[2020-02-01] MEDS: SODIUM BICARBONATE TAB 650 MG TAB PO SCH ×2 (09:13→20:16)
[2020-02-01] MEDS: PANTOPRAZOLE 40 MG TABLET PO SCH (09:13)
[2020-02-01] MEDS: HEPARIN SODIUM,PORCINE 5,000 UNIT/ML 1 ML VIAL SQ SCH ×2 (09:13→20:16)
[2020-02-01] MEDS: PROPOFOL 1,000 MG in EMPTY BAG 1 BAG IV SCH ×5 (09:13→22:44)
[2020-02-01] MEDS: CHLORHEXIDINE GLUCONATE 15 ML CUP MUCOUS MEM SCH ×2 (09:13→20:16)
[2020-02-01] MEDS: OXYBUTYNIN 15 MG TAB.ER.24 PO SCH (09:13)
[2020-02-01] MEDS: ALLOPURINOL 100 MG TAB PO SCH (09:13)
--- NOTE | 2020-02-01 09:40 | PN ---
PROGRESS NOTE PULMONARY/CRITICAL CARE PROGRESS NOTE: DATE OF SERVICE: February 01, 2020. CRITICAL CARE TIME is 35 minutes. This is a patient who was initially admitted back on January 05 and discharged on January 09. At that time, she had a right nephrectomy for hypernephroma. Subsequent to that, she was readmitted on the 10 of January for postop pain, fever, and influenza. She ended up getting transferred to the intensive care unit on the 25 of January for respiratory distress and placed on BiPAP and then on January, she was intubated. She also was bronch on the . This was for roberto carlos respiratory failure. Currently, she remains on the mechanical ventilator. Current settings include the volume assist-control mode rate of 20, tidal volume 450, FiO2 of 50%, PEEP of 5. Blood gases show a pO2 of 73, pCO2 of 32, and a pH is 7.33. She is currently on propofol at 50 mcg/kg per minute, 0.9 at 50 mL an hour and Vital high- protein at 15 which is goal. She is currently on Zosyn. She was previously I believe on Rocephin. She is going to have a daily interruption of sedation today. She likely will need an art line. Apparently there are plans for a PICC line to be placed. Current microbiology is showing only alpha hemolytic strep back on the 10 of January when she was admitted the second time. Bronchial washings and sputum have been showing some Annette albicans. She is going to have a daily interruption of sedation today. She may need an art line today. In addition, we likely will change her vent a bit and put her on a tidal volume protective strategy. PHYSICAL EXAMINATION: VITAL SIGNS: Current vital signs are reviewed. Temperature 98, heart rate 80, respiratory rate 20, blood pressure 112/41, mean 64, saturations are mid 90s on 50% and 5 of PEEP. GENERAL: Appears in no acute distress. Currently sedated. HEENT: Examination is grossly unremarkable. There is an orally placed endotracheal tube and NG tube. NECK: Supple. CARDIOVASCULAR: Examination reveals regular rhythm and rate. Heart rate 80. S1, S2 normal. Heart sounds are distant. LUNGS: Reveal coarse rhonchi. Breath sounds are diminished. ABDOMEN: Soft. Bowel sounds are heard. EXTREMITIES: Are intact. Mild edema. SKIN: Without rash. NEUROLOGIC: Examination cannot be assessed. She is currently sedated and intubated. She does trigger the ventilator though. Current chest x-ray shows some bilateral infiltrates right greater than left. ET tube is found to be only about a cm above the tracheal andres and pushed back 1.5 to 2 cm. LABS: Labs are reviewed. White count 4.3, hemoglobin 8.3, hematocrit 27.3, platelet count 167,000. PT/INR normal. Blood gases have been noted. The metabolic profile is pending. Cortisol level is 6. Bronch wash is pending or negative. MEDICATIONS: Medications are reviewed. Currently, she is on Tylenol, Zyloprim, Xanax, Lipitor, Wellbutrin, chlorhexidine, subcu heparin, insulin, DuoNeb, Ativan, Solu-Medrol, Ditropan, Protonix, Zosyn, propofol, sodium bicarbonate tablets, and saline IV. ASSESSMENT: 1. Acute hypoxemic respiratory failure, requiring intubation and mechanical ventilation on January. The patient also had a bronchoscopy on the , cultures pending. 2. Prior admission between January 05 and January 09 for right nephrectomy secondary to hypernephroma. 3. Status post re-admission on January 10 for postoperative pain, fever, and influenza. 4. Bilateral pneumonia. 5. Diastolic heart failure. 6. Type 2 diabetes. 7. Gastroesophageal reflux disease. 8. Hypertension. 9. Morbid obesity. 10.Generalized anxiety disorder. 11.Hyperlipidemia. 12.Chronic kidney disease. PLAN: The patient will have a daily interruption of sedation. She probably will need an art line. She may have a PICC line today. Cultures will be reviewed. We will make some vent changes to get her on a low tidal volume strategy. She is currently being nourished with Vital high-protein at goal. Additional recommendations and suggestions forthcoming. Prognosis is guarded. CRITICAL CARE TIME: 35 minutes. MMODL / IJN: [id number] /
[2020-02-01] MEDS ORDERED: LIDOCAINE 1% INJ 10MG/ML (20 ML MDV) SQ ONE (10:25)
--- NOTE | 2020-02-01 11:06 | XR ---
EXAMINATION TYPE: XR chest 1V portable DATE OF EXAM: 02/01/2020 COMPARISON: 02/01/2020 HISTORY: Line placement. TECHNIQUE: Single frontal view of the chest is obtained. FINDINGS: Left-sided PICC is partially obscured by overlying leads but appears to terminate in the h igh right atrium. Enteric and endotracheal tube are similar in position. Multifocal airspace disease is seen bilaterally again, right greater than left that is stable from the prior. Cardiomediastinal s ilhouette is also stable. Trace pleural effusion seen. No postprocedural pneumothorax. IMPRESSION: Interval insertion of a left PICC appearing to terminate in the high right atrium althou gh obscured by overlying external leads. Otherwise stable exam.
--- NOTE | 2020-02-01 11:30 | PCN ---
PROCEDURE NOTE PROCEDURE: Left radial arterial line. PREOPERATIVE DIAGNOSIS: Frequent blood draws and blood gas monitoring. POSTOP DIAGNOSIS: Frequent blood draws and blood gas monitoring. ARTERIAL LINE PLACEMENT: Indications: Hemodynamic monitoring. A time-out was completed verifying correct patient, procedure, site, positioning, and implant(s) or special equipment if applicable. Eddi's test was performed to ensure adequate perfusion. The patient's left wrist was prepped and draped in sterile fashion. 1% Lidocaine was used to anesthetize the area. An 18G Arrow arterial line was introduced into the left radial artery. The catheter was threaded over the guide wire and the needle was removed with appropriate pulsatile blood return. Blood loss was minimal. The catheter was then sutured in place to the skin and a sterile dressing applied. Perfusion to the extremity distal to the point of catheter insertion was checked and found to be adequate. The patient tolerated the procedure well and there were no immediate complications. Left radial artery site was used. There was no immediate complications. There was good blood pressure and waveform. The catheter was sutured in place. Sterile dressing was applied by the nurse. There was no immediate complication. MMODL / IJN: [id number] /
[2020-02-01 11:49] LABS: Glucose,Whole Blood 190 mg/dL (75-99)
--- NOTE | 2020-02-01 12:24 | IR ---
PICC LINE PLACEMENT: HISTORY: Infection requiring long-term antibiotic therapy PROCEDURE: Ultrasound guidance of PICC line placement. EQUIPMENT TESTER: Dr. Whitley. COMPLICATIONS: None ANESTHESIA: 1. 1% Lidocaine locally. FINDINGS/TECHNIQUE: The procedure was explained to the patient. The risks, complications, benefits and alternatives were discussed and any questions were answered. Informed consent was obtained. The patient was placed supine on the fluoroscopic table and prepped and draped in the usual sterile fas ion. Utilizing a 21 gauge needle and sonographic guidance, access in the left basilic vein was achi eved and there is placement of a 0.018 guidewire. The vein is patent. A 5-F. sheath was placed over the guidewire. The guidewire and dilator were removed and a 5-F. Double lumen PICC line was placed through the sheath with the chest x-ray confirming the tip at the level of the SVC. The sheath was r emoved, the catheter was flushed and sutured into position. The patient was stable throughout the pr ocedure and remained stable upon discharge from the Department of Radiology. The vein puncture was patent under ultrasound. A ratliff scale image was obtained to document patency of the vein punctured. All elements of the maximal barrier technique were utilized. IMPRESSION: 1. Successful PICC line placement under ultrasound performed bedside within the ICU.
[2020-02-01 16:17] LABS: Glucose,Whole Blood 177 mg/dL (75-99)
[2020-02-01 20:02] LABS: Glucose,Whole Blood 213 mg/dL (75-99)
--- NOTE | 2020-02-01 21:51 | PN ---
PROGRESS NOTE DATE OF SERVICE: 02/01/2020 CHIEF COMPLAINT: Acute respiratory failure, influenza pneumonia, and renal failure. HISTORY OF PRESENT ILLNESS: This lady continues on the ventilator. Renal function continues to decline. She may soon become a candidate for dialysis. PHYSICAL EXAMINATION: Vital signs stable. On a ventilator. Her chest is fairly clear except for occasional rales scattered about. Cardiac exam is normal. Abdomen is soft. Extremities normal. IMPRESSION: 1. Influenza pneumonia. 2. Respiratory failure. 3. Diabetes mellitus. 4. Deteriorating renal function status post nephrectomy. PLAN: Continue current supportive measures and follow with intensive Medicine, Infectious Disease and Nephrology. MMODL / IJN: [id number] /
--- NOTE | 2020-02-01 23:21 | PN ---
PROGRESS NOTE DATE OF SERVICE: 02/01/2020. REASON FOR FOLLOWUP: Pneumonia. INTERVAL HISTORY: The patient is currently afebrile. The patient remains intubated on the vent, hemodynamically slightly stable. FiO2 is currently 50%. Tolerating her tube feeds. No diarrhea has been reported. PHYSICAL EXAMINATION: Blood pressure 132/42 with a pulse of 98, temperature 97.8. She is 98% on 50% FiO2. General description is an elderly female lying in bed in no distress. RESPIRATORY SYSTEM: Unlabored breathing with decreased intensity of breath sounds. No wheeze. HEART: S1, S2. Regular rate and rhythm. ABDOMEN: Soft. No tenderness. LABS: Hemoglobin 8.3, white count 4.3, creatinine 3.47. Bronch cultures with Annette albicans and influenza A. DIAGNOSTIC IMPRESSION AND PLAN: 1. Patient with acute influenza that has been adequately treated. 2. Patient with acute respiratory failure with concern for possible aspiration pneumonitis. Patient is currently covered with Zosyn; to continue and monitor her clinical course closely. MMODL / IJN: [id number] /
[2020-02-01 23:49] LABS: Glucose,Whole Blood 212 mg/dL (75-99)
[2020-02-02] MEDS: PROPOFOL 1,000 MG in EMPTY BAG 1 BAG IV SCH ×4 (01:29→10:00)
[2020-02-02] MEDS: IPRATROPIUM-ALBUTEROL 3 ML NEB INHALATION PRN ×4 (03:25→15:55)
[2020-02-02 04:02] LABS: Glucose,Whole Blood 258 mg/dL (75-99)
[2020-02-02] MEDS: INSULIN ASPART (NovoLOG) 100 UNIT/ML VIAL SQ SCH ×6 (04:05→23:44)
[2020-02-02 04:06] LABS: Glucose,Whole Blood 256 mg/dL (75-99)
[2020-02-02 04:09] LABS: Anisocytosis Slight; Basophils % (A) 0 %; Eosinophils % (A) 0 %; HGB 8.7 gm/dL (11.4-16.0); Lymphocytes # (A) 0.3 k/uL (1.0-4.8); Lymphocytes % (A) 7 %; MCH 28.3 pg (25.0-35.0); MCHC 31.1 g/dL (31.0-37.0); MCV 90.9 fL (80.0-100.0); Mean Platelet Volume 10.2; Monocytes # (A) 0.2 k/uL (0-1.0); Monocytes % (A) 4 %; Neutrophils # (A) 3.4 k/uL (1.3-7.7); Neutrophils % (A) 88 %; Platelet Count 164 k/uL (150-450); RBC 3.08 m/uL (3.80-5.40); RDW 16.6 % (11.5-15.5); WBC 3.8 k/uL (3.8-10.6)
[2020-02-02 04:59] LABS: Calcium 7.3 mg/dL (8.4-10.2); Potassium 4.3 mmol/L (3.5-5.1)
[2020-02-02 05:49] LABS: ABG HCO3 17 mmol/L (21-25); ABG Oxygen Saturation 98.3 % (94-97); ABG PCO2 33 mmHg (35-45); ABG PH 7.33 (7.35-7.45); ABG PO2 110 mmHg (83-108); ABG TCO2 18 mmol/L (19-24); Allen Test Performed? Yes
[2020-02-02] MEDS ORDERED: HYDROmorphone 1 MG/ML 1 ML SYRINGE IVP ONE (06:46)
[2020-02-02] MEDS ORDERED: HYDROmorphone 0.5 MG/0.5 ML SYRINGE IVP PRN (06:48)
[2020-02-02] MEDS: INSULIN DETEMIR (LEVEMIR) 100 UNIT/ML SYR SQ SCH (06:57)
--- NOTE | 2020-02-02 07:48 | XR ---
EXAMINATION TYPE: XR chest 1V DATE OF EXAM: 02/02/2020 COMPARISON: 02/01/2020 HISTORY: Shortness of breath TECHNIQUE: Single frontal view of the chest is obtained. FINDINGS: ET tube, NG tube, central line stable. Diffuse pleural-parenchymal changes are stable. No pneumothorax. Heart size stable. IMPRESSION: 1. Diffuse pleural-parenchymal changes are stable correlate for ARDS, pulmonary edema or diffuse pneu monia.
[2020-02-02 08:08] LABS: Glucose,Whole Blood 268 mg/dL (75-99)
[2020-02-02] MEDS: buPROPion SR 150 MG TABLET.ER PO SCH ×2 (08:29→20:28)
[2020-02-02] MEDS: OXYBUTYNIN 15 MG TAB.ER.24 PO SCH (08:30)
[2020-02-02] MEDS: CHLORHEXIDINE GLUCONATE 15 ML CUP MUCOUS MEM SCH (08:38)
[2020-02-02] MEDS: ALLOPURINOL 100 MG TAB PO SCH (08:38)
[2020-02-02] MEDS: HEPARIN SODIUM,PORCINE 5,000 UNIT/ML 1 ML VIAL SQ SCH (08:38)
[2020-02-02] MEDS: PANTOPRAZOLE 40 MG TABLET PO SCH (08:38)
[2020-02-02] MEDS: methylPREDNISolone SOD SUCCI 40 MG/ML 1 ML VIAL IV SCH ×3 (08:38→23:48)
[2020-02-02] MEDS: SODIUM BICARBONATE TAB 650 MG TAB PO SCH ×2 (08:38→20:27)
--- NOTE | 2020-02-02 09:30 | PN ---
PROGRESS NOTE DATE OF SERVICE: 02/02/2020 CRITICAL CARE TIME: 34 minutes. This is a 69-year-old female who was admitted way back on January 05, and discharged on January 09, 2020. At that time, she underwent a right nephrectomy for hypernephroma. Subsequent to that, she was admitted one day later on January 10 for postop pain, fever, and influenza. She was transferred to the intensive care unit on January 25 for respiratory distress, placed on BiPAP and then on January, she was intubated for roberto carlos respiratory failure. She also had a bronchoscopy performed on January. She currently remains on the mechanical ventilator. We did attempt a daily interruption of sedation yesterday. Unfortunately, she did miserably when she was off a sedation. She became very tachypneic and tachycardic and diaphoretic and hypertensive. Anyway, after short period of time, she was placed back on sedation. Currently, she remains on mechanical ventilator on the volume assist-control mode rate of 26, tidal volume 350, FiO2 of 50% to be turned down to 45%, PEEP of 5. Blood gases showed a PO2 of 110, pCO2 of 33 and a pH of 7.33. Patient is getting saline IV at 50 mL an hour, propofol at 50 mcg/kg per minute and Vital high-protein at 30 with a goal of 30. Currently, she is resting comfortably. She had an uneventful night according to the nurse. We will attempt another daily interruption of sedation today. A PICC line was also placed yesterday as well as an Art line. Current vital signs are reviewed. Temperature is 97.6, heart rate 75, respiratory rate 26, blood pressure 136/42, saturations are 98%. Appears in no acute distress. Currently sedated. HEENT: Examination is grossly unremarkable. There is an orally placed endotracheal tube and NG tube. NECK: Supple. Full range of motion. No adenopathy. Neck veins are flat. CARDIOVASCULAR: Examination reveals regular rhythm and rate. Heart rate about 80 beats per minute. S1, S2 normal. No S3, S4, or murmur. LUNGS: Reveal diffuse coarse rhonchi. Breath sounds equal. ABDOMEN: Soft, bowel sounds are noted. EXTREMITIES: Intact. No significant edema. SKIN: Without rash. NEUROLOGIC: Examination is difficult to assess given the fact that she is currently on propofol at 50 mcg/kg per minute. Chest x-ray from today reveals diffuse pleural parenchymal changes which are stable. They are consistent with either diffuse pneumonia or fluid overload. LAB DATA: Reviewed. White count 3.8, hemoglobin 8.7, hematocrit 28.0, platelet count 164,000. Blood gas showed a pO2 of 110, pCO2 of 33 and a pH of 7.33. These blood gases are consistent with metabolic acidosis. Sodium 138, potassium 4.3, chloride 109, CO2 of 16, anion gap is 13, BUN and creatinine were 117 and 3.27. This is consistent with an anion gap metabolic acidosis secondary to renal failure. Calcium 7.3. Microbiology showing evidence of Annette in the sputum and bronch washes. There is also some alpha hemolytic streptococci in the blood from January 10. CURRENT MEDICATIONS: Reviewed. She is on Tylenol, allopurinol, Wellbutrin, chlorhexidine, subcu heparin, Dilaudid, NovoLog insulin, DuoNeb, Solu-Medrol, Ditropan, Protonix, Zosyn, Diprivan, sodium bicarbonate tablets, and saline IV. ASSESSMENT: 1. Acute hypoxemic respiratory failure, requiring intubation and mechanical ventilation on January. The patient under underwent bronchoscopy on January, cultures pending. 2. Prior admission between January 05 and for right nephrectomy secondary to hypernephroma. 3. Status post re-admission on January 10 for postoperative pain, fever, and influenza. 4. Bilateral pneumonia. 5. Diastolic heart failure. 6. Type 2 diabetes. 7. Gastroesophageal reflux disease. 8. Hypertension. 9. Morbid obesity. 10.Generalized anxiety disorder. 11.Hyperlipidemia. 12.Chronic kidney disease. 13.Mild anion gap metabolic acidosis secondary to renal failure. PLAN: A PICC line was placed yesterday. We also placed an Art line. She failed her daily interruption of sedation yesterday. Will attempt it again today. The FiO2 was dropped from 50%-45%. She remains on Vital high-protein at 30, which is goal. She remains on propofol at 50 mcg/kg per minute. Will add some Dilaudid 0.5-1 mg every 2 hours p.r.n. I told the nurse to go ahead and give her 1 mg initially. Additional recommendations and suggestions are forthcoming. Prognosis is very guarded. Critical care time 34 minutes. MMODL / IJN: [id number] /
[2020-02-02] MEDS ORDERED: SODIUM BICARB 8.4% 50 ML SYR (1 MEQ/ML) IV STA (09:55)
[2020-02-02] MEDS ORDERED: FUROSEMIDE 10 MG/ML 10 ML VIAL IV STA (09:56)
[2020-02-02 10:59] LABS: Complement C3 64.1 mg/dL (80.0-207.0)
--- NOTE | 2020-02-02 11:06 | P.PN ---
Subjective Patient is seen in follow-up for acute kidney injury and chronic kidney disease. Renal function slightly better. Urine output improved post IV Lasix. She is maintained on normal saline at 50 mL an hour and also receiving tube feeding at 30 mL an hour. Intubated. Vital signs are stable. General: The patient appeared well nourished and normally developed. HEENT: Head exam is unremarkable. Neck is without jugular venous distension. Intubated. LUNGS: Breath sounds decreased. HEART: Rate and Rhythm are regular. First and second heart sounds normal. No murmurs, rubs or gallops. ABDOMEN: Abdominal exam reveals normal bowel sounds. Non-tender and non- distended. EXTREMITITES: 1+ edema. Objective - Vital Signs Vital signs: Vital Signs Temp 97.4 F L 02/02/20 08:00 Pulse 77 02/02/20 10:00 Resp 30 H 02/02/20 10:00 BP 140/44 02/01/20 20:00 Pulse Ox 97 02/02/20 10:00 Intake & Output 02/01/20 02/02/20 02/02/20 18:59 06:59 18:59 Intake Total 3162.027 2592.962 544.187 Output Total 1035 870 205 Balance 81.314 681.962 339.187 Weight 119 kg 122.3 kg Intake: IV 600 700 200 Piperacillin-Tazobactam 3 100 .375 gm In Sodium Chloride 0.9% 100 ml @ 25 mls/hr IVPB Q12H [facility] Rx# :[id number] Sodium Chloride 0.9% 1, 600 600 200 000 ml @ 20 mls/hr IV . Q24H [facility] Rx#:[id number] Intake, IV Titration 206.314 401.962 114.187 Amount Propofol 1,000 mg In 206.314 401.962 114.187 Empty Bag 1 bag @ Titrate IV .Q0M [facility] Rx#: [id number] Tube Feeding 280 360 180 Other 30 90 50 Output: Urine 1035 870 205 Other: Voiding Method Indwelling Catheter Indwelling Catheter Indwelling Catheter ABP, PAP, CO, CI - Last Documented Arterial Blood Pressure 151/45 - Labs CBC & Chem 7: 02/02/20 03:50 02/02/20 03:50 Labs: Abnormal Lab Results - Last 24 Hours (Table) 02/01/31/20 02/01/20 Range/Units 10:30 05:16 11:47 RBC (3.80-5.40) m/uL Hgb (11.4-16.0) gm/dL Hct (34.0-46.0) % RDW (11.5-15.5) % Lymphocytes # (1.0-4.8) k/uL ABG pH (7.35-7.45) ABG pCO2 (35-45) mmHg ABG pO2 (83-108) mmHg ABG HCO3 (21-25) mmol/L ABG Total CO2 (19-24) mmol/L ABG O2 Saturation (94-97) % Chloride (98-107) mmol/L Carbon Dioxide (22-30) mmol/L BUN (7-17) mg/dL Creatinine (0.52-1.04) mg/dL Glucose (74-99) mg/dL POC Glucose (mg/dL) 190 H (75-99) mg/dL Calcium (8.4-10.2) mg/dL Complement C3 64.1 L (80.0-207.0) mg/dL Viral Test See Below H 02/01/20 02/01/20 02/01/20 Range/Units 16:15 20:00 23:47 RBC (3.80-5.40) m/uL Hgb (11.4-16.0) gm/dL Hct (34.0-46.0) % RDW (11.5-15.5) % Lymphocytes # (1.0-4.8) k/uL ABG pH (7.35-7.45) ABG pCO2 (35-45) mmHg ABG pO2 (83-108) mmHg ABG HCO3 (21-25) mmol/L ABG Total CO2 (19-24) mmol/L ABG O2 Saturation (94-97) % Chloride (98-107) mmol/L Carbon Dioxide (22-30) mmol/L BUN (7-17) mg/dL Creatinine (0.52-1.04) mg/dL Glucose (74-99) mg/dL POC Glucose (mg/dL) 177 H 213 H 212 H (75-99) mg/dL Calcium (8.4-10.2) mg/dL Complement C3 (80.0-207.0) mg/dL Viral Test 03/03/20 03/03/20 03/03/20 Range/Units 03:50 03:50 04:00 RBC 3.08 L (3.80-5.40) m/uL Hgb 8.7 L (11.4-16.0) gm/dL Hct 28.0 L (34.0-46.0) % RDW 16.6 H (11.5-15.5) % Lymphocytes # 0.3 L (1.0-4.8) k/uL ABG pH (7.35-7.45) ABG pCO2 (35-45) mmHg ABG pO2 (83-108) mmHg ABG HCO3 (21-25) mmol/L ABG Total CO2 (19-24) mmol/L ABG O2 Saturation (94-97) % Chloride 109 H (98-107) mmol/L Carbon Dioxide 16 L (22-30) mmol/L BUN 117 H* (7-17) mg/dL Creatinine 3.27 H (0.52-1.04) mg/dL Glucose 252 H (74-99) mg/dL POC Glucose (mg/dL) 258 H (75-99) mg/dL Calcium 7.3 L (8.4-10.2) mg/dL Complement C3 (80.0-207.0) mg/dL Viral Test 02/02/20 02/02/20 02/02/20 Range/Units 04:05 05:44 08:07 RBC (3.80-5.40) m/uL Hgb (11.4-16.0) gm/dL Hct (34.0-46.0) % RDW (11.5-15.5) % Lymphocytes # (1.0-4.8) k/uL ABG pH 7.33 L (7.35-7.45) ABG pCO2 33 L (35-45) mmHg ABG pO2 110 H (83-108) mmHg ABG HCO3 17 L (21-25) mmol/L ABG Total CO2 18 L (19-24) mmol/L ABG O2 Saturation 98.3 H (94-97) % Chloride (98-107) mmol/L Carbon Dioxide (22-30) mmol/L BUN (7-17) mg/dL Creatinine (0.52-1.04) mg/dL Glucose (74-99) mg/dL POC Glucose (mg/dL) 256 H 268 H (75-99) mg/dL Calcium (8.4-10.2) mg/dL Complement C3 (80.0-207.0) mg/dL Viral Test Microbiology - Last 24 Hours (Table) 01/30/20 10:30 Fungal Culture - Preliminary Bronchial Washings - Random Annette albicans 01/28/20 12:06 Blood Culture - Preliminary Blood No Growth after 96 hours 01/28/20 12:13 Blood Culture - Preliminary Blood No Growth after 96 hours 01/30/20 04:32 Gram Stain - Final Sputum Sputum Culture - Final Annette albicans 01/30/20 10:30 Gram Stain - Final Bronchial Washings - Random Bronchial Washings Culture - Final Annette albicans Assessment and Plan Plan: Assessment: 1. Acute kidney injury secondary to ATN secondary to hypotension and infection. Her renal function slightly better. Creatinine 3.27 today. No hydronephrosis noted on kidney ultrasound. 2. Chronic kidney disease stage III with baseline creatinine 1.5-1.6 prior to nephrectomy. 3. Status post right-sided nephrectomy on 01/05/2020. 4. Insulin-dependent diabetes mellitus. 5. Moderate pulmonary hypertension. 6. Metabolic acidosis secondary to acute kidney injury maintained on oral sodium bicarb. 7. Volume overload. 8. Pneumonia maintained on antibiotics. Plan: Hep-Lock IV fluids. 25 g IV albumin 2 doses today. Repeat Lasix 80 mg IV once today. Maintain tube feeding. Continue to monitor renal function and urine output. Avoid nephrotoxins. 2 A of sodium bicarb IV push now. Increase dose of oral sodium bicarbonate. Continue to assess on daily basis for need for renal placement therapy.
[2020-02-02] MEDS: ALBUMIN HUMAN 25% 50 ML in EMPTY BAG 1 BAG IVPB SCH ×4 (12:03→20:19)
[2020-02-02 12:30] LABS: Glucose,Whole Blood 283 mg/dL (75-99)
--- NOTE | 2020-02-02 12:51 | PN ---
PROGRESS NOTE DATE OF SERVICE: 02/02/2020 CHIEF COMPLAINT: Respiratory failure, influenza, pneumonia, renal failure. HISTORY OF PRESENT ILLNESS: This lady has been basically stable over the last 24 hours. She is still ventilator dependent. Renal function is not improving. PHYSICAL EXAMINATION: Vital signs are normal on the ventilator. Head, ears, eyes, nose, mouth, and throat are normal. Breath sounds were well heard on both sides. Cardiac exam is sinus. The abdomen is soft and extremities remain normal. IMPRESSION: 1. Acute respiratory failure. 2. Influenza pneumonia. 3. Congestive heart failure. 4. Renal failure. 5. Status post right nephrectomy. 6. Insulin-dependent diabetes, on steroids. PLAN: 1. Increase the Levemir to 25 units once a day. 2. No change in program otherwise from my perspective. MMEMMAL / JONATHAN: [id number] /
[2020-02-02] MEDS ORDERED: HEPARIN SODIUM,PORCINE 5,000 UNIT/ML 1 ML VIAL IV PRN (14:42)
[2020-02-02] MEDS: PIPERACILLIN-TAZOBACTAM 3.375 GM in SODIUM CHLORIDE 0.9% 100 ML IVPB SCH ×2 (14:45→23:48)
[2020-02-02] MEDS ORDERED: HEPARIN SOD,PORK IN 0.45% NACL 25,000 UNIT in 0.45% NACL 1 250ML.BAG IV SCH (14:45)
[2020-02-02] MEDS: METOPROLOL TARTRATE 5 MG/5 ML VIAL IVP SCH ×2 (15:31→23:48)
[2020-02-02 15:37] LABS: Anisocytosis Slight; Basophils % (A) 0 %; Eosinophils % (A) 0 %; HCT 28.7 % (34.0-46.0); HGB 9.5 gm/dL (11.4-16.0); Lymphocytes # (A) 0.3 k/uL (1.0-4.8); Lymphocytes % (A) 5 %; MCH 29.4 pg (25.0-35.0); MCV 89.1 fL (80.0-100.0); Mean Platelet Volume 8.4; Monocytes # (A) 0.3 k/uL (0-1.0); Monocytes % (A) 5 %; Neutrophils % (A) 89 %; Platelet Count 211 k/uL (150-450); RBC 3.21 m/uL (3.80-5.40); RDW 16.5 % (11.5-15.5); WBC 6.7 k/uL (3.8-10.6)
[2020-02-02 15:42] LABS: Magnesium 1.9 mg/dL (1.6-2.3)
[2020-02-02 15:43] LABS: Prothrombin Time 10.1 sec (9.0-12.0)
[2020-02-02 15:52] LABS: Partial Thromboplastin Time 19.7 sec (22.0-30.0)
[2020-02-02 16:54] LABS: T4, Free (Free Thyroxine) 1.76 ng/dL (0.78-2.19)
--- NOTE | 2020-02-02 17:03 | PN ---
PROGRESS NOTE Mrs. Reynolds is a 69-year-old female who was admitted on January 10 with progressive respiratory failure following a previous admission for nephrectomy for hypernephroma. At that time she was seen by Dr. Juarez and an echocardiogram revealed a preserved left ventricular size and systolic function. Patient had a complicated course since that time, with worsening respiratory failure requiring mechanical ventilation. She was extubated today and she was noted to be in atrial fibrillation following that. During her hospital stay prior to this stay there was no episode of atrial fibrillation. She is awake, following commands. She is very weak but has no complaints of chest discomfort or complaints of dizziness or palpitations. She is unaware of the arrhythmia. Hemodynamically, her heart rate is in the 110s to 120s and her blood pressure has been stable. As an outpatient she was on a beta sy in the form of metoprolol tartrate 100 mg twice a day and losartan 100 mg daily and simvastatin 20 mg daily. Her antihypertensive regimen has been on hold because she was hypotensive earlier. She had complicated pneumonia with influenza infection. Her medication at this time includes Allopurinol, bupropion. She is receiving Lasix on a p.r.n. basis. She is on methylprednisolone, Zosyn. PHYSICAL EXAMINATION: She is a 69-year-old female, alert, very weak. Blood pressure is running in the 150s to 160s with a heart rate in the 110s. HEAD: Normocephalic. Eyes: Sclerae anicteric. NECK: No bruit. LUNGS: Decreased air exchange bilaterally. No wheezes. HEART: Irregularly irregular. S1, S2. No S3, with a systolic murmur, ejection type. No diastolic murmur. No rub. ABDOMEN: Soft, obese, nontender. EXTREMITIES: Trace edema. LAB DATA: Lab data revealed a BUN and creatinine of 117 and 3.27. Potassium 4.3. Her hemoglobin is 8.7. Her hemoglobin has been in this range for the last few days. Her renal function has been abnormal since admission. Today they are worse than her admission numbers. IMPRESSION: 1. Atrial fibrillation, new onset, post extubation. 2. Respiratory failure with prolonged illness. Her chest x-ray continues to show significant infiltrate changes on the right lung. 3. Prior history of hypertension. 4. Worsening renal failure. 5. Status post nephrectomy for hypernephroma. 6. History of hypertension. 7. Morbid obesity. 8. History of diabetes. RECOMMENDATIONS: From the cardiac standpoint, I will re-initiate treatment with beta sy. Patient is n.p.o. at this time, awaiting the swallowing evaluation. I will put her on IV Lopressor and the patient needs to be anticoagulated in view of her atrial fibrillation. I will initiate intravenous heparin, and when she starts to be able to swallow, then we will switch her to an oral agent. Depending on her progress, further recommendations will be made. Thank you for this consult. Will follow with you. AMAURY / JONATHAN: [id number] /
[2020-02-02 17:36] LABS: Glucose,Whole Blood 257 mg/dL (75-99)
[2020-02-02 20:14] LABS: Glucose,Whole Blood 191 mg/dL (75-99)
[2020-02-02] MEDS: SODIUM CHLORIDE 0.9% 1,000 ML IV SCH (20:24)
--- NOTE | 2020-02-02 20:24 | PN ---
PROGRESS NOTE DATE OF SERVICE: 02/02/2020 REASON FOR FOLLOWUP: Pneumonia. INTERVAL HISTORY: The patient is currently afebrile. The patient has been extubated. She is currently breathing comfortably on nasal cannula oxygen. Denies having any chest pain. Did have some cough. No nausea, no vomiting. No abdominal pain or diarrhea. PHYSICAL EXAMINATION: Blood pressure 169/53 with a pulse of 98, temperature 97.5. She is 98% on 4 L nasal cannula. General description is an elderly female up in the bed in no distress. RESPIRATORY SYSTEM: Unlabored breathing. Some coarse breath sounds at the base. No wheeze. HEART: S1, S2. Regular rate and rhythm. ABDOMEN: Soft. No tenderness. LABS: Hemoglobin is 9.5, white count 6.7. Bronchoscopy culture has been Annette albicans. DIAGNOSTIC IMPRESSION AND PLAN: Patient with acute respiratory failure which is likely multifactorial with concern for pneumonia, possible aspiration. Patient is covered with Zosyn; to continue and we will monitor her clinical course closely. Continue with supportive care. MMODL / IJN: [id number] /
[2020-02-02] MEDS: LABETALOL 5 MG/ML VIAL MDV IVP PRN (21:20)
[2020-02-02 22:48] LABS: Anisocytosis Slight; Basophils % (A) 0 %; Eosinophils % (A) 0 %; HCT 28.8 % (34.0-46.0); HGB 9.1 gm/dL (11.4-16.0); Lymphocytes # (A) 0.3 k/uL (1.0-4.8); Lymphocytes % (A) 3 %; MCH 28.4 pg (25.0-35.0); MCHC 31.6 g/dL (31.0-37.0); MCV 89.8 fL (80.0-100.0); Mean Platelet Volume 10.6; Monocytes # (A) 0.5 k/uL (0-1.0); Monocytes % (A) 6 %; Neutrophils # (A) 7.7 k/uL (1.3-7.7); Neutrophils % (A) 89 %; Platelet Count 173 k/uL (150-450); RBC 3.21 m/uL (3.80-5.40); RDW 16.6 % (11.5-15.5); WBC 8.6 k/uL (3.8-10.6)
[2020-02-02 23:43] LABS: Glucose,Whole Blood 118 mg/dL (75-99)
[2020-02-03 04:26] LABS: Glucose,Whole Blood 130 mg/dL (75-99)
[2020-02-03] MEDS: INSULIN ASPART (NovoLOG) 100 UNIT/ML VIAL SQ SCH ×5 (04:27→20:46)
[2020-02-03 04:47] LABS: Anisocytosis Slight; Basophils % (A) 0 %; Eosinophils % (A) 0 %; HCT 28.9 % (34.0-46.0); HGB 9.2 gm/dL (11.4-16.0); Lymphocytes # (A) 0.3 k/uL (1.0-4.8); Lymphocytes % (A) 4 %; MCH 28.3 pg (25.0-35.0); MCHC 31.7 g/dL (31.0-37.0); MCV 89.5 fL (80.0-100.0); Mean Platelet Volume 10.4; Monocytes # (A) 0.3 k/uL (0-1.0); Monocytes % (A) 5 %; Neutrophils # (A) 6.7 k/uL (1.3-7.7); Neutrophils % (A) 90 %; Platelet Count 178 k/uL (150-450); RBC 3.23 m/uL (3.80-5.40); RDW 16.7 % (11.5-15.5); WBC 7.5 k/uL (3.8-10.6)
[2020-02-03 05:26] LABS: Calcium 8.3 mg/dL (8.4-10.2); Potassium 4.1 mmol/L (3.5-5.1)
[2020-02-03] MEDS: INSULIN DETEMIR (LEVEMIR) 100 UNIT/ML SYR SQ SCH (07:18)
--- NOTE | 2020-02-03 07:45 | PN ---
PROGRESS NOTE PULMONARY/CRITICAL CARE PROGRESS NOTE: DATE OF SERVICE: February 03, 2020 A 69-year-old female admitted back on January 05 and discharged on January 09. On that admission, she underwent a right nephrectomy for hypernephroma. She was re- admitted a day later on January 10. She had postop pain, fever, and influenza. She was transferred to the intensive care unit on January 25 for respiratory distress and initially placed on BiPAP and then developed roberto carlos respiratory failure on Saturday, January and was intubated. She was finally extubated yesterday on February 01. Postoperatively, she did reasonably well although she did develop atrial fibrillation. The patient is currently doing well on 4 L nasal cannula. She has got a saline IV at 20 mL an hour and heparin via weight based protocol. She has no complaints today. She feels well. She did not have any pain. She is not short of breath. She is not having any palpitations. She denies any nausea, vomiting, diarrhea, or any genitourinary complaints for that matter. PHYSICAL EXAMINATION: VITAL SIGNS: Current vital signs are reviewed. Temperature 97.4 heart rate 100 and irregular, respiratory rate 17, blood pressure 153/69, mean 97, saturations are 96% on 4 L. GENERAL: Appears in no acute distress. HEENT: Examination is grossly unremarkable. Nasal O2 noted. NECK: Supple. Full range of motion. No adenopathy. Neck veins are flat. CARDIOVASCULAR: Examination reveals regular rhythm and rate. S1, S2 normal. No S3, S4, or murmur. LUNGS: Were clear. Breath sounds equal. ABDOMEN: Soft. Bowel sounds are not heard. EXTREMITIES: Are intact. Mild edema. SKIN: Without rash. There are some areas of ecchymoses. NEUROLOGIC: Examination is brief but nonfocal. Microbiologic studies show primarily Annette albicans in bronchial washings, sputum and blood. She did have alpha hemolytic streptococci in her blood back on January 10 the day of admission. LAB DATA: Lab data is reviewed. White count 7.5, hemoglobin 9.2, hematocrit 28.9, platelet count normal. PTT is 85.1. Sodium, potassium normal. Chloride 110, CO2 of 19. Anion gap is 14. BUN and creatinine were 122 and 3.08 compared to 117 and 3.27 yesterday. Chest x-ray today shows some patchy infiltrates bilaterally, more right than left- sided. MEDICATIONS: Medications are reviewed. Currently, she is on Tylenol, Zyloprim, Wellbutrin, IV heparin, Dilaudid, insulin, updrafts, labetalol p.r.n., Solu-Medrol, metoprolol, Ditropan XL, Protonix, Zosyn, sodium bicarbonate tablets, and basic saline IV at 20 mL an hour. ASSESSMENT: 1. Acute hypoxemic respiratory failure, requiring intubation and mechanical ventilation on January, with successful extubation on February 01. She underwent bronchoscopy on January as well. 2. Prior admission between January 05 and for nephrectomy, secondary to hypernephroma, status post readmission on January 10 postoperative pain, fever, influenza. 3. Bilateral pneumonia. 4. Diastolic heart failure. 5. Type 2 diabetes mellitus. 6. Gastroesophageal reflux disease. 7. Hypertension. 8. Morbid obesity. 9. Generalized anxiety disorder. 10.Hyperlipidemia. 11.Chronic kidney disease. 12.Anion gap metabolic acidosis. PLAN: The patient was extubated yesterday. She did have some post extubation atrial fibrillation. She is on IV heparin. She is on O2 at 4 L. Respiratory status is stable. Blood pressure is better controlled. No additional recommendations are made. We will continue to follow. Prognosis is guarded. MMODL / IJN: [id number] /
--- NOTE | 2020-02-03 08:07 | XR ---
EXAMINATION TYPE: XR chest 1V DATE OF EXAM: 02/03/2020 COMPARISON: 02/02/2020 HISTORY: Shortness of breath TECHNIQUE: Single frontal view of the chest is obtained. FINDINGS: ET and NG tube have been removed. PICC line remains in position. Diffuse multifocal pleura l-parenchymal changes are seen. Heart is enlarged. No sizable pneumothorax. Osseous structures are st able. Atherosclerotic change aorta. IMPRESSION: Stable diffuse pleural-parenchymal changes correlate for ARDS, diffuse multifocal pneumo cindi, or pulmonary edema
--- NOTE | 2020-02-03 08:09 | PN ---
PROGRESS NOTE Mrs. Reynolds is a 69-year-old female, status post nephrectomy for nephroma, who was admitted to the hospital with symptoms of progressive dyspnea and had respiratory failure with pneumonia. She was extubated yesterday and had episode of atrial fibrillation. She continued to be in atrial fibrillation, but her rate is controlled. She feels stronger. She appears to be stronger as well. She has no ventricle arrhythmia. There is no pauses. Her blood pressure is stable. She is able to take oral medication. She continues to be on IV heparin that was started yesterday. She is on IV Lopressor 5 mg q.8 hours. PHYSICAL EXAMINATION: Blood pressure running in the 150s with the heart rate in the low 100s, high 90s, afebrile. LUNGS: With decreased air exchange. No wheezes. HEART: Irregular, irregular, S1, S2. No S3. No rub. ABDOMEN: Soft, nontender. EXTREMITIES: With no significant edema. LAB DATA: Lab data revealed BUN and creatinine of 122 and 3.08, potassium 4.1, hemoglobin of 9.2. IMPRESSION: 1. Atrial fibrillation new onset following extubation. 2. Respiratory failure with pneumonia, improved. 3. Renal failure. 4. Status post nephroma removal. 5. History of hypertension. RECOMMENDATION: From the cardiac standpoint, I will switch her to oral anticoagulation and I will add amiodarone to her regimen, hoping to restore sinus mechanism. Continue the rest of the medical regimen. Follow her renal function closely. Her chest x-ray continues to show infiltrate on the right side that was noted in the past. MMODL / IJN: [id number] /
[2020-02-03 08:10] LABS: Glucose,Whole Blood 229 mg/dL (75-99)
[2020-02-03] MEDS: methylPREDNISolone SOD SUCCI 40 MG/ML 1 ML VIAL IV SCH ×3 (08:42→23:16)
[2020-02-03] MEDS: SODIUM BICARBONATE TAB 650 MG TAB PO SCH ×2 (08:43→21:01)
[2020-02-03] MEDS: AMIODARONE 200 MG TAB PO SCH ×2 (08:43→21:01)
[2020-02-03] MEDS: buPROPion SR 150 MG TABLET.ER PO SCH ×2 (08:43→21:01)
[2020-02-03] MEDS: APIXABAN 2.5 MG TABLET PO SCH ×2 (08:43→21:01)
[2020-02-03] MEDS: ALLOPURINOL 100 MG TAB PO SCH (08:43)
[2020-02-03] MEDS: PANTOPRAZOLE 40 MG TABLET PO SCH (08:43)
[2020-02-03] MEDS: OXYBUTYNIN 15 MG TAB.ER.24 PO SCH (08:43)
[2020-02-03] MEDS ORDERED: METOPROLOL TARTRATE 25 MG TAB PO SCH (09:00)
[2020-02-03] MEDS ORDERED: FUROSEMIDE 10 MG/ML 4 ML VIAL IV STA (09:46)
[2020-02-03] MEDS: LABETALOL 5 MG/ML VIAL MDV IVP PRN (10:21)
--- NOTE | 2020-02-03 10:31 | P.PN ---
Subjective Patient is seen in follow-up for acute kidney injury and chronic kidney disease. Renal function slightly better. Urine output improved post IV Lasix. Extubated yesterday. Tolerating oral intake. Vital signs are stable. General: The patient appeared well nourished and normally developed. HEENT: Head exam is unremarkable. Neck is without jugular venous distension. Intubated. LUNGS: Breath sounds decreased. HEART: Rate and Rhythm are regular. First and second heart sounds normal. No murmurs, rubs or gallops. ABDOMEN: Abdominal exam reveals normal bowel sounds. Non-tender and non- distended. EXTREMITITES: 1+ edema. Objective - Vital Signs Vital signs: Vital Signs Temp 97.6 F 02/03/20 08:00 Pulse 106 H 02/03/20 10:00 Resp 16 02/03/20 10:00 BP 153/77 02/03/20 10:00 Pulse Ox 95 02/03/20 10:00 Intake & Output 02/02/20 02/03/20 02/03/20 18:59 06:59 18:59 Intake Total 734.187 529.389 343.808 Output Total 585 740 185 Balance 149.187 -210.611 158.808 Weight 120 kg Intake: IV 360 390 80 Albumin Human 25% 50 ml 50 In Empty Bag 1 bag @ 50 mls/hr IVPB Q1H [facility] Rx#: [id number] Piperacillin-Tazobactam 3 100 .375 gm In Sodium Chloride 0.9% 100 ml @ 25 mls/hr IVPB Q12H [facility] Rx# :[id number] Sodium Chloride 0.9% 1, 360 240 80 000 ml @ 20 mls/hr IV . Q24H [facility] Rx#:[id number] Intake, IV Titration 114.187 139.389 23.808 Amount Heparin Sod,Pork in 0.45% 139.389 23.808 NaCl 25,000 unit In 0.45 % NaCl 1 250ml.bag @ 8.18 UNITS/KG/HR 10.004 mls/ hr IV .Q24H [facility] Rx#: [id number] Propofol 1,000 mg In 114.187 Empty Bag 1 bag @ Titrate IV .Q0M [facility] Rx#: [id number] Oral 240 Tube Feeding 210 Other 50 Output: Urine 585 740 185 Other: Voiding Method Indwelling Catheter Indwelling Catheter Indwelling Catheter ABP, PAP, CO, CI - Last Documented Arterial Blood Pressure 155/53 - Labs CBC & Chem 7: 02/03/20 04:30 02/03/20 04:30 Labs: Abnormal Lab Results - Last 24 Hours (Table) 01/31/20 02/02/20 02/02/20 Range/Units 05:16 12:29 15:07 RBC 3.21 L (3.80-5.40) m/uL Hgb 9.5 L (11.4-16.0) gm/dL Hct 28.7 L (34.0-46.0) % RDW 16.5 H (11.5-15.5) % Lymphocytes # 0.3 L (1.0-4.8) k/uL APTT (22.0-30.0) sec Chloride (98-107) mmol/L Carbon Dioxide (22-30) mmol/L BUN (7-17) mg/dL Creatinine (0.52-1.04) mg/dL Glucose (74-99) mg/dL POC Glucose (mg/dL) 283 H (75-99) mg/dL Calcium (8.4-10.2) mg/dL TSH (0.465-4.680) mIU/L Complement C3 64.1 L (80.0-207.0) mg/dL 02/02/20 02/02/20 02/02/20 Range/Units 15:07 15:07 17:35 RBC (3.80-5.40) m/uL Hgb (11.4-16.0) gm/dL Hct (34.0-46.0) % RDW (11.5-15.5) % Lymphocytes # (1.0-4.8) k/uL APTT 19.7 L (22.0-30.0) sec Chloride (98-107) mmol/L Carbon Dioxide (22-30) mmol/L BUN (7-17) mg/dL Creatinine (0.52-1.04) mg/dL Glucose (74-99) mg/dL POC Glucose (mg/dL) 257 H (75-99) mg/dL Calcium (8.4-10.2) mg/dL TSH 0.070 L (0.465-4.680) mIU/L Complement C3 (80.0-207.0) mg/dL 02/02/20 02/02/20 02/02/20 Range/Units 20:12 22:00 22:40 RBC 3.21 L (3.80-5.40) m/uL Hgb 9.1 L (11.4-16.0) gm/dL Hct 28.8 L (34.0-46.0) % RDW 16.6 H (11.5-15.5) % Lymphocytes # 0.3 L (1.0-4.8) k/uL APTT 50.8 H (22.0-30.0) sec Chloride (98-107) mmol/L Carbon Dioxide (22-30) mmol/L BUN (7-17) mg/dL Creatinine (0.52-1.04) mg/dL Glucose (74-99) mg/dL POC Glucose (mg/dL) 191 H (75-99) mg/dL Calcium (8.4-10.2) mg/dL TSH (0.465-4.680) mIU/L Complement C3 (80.0-207.0) mg/dL 02/02/20 02/03/20 02/03/20 Range/Units 23:42 04:24 04:30 RBC 3.23 L (3.80-5.40) m/uL Hgb 9.2 L (11.4-16.0) gm/dL Hct 28.9 L (34.0-46.0) % RDW 16.7 H (11.5-15.5) % Lymphocytes # 0.3 L (1.0-4.8) k/uL APTT (22.0-30.0) sec Chloride (98-107) mmol/L Carbon Dioxide (22-30) mmol/L BUN (7-17) mg/dL Creatinine (0.52-1.04) mg/dL Glucose (74-99) mg/dL POC Glucose (mg/dL) 118 H 130 H (75-99) mg/dL Calcium (8.4-10.2) mg/dL TSH (0.465-4.680) mIU/L Complement C3 (80.0-207.0) mg/dL 02/03/20 02/03/20 02/03/20 Range/Units 04:30 04:30 08:09 RBC (3.80-5.40) m/uL Hgb (11.4-16.0) gm/dL Hct (34.0-46.0) % RDW (11.5-15.5) % Lymphocytes # (1.0-4.8) k/uL APTT 85.1 H (22.0-30.0) sec Chloride 110 H (98-107) mmol/L Carbon Dioxide 19 L (22-30) mmol/L BUN 122 H* (7-17) mg/dL Creatinine 3.08 H (0.52-1.04) mg/dL Glucose 125 H (74-99) mg/dL POC Glucose (mg/dL) 229 H (75-99) mg/dL Calcium 8.3 L (8.4-10.2) mg/dL TSH (0.465-4.680) mIU/L Complement C3 (80.0-207.0) mg/dL Microbiology - Last 24 Hours (Table) 01/28/20 12:13 Blood Culture - Preliminary Blood No Growth after 120 hours 01/28/20 12:06 Blood Culture - Preliminary Blood No Growth after 120 hours Assessment and Plan Plan: Assessment: 1. Acute kidney injury secondary to ATN secondary to hypotension and infection. Her renal function slightly better. Creatinine 3.08 today. No hydronephrosis noted on kidney ultrasound. 2. Chronic kidney disease stage III with baseline creatinine 1.5-1.6 prior to nephrectomy. 3. Status post right-sided nephrectomy on 01/05/2020. 4. Insulin-dependent diabetes mellitus. 5. Moderate pulmonary hypertension. 6. Metabolic acidosis secondary to acute kidney injury maintained on oral sodium bicarb. 7. Volume overload. Patient has been receiving IV Lasix the last 2 days. 8. Pneumonia maintained on antibiotics. 9. Elevated BUN due to acute kidney injury as well as IV steroids. No evidence of GI bleed. Plan: Lasix 40 mg IV once today. Continue to monitor renal function and urine output. Avoid nephrotoxins.
[2020-02-03 11:49] LABS: Glucose,Whole Blood 267 mg/dL (75-99)
[2020-02-03] MEDS: PIPERACILLIN-TAZOBACTAM 3.375 GM in SODIUM CHLORIDE 0.9% 100 ML IVPB SCH ×2 (12:28→23:16)
--- NOTE | 2020-02-03 12:42 | PN ---
PROGRESS NOTE DATE OF SERVICE: 02/03/2020 CHIEF COMPLAINT: Acute respiratory failure, influenza pneumonia, and renal failure. HISTORY OF PRESENT ILLNESS: This lady was extubated and she is doing fairly well on her own in terms of breathing. She is still slightly lethargic and somewhat confused. She keeps asking for Xanax, which would not be kate, considering her lethargy and respiratory difficulty. PHYSICAL EXAMINATION: Chest demonstrates occasional rales and rhonchi bilaterally but is quite clear. Cardiac exam is now in atrial fibrillation which is new. Abdomen is soft and there are no masses. Extremities are normal. IMPRESSION: 1. Acute respiratory failure. 2. Influenza pneumonia. 3. New-onset atrial fibrillation. 4. Congestive heart failure. 5. Renal failure. 6. Diabetes. PLAN: Hopefully, she can progress. Cardiology is monitoring and managing her new arrhythmia. MMODL / SIRENAN: [id number] /
[2020-02-03] MEDS: IPRATROPIUM-ALBUTEROL 3 ML NEB INHALATION PRN ×2 (15:31→18:48)
--- NOTE | 2020-02-03 16:32 | PN ---
PROGRESS NOTE DATE OF SERVICE: 02/03/2020 REASON FOR FOLLOWUP: Pneumonia. INTERVAL HISTORY: The patient is currently afebrile. The patient has been breathing comfortably. Denies having any chest pain. She did have a congested cough; not bringing up a significant amount of sputum. No vomiting or any diarrhea has been reported. PHYSICAL EXAMINATION: Blood pressure 133/70 with a pulse of 108, temperature 97.5. She is 93% on 4 L nasal cannula. General description is an elderly female lying in bed in no distress. RESPIRATORY SYSTEM: Unlabored breathing with decreased breath sounds at the base. No wheeze. HEART: S1, S2. Regular rate and rhythm. ABDOMEN: Soft. No tenderness. LABS: Hemoglobin 9.2, white count 7.5. BUN is 122, creatinine 3.08. Bronch culture with Annette albicans. DIAGNOSTIC IMPRESSION AND PLAN: Patient with acute respiratory failure which is likely multifactorial, possible component of pneumonia. So far bronch cultures have been negative for any resistant pathogen; on Zosyn. Transition to a short course of oral antibiotics once oral intake has improved, and continue with supportive care. MMODL / IJN: [id number] /
[2020-02-03] MEDS: METOPROLOL TARTRATE 25 MG TAB PO SCH ×2 (16:44→21:01)
[2020-02-03 16:51] LABS: Glucose,Whole Blood 230 mg/dL (75-99)
[2020-02-03] MEDS: SODIUM CHLORIDE 0.9% 1,000 ML IV SCH (19:01)
[2020-02-03 20:42] LABS: Glucose,Whole Blood 282 mg/dL (75-99)
[2020-02-04 04:38] LABS: Anisocytosis Slight; Basophils % (A) 0 %; Eosinophils % (A) 0 %; Lymphocytes # (A) 0.7 k/uL (1.0-4.8); Lymphocytes % (A) 8 %; MCH 28.1 pg (25.0-35.0); MCHC 31.2 g/dL (31.0-37.0); Monocytes # (A) 0.5 k/uL (0-1.0); Monocytes % (A) 5 %; Neutrophils # (A) 7.6 k/uL (1.3-7.7); Neutrophils % (A) 85 %; Platelet Count 156 k/uL (150-450); RBC 3.22 m/uL (3.80-5.40); RDW 16.8 % (11.5-15.5)
[2020-02-04 04:50] LABS: Calcium 8.3 mg/dL (8.4-10.2); Potassium 4.5 mmol/L (3.5-5.1)
[2020-02-04 06:55] LABS: Glucose,Whole Blood 243 mg/dL (75-99)
[2020-02-04] MEDS ORDERED: INSULIN DETEMIR (LEVEMIR) 100 UNIT/ML SYR SQ SCH (07:00)
[2020-02-04] MEDS: INSULIN ASPART (NovoLOG) 100 UNIT/ML VIAL SQ SCH ×4 (07:09→20:41)
[2020-02-04] MEDS: methylPREDNISolone SOD SUCCI 40 MG/ML 1 ML VIAL IV SCH ×3 (08:15→23:05)
[2020-02-04] MEDS: ALLOPURINOL 100 MG TAB PO SCH (08:16)
[2020-02-04] MEDS: OXYBUTYNIN 15 MG TAB.ER.24 PO SCH (08:16)
[2020-02-04] MEDS: METOPROLOL TARTRATE 25 MG TAB PO SCH ×3 (08:16→20:40)
[2020-02-04] MEDS: AMIODARONE 200 MG TAB PO SCH ×2 (08:16→20:40)
[2020-02-04] MEDS: SODIUM BICARBONATE TAB 650 MG TAB PO SCH ×2 (08:16→20:40)
[2020-02-04] MEDS: buPROPion SR 150 MG TABLET.ER PO SCH ×2 (08:16→20:40)
[2020-02-04] MEDS: APIXABAN 2.5 MG TABLET PO SCH ×2 (08:16→20:40)
[2020-02-04] MEDS: PANTOPRAZOLE 40 MG TABLET PO SCH (08:16)
--- NOTE | 2020-02-04 08:35 | PN ---
PROGRESS NOTE Mrs. Reynolds is a 69-year-old female with a prior history of lymphoma who presented with respiratory failure and subsequently requiring mechanical ventilation because of pneumonia. She was extubated and had atrial fibrillation. Following that, she continued to be in atrial fibrillation with controlled ventricular response. She appears stronger. She has no chest discomfort. She continues to be dyspneic. She has no dizziness or palpitation. She has no nausea. Hemodynamically, she is on no pressors. She continues to be on amiodarone 400 mg twice a day, Eliquis 2.5 mg twice a day and metoprolol tartrate 25 mg 3 times a day. PHYSICAL EXAMINATION: Blood pressure 134/90 with the heart rate in the 90s. LUNGS: With crackles and rhonchi bilaterally. HEART: Irregular, irregular. S1, S2. No S3. No rub with a systolic murmur. ABDOMEN: Soft, nontender. EXTREMITIES: Trace edema. LAB DATA: Lab data revealed BUN and creatinine 37 and 3.16, potassium 4.5, hemoglobin of 9. Renal functions are worsening. IMPRESSION: 1. Respiratory failure, status post pneumonia requiring mechanical ventilation, improving. 2. Bilateral pneumonia. 3. Atrial fibrillation persistent since extubation. 4. History of nephrectomy for hypernephroma. 5. History of diabetes. 6. Worsening renal function with renal failure. RECOMMENDATION: From the cardiac standpoint, will continue on the present dose of beta sy as well as her anticoagulation. I will continue on present dose of amiodarone for the next 48 hours. Increase her level of activity and depending on her progress, further recommendation will be made. MMODL / IJN: [id number] /
--- NOTE | 2020-02-04 09:02 | XR ---
EXAMINATION TYPE: XR chest 1V DATE OF EXAM: 02/04/2020 COMPARISON: 02/03/2020 HISTORY: Pneumonia TECHNIQUE: Single frontal view of the chest is obtained. FINDINGS: Multifocal areas of consolidation are seen with no pleural effusion or pneumothorax. Left- sided PICC line with cardiomegaly. IMPRESSION: Multifocal areas of consolidation are seen. Correlate for pneumonia. No significant inte rval change.
[2020-02-04] MEDS ORDERED: FUROSEMIDE 10 MG/ML 10 ML VIAL IV STA (09:40)
--- NOTE | 2020-02-04 11:11 | P.PN ---
Subjective Progress Note Date: 02/04/20 On today's evaluation seeing this patient for a follow-up. The patient is weak. She has a congested cough, unable to bring up much sputum, chest x-ray findings remain unchanged and the patient has diffuse bilateral pulmonary infiltrates and consolidations. She is currently on oxygen at 3 L. She is on IV Zosyn. Creatinine is at 3.16 with a BUN of 137. The patient is in significant amount of fluid positivity and the patient has been on Lasix on a daily basis. As stated earlier the patient has a right sided nephrectomy on 01/05/2020. She had a influenza lung infection subsequently she got infected with strep and she became septic with this. She was treated with appropriate antibiotics without much improvement in her respiratory status. Note that the various sputum culture that was collected including the bronchioloalveolar lavage showed positive Annette and she does have some oropharyngeal candidiasis and posterior oropharynx. The patient is currently on 3 L of oxygen by nasal cannula. She is quite weak. No altered mentation. She was intubated between 01/30/2020 through 02/02/2020. Objective - Vital Signs Vital signs: Vital Signs Temp 97.9 F 02/04/20 08:00 Pulse 81 02/04/20 11:00 Resp 20 02/04/20 11:00 BP 155/64 02/04/20 11:00 Pulse Ox 92 L 02/04/20 11:00 Intake & Output 02/03/20 02/04/20 02/04/20 18:59 06:59 18:59 Intake Total 803.808 240 320 Output Total 540 435 160 Balance 263.808 -195 160 Weight 120 kg 121 kg Intake: IV 300 240 80 Piperacillin-Tazobactam 3 100 .375 gm In Sodium Chloride 0.9% 100 ml @ 25 mls/hr IVPB Q12H [facility] Rx# :[id number] Sodium Chloride 0.9% 1, 200 240 80 000 ml @ 20 mls/hr IV . Q24H [facility] Rx#:[id number] Intake, IV Titration 23.808 Amount Heparin Sod,Pork in 0.45% 23.808 NaCl 25,000 unit In 0.45 % NaCl 1 250ml.bag @ 8.18 UNITS/KG/HR 10.004 mls/ hr IV .Q24H [facility] Rx#: [id number] Oral 480 240 Output: Urine 540 435 160 Other: Voiding Method Indwelling Catheter Indwelling Catheter Indwelling Catheter # Bowel Movements 1 ABP, PAP, CO, CI - Last Documented Arterial Blood Pressure 155/58 - Exam GENERAL EXAM: Alert, still somewhat dyspneic, on 3 L high flow nasal cannula, fairly comfortable in no apparent distress. HEAD: Normocephalic. EYES: Normal reaction of pupils, equal size. NOSE: Clear with pink turbinates. THROAT: No erythema or exudates. NECK: No masses, no JVD. CHEST: No chest wall deformity. LUNGS: Equal air entry with crackles in the posterior bases, scattered rhonchi. CVS: S1 and S2 normal with no audible murmur, regular rhythm. ABDOMEN: No hepatosplenomegaly, normal bowel sounds, no guarding or rigidity. The surgical wound site over the anterior abdominal wall is dry clean and intact and there is adequate bowel sounds. No drainage and the wound is clean. SPINE: No scoliosis or deformity SKIN: No rashes CENTRAL NERVOUS SYSTEM: No focal deficits, tone is normal in all 4 extremities. EXTREMITIES: There is significant peripheral edema lower extremities bilaterally. No clubbing, no cyanosis. Peripheral pulses are intact. The patient has an A-line in her left wrist - Labs CBC & Chem 7: 02/04/20 04:15 02/04/20 04:15 Labs: Abnormal Lab Results - Last 24 Hours (Table) 02/03/20 02/03/20 02/03/20 Range/Units 11:48 16:49 20:41 RBC (3.80-5.40) m/uL Hgb (11.4-16.0) gm/dL Hct (34.0-46.0) % RDW (11.5-15.5) % Lymphocytes # (1.0-4.8) k/uL Chloride (98-107) mmol/L Carbon Dioxide (22-30) mmol/L BUN (7-17) mg/dL Creatinine (0.52-1.04) mg/dL Glucose (74-99) mg/dL POC Glucose (mg/dL) 267 H 230 H 282 H (75-99) mg/dL Calcium (8.4-10.2) mg/dL 02/04/20 02/04/20 02/04/20 Range/Units 04:15 04:15 06:54 RBC 3.22 L (3.80-5.40) m/uL Hgb 9.0 L (11.4-16.0) gm/dL Hct 29.0 L (34.0-46.0) % RDW 16.8 H (11.5-15.5) % Lymphocytes # 0.7 L (1.0-4.8) k/uL Chloride 112 H (98-107) mmol/L Carbon Dioxide 18 L (22-30) mmol/L BUN 137 H* (7-17) mg/dL Creatinine 3.16 H (0.52-1.04) mg/dL Glucose 257 H (74-99) mg/dL POC Glucose (mg/dL) 243 H (75-99) mg/dL Calcium 8.3 L (8.4-10.2) mg/dL Microbiology - Last 24 Hours (Table) 01/28/20 12:06 Blood Culture - Final Blood No Growth after 144 hours 01/28/20 12:13 Blood Culture - Final Blood No Growth after 144 hours Assessment and Plan Plan: 1 Acute hypoxic respiratory failure secondary to influenza pneumonitis, and possibly superinfection with strep as the patient was found to have output and with acceptable blood. The patient was initially covered with a combination of Tamiflu on Rocephin. Subsequently she was placed on a combination of Zosyn and vancomycin and more recently she is on IV Zosyn. All of the cultures from the lungs came back positive for Annette and this could be essentially upper airway colonization with a fungus. Doubt fungal pneumonia. Her previous Protuss upon levels were elevated. We will gradually improving with levels being 0.3 and 0.3 and 0.17. As such, the patient has limited improvement in her acute hypoxic respiratory failure. She remains in erections 4 L. Chest x-ray still showing bilateral pulmonary consolidations and infiltrates. Not a whole lot of improvement that was sent over this past 7 days. During the course of her treatment, the patient was intubated briefly and she was extubated on 02/02/2020. . 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 Creatinine continues to be quite elevated and the patient has developed significant amount of volume overload in the order of extreme thirst. The findings on the case and the patient is receiving daily Lasix doses. 11 anemia of chronic disease with a hemoglobin of 9.0 12 generalized weakness 13 non-anion gap metabolic acidosis with a serum bicarb of 18 Plan: IV Solu-Medrol 40 mg every 8 hours Continue the IV Zosyn as the patient completed the course of treatment Add Diflucan for candidal upper airway colonization/infection Repeat pro-calcitonin levels Repeat CAT scan of the chest without contrast Nephrology regarding the acute kidney injury and the patient is getting daily Lasix doses Possible dialysis keep the patient ICU for now we'll continue to follow.
[2020-02-04 11:37] LABS: Glucose,Whole Blood 260 mg/dL (75-99)
[2020-02-04] MEDS: FLUCONAZOLE 100 MG TAB PO SCH (11:50)
--- NOTE | 2020-02-04 12:40 | CT ---
EXAMINATION TYPE: CT chest wo con DATE OF EXAM: 02/04/2020 COMPARISON: 01/23/2020 HISTORY: bilateral infiltrates CT DLP: 512.3 mGycm. Automated Exposure Control for Dose Reduction was Utilized. TECHNIQUE: CT scan of the thorax is performed without IV contrast. FINDINGS: Exam severely limited due to severe motion artifact. LUNGS: There is multifocal areas of consolidation greater within the right lung. No sizable pleural e ffusion or pneumothorax. Lack of pleural fluid argues that this most likely represents pneumonia. Thi s includes bacterial, viral or opportunistic infections. Neoplasm felt less likely given the air bron chograms and consolidative geographic patterns but not excluded. MEDIASTINUM: Lack of IV contrast is noted to limit evaluation for mediastinal and especially hilar ad enopathy. Due to motion and lack of contrast it would be difficult to exclude hilar adenopathy. Ather osclerotic change of the aorta and dense coronary artery calcification noted. Left-sided central cath eter noted. Small hiatal hernia noted. OTHER: Hypertrophic and degenerative change of the vertebral column. Dense calcification involving th e left kidney appears cortically-based and stable. A trace amount of fluid surrounding the liver is n oted. Correlate for previous right nephrectomy changes. Nodularity to the left adrenal gland stable.. There is either small gallstones are vicarious excretion of contrast within the gallbladder. IMPRESSION: 1. Limited exam due to severe motion artifact. There persists diffuse pulmonary infiltrates which trinity ear to be progressed on the right but improved on the left. There is resolution of pleural fluid. Cor relate for multifocal pneumonia. 2. Cardiomegaly and coronary artery calcification. 3. Small amount of ascites surrounding the liver. 4. Correlate for cholelithiasis.
[2020-02-04 16:41] LABS: Glucose,Whole Blood 213 mg/dL (75-99)
--- NOTE | 2020-02-04 18:29 | PN ---
PROGRESS NOTE Patient is seen for followup for acute kidney injury on top of chronic kidney disease. This morning, patient was short of breath on communication. She has had fair urine output. She has been receiving Lasix on a daily basis. Urine output responds for a few hours after the IV push Lasix and then it dwindled down to about 35-40 mL an hour. There are no nephrotoxic agents on board. Serum creatinine has increased to 3.1 today. Her BUN is up to 137. I have discussed with the patient that she will likely need to start dialysis based on her volume status and labs in a.m. Given the significantly elevated BUN and ongoing volume overload, it is best that she is dialyzed and hopefully this will be temporary. EXAMINATION: Today patient is comfortable, short of breath on communication. Blood pressure was 134/109. She is afebrile. Heart rate 101 per minute. Examination of the heart S1, S2. Examination of the lungs, bilateral breath sounds are heard. Abdomen is soft, nontender, obese. Examination of lower extremities shows edema 2+ bilaterally. [employer]ENT exam grossly intact. LABS: Shows hemoglobin 9.0, sodium 143, potassium 4.5, chloride 112, CO2 is 18, BUN 137, serum creatinine 3.16, calcium 8.3. ASSESSMENT: 1. Acute kidney injury, acute tubular necrosis. Renal function is about the same as yesterday. However, the BUN is further elevated at 137 and since patient continues to have significant volume overload, I will proceed with renal replacement therapy in a.m. unless she is significantly improved, which I doubt. The patient is agreeable to starting dialysis if indicated tomorrow. 2. Chronic kidney disease stage 3 with baseline creatinine 1.5-1.6 prior to nephrectomy. 3. 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 4. Moderate pulmonary hypertension. 5. Metabolic acidosis secondary to renal failure, maintained on sodium bicarb. 6. Volume overload, currently being diuresed. I will increase her Lasix to b.i.d. 7. Pneumonia, maintained on antibiotics. 8. Respiratory failure status post extubation. PLAN: Repeat labs in a.m. Repeat IV Lasix this evening. Most likely we will start dialysis tomorrow. MMODL / IJN: [id number] /
[2020-02-04] MEDS: IPRATROPIUM-ALBUTEROL 3 ML NEB INHALATION PRN (19:46)
[2020-02-04] MEDS: SODIUM CHLORIDE 0.9% 1,000 ML IV SCH (20:16)
[2020-02-04] MEDS: NYSTATIN 100,000 UNIT/ML SUSP 500,000 UNIT/5 ML CUP PO SCH ×2 (20:30→20:42)
[2020-02-04 20:36] LABS: Glucose,Whole Blood 168 mg/dL (75-99)
[2020-02-04] MEDS: FUROSEMIDE 10 MG/ML 10 ML VIAL IV SCH (20:40)
[2020-02-04] MEDS: AMOXIC-POT CLAV 500-125 MG 1 EACH TAB PO SCH (20:40)
--- NOTE | 2020-02-04 23:08 | PN ---
PROGRESS NOTE DATE OF SERVICE: 02/04/2020. REASON FOR FOLLOWUP: 1. Pneumonia. 2. Thrush. INTERVAL HISTORY: The patient is currently afebrile, has been complaining of some soreness in her mouth. Denies having any chest pain. Occasional cough. No nausea, no vomiting. No abdominal pain. No diarrhea. PHYSICAL EXAMINATION: Blood pressure 136/75 with a pulse of 84, temperature 97.5. She is 97% on 4 L nasal cannula. General description is an elderly female lying in bed in no distress. HEENT EXAMINATION: Thrush with some superficial ulceration. LUNGS: Unlabored breathing. Decreased breath sounds at the bases. No wheeze. HEART: S1, S2. Regular rate and rhythm. ABDOMEN: Soft. No tenderness. LABS: Hemoglobin is 9, white count of 9.0, creatinine 3.16. DIAGNOSTIC IMPRESSION AND PLAN: 1. Patient with acute respiratory failure with a component of pneumonia. So far bronch culture has been negative. The patient's antibiotic was adjusted to oral Augmentin, short course. 2. Oral thrush. Diflucan has been added. Will add nystatin swish and swallow and monitor clinical course closely. MMODL / IJN: [id number] /
[2020-02-05 06:01] LABS: Anisocytosis Slight; Basophils % (A) 0 %; Eosinophils % (A) 0 %; HCT 29.7 % (34.0-46.0); HGB 9.4 gm/dL (11.4-16.0); Lymphocytes # (A) 0.6 k/uL (1.0-4.8); Lymphocytes % (A) 6 %; MCH 28.4 pg (25.0-35.0); MCHC 31.7 g/dL (31.0-37.0); MCV 89.7 fL (80.0-100.0); Mean Platelet Volume 10.9; Monocytes # (A) 0.4 k/uL (0-1.0); Monocytes % (A) 4 %; Neutrophils # (A) 8.2 k/uL (1.3-7.7); Neutrophils % (A) 89 %; Platelet Count 165 k/uL (150-450); RBC 3.31 m/uL (3.80-5.40); WBC 9.2 k/uL (3.8-10.6)
[2020-02-05 06:14] LABS: Albumin 3.4 g/dL (3.5-5.0); Calcium 8.8 mg/dL (8.4-10.2); Potassium 4.6 mmol/L (3.5-5.1); Total Bilirubin 0.7 mg/dL (0.2-1.3); Total Protein 5.9 g/dL (6.3-8.2)
[2020-02-05] MEDS ORDERED: INSULIN DETEMIR (LEVEMIR) 100 UNIT/ML SYR SQ SCH (07:00)
[2020-02-05 07:47] LABS: Glucose,Whole Blood 200 mg/dL (75-99)
[2020-02-05] MEDS: INSULIN ASPART (NovoLOG) 100 UNIT/ML VIAL SQ SCH ×4 (07:49→22:11)
[2020-02-05] MEDS: AMIODARONE 200 MG TAB PO SCH ×2 (08:25→21:59)
[2020-02-05] MEDS: OXYBUTYNIN 15 MG TAB.ER.24 PO SCH (08:25)
[2020-02-05] MEDS: PANTOPRAZOLE 40 MG TABLET PO SCH (08:25)
[2020-02-05] MEDS: ALLOPURINOL 100 MG TAB PO SCH (08:26)
[2020-02-05] MEDS: buPROPion SR 150 MG TABLET.ER PO SCH ×2 (08:26→21:59)
[2020-02-05] MEDS: APIXABAN 2.5 MG TABLET PO SCH (08:26)
[2020-02-05] MEDS: AMOXIC-POT CLAV 500-125 MG 1 EACH TAB PO SCH (08:28)
[2020-02-05] MEDS: METOPROLOL TARTRATE 25 MG TAB PO SCH (08:28)
[2020-02-05] MEDS: methylPREDNISolone SOD SUCCI 40 MG/ML 1 ML VIAL IV SCH ×2 (08:29→15:32)
[2020-02-05] MEDS: FLUCONAZOLE 100 MG TAB PO SCH (08:29)
[2020-02-05] MEDS: FUROSEMIDE 10 MG/ML 10 ML VIAL IV SCH ×2 (08:29→21:59)
[2020-02-05] MEDS: SODIUM BICARBONATE TAB 650 MG TAB PO SCH ×2 (08:36→21:59)
[2020-02-05] MEDS: NYSTATIN 100,000 UNIT/ML SUSP 500,000 UNIT/5 ML CUP PO SCH ×4 (08:36→21:59)
[2020-02-05] MEDS ORDERED: METOPROLOL TARTRATE 25 MG TAB PO STA (08:49)
--- NOTE | 2020-02-05 08:49 | XR ---
EXAMINATION TYPE: XR chest 1V DATE OF EXAM: 02/05/2020 COMPARISON: 02/04/2020 HISTORY: Shortness of breath TECHNIQUE: Single frontal view of the chest is obtained. FINDINGS: Multifocal areas of consolidation are seen with no pleural effusion or pneumothorax. Left- sided PICC line with cardiomegaly. Atherosclerotic change aorta. IMPRESSION: Stable diffuse pleural-parenchymal changes most typical pneumonia correlate clinically.
--- NOTE | 2020-02-05 08:51 | PN ---
PROGRESS NOTE Mrs. Reynolds is a 69-year-old female with history of hypernephroma, status post resection history who presented with progressive dyspnea and pneumonia requiring mechanical ventilation. She is extubated. She had atrial fibrillation. She continues to be weak although slightly better at this time. She continued to be in the atrial fibrillation with controlled ventricular response. She denies any dizziness or palpitation. She denies any nausea. She is able to take p.o. She continues to be at this time on amiodarone 400 mg twice a day, Eliquis 2.5 mg twice a day, furosemide 60 mg IV q.12 hours, metoprolol tartrate 25 mg 3 times a day. PHYSICAL EXAMINATION: Blood pressure 145/90 with a heart in the 90s. LUNGS: With decreased air exchange, no wheezes. HEART: Irregular, regular, S1, S2. No S3. No rub. ABDOMEN: Soft, obese, nontender. EXTREMITIES: Trace to 1+ edema. LAB DATA: Revealed BUN and creatinine 141 and 3.26, potassium 4.6, hemoglobin 9.4. IMPRESSION: 1. Respiratory failure, status post mechanical ventilation and pneumonia, improving. 2. Atrial fibrillation of new onset. 3. Worsening renal failure. 4. History of diabetes. 5. History of hypertension. RECOMMENDATION: I will increase the dose of her beta sy and cut down the dose of the amiodarone tomorrow. Patient may require hemodialysis because of the worsening renal function. She has been followed by Dr. Jose in that regard and depending on her progress, further recommendation will be made. The prognosis remains guarded. MMODL / IJN: [id number] /
[2020-02-05] MEDS: METOPROLOL TARTRATE 50 MG TAB PO SCH ×2 (10:37→21:59)
--- NOTE | 2020-02-05 10:53 | P.PN ---
Subjective Progress Note Date: 02/05/20 On today's evaluation of 02/05/2020, clinically the patient is essentially the same. She does have a dry cough. Unable to bring up much sputum. She had candidiasis and Diflucan was added to her regimen. She is also on oral Augmentin. I repeated the CAT scan of the chest and there was evidence of erica ateral consolidation extensive on the right. I believe that the consolidation of the left have improved slightly however on the right is still active consolidation with diffuse bilateral pulmonary infiltrates. There is resolution of the pleural fluids. The patient's urine output remains low. She remains and fluid overload. Her creatinine is up to 3.2 with a BUN of 141. Nephrology has made plans to start hemodialysis on this patient. Her urine output is in order of 70 mL an hour. She is weak. She is most of the time in bed. She is tolerating her diet. No fever. No chills.She was intubated between 01/30/2020 through 02/02/2020. Objective - Vital Signs Vital signs: Vital Signs Temp 97.8 F 02/05/20 08:00 Pulse 101 H 02/05/20 10:00 Resp 22 02/05/20 10:00 BP 167/85 02/05/20 10:00 Pulse Ox 92 L 02/05/20 10:00 Intake & Output 02/04/20 02/05/20 02/05/20 18:59 06:59 18:59 Intake Total 720 240 80 Output Total 710 1015 285 Balance 74 -262 -208 Weight 122 kg Intake: IV 240 240 80 Sodium Chloride 0.9% 1, 240 240 80 000 ml @ 20 mls/hr IV . Q24H COUNT INCLUDES THE [facility] Rx#:[id number] Oral 480 Output: Urine 710 1015 285 Other: Voiding Method Indwelling Catheter Indwelling Catheter ABP, PAP, CO, CI - Last Documented Arterial Blood Pressure 154/57 - Exam GENERAL EXAM: Alert, still somewhat dyspneic, on 3 L high flow nasal cannula, fairly comfortable in no apparent distress. HEAD: Normocephalic. EYES: Normal reaction of pupils, equal size. NOSE: Clear with pink turbinates. THROAT: No erythema or exudates. NECK: No masses, no JVD. CHEST: No chest wall deformity. LUNGS: Equal air entry with crackles in the posterior bases, scattered rhonchi. CVS: S1 and S2 normal with no audible murmur, regular rhythm. ABDOMEN: No hepatosplenomegaly, normal bowel sounds, no guarding or rigidity. The surgical wound site over the anterior abdominal wall is dry clean and intact and there is adequate bowel sounds. No drainage and the wound is clean. SPINE: No scoliosis or deformity SKIN: No rashes CENTRAL NERVOUS SYSTEM: No focal deficits, tone is normal in all 4 extremities. EXTREMITIES: There is significant peripheral edema lower extremities bilaterally. No clubbing, no cyanosis. Peripheral pulses are intact. The patient has an A-line in her left wrist - Labs CBC & Chem 7: 02/05/20 05:50 02/05/20 05:50 Labs: Abnormal Lab Results - Last 24 Hours (Table) 02/04/20 02/04/20 02/04/20 Range/Units 04:15 11:34 16:40 RBC (3.80-5.40) m/uL Hgb (11.4-16.0) gm/dL Hct (34.0-46.0) % RDW (11.5-15.5) % Neutrophils # (1.3-7.7) k/uL Lymphocytes # (1.0-4.8) k/uL Chloride (98-107) mmol/L Carbon Dioxide (22-30) mmol/L BUN (7-17) mg/dL Creatinine (0.52-1.04) mg/dL Glucose (74-99) mg/dL POC Glucose (mg/dL) 260 H 213 H (75-99) mg/dL ALT (4-34) U/L Total Protein (6.3-8.2) g/dL Albumin (3.5-5.0) g/dL Procalcitonin 0.24 H (0.02-0.09) ng/mL 02/04/20 02/05/20 02/05/20 Range/Units 20:34 05:50 05:50 RBC 3.31 L (3.80-5.40) m/uL Hgb 9.4 L (11.4-16.0) gm/dL Hct 29.7 L (34.0-46.0) % RDW 17.0 H (11.5-15.5) % Neutrophils # 8.2 H (1.3-7.7) k/uL Lymphocytes # 0.6 L (1.0-4.8) k/uL Chloride 111 H (98-107) mmol/L Carbon Dioxide 20 L (22-30) mmol/L BUN 141 H* (7-17) mg/dL Creatinine 3.26 H (0.52-1.04) mg/dL Glucose 188 H (74-99) mg/dL POC Glucose (mg/dL) 168 H (75-99) mg/dL ALT 50 H (4-34) U/L Total Protein 5.9 L (6.3-8.2) g/dL Albumin 3.4 L (3.5-5.0) g/dL Procalcitonin (0.02-0.09) ng/mL 02/05/20 Range/Units 07:45 RBC (3.80-5.40) m/uL Hgb (11.4-16.0) gm/dL Hct (34.0-46.0) % RDW (11.5-15.5) % Neutrophils # (1.3-7.7) k/uL Lymphocytes # (1.0-4.8) k/uL Chloride (98-107) mmol/L Carbon Dioxide (22-30) mmol/L BUN (7-17) mg/dL Creatinine (0.52-1.04) mg/dL Glucose (74-99) mg/dL POC Glucose (mg/dL) 200 H (75-99) mg/dL ALT (4-34) U/L Total Protein (6.3-8.2) g/dL Albumin (3.5-5.0) g/dL Procalcitonin (0.02-0.09) ng/mL Assessment and Plan Plan: 1 Acute hypoxic respiratory failure secondary to influenza pneumonitis, and possibly superinfection with strep as the patient was found to have output and with acceptable blood. The patient was initially covered with a combination of Tamiflu on Rocephin. Subsequently she was placed on a combination of Zosyn and vancomycin and more recently she is on IV Zosyn. All of the cultures from the lungs came back positive for Annette and this could be essentially upper airway colonization with a fungus. Doubt fungal pneumonia. I repeated the Protuss troponin level and the level was elevated at 0.24. I think the patient deserves another bronchoscopy at the later stage to evaluate for any ongoing bacterial growth as the patient has diffuse bilateral pulmonary infiltrates right more than left. Upon comparing the CAT scans, right-sided infiltrates are still active, left-sided infiltrates and consolidation improved. During the course of her treatment, the patient was intubated briefly and she was extubated on 02/02/2020. . 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 Unlikely to be interstitial fluid based on the distribution and the pattern of his bilateral pulmonary infiltrates. At the same time, the patient is being considered for dialysis. 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 Creatinine continues to be quite elevated and the patient has developed significant amount of volume overload in the order of extreme thirst. She is producing urine output in the order of 70 mL an hour. She'll be started on dialysis. 11 anemia of chronic disease with a hemoglobin of 9.0 12 generalized weakness 13 non-anion gap metabolic acidosis with a serum bicarb of 20 Plan: IV Solu-Medrol 40 mg every 8 hours Oral Augmentin Diflucan for candidal upper airway colonization/infection Repeat pro-calcitonin levels are still elevated at 0.24 Vascular surgery for dialysis access and the patient will start hemodialysis. We'll monitor her pulmonary status. May consider repeating a bronchoscopy at a later stage.
[2020-02-05] MEDS ORDERED: LISINOPRIL 20 MG TAB PO SCH (11:00)
[2020-02-05 12:06] LABS: Glucose,Whole Blood 291 mg/dL (75-99)
[2020-02-05] MEDS: IPRATROPIUM-ALBUTEROL 3 ML NEB INHALATION PRN (12:07)
--- NOTE | 2020-02-05 12:18 | PN ---
PROGRESS NOTE Patient is seen for followup for acute kidney injury on top of chronic kidney disease. She is status post nephrectomy. Her renal function continues to worsen. She has been extubated. However, she is short of breath and volume overloaded as well. BUN is up to 141 today and patient is agreeable to starting dialysis. We will proceed with vascular surgery consult and placement of dialysis catheter. We will plan for first treatment today. She will have a second treatment again in a.m. Continue with the diuretics for now. PHYSICAL EXAMINATION: On examination today, patient is awake, comfortable, not in any acute distress. Mildly short of breath. She is afebrile. Heart rate 102 per minute, blood pressure 151/79. Examination of the heart, S1, S2. Examination of the lungs, bilateral breath sounds are heard. Abdomen is soft, nontender, obese. 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 LABS: Show hemoglobin 9.4, sodium 143, potassium 4.6, chloride 111, BUN 141, serum creatinine 3.26. ASSESSMENT: 1. Acute kidney injury, acute tubular necrosis, ischemic, currently nonoliguric with worsening renal function and persistent volume overload. We will proceed with starting renal replacement therapy. Dialysis catheter will be placed today and we will plan for first treatment tomorrow and repeat in a.m. Continue with the IV Lasix for now. 2. Volume overload, continue with IV diuretics. Expect further expect further improvement with initiation of dialysis. 3. Chronic kidney disease stage III, baseline creatinine 1.5-1.6 prior to nephrectomy. 4. Status post right nephrectomy on 01/05/2020. 5. Moderate pulmonary hypertension. 6. Pneumonia, maintained on antibiotics. 7. Chronic obstructive pulmonary disease exacerbation. 8. Respiratory failure, currently extubated. 9. Influenza A pneumonitis, status post Tamiflu. PLAN: Start dialysis today, repeat hemodialysis in a.m. and UF about 1-2 L as tolerated. Continue with IV Lasix for now. MMODL / IJN: [id number] /
[2020-02-05] MEDS: hydrALAZINE HCL 10 MG TAB PO SCH ×3 (12:29→21:59)
--- NOTE | 2020-02-05 13:47 | CONS ---
DATE OF CONSULTATION: 02/05/2020 This is a 69-year-old, pleasant female. She has been admitted to ICU. Patient has a history of atrial fibrillation, new onset. The patient has been started on Eliquis. I was consulted for placement of the dialysis catheter. MEDICAL HISTORY: History of diabetes, hypertension, chronic kidney disease. SURGICAL HISTORY: Patient had CA of the kidney for nephrectomy. PHYSICAL EXAMINATION: On examination, patient was seen in her room. NECK: Supple. CHEST: Crackles bilateral. Abdomen is protuberant, nontender. Femorals are 1+. IMPRESSION: Acute on chronic renal failure. PLAN: Placement of the dialysis catheter. The patient is on Eliquis. She had one dose this morning. The plan is I have discussed with Nephrology. We will hold the Eliquis and patient will be on heparin. If is emergency, we will place it tomorrow morning. Otherwise on Saturday, risk of bleeding and infection has been discussed. MMODL / IJN: [id number] / MTDD
[2020-02-05 16:57] LABS: Glucose,Whole Blood 343 mg/dL (75-99)
[2020-02-05] MEDS ORDERED: INSULIN DETEMIR (LEVEMIR) 100 UNIT/ML SYR SQ ONE (17:15)
--- NOTE | 2020-02-05 18:03 | PN ---
PROGRESS NOTE DATE OF SERVICE: 02/05/2020 REASON FOR FOLLOWUP: 1. Pneumonia. 2. Thrush and oropharyngeal candidiasis. INTERVAL HISTORY: The patient is currently afebrile. She has been breathing comfortably. Denies any worsening sore in the mouth. No chest pain, shortness of breath or cough. No abdominal pain. She did have a loose stool, per the RN. PHYSICAL EXAMINATION: Blood pressure 160/73 with a pulse of 85, temperature 97.6. She is 92% on 4 L nasal cannula. General description is an elderly female lying in bed in no distress. HEENT EXAMINATION: thrush. Possible ulceration. LUNGS: Unlabored breathing. Decreased breath sounds at the base. HEART: S1, S2. Regular rate and rhythm. ABDOMEN: Soft. No tenderness. LABS: Hemoglobin 9.4, white count 9.2, creatinine 3.26. DIAGNOSTIC IMPRESSION AND PLAN: 1. Patient with acute respiratory failure which is likely multifactorial, possible component of pneumonia in this patient who is status post bronchoscopy. All cultures have been negative for any resistant pathogen. Patient to continue on oral Augmentin. 2. Thrush with oropharyngeal candidiasis, covered with nystatin swish and swallow and Diflucan. Monitor clinical course closely. MMODL / IJN: [id number] /
[2020-02-05 18:34] LABS: Hepatitis B Surface AB- Quant 3.5 mIU/mL; Hepatitis B Surface Antibody Non-Reactive (Non-Reactive); Hepatitis B Surface Antigen Non-Reactive (Non-Reactive)
--- NOTE | 2020-02-05 19:23 | PN ---
PROGRESS NOTE CHIEF COMPLAINT: Acute respiratory failure, influenza pneumonia, renal failure, diabetes. HISTORY OF PRESENT ILLNESS: This lady is off the ventilator and doing fairly well but she is still quite dyspneic. Kidney function is more or less stable, but GFR has dropped a point or so. This is being watched by Nephrology. Her blood sugars are elevating and her Lantus is being stepped up slowly along with her sliding scale. REVIEW OF SYSTEMS: She is still short of breath and congested and she seems to be pretty well oriented. She denies chest pain, abdominal pain, etc. PHYSICAL EXAMINATION: She is awake and alert. Speech is not back to normal yet. She has bilateral rhonchi and rales in both lung wallace. Cardiac exam demonstrates atrial fibrillation still. Abdomen is soft. Extremities are normal. IMPRESSION: 1. Acute respiratory failure. 2. Influenza pneumonia. 3. Type 2 olx-iswwcae-[id number] diabetes mellitus. 4. Elevated blood sugars. 5. Renal failure. 6. Status post nephrectomy for carcinoma. PLAN: Continue to increase activity and diet while driving up her Levemir until blood sugars improve a little bit more. MMODL / IJN: [id number] /
--- NOTE | 2020-02-05 19:29 | PN ---
PROGRESS NOTE DATE OF SERVICE: 02/05/2020 CHIEF COMPLAINT: Acute respiratory failure, influenza pneumonia, renal failure and uncontrolled diabetes. HISTORY OF PRESENT ILLNESS: This lady is doing just about the same. She is getting along with nasal O2 and has not had to be reintubated. She seems alert and she has no complaints. She is still quite dyspneic. PHYSICAL EXAM: Head, ears, eyes, nose, mouth, and throat were normal. Nasal O2 is in place. Chest demonstrates bilateral rales and occasional rhonchi with still productive cough. Cardiac exam reveals her atrial fibrillation. Abdomen is soft and nontender. Extremities are normal. IMPRESSION: 1. Acute respiratory failure. 2. Influenza pneumonia. 3. Congestive heart failure. 4. Uncontrolled insulin-dependent diabetes mellitus. 5. Carcinoma of the kidney status or nephrectomy. 6. Renal failure. PLAN: Increase Levemir and continue monitoring her blood sugars as she begins to regain strength and function, enabling her to eventually leave the ICU and then get into a rehab facility. MMODL / IJN: [id number] /
[2020-02-05] MEDS: SODIUM CHLORIDE 0.9% 1,000 ML IV SCH (21:59)
[2020-02-05 22:07] LABS: Glucose,Whole Blood 255 mg/dL (75-99)
[2020-02-06] MEDS ORDERED: amLODIPine 10 MG TAB PO STA (00:02)
[2020-02-06] MEDS: AMOXIC-POT CLAV 500-125 MG 1 EACH TAB PO SCH ×3 (00:12→21:04)
[2020-02-06] MEDS: methylPREDNISolone SOD SUCCI 40 MG/ML 1 ML VIAL IV SCH ×3 (00:12→17:38)
[2020-02-06 05:52] LABS: Potassium 4.5 mmol/L (3.5-5.1)
[2020-02-06 06:38] LABS: Glucose,Whole Blood 154 mg/dL (75-99)
[2020-02-06] MEDS: INSULIN ASPART (NovoLOG) 100 UNIT/ML VIAL SQ SCH ×4 (06:46→21:04)
[2020-02-06] MEDS ORDERED: INSULIN DETEMIR (LEVEMIR) 100 UNIT/ML SYR SQ SCH ×2 (07:00)
[2020-02-06] MEDS: PANTOPRAZOLE 40 MG TABLET PO SCH (08:38)
[2020-02-06] MEDS: AMIODARONE 200 MG TAB PO SCH ×2 (08:38→21:04)
[2020-02-06] MEDS: ALLOPURINOL 100 MG TAB PO SCH (08:38)
[2020-02-06] MEDS: hydrALAZINE HCL 10 MG TAB PO SCH ×4 (08:38→21:04)
[2020-02-06] MEDS: NYSTATIN 100,000 UNIT/ML SUSP 500,000 UNIT/5 ML CUP PO SCH ×4 (08:38→21:04)
[2020-02-06] MEDS: METOPROLOL TARTRATE 50 MG TAB PO SCH ×2 (08:38→21:03)
[2020-02-06] MEDS: SODIUM BICARBONATE TAB 650 MG TAB PO SCH ×2 (08:38→21:04)
[2020-02-06] MEDS: OXYBUTYNIN 15 MG TAB.ER.24 PO SCH (08:39)
[2020-02-06] MEDS: buPROPion SR 150 MG TABLET.ER PO SCH ×2 (08:39→21:03)
[2020-02-06] MEDS: FUROSEMIDE 10 MG/ML 10 ML VIAL IV SCH ×2 (08:39→21:04)
[2020-02-06] MEDS: FLUCONAZOLE 100 MG TAB PO SCH (08:39)
--- NOTE | 2020-02-06 09:36 | P.PN ---
Subjective Progress Note Date: 02/06/20 Principal diagnosis: Dyspnea secondary to fluid volume overload, influenza pneumonitis and possible pneumonia The patient is seen today 02/06/2020 in follow-up in the intensive care unit. She is more awake and alert today. A bit stronger. Continues with a loose nonproductive cough. No fever chills. Maintain O2 saturations in the 90s on 5 L/m per high flow nasal cannula. Sodium 144. Potassium 4.5. Chloride 112. Bicarb 22. BUN 144. Creatinine 3.19. Eliquis remains on hold. Plan for hemodialysis catheter tomorrow. Continued on bronchodilators, IV diuretics, Augmentin. Objective - Vital Signs Vital signs: Vital Signs Temp 98.3 F 02/06/20 08:00 Pulse 99 02/06/20 09:00 Resp 21 02/06/20 09:00 BP 178/74 02/06/20 09:00 Pulse Ox 94 L 02/06/20 09:00 Intake & Output 02/05/20 02/06/20 02/06/20 18:59 06:59 18:59 Intake Total 240 240 260 Output Total 1040 1240 330 Balance -800 -1000 -70 Weight 123.7 kg Intake: IV 240 240 60 Sodium Chloride 0.9% 1, 240 240 60 000 ml @ 20 mls/hr IV . Q24H [facility] Rx#:[id number] Oral 200 Output: Urine 1040 1240 330 Stool 0 Other: Voiding Method Indwelling Catheter Indwelling Catheter ABP, PAP, CO, CI - Last Documented Arterial Blood Pressure 176/66 - Exam GENERAL EXAM: Alert, 69-year-old morbidly obese female patient, improved, on 5 L high flow nasal cannula. HEAD: Normocephalic. EYES: Normal reaction of pupils, equal size. NOSE: Clear with pink turbinates. THROAT: No erythema or exudates. NECK: No masses, no JVD. CHEST: No chest wall deformity. LUNGS: Equal air entry with crackles in the posterior bases, scattered rhonchi. CVS: S1 and S2 normal with no audible murmur, regular rhythm. ABDOMEN: No hepatosplenomegaly, normal bowel sounds, no guarding or rigidity. SPINE: No scoliosis or deformity SKIN: No rashes CENTRAL NERVOUS SYSTEM: No focal deficits, tone is normal in all 4 extremities. EXTREMITIES: There is no peripheral edema. No clubbing, no cyanosis. Peripheral pulses are intact. - Labs CBC & Chem 7: 02/05/20 05:50 02/06/20 05:30 Labs: Abnormal Lab Results - Last 24 Hours (Table) 02/05/20 02/05/20 02/05/20 Range/Units 12:05 16:55 22:06 Chloride (98-107) mmol/L BUN (7-17) mg/dL Creatinine (0.52-1.04) mg/dL Glucose (74-99) mg/dL POC Glucose (mg/dL) 291 H 343 H 255 H (75-99) mg/dL 02/06/20 02/06/20 Range/Units 05:30 06:37 Chloride 112 H (98-107) mmol/L BUN 144 H* (7-17) mg/dL Creatinine 3.19 H (0.52-1.04) mg/dL Glucose 145 H (74-99) mg/dL POC Glucose (mg/dL) 154 H (75-99) mg/dL Assessment and Plan Assessment: 1 Acute hypoxic respiratory failure secondary to influenza A pneumonitis, fluid volume overload and pneumonia. Bronchoscopy results and Annette only. On 02/06/2020 the patient is doing better. She is down to 5 L high flow nasal cannula. Less short of breath. Less congested. Feeling stronger. 2 Acute renal failure and the plan is for hemodialysis catheter placement on 02/07/2020. Tho remains on hold. 3 Recent robotically assisted laparoscopic right radical nephrectomy for grade 1 renal cell carcinoma on 01/05/2020 4 Esophageal reflux disease 5 Hyperlipidemia 6 Hypertension 7 Morbid obesity 8 Insomnia 9 Anxiety 10 Diabetes mellitus Plan: The patient was seen and evaluated by Dr. Wooten. She is improved today compared to yesterday. Down to 5 L high flow nasal cannula. Less shortness of breath and congestion. Hold off on repeat bronchoscopy for now. Plan is for hemodialysis catheter placement tomorrow to begin dialysis. Tho remains on hold. Will continue the current treatment plan. Increase her activity as tolerated. A We will continue to follow and make further recommendations based on her clinical status. I, the cosigning physician, performed a history & physical examination of the patient. Lungs sounds with crackles in the posterior bases, scattered rhonchi. Maintaining good O2 saturations in the 90s on 5 L high flow nasal cannula. I discussed the assessment and plan of care with my nurse practitioner, Patty Hussein. I attest to the above note as dictated by her.
--- NOTE | 2020-02-06 10:40 | PN ---
PROGRESS NOTE This is a 69-year-old female who had hypernephroma removal, presented with progressive dyspnea, had pneumonia requiring mechanical ventilation. She is extubated. She had progressive renal failure. She is in atrial fibrillation and continues to be in atrial fibrillation with controlled ventricular response. She is scheduled to undergo dialysis catheter tomorrow. She feels stronger. She is denying any chest pain. She denies any dizziness or palpitations. She denies any nausea. Her anticoagulation has been on hold because of the upcoming dialysis. She continues to be on amiodarone 40 mg twice a day, furosemide 60 mg IV q.12 hours, hydralazine 10 mg 4 times a day, metoprolol tartrate 50 mg twice a day. PHYSICAL EXAMINATION: Blood pressure running in the 140-160 with a heart rate in the 80s. LUNGS: With few crackles. No wheezes. Heart irregularly irregular, S1, S2. No S3. No rub. ABDOMEN: Soft, nontender. EXTREMITIES: With minimal edema. LAB DATA: Lab data revealed BUN and creatinine 144, 3.19, potassium 4.5. IMPRESSION: 1. Respiratory failure with pneumonia, improving. 2. Atrial fibrillation. 3. Worsening renal failure. 4. Diabetes. 5. Hypertension. RECOMMENDATIONS: We will continue on the present dose of beta sy and amiodarone. Reinitiate anticoagulation after the catheter placement. Proceed with dialysis and depending on her progress, further recommendation will be made. MMODL / SIRENAN: [id number] /
--- NOTE | 2020-02-06 10:43 | P.PN ---
Subjective Progress Note Date: 02/06/20 Follow-up for acute kidney injury. Urine output of 2200 ML's in the last 24 hours. Objective - Vital Signs Vital signs: Vital Signs Temp 98.3 F 02/06/20 08:00 Pulse 87 02/06/20 10:00 Resp 19 02/06/20 10:00 BP 162/93 02/06/20 10:00 Pulse Ox 95 02/06/20 10:00 Intake & Output 02/05/20 02/06/20 02/06/20 18:59 06:59 18:59 Intake Total 240 240 280 Output Total 1040 1240 480 Balance -800 -1000 -200 Weight 123.7 kg Intake: IV 240 240 80 Sodium Chloride 0.9% 1, 240 240 80 000 ml @ 20 mls/hr IV . Q24H [facility] Rx#:[id number] Oral 200 Output: Urine 1040 1240 480 Stool 0 Other: Voiding Method Indwelling Catheter Indwelling Catheter Indwelling Catheter ABP, PAP, CO, CI - Last Documented Arterial Blood Pressure 176/66 - Exam No acute distress S1-S2 heard Decreased breath sounds bilaterally. Edema trace - Labs CBC & Chem 7: 02/05/20 05:50 02/06/20 05:30 Labs: Abnormal Lab Results - Last 24 Hours (Table) 02/05/20 02/05/20 02/05/20 Range/Units 12:05 16:55 22:06 Chloride (98-107) mmol/L BUN (7-17) mg/dL Creatinine (0.52-1.04) mg/dL Glucose (74-99) mg/dL POC Glucose (mg/dL) 291 H 343 H 255 H (75-99) mg/dL 02/06/20 02/06/20 Range/Units 05:30 06:37 Chloride 112 H (98-107) mmol/L BUN 144 H* (7-17) mg/dL Creatinine 3.19 H (0.52-1.04) mg/dL Glucose 145 H (74-99) mg/dL POC Glucose (mg/dL) 154 H (75-99) mg/dL Assessment and Plan Assessment: #1 nonoliguric acute kidney injury suspect hemodynamic ATN with labile blood pressure. #2 right nephrectomy secondary to renal mass #3 chronic kidney disease stage III with a baseline creatinine of 1.5-1.6 MG per DL, prior to nephrectomy. #4 hypertension with chronic kidney disease, labile blood pressure #5 secondary hyperparathyroidism on Sensipar #6 metabolic acidosis secondary to acute kidney injury Plan: #1 creatinine stable today. Continue with Lasix 60 mg IV twice a day. #2 monitor renal function closely, plan for dialysis tomorrow based on the renal function and Nicholas catheter placement. #3 avoid nephrotoxic agents and hypotensive episodes.
[2020-02-06 11:43] LABS: Glucose,Whole Blood 238 mg/dL (75-99)
[2020-02-06] MEDS: IPRATROPIUM-ALBUTEROL 3 ML NEB INHALATION PRN ×2 (11:43→20:37)
--- NOTE | 2020-02-06 14:58 | PN ---
PROGRESS NOTE CHIEF COMPLAINT: Influenza pneumonia and acute respiratory failure. HISTORY OF PRESENT ILLNESS: This lady has been able to stay off of the ventilator. She is awake and alert, but very confused. She is going to be dialyzed. REVIEW OF SYSTEMS: She does not remember where she is. PHYSICAL EXAMINATION: Her vital signs are normal. She is in atrial fibrillation. Head, ears, eyes, nose and mouth were normal. Chest demonstrates occasional rales and occasional rhonchi which were scattered through both lung wallace. Cardiac exam demonstrated atrial fibrillation. Abdomen is soft, nontender. Extremities are normal. IMPRESSION: 1. Acute respiratory failure. 2. Influenza pneumonia. 3. Atrial fibrillation. 4. Delirium. 5. Status post nephrectomy for renal cell carcinoma. 6. End-stage renal disease. PLAN: Continue with current management and she will be going for dialysis in the next several days. GEOVANNAL / JONATHAN: [id number] /
[2020-02-06 16:56] LABS: Glucose,Whole Blood 242 mg/dL (75-99)
[2020-02-06] MEDS: SODIUM CHLORIDE 0.9% 1,000 ML IV SCH (19:01)
[2020-02-06 20:14] LABS: Glucose,Whole Blood 209 mg/dL (75-99)
[2020-02-07] MEDS: methylPREDNISolone SOD SUCCI 40 MG/ML 1 ML VIAL IV SCH ×4 (00:51→23:23)
[2020-02-07 06:25] LABS: Anisocytosis Slight; Basophils % (A) 0 %; Eosinophils % (A) 0 %; HCT 31.8 % (34.0-46.0); HGB 10.1 gm/dL (11.4-16.0); Lymphocytes # (A) 0.5 k/uL (1.0-4.8); Lymphocytes % (A) 5 %; MCH 28.9 pg (25.0-35.0); MCHC 31.9 g/dL (31.0-37.0); MCV 90.6 fL (80.0-100.0); Mean Platelet Volume 9.2; Monocytes # (A) 0.4 k/uL (0-1.0); Monocytes % (A) 4 %; Neutrophils # (A) 9.7 k/uL (1.3-7.7); Neutrophils % (A) 91 %; Platelet Count 171 k/uL (150-450); RBC 3.51 m/uL (3.80-5.40); RDW 17.2 % (11.5-15.5); WBC 10.7 k/uL (3.8-10.6)
[2020-02-07 06:38] LABS: Albumin 3.5 g/dL (3.5-5.0); Calcium 9.4 mg/dL (8.4-10.2); Potassium 4.4 mmol/L (3.5-5.1); Total Bilirubin 0.8 mg/dL (0.2-1.3); Total Protein 6.2 g/dL (6.3-8.2)
[2020-02-07 06:46] LABS: Glucose,Whole Blood 187 mg/dL (75-99)
[2020-02-07] MEDS: IPRATROPIUM-ALBUTEROL 3 ML NEB INHALATION PRN (06:53)
[2020-02-07] MEDS: INSULIN DETEMIR (LEVEMIR) 100 UNIT/ML SYR SQ SCH (06:58)
[2020-02-07] MEDS: INSULIN ASPART (NovoLOG) 100 UNIT/ML VIAL SQ SCH ×4 (06:58→22:45)
[2020-02-07] MEDS ORDERED: LIDOCAINE 1% INJ 10MG/ML (20 ML MDV) ONE (08:03)
--- NOTE | 2020-02-07 08:48 | PN ---
PROGRESS NOTE DATE OF SERVICE: 02/06/2020 REASON FOR FOLLOWUP: 1. Pneumonia. 2. Oral thrush and possible oropharyngeal candidiasis. INTERVAL HISTORY: The patient is currently afebrile. The patient has been breathing comfortably. The patient denies having any chest pain. Her has decreased in intensity. Not bringing up any sputum. Oral thrush has improve. No vomiting or diarrhea. EXAMINATION: Blood pressure is 150/67, pulse of 80, temperature 97.4. General description is an elderly female up in the bed in no distress. Respiratory system: Unlabored breathing. Decreased breath sounds at the bases. No wheeze. Heart S1, S2. Regular rate and rhythm. Abdomen soft, no tenderness. LABS: BUN 144, creatinine 3.19. DIAGNOSTIC IMPRESSION AND PLAN: 1. Acute respiratory failure which is likely multifactorial in this patient with a component of pneumonia adequately treated. Currently on oral Augmentin. 2. Thrush with oropharyngeal candidiasis, covered with nystatin swish and swallow and Diflucan, to continue. Continue supportive care. MMODL / IJN: [id number] /
[2020-02-07] MEDS: FLUCONAZOLE 100 MG TAB PO SCH (09:19)
[2020-02-07] MEDS: FUROSEMIDE 10 MG/ML 10 ML VIAL IV SCH ×2 (09:19→22:45)
[2020-02-07] MEDS: AMOXIC-POT CLAV 500-125 MG 1 EACH TAB PO SCH ×2 (09:19→22:45)
[2020-02-07] MEDS: NYSTATIN 100,000 UNIT/ML SUSP 500,000 UNIT/5 ML CUP PO SCH ×4 (09:19→22:46)
[2020-02-07] MEDS: buPROPion SR 150 MG TABLET.ER PO SCH ×2 (09:20→22:45)
[2020-02-07] MEDS: METOPROLOL TARTRATE 50 MG TAB PO SCH ×2 (09:20→22:46)
[2020-02-07] MEDS: AMIODARONE 200 MG TAB PO SCH ×2 (09:20→22:44)
[2020-02-07] MEDS: ALLOPURINOL 100 MG TAB PO SCH (09:20)
[2020-02-07] MEDS: OXYBUTYNIN 15 MG TAB.ER.24 PO SCH (09:20)
[2020-02-07] MEDS: PANTOPRAZOLE 40 MG TABLET PO SCH (09:20)
[2020-02-07] MEDS: SODIUM BICARBONATE TAB 650 MG TAB PO SCH ×2 (09:20→22:45)
[2020-02-07] MEDS: hydrALAZINE HCL 10 MG TAB PO SCH (09:20)
--- NOTE | 2020-02-07 09:28 | P.PN ---
Subjective Progress Note Date: 02/07/20 Principal diagnosis: Dyspnea secondary to fluid volume overload, influenza pneumonitis and possible pneumonia The patient is seen today 02/06/2020 in follow-up in the intensive care unit. She is more awake and alert today. A bit stronger. Continues with a loose nonproductive cough. No fever chills. Maintain O2 saturations in the 90s on 5 L/m per high flow nasal cannula. Sodium 144. Potassium 4.5. Chloride 112. Bicarb 22. BUN 144. Creatinine 3.19. Eliquis remains on hold. Plan for hemodialysis catheter tomorrow. Continued on bronchodilators, IV diuretics, Augmentin. The patient is seen today 02/07/2020 in follow-up in the intensive care unit. She is sitting up in bed. Awake and alert in no acute distress. Maintaining O2 saturation in the 90s on 3 L/m per nasal cannula now. Depending. The plan is for hemodialysis catheter insertion and hemodialysis today. White count 10.7. Hemoglobin 10.1. Sodium 146. Creatinine 3.00. BUN 141. She is continued on Lasix 60 mg every 12 hours, bronchodilators, IV Solu-Medrol, Augmentin. She is currently in a negative balance. Her weight is down to 120.7 kg. Objective - Vital Signs Vital signs: Vital Signs Temp 97.4 F L 02/07/20 04:00 Pulse 88 02/07/20 07:04 Resp 19 02/07/20 07:00 BP 167/70 02/07/20 07:00 Pulse Ox 90 L 02/07/20 07:00 Intake & Output 02/06/20 02/07/20 02/07/20 17:59 06:59 18:59 Intake Total 20 Output Total 125 Balance -105 Weight Intake: IV 20 Sodium Chloride 0.9% 1, 20 000 ml @ 20 mls/hr IV . Q24H [facility] Rx#:[id number] Oral Output: Urine 125 Stool Other: Voiding Method ABP, PAP, CO, CI - Last Documented Arterial Blood Pressure 176/66 - Exam GENERAL EXAM: Alert, 69-year-old morbidly obese female patient, improved, on 3 L high flow nasal cannula. HEAD: Normocephalic. EYES: Normal reaction of pupils, equal size. NOSE: Clear with pink turbinates. THROAT: No erythema or exudates. NECK: No masses, no JVD. CHEST: No chest wall deformity. LUNGS: Equal air entry with crackles in the posterior bases, scattered rhonchi. CVS: S1 and S2 normal with no audible murmur, regular rhythm. ABDOMEN: No hepatosplenomegaly, normal bowel sounds, no guarding or rigidity. SPINE: No scoliosis or deformity SKIN: No rashes CENTRAL NERVOUS SYSTEM: No focal deficits, tone is normal in all 4 extremities. EXTREMITIES: There is no peripheral edema. No clubbing, no cyanosis. Peripheral pulses are intact. - Labs CBC & Chem 7: 02/07/20 05:25 02/07/20 05:25 Labs: Abnormal Lab Results - Last 24 Hours (Table) 02/06/20 02/06/20 02/06/20 Range/Units 11:41 16:54 20:12 WBC (3.8-10.6) k/uL RBC (3.80-5.40) m/uL Hgb (11.4-16.0) gm/dL Hct (34.0-46.0) % RDW (11.5-15.5) % Neutrophils # (1.3-7.7) k/uL Lymphocytes # (1.0-4.8) k/uL Sodium (137-145) mmol/L Chloride (98-107) mmol/L BUN (7-17) mg/dL Creatinine (0.52-1.04) mg/dL Glucose (74-99) mg/dL POC Glucose (mg/dL) 238 H 242 H 209 H (75-99) mg/dL AST (14-36) U/L ALT (4-34) U/L Total Protein (6.3-8.2) g/dL 02/07/20 02/07/20 02/07/20 Range/Units 05:25 05:25 06:44 WBC 10.7 H (3.8-10.6) k/uL RBC 3.51 L (3.80-5.40) m/uL Hgb 10.1 L (11.4-16.0) gm/dL Hct 31.8 L (34.0-46.0) % RDW 17.2 H (11.5-15.5) % Neutrophils # 9.7 H (1.3-7.7) k/uL Lymphocytes # 0.5 L (1.0-4.8) k/uL Sodium 146 H (137-145) mmol/L Chloride 111 H (98-107) mmol/L BUN 141 H* (7-17) mg/dL Creatinine 3.00 H (0.52-1.04) mg/dL Glucose 151 H (74-99) mg/dL POC Glucose (mg/dL) 187 H (75-99) mg/dL AST 43 H (14-36) U/L ALT 64 H (4-34) U/L Total Protein 6.2 L (6.3-8.2) g/dL Assessment and Plan Assessment: 1 Acute hypoxic respiratory failure secondary to influenza A pneumonitis, fluid volume overload and pneumonia. Bronchoscopy results and Annette only. Clinically improving. On 02/07/2020 the patient is doing better. She is down to 3 L high flow nasal cannula. 2 Acute renal failure and the plan is for hemodialysis catheter placement on 02/07/2020. Tho remains on hold. 3 Recent robotically assisted laparoscopic right radical nephrectomy for grade 1 renal cell carcinoma on 01/05/2020 4 Esophageal reflux disease 5 Hyperlipidemia 6 Hypertension 7 Morbid obesity 8 Insomnia 9 Anxiety 10 Diabetes mellitus Plan: The patient was seen and evaluated by Dr. Wooten. She is improved today compared to yesterday. Down to 3 L high flow nasal cannula. Plan is for hemodialysis catheter placement today to begin dialysis. Tho remains on hold. Will continue the current treatment plan. Increase her activity as francisco erated. We'll probably transfer out of the intensive care unit later today after dialysis. Continue to titrate down the FiO2 as tolerated. We will continue to follow and make further recommendations based on her clinical status. I, the cosigning physician, performed a history & physical examination of the patient. Lungs sounds with crackles in the posterior bases, scattered rhonchi. Maintaining good O2 saturations in the 90s on 3 L high flow nasal cannula. I discussed the assessment and plan of care with my nurse practitioner, Patty Hussein. I attest to the above note as dictated by her.
--- NOTE | 2020-02-07 10:02 | XR ---
EXAMINATION TYPE: XR chest 1V portable DATE OF EXAM: 02/07/2020 Comparison: 02/05/2020 Clinical History: 69-year-old male shortness of breath Findings: Heart borderline enlarged. Left subclavian CVC tip at the lower SVC. Diffuse interstitial and patchy airspace opacities, right greater than left, unchanged from 02/05/2020. Impression: Continued patchy and confluent airspace disease, similar to 02/05/2020.
--- NOTE | 2020-02-07 11:17 | PN ---
PROGRESS NOTE Mrs. Reynolds is a 69-year-old female, status post hypernephroma surgery, who was readmitted to the hospital with progressive dyspnea and evidence of respiratory failure and pneumonia requiring mechanical ventilation. She was extubated subsequently had evidence of atrial fibrillation. Her ventricular response is controlled. She had worsening renal function and is scheduled to undergo placement of dialysis catheter today. She is feeling stronger overall. She denies chest pain. She denies any dizziness or palpitation. She continues to be on amiodarone 400 mg twice a day, Lasix 60 mg twice a day, hydralazine 10 mg 4 times a day, metoprolol tartrate 50 mg twice a day. PHYSICAL EXAMINATION: Blood pressure running in the 160s and 170s with a heart rate in the 80s. Lungs decreased air exchange. No wheezes. Heart irregularly irregular S1, S2. No S3. No rub. ABDOMEN: Soft, obese, nontender. Extremities +1 edema bilaterally. LAB DATA: Lab data revealed BUN and creatinine 141 and 3 with potassium 4.4. Hemoglobin of 10.1. IMPRESSION: 1. Atrial fibrillation, rate controlled. 2. Worsening renal function, scheduled to undergo dialysis catheter placement today and hemodialysis subsequently. 3. Hypertension elevated. 4. Diabetes mellitus. 5. History of hypernephroma. RECOMMENDATION: I will increase the dose of hydralazine. I will add nitrate to her regimen to optimize her blood pressure control. I will add a statin and depending on her progress, further recommendations will be made. MMODL / IJN: [id number] /
--- NOTE | 2020-02-07 11:25 | P.PN ---
Subjective Progress Note Date: 02/07/20 Follow-up for acute kidney injury. Good urine output. No nausea vomiting diarrhea. Objective - Vital Signs Vital signs: Vital Signs Temp 97.9 F 02/07/20 08:00 Pulse 103 H 02/07/20 10:00 Resp 19 02/07/20 10:00 BP 151/116 02/07/20 10:00 Pulse Ox 92 L 02/07/20 10:00 Intake & Output 02/06/20 02/07/20 02/07/20 17:59 06:59 18:59 Intake Total 40 Output Total 200 Balance -160 Weight Intake: IV 40 Sodium Chloride 0.9% 1, 40 000 ml @ 20 mls/hr IV . Q24H [facility] Rx#:[id number] Oral Output: Urine 200 Stool Other: Voiding Method Indwelling Catheter ABP, PAP, CO, CI - Last Documented Arterial Blood Pressure 176/66 - Exam No acute distress S1-S2 heard Decreased breath sounds bilaterally. Edema trace - Labs CBC & Chem 7: 02/07/20 05:25 02/07/20 05:25 Labs: Abnormal Lab Results - Last 24 Hours (Table) 02/06/20 02/06/20 02/06/20 Range/Units 11:41 16:54 20:12 WBC (3.8-10.6) k/uL RBC (3.80-5.40) m/uL Hgb (11.4-16.0) gm/dL Hct (34.0-46.0) % RDW (11.5-15.5) % Neutrophils # (1.3-7.7) k/uL Lymphocytes # (1.0-4.8) k/uL Sodium (137-145) mmol/L Chloride (98-107) mmol/L BUN (7-17) mg/dL Creatinine (0.52-1.04) mg/dL Glucose (74-99) mg/dL POC Glucose (mg/dL) 238 H 242 H 209 H (75-99) mg/dL AST (14-36) U/L ALT (4-34) U/L Total Protein (6.3-8.2) g/dL 02/07/20 02/07/20 02/07/20 Range/Units 05:25 05:25 06:44 WBC 10.7 H (3.8-10.6) k/uL RBC 3.51 L (3.80-5.40) m/uL Hgb 10.1 L (11.4-16.0) gm/dL Hct 31.8 L (34.0-46.0) % RDW 17.2 H (11.5-15.5) % Neutrophils # 9.7 H (1.3-7.7) k/uL Lymphocytes # 0.5 L (1.0-4.8) k/uL Sodium 146 H (137-145) mmol/L Chloride 111 H (98-107) mmol/L BUN 141 H* (7-17) mg/dL Creatinine 3.00 H (0.52-1.04) mg/dL Glucose 151 H (74-99) mg/dL POC Glucose (mg/dL) 187 H (75-99) mg/dL AST 43 H (14-36) U/L ALT 64 H (4-34) U/L Total Protein 6.2 L (6.3-8.2) g/dL Assessment and Plan Assessment: #1 nonoliguric acute kidney injury suspect hemodynamic ATN with labile blood pressure. #2 right nephrectomy secondary to renal mass #3 chronic kidney disease stage III with a baseline creatinine of 1.5-1.6 MG per DL, prior to nephrectomy. #4 hypertension with chronic kidney disease, labile blood pressure #5 secondary hyperparathyroidism on Sensipar #6 metabolic acidosis secondary to acute kidney injury Plan: #1 creatinine stable today. Continue with Lasix 60 mg IV twice a day. #2 discussed with vascular surgery planning to place a Nicholas catheter. Dialysis today. We will also plan for tomorrow. #3 avoid nephrotoxic agents and hypotensive episodes
--- NOTE | 2020-02-07 12:47 | PN ---
PROGRESS NOTE CHIEF COMPLAINT: Acute respiratory failure, influenza pneumonia, and end-stage renal disease and diabetes. HISTORY OF PRESENT ILLNESS: This lady is in is currently having dialysis catheters in place. There has been no essential change otherwise. REVIEW OF SYSTEMS: She has no complaints. She is still confused. PHYSICAL EXAMINATION: Vital signs are normal. She is slightly pale. Breath sounds are heard on both sides and cardiac exam demonstrates atrial fibrillation. Abdomen is slightly protuberant. Extremities are normal. IMPRESSION: 1. Acute respiratory failure. 2. Influenza pneumonia. 3. End-stage renal disease. 4. Insulin-dependent diabetes mellitus. 5. History of carcinoma of the kidney. 6. Delirium. PLAN: Continue to follow as long as she is in ICU and once she is transferred to a different floor, we will increase physical therapy. Physical and occupational therapies with the goal of eventually getting her into the halfway. MMLATANYA / JONATHAN: [id number] /
--- NOTE | 2020-02-07 12:59 | PCN ---
PROCEDURE NOTE PREOP DIAGNOSIS: Acute on chronic renal failure. PROCEDURE PERFORMED: Ultrasound-guided dialysis catheter. Right jugular approach. DESCRIPTION OF PROCEDURE: This patient was seen in the intensive care unit. Right groin was prepped and drapes were applied in the sterile manner. 1% lidocaine was infiltrated into the groin area. Ultrasound-guided micropuncture introduced into the right femoral vein and micropuncture guidewire was passed and 4-Setswana dilator advanced on top of the guidewire. Then we passed a regular guidewire without any resistance. After the dilator was advanced on top of the guidewire, then we placed a dialysis catheter on the top of the guidewire. The guidewire was removed. The catheter was secured with 3-0 nylon. Flushed with heparin saline. The dressing applied. Patient tolerated the procedure well. MMODL / IJN: [id number] /
[2020-02-07 13:57] LABS: Glucose,Whole Blood 142 mg/dL (75-99)
[2020-02-07 14:59] LABS: Glucose,Whole Blood 119 mg/dL (75-99)
[2020-02-07] MEDS: ISOSORBIDE MONONITRATE ER 30 MG TAB.ER.24H PO SCH (15:06)
[2020-02-07] MEDS: ATORVASTATIN 40 MG TAB PO SCH (15:06)
[2020-02-07] MEDS: hydrALAZINE HCL 50 MG TAB PO SCH ×2 (16:14→22:46)
[2020-02-07 17:15] LABS: Glucose,Whole Blood 139 mg/dL (75-99)
[2020-02-07 17:16] LABS: Glucose,Whole Blood 157 mg/dL (75-99)
[2020-02-07 22:42] LABS: Glucose,Whole Blood 137 mg/dL (75-99)
[2020-02-07] MEDS: APIXABAN 2.5 MG TABLET PO SCH (22:45)
[2020-02-07] MEDS: SODIUM CHLORIDE 0.9% 1,000 ML IV SCH ×2 (23:02→23:23)
--- NOTE | 2020-02-08 06:10 | PN ---
PROGRESS NOTE DATE OF SERVICE: 02/07/2020 REASON FOR FOLLOWUP: 1. Pneumonia. 2. Thrush. INTERVAL HISTORY: The patient is currently afebrile. The patient denies having any chest pain or shortness of breath. She did have some cough, but not bringing up any sputum. Oral sores have improved. No vomiting or any diarrhea has been reported. PHYSICAL EXAMINATION: Blood pressure is 138/79 with a pulse of 92, temperature 97.5. She is 95% on 3 L nasal cannula. General description is an elderly female lying in bed in no distress. HEENT EXAMINATION: Pallor. Oral thrush has improved. LUNGS: Unlabored breathing, decreased breath sounds at the bases. HEART: S1, S2. Regular rate and rhythm. ABDOMEN: Soft, no tenderness. LABS: Hemoglobin 10.1, white count of 10.7. BUN 141, creatinine 3.0. DIAGNOSTIC IMPRESSION AND PLAN: 1. Patient with acute respiratory failure which is likely multifactorial with possible component of pneumonia. The patient have seen overall clinical improvement. Currently on oral Augmentin. 2. The patient with oral thrush. Continue nystatin swish and swallow and Diflucan. Continue supportive care. MMODL / IJN: [id number] /
[2020-02-08 07:17] LABS: Glucose,Whole Blood 124 mg/dL (75-99)
[2020-02-08] MEDS: INSULIN ASPART (NovoLOG) 100 UNIT/ML VIAL SQ SCH ×4 (07:21→20:16)
[2020-02-08] MEDS: INSULIN DETEMIR (LEVEMIR) 100 UNIT/ML SYR SQ SCH (08:03)
[2020-02-08 08:07] LABS: Glucose,Whole Blood 130 mg/dL (75-99)
[2020-02-08] MEDS: buPROPion SR 150 MG TABLET.ER PO SCH ×2 (08:37→20:20)
[2020-02-08] MEDS: NYSTATIN 100,000 UNIT/ML SUSP 500,000 UNIT/5 ML CUP PO SCH ×4 (08:37→20:24)
[2020-02-08] MEDS: OXYBUTYNIN 15 MG TAB.ER.24 PO SCH (08:37)
[2020-02-08] MEDS: FLUCONAZOLE 100 MG TAB PO SCH (08:37)
[2020-02-08] MEDS: AMOXIC-POT CLAV 500-125 MG 1 EACH TAB PO SCH ×2 (08:37→20:53)
[2020-02-08] MEDS: hydrALAZINE HCL 50 MG TAB PO SCH ×3 (08:38→22:50)
[2020-02-08] MEDS: SODIUM BICARBONATE TAB 650 MG TAB PO SCH ×2 (08:38→20:20)
[2020-02-08] MEDS: APIXABAN 2.5 MG TABLET PO SCH ×2 (08:38→20:20)
[2020-02-08] MEDS: ISOSORBIDE MONONITRATE ER 30 MG TAB.ER.24H PO SCH (08:39)
[2020-02-08] MEDS: PANTOPRAZOLE 40 MG TABLET PO SCH (08:39)
[2020-02-08] MEDS: methylPREDNISolone SOD SUCCI 40 MG/ML 1 ML VIAL IV SCH (08:39)
[2020-02-08] MEDS: AMIODARONE 200 MG TAB PO SCH ×2 (08:39→20:20)
[2020-02-08] MEDS: FUROSEMIDE 10 MG/ML 10 ML VIAL IV SCH ×2 (08:39→20:20)
[2020-02-08] MEDS: ATORVASTATIN 40 MG TAB PO SCH (08:39)
[2020-02-08] MEDS: METOPROLOL TARTRATE 50 MG TAB PO SCH ×2 (08:39→20:20)
[2020-02-08] MEDS: ALLOPURINOL 100 MG TAB PO SCH (08:39)
--- NOTE | 2020-02-08 11:50 | P.PN ---
Subjective Progress Note Date: 02/08/20 This is a 69-year-old female who is status post nephrectomy for a nephroma, admitted to the hospital with symptoms of progressive dyspnea, had respiratory failure with associated pneumonia requiring intubation. Cardiology was following the patient for atrial fibrillation. She continues to be in atrial fibrillation this morning. Blood pressure 158/70 with a heart rate in the 80s, 92% on 3 L of oxygen. Patient is currently undergoing dialysis at the time of our examination. Objective - Vital Signs Vital signs: Vital Signs Temp 97.9 F 02/08/20 04:00 Pulse 88 02/08/20 04:00 Resp 20 02/08/20 04:00 BP 159/72 02/08/20 04:00 Pulse Ox 92 L 02/08/20 04:00 Intake & Output 02/07/20 02/08/20 02/08/20 18:59 06:59 18:59 Intake Total 220 100 Output Total 1700 1145 Balance -1480 -1045 Weight 117 kg Intake: IV 220 100 Invasive Line 9 20 Sodium Chloride 0.9% 1, 220 80 000 ml @ 20 mls/hr IV . Q24H [facility] Rx#:[id number] Output: Urine 1350 1145 Hemodialysis 350 Other: Voiding Method Indwelling Catheter Indwelling Catheter # Bowel Movements 1 ABP, PAP, CO, CI - Last Documented Arterial Blood Pressure 176/66 - Exam PHYSICAL EXAMINATION: GENERAL: 69-year-old female in no acute distress at the time of my examination HEENT: Head is atraumatic, normocephalic. Pupils equal, round. Sclera anicteric. Conjunctiva are clear. Mucous membranes of the mouth are moist. Neck is supple. There is no elevated jugular venous pressure. No carotid bruit is heard. HEART EXAMINATION: Heart S1 and S2 irregularly irregular CHEST EXAMINATION: Lungs are clear to auscultation and precussion anteriorly. No chest wall tenderness is noted on palpation or with deep breathing. ABDOMEN: Soft, nontender. Bowel sounds are heard. No organomegaly noted. EXTREMITIES:[ 2+ peripheral pulses with no evidence of 1+ peripheral edema NEUROLOGIC patient is awake, alert and oriented 3 . . - Labs CBC & Chem 7: 02/07/20 05:25 02/07/20 05:25 Labs: Abnormal Lab Results - Last 24 Hours (Table) 02/07/20 02/07/2020 Range/Units 13:55 14:57 17:06 POC Glucose (mg/dL) 142 H 119 H 157 H (75-99) mg/dL 02/07/20 02/07/20 02/08/20 Range/Units 17:13 22:31 07:16 POC Glucose (mg/dL) 139 H 137 H 124 H (75-99) mg/dL 02/08/20 Range/Units 08:03 POC Glucose (mg/dL) 130 H (75-99) mg/dL Assessment and Plan Plan: Assessment and plan #1 chronic persistent atrial fibrillation, heart rate under adequate control #2 renal failure, status post dialysis catheter placement, undergoing dialysis. #3 hypertension #4 diabetes #5 history of hypernephroma Plan From cardiology's perspective, we'll continue the patient on her current medications. DNP note has been reviewed, I agree with a documented findings and plan of care. Patient was seen and examined.
--- NOTE | 2020-02-08 12:42 | P.PN ---
Subjective Progress Note Date: 02/08/20 On today's evaluation the patient got moved out of the intensive care unit. She got transferred to cardiac floor for further monitoring. Dialysis catheter was inserted yesterday. She'll be started on dialysis per nephrology. As mentioned earlier she is post nephrectomy for a kidney malignancy. She also had developed bilateral pneumonia which is gradually improving. The chest x-ray from yesterday showed some improvement in the right the pulmonary infiltrates that are more abundant on the right. She remains on oral Augmentin. She remains on IV Solu-Medrol. She remains on daily Diflucan. She is on IV Solu-Medrol which will be tapered down to oral prednisone burst taper. She still has edema lower extremities bilaterally. Overall she is stable and there is no significant hemodynamic instability. Objective - Vital Signs Vital signs: Vital Signs Temp 97.9 F 02/08/20 04:00 Pulse 88 02/08/20 04:00 Resp 20 02/08/20 04:00 BP 159/72 02/08/20 04:00 Pulse Ox 92 L 02/08/20 04:00 Intake & Output 02/07/20 02/08/20 02/08/20 18:59 06:59 18:59 Intake Total 220 100 Output Total 1700 1145 Balance -1480 -1045 Weight 117 kg Intake: IV 220 100 Invasive Line 9 20 Sodium Chloride 0.9% 1, 220 80 000 ml @ 20 mls/hr IV . Q24H [facility] Rx#:[id number] Output: Urine 1350 1145 Hemodialysis 350 Other: Voiding Method Indwelling Catheter Indwelling Catheter # Bowel Movements 1 ABP, PAP, CO, CI - Last Documented Arterial Blood Pressure 176/66 - Exam GENERAL EXAM: Alert, still somewhat dyspneic, on 3 L high flow nasal cannula, fairly comfortable in no apparent distress. HEAD: Normocephalic. EYES: Normal reaction of pupils, equal size. NOSE: Clear with pink turbinates. THROAT: No erythema or exudates. NECK: No masses, no JVD. CHEST: No chest wall deformity. LUNGS: Equal air entry with crackles in the posterior bases, scattered rhonchi. CVS: S1 and S2 normal with no audible murmur, regular rhythm. ABDOMEN: No hepatosplenomegaly, normal bowel sounds, no guarding or rigidity. The surgical wound site over the anterior abdominal wall is dry clean and intact and there is adequate bowel sounds. No drainage and the wound is clean. SPINE: No scoliosis or deformity SKIN: No rashes CENTRAL NERVOUS SYSTEM: No focal deficits, tone is normal in all 4 extremities. EXTREMITIES: There is significant peripheral edema lower extremities bilaterally. No clubbing, no cyanosis. Peripheral pulses are intact. The patient has an A-line in her left wrist. The patient has dialysis catheter in the right groin area - Labs CBC & Chem 7: 02/07/20 05:25 02/07/20 05:25 Labs: Abnormal Lab Results - Last 24 Hours (Table) 02/07/20 02/07/20 02/07/20 Range/Units 13:55 14:57 17:06 POC Glucose (mg/dL) 142 H 119 H 157 H (75-99) mg/dL 02/07/20 02/07/20 02/08/20 Range/Units 17:13 22:31 07:16 POC Glucose (mg/dL) 139 H 137 H 124 H (75-99) mg/dL 02/08/20 Range/Units 08:03 POC Glucose (mg/dL) 130 H (75-99) mg/dL Assessment and Plan Plan: 1 Acute hypoxic respiratory failure secondary to influenza pneumonitis, and possibly superinfection with strep as the patient was found to have output and with acceptable blood. The patient is slowly improving. The patient on Augmentin and the patient will be taken off the IV Solu Medrol and started on a prednisone burst taper. She is on 3 L oxygen by nasal cannula. I think her pulmonary infiltrates on the right is gradually improving and his based on the chest that was done on 02/07/2020. 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 The patient was started on dialysis. Dialysis catheter was inserted. She still producing good urine output for now. There is still some swelling in lower extremities bilaterally. 11 anemia of chronic disease with a hemoglobin of 9.0 12 generalized weakness 13 non-anion gap metabolic acidosis, improved Plan: IV discontinue the IV Solu-Medrol and put the patient on prednisone burst taper starting with 30 mg Oral Augmentin Diflucan for candidal upper airway colonization/infection Dialysis per nephrology I'm going to repeat a chest x-ray within the next 48 hours PT We'll follow
[2020-02-08 13:10] LABS: Glucose,Whole Blood 116 mg/dL (75-99)
--- NOTE | 2020-02-08 15:49 | PN ---
PROGRESS NOTE Patient is seen for followup for acute kidney injury. She was started on dialysis over the weekend. The patient had a 2nd treatment today for worsening renal function and persistent volume overload. BUN was 141 on 02/07/2020. We do not have labs from today. PHYSICAL EXAMINATION: On examination, patient is comfortable. She is not in any acute distress. Blood pressure is 148/53, heart rate 82 per minute, she is afebrile. Examination of the heart S1, S2. Examination of the lungs, bilateral breath sounds are heard. Abdomen is soft, nontender. Examination of lower extremities shows edema 1+ bilaterally. [employer] exam grossly intact. LABS: Show sodium 146, potassium 4.4, BUN 141, creatinine 3.0 yesterday. ASSESSMENT: 1. Acute kidney injury, acute tubular necrosis, nonoliguric, started on dialysis secondary to worsening renal failure, persistent volume overload. The patient will be dialyzed again tomorrow. We will check labs in a.m. 2. Status post right nephrectomy this admission. 3. Volume overload, continue with the IV diuretics for now. 4. Right renal mass status post right nephrectomy. 5. Chronic kidney disease, stage 3. Previous creatinine 1.5-1.6 prior to nephrectomy. 6. Hyperparathyroidism maintained on Sensipar. PLAN: Repeat dialysis in a.m. Check labs in a.m. Continue to avoid nephrotoxic medications. Continue current dose of IV Lasix. MMODL / IJN: [id number] /
[2020-02-08 18:06] LABS: Glucose,Whole Blood 60 mg/dL (75-99)
[2020-02-08 19:12] LABS: Glucose,Whole Blood 60 mg/dL (75-99)
[2020-02-08 19:33] LABS: Glucose,Whole Blood 80 mg/dL (75-99)
--- NOTE | 2020-02-08 19:45 | PN ---
PROGRESS NOTE CHIEF COMPLAINT: Pneumonitis, renal failure, diabetes. HISTORY OF PRESENT ILLNESS: This lady is doing fairly well today, is stable and she will be continued on dialysis. PHYSICAL EXAMINATION: Chest is fairly clear. VITAL SIGNS: Normal. Abdomen is soft, nontender. IMPRESSION: 1. Acute respiratory failure. 2. Influenza pneumonia. 3. Congestive heart failure. 4. Carcinoma of the kidney. 5. End-stage CKD, on dialysis. 6. Diabetes. PLAN: Continue with current treatment plan with eventual discharge to a group home. MMODL / IJN: [id number] /
[2020-02-08 20:18] LABS: Glucose,Whole Blood 112 mg/dL (75-99)
[2020-02-09] MEDS ORDERED: FUROSEMIDE 10 MG/ML 10 ML VIAL IV STA (04:37)
[2020-02-09] MEDS: IPRATROPIUM-ALBUTEROL 3 ML NEB INHALATION PRN (04:37)
[2020-02-09 05:04] LABS: Anisocytosis Slight; Basophils % (A) 0 %; Eosinophils # (A) 0.1 k/uL (0-0.7); Eosinophils % (A) 0 %; HGB 11.4 gm/dL (11.4-16.0); Hypochromasia Slight; Lymphocytes # (A) 0.5 k/uL (1.0-4.8); Lymphocytes % (A) 1 %; MCH 28.2 pg (25.0-35.0); MCHC 30.1 g/dL (31.0-37.0); MCV 93.7 fL (80.0-100.0); Mean Platelet Volume 8.9; Monocytes # (A) 0.5 k/uL (0-1.0); Monocytes % (A) 1 %; Neutrophils # (A) 32.6 k/uL (1.3-7.7); Neutrophils % (A) 97 %; Platelet Count 177 k/uL (150-450); RBC 4.06 m/uL (3.80-5.40); RDW 17.3 % (11.5-15.5); WBC 33.7 k/uL (3.8-10.6)
[2020-02-09 05:16] LABS: Calcium 9.2 mg/dL (8.4-10.2); Potassium 3.4 mmol/L (3.5-5.1)
[2020-02-09] MEDS ORDERED: DEXTROSE 50% SYRINGE 50 ML IVP ONE ×3 (05:28→08:27)
[2020-02-09 05:46] LABS: Glucose,Whole Blood 136 mg/dL (75-99)
[2020-02-09 05:47] LABS: Target Cells Present
[2020-02-09 06:07] LABS: Glucose,Whole Blood 71 mg/dL (75-99)
[2020-02-09] MEDS: PROPOFOL 1,000 MG in EMPTY BAG 1 BAG IV SCH ×2 (06:15→09:00)
[2020-02-09] MEDS ORDERED: NALOXONE 0.4 MG/ML 1 ML VIAL IV PRN (06:22)
--- NOTE | 2020-02-09 06:29 | XR ---
EXAMINATION TYPE: XR chest 1V portable DATE OF EXAM: 02/09/2020 CLINICAL HISTORY: Difficulty breathing progress study. Patient had to be intubated. TECHNIQUE: Single AP portable semiupright view of the chest is obtained. COMPARISON: Chest x-ray from earlier today and older studies. CT chest 5 days earlier. FINDINGS: New endotracheal tube tip at superior aortic knob level approximately 2 cm above andres. C onsider pulling back 2 to 3 cm. New oral gastric tube projecting below left hemidiaphragm. Stable lef t subclavian central venous catheter. Persistent central bilateral opacities with some increasing lateral consolidation right midlung. No l arge pleural effusion or pneumothorax. Stable cardiomegaly with atherosclerotic thoracic aorta. [place] us structures are intact. IMPRESSION: 1. New endotracheal and orogastric tubes are satisfactory in position. ET tube may be pulled back 2 t o 3 cm to be in more ideal position as is slightly low-lying. 2. Cardiomegaly with bilateral central and diffuse edema and/or infiltrates all redemonstrated, some relative sparing of the left upper lobe remains present.
[2020-02-09] MEDS: INSULIN DETEMIR (LEVEMIR) 100 UNIT/ML SYR SQ SCH (07:02)
--- NOTE | 2020-02-09 07:03 | XR ---
EXAMINATION TYPE: XR chest 1V portable DATE OF EXAM: 02/09/2020 CLINICAL HISTORY: Difficulty breathing progress study. TECHNIQUE: Single AP portable upright view of the chest is obtained. COMPARISON: Chest x-ray from today's earlier FINDINGS: Stable left sided PICC line. Persistent mild cardiomegaly with atherosclerotic thoracic ao rta. Persistent bilateral alveolar and interstitial opacities with relative sparing of left upper lob e. More focal opacity left lung base is present with silhouetting left hemidiaphragm. Osseous structu res are intact. Overlying EKG leads are seen. IMPRESSION: Continued diffuse bilateral alveolar and interstitial edema and/or infiltrates on backgro und mild cardiomegaly is felt stable. Worsening left basilar acute infiltrate and/or atelectasis is n oted.
[2020-02-09] MEDS: INSULIN ASPART (NovoLOG) 100 UNIT/ML VIAL SQ SCH ×2 (07:10→13:21)
[2020-02-09] MEDS: NOREPINEPHRINE 4 MG in SODIUM CHLORIDE 0.9% 250 ML IV SCH ×2 (07:44→07:51)
[2020-02-09] MEDS ORDERED: DEXTROSE 5% IN WATER 1,000 ML IV SCH (08:00)
--- NOTE | 2020-02-09 08:08 | PN ---
PROGRESS NOTE Mrs. Reynolds is a 69-year-old female with a history of hypernephroma and surgery who re-presented to the hospital with symptoms of progressive dyspnea and evidence of pneumonia requiring mechanical ventilation. She had worsening renal failure requiring hemodialysis. Yesterday afternoon and evening, she became more short of breath with respiratory failure requiring repeat intubation. She is intubated and sedated at this time. She continues to be in atrial fibrillation with controlled ventricular response. There is no significant hypotension or evidence of ventricular ectopic activity. She continues to be at this time on amiodarone 400 mg twice a day, Eliquis 2.5 mg twice a day, Lipitor 40 mg daily, Lasix 60 mg IV q.12 hours with minimal urine output, hydralazine 50 mg 3 times a day, isosorbide mononitrate 30 mg daily, and metoprolol tartrate 50 mg twice a day. PHYSICAL EXAMINATION: Blood pressure is running in the 150s with the heart rate in the 80s. LUNGS: With decreased air exchange anteriorly, no wheezes. HEART: Irregular, irregular. S1, S2. No S3 with systolic murmur. No diastolic murmur. ABDOMEN: Soft. Positive bowel sounds. EXTREMITIES: +2 edema. LAB DATA: Lab data revealed troponin 0.058. NT proBNP of 10,600. BUN and creatinine 73 and 1.86. Potassium 3.4. Hemoglobin 11.4. Her white blood cell of 33.7. IMPRESSION: 1. Respiratory failure with a combination of fluid overload. Patient had recent pneumonia requiring mechanical ventilation. Her chest x-ray revealed persistent infiltrates and changes on the right lung. 2. End-stage renal disease on hemodialysis. 3. Atrial fibrillation, rate controlled. 4. Status post hypernephroma resection. 5. History of diabetes. 6. History of hyperlipidemia. RECOMMENDATION: We will continue supportive care at this time. I am hoping that she will undergo dialysis today to improve her fluid status and depending on her progress, further recommendation will be made. The prognosis remains guarded. MMODL / IJN: [id number] /
[2020-02-09 08:29] LABS: Glucose,Whole Blood 40 mg/dL (75-99)
[2020-02-09 08:29] LABS: Glucose,Whole Blood 31 mg/dL (75-99)
[2020-02-09] MEDS ORDERED: CISATRACURIUM 2 MG/ML 5 ML VIAL IV ONE (08:50)
[2020-02-09 08:51] LABS: ABG Base Excess -1.1 mmol/L; ABG HCO3 24 mmol/L (21-25); ABG Oxygen Saturation 77.3 % (94-97); ABG PCO2 38 mmHg (35-45); ABG PH 7.41 (7.35-7.45); ABG TCO2 25 mmol/L (19-24); Allen Test Performed? Yes
[2020-02-09] MEDS: CISATRACURIUM 2 MG/ML 5 ML VIAL IV ONE (08:52)
[2020-02-09 08:54] LABS: ABG PO2 43 mmHg (83-108)
[2020-02-09] MEDS ORDERED: predniSONE 10 MG TAB PO SCH (09:00)
[2020-02-09 09:01] LABS: Glucose,Whole Blood 103 mg/dL (75-99)
[2020-02-09] MEDS ORDERED: VANCOMYCIN IV PER PHARMACY 1 EACH MISC MISCELLANE PRN (09:10)
[2020-02-09] MEDS ORDERED: SODIUM CHLORIDE 0.9% 2,000 ML IV ONE ×2 (09:12→11:00)
--- NOTE | 2020-02-09 09:14 | P.PN ---
Subjective Progress Note Date: 02/09/20 On 02/09/2020, and seeing this patient for a follow-up. The patient got transferred to a medical floor as the patient's overall condition was getting better and the patient was started on hemodialysis. Nevertheless, earlier this morning at around 4:30 AM, she started having some increased shortness of b reath. Later at around 6:00, the patient got more tachypneic shortness of breath and less responsive. The A team evaluated the patient and the patient was found today patient to be profoundly hypoglycemic with a blood sugar of 28. D50 was given. The patient was started on BiPAP. Subsequently, she was brought in to the ICU where she became hypoxic while in the BiPAP, more tachypneic and at that time she was intubated and placed on mechanical ventilator. Intubation process was done by anesthesia. Postintubation there was frothy secretions suctioned out from the orotracheal tube. The patient is currently on propofol running at 50 g per KG per minute. She has hypotensive with norepinephrine infusion running at 0.3 mcg/kg per minute. She is intubated on a mechanical ventilator. She is an assist-control mode at a rate of 24 with a tidal volume of 500 and FiO2 of 100% with a PEEP of 12. An arterial line was established and the blood gases was sent this morning showing a pH of 7.4 with a pCO2 of 37 and pO2 of 43 and pulse ox cannot be well established as the patient has weak pulses in all 4 extremities. White cell count is up to 33. The patient has a PICC line in left upper extremity. Exit site is clean. She also has a dialysis catheter right femoral vein. She underwent a session of hemodialysis with minimal amount of ultrafiltration was done yesterday and this this was a short dialysis. BUN is at 73 with a creatinine of 1.8 from this morning. Hemoglobin is 11.4. ProBNP level is 10,600. Troponins of 0.05. Post intubation chest x- ray showing diffuse bilateral alveolar interstitial infiltrates with background cardiomegaly and there is worsening in the left basilar infiltrate compared to earlier chest x-ray findings. The patient currently is in intensive care unit. Based on the most recent blood gas, the PEEP was brought up to 18 and a repeat chest x-ray will be done. If possible, a quick bronchoscopy/bronchioloalveolar lavage of the right upper lobe would also be done to rule out any other microbial growth. Objective - Vital Signs Vital signs: Vital Signs Temp 97.4 F L 02/09/20 04:00 Pulse 122 H 02/09/20 05:07 Resp 33 H 02/09/20 05:07 BP 121/66 02/09/20 04:00 Pulse Ox 94 L 02/09/20 05:31 Intake & Output 02/08/20 02/09/20 02/09/20 18:59 06:59 18:59 Intake Total 475.670 47.132 Output Total 1200 825 5 Balance -1200 -349.330 42.132 Weight 117 kg 94.5 kg 115 kg Intake: IV 10 10 Invasive Line 9 10 Sodium Chloride 0.9% 1, 10 000 ml @ 20 mls/hr IV . Q24H [facility] Rx#:[id number] Intake, IV Titration 165.670 37.132 Amount Norepinephrine 4 mg In 31.084 Sodium Chloride 0.9% 250 ml @ 0.05 MCG/KG/MIN 18. 002 mls/hr IV .Q14H7M [facility] Rx#:[id number] Propofol 1,000 mg In 5.670 6.048 Empty Bag 1 bag @ Titrate IV .Q0M [facility] Rx#: [id number] Sodium Chloride 0.9% 1, 160 000 ml @ 20 mls/hr IV . Q24H [facility] Rx#:[id number] Oral 300 Output: Urine 700 825 5 Hemodialysis 500 Other: Voiding Method Indwelling Catheter Indwelling Catheter # Bowel Movements 1 ABP, PAP, CO, CI - Last Documented Arterial Blood Pressure 176/66 - Exam GENERAL EXAM: The patient is currently sedated. She'll be also paralyzed. She is intubated on a mechanical ventilator. Orogastric and orotracheal tube are both in place. She is on a mechanical ventilator and the most recent vent se ttings include an assist-control of 24 with a tidal volume of 350 with an FiO2 of 100% and a PEEP of 18. Most recent pulse ox is around 85%. HEAD: Normocephalic. EYES: Normal reaction of pupils, equal size. NOSE: Clear with pink turbinates. THROAT: No erythema or exudates. NECK: No masses, no JVD. CHEST: No chest wall deformity. LUNGS: Equal air entry with crackles in the posterior bases, scattered rhonchi. CVS: S1 and S2 normal with no audible murmur, regular rhythm. ABDOMEN: No hepatosplenomegaly, normal bowel sounds, no guarding or rigidity. The surgical wound site over the anterior abdominal wall is dry clean and intact and there is adequate bowel sounds. No drainage and the wound is clean. SPINE: No scoliosis or deformity SKIN: No rashes CENTRAL NERVOUS SYSTEM: No focal deficits, tone is normal in all 4 extremities. EXTREMITIES: There is significant peripheral edema lower extremities bilaterally. No clubbing, no cyanosis. Peripheral pulses are intact. The patient has dialysis catheter in the right groin area the patient has a PICC line in the left upper extremity. An outlying catheter was inserted in the right wrist. She has a dialysis catheter in the right groin. - Labs CBC & Chem 7: 02/09/20 04:50 02/09/20 04:50 Labs: Abnormal Lab Results - Last 24 Hours (Table) 02/08/20 02/08/20 02/08/20 Range/Units 13:04 18:02 18:56 WBC (3.8-10.6) k/uL MCHC (31.0-37.0) g/dL RDW (11.5-15.5) % Neutrophils # (1.3-7.7) k/uL Lymphocytes # (1.0-4.8) k/uL D-Dimer (<0.60) mg/L FEU Potassium (3.5-5.1) mmol/L Chloride (98-107) mmol/L Carbon Dioxide (22-30) mmol/L BUN (7-17) mg/dL Creatinine (0.52-1.04) mg/dL Glucose (74-99) mg/dL POC Glucose (mg/dL) 116 H 60 L 60 L (75-99) mg/dL Troponin I (0.000-0.034) ng/mL 02/08/20 02/09/20 02/09/20 Range/Units 20:16 04:50 04:50 WBC (3.8-10.6) k/uL MCHC (31.0-37.0) g/dL RDW (11.5-15.5) % Neutrophils # (1.3-7.7) k/uL Lymphocytes # (1.0-4.8) k/uL D-Dimer 4.94 H (<0.60) mg/L FEU Potassium 3.4 L (3.5-5.1) mmol/L Chloride 109 H (98-107) mmol/L Carbon Dioxide 21 L (22-30) mmol/L BUN 73 H (7-17) mg/dL Creatinine 1.86 H (0.52-1.04) mg/dL Glucose 28 L* (74-99) mg/dL POC Glucose (mg/dL) 112 H (75-99) mg/dL Troponin I (0.000-0.034) ng/mL 02/09/20 02/09/20 02/09/20 Range/Units 04:50 04:50 05:37 WBC 33.7 H (3.8-10.6) k/uL MCHC 30.1 L (31.0-37.0) g/dL RDW 17.3 H (11.5-15.5) % Neutrophils # 32.6 H (1.3-7.7) k/uL Lymphocytes # 0.5 L (1.0-4.8) k/uL D-Dimer (<0.60) mg/L FEU Potassium (3.5-5.1) mmol/L Chloride (98-107) mmol/L Carbon Dioxide (22-30) mmol/L BUN (7-17) mg/dL Creatinine (0.52-1.04) mg/dL Glucose (74-99) mg/dL POC Glucose (mg/dL) 136 H (75-99) mg/dL Troponin I 0.058 H* (0.000-0.034) ng/mL 02/09/20 02/09/20 02/09/20 Range/Units 06:06 08:26 08:27 WBC (3.8-10.6) k/uL MCHC (31.0-37.0) g/dL RDW (11.5-15.5) % Neutrophils # (1.3-7.7) k/uL Lymphocytes # (1.0-4.8) k/uL D-Dimer (<0.60) mg/L FEU Potassium (3.5-5.1) mmol/L Chloride (98-107) mmol/L Carbon Dioxide (22-30) mmol/L BUN (7-17) mg/dL Creatinine (0.52-1.04) mg/dL Glucose (74-99) mg/dL POC Glucose (mg/dL) 71 L 31 L 40 L (75-99) mg/dL Troponin I (0.000-0.034) ng/mL Microbiology - Last 24 Hours (Table) 01/30/20 10:30 Acid Fast Bacilli Smear - Final Bronchial Washings - Random Acid Fast Bacilli Culture - Preliminary Assessment and Plan Plan: 1 Acute hypoxic respiratory failure , currently intubated on a mechanical ventilator. The patient has still bilateral pulmonary infiltrates. However, c onditions gotten worse. She became profoundly hypoxic and she is currently intubated on a mechanical ventilator with a PEEP of 18 and FiO2 of 100%. Her current tidal volumes at 350 and the peak air pressures around 47 with a static pressure of 42. This is consistent with ARDS/acute lung injury. This could be related to underlying infection/sepsis as the patient had an acute rise in the white cell count and she acutely became hypoglycemic. The possibility of pulmonary edema cannot be completely excluded on top of her chronic hypoxic respiratory failure. 2 acute shock with profound hypotension, consider sepsis/septic shock mild currently on high-dose pressors. 3 acute leukocytosis , secondary to above 4 acute chronic kidney injury and the patient is on hemodialysis via a temporary dialysis catheter on day right groin 5 Recent robotically assisted laparoscopic right nephrectomy for hyper nephroma 3 Diabetes mellitus, within episodes of hypoglycemia. The patient will be taken off the Lev[place] and she'll be getting only sliding scale coverage and insulin drip if needed 4 Esophageal reflux disease 5 Hyperlipidemia 7 Hypertension 8 Obesity 9 Insomnia 10 Anxiety 11 atrial fibrillation/flutter him a chronic currently on Eliquis Plan: keep the patient sedated with propofol. Add Nimbex for paralysis. Continue with low volume/tidal volume ventilation. Peak and static pressures are quite elevated. The patient is an acute lung injury/ARDS Give 2 L of IV fluid normal saline Discontinue the Lantus/Levemir insulin and put the patient on sliding scale coverage and possibly insulin drip if needed Discontinue the Augmentin and put the patient on a combination of cefepime and vancomycin and continue Diflucan for now Bronchoscopy and the lavage of the right upper lobe will be done for microbial cultures and analysis Continue pressors high-dose Will monitor hemodynamics and assess the patient's ability to undergo hemodialysis today Chest x-ray was reviewed Repeat the blood gases and do the necessity ventilator changes Condition is critical Family will be updated We'll continue to follow make further recommendations based on her progress. This is a critically care evaluation that was done and morning 30 minutes excluding time to do any procedures. Time with Patient: Greater than 30
[2020-02-09] MEDS ORDERED: PANTOPRAZOLE 40 MG/10 ML VIAL IVP SCH (09:15)
[2020-02-09] MEDS ORDERED: CEFEPIME 2 GM in SODIUM CHLORIDE 0.9% 100 ML IVPB SCH (09:15)
[2020-02-09] MEDS ORDERED: CISATRACURIUM 200 MG in SODIUM CHLORIDE 0.9% 180 ML IV SCH (09:15)
--- NOTE | 2020-02-09 09:17 | P.PCN ---
Date of Procedure: 02/09/20 Preoperative Diagnosis: Acute hypoxic respiratory failure with bilateral pulmonary infiltrates/ARDS Postoperative Diagnosis: Acute hypoxic respiratory failure with bilateral pulmonary infiltrates/ARDS Procedure(s) Performed: Bronchoscopy and BAL of the right upper lobe Insertion of an art line catheter in the right radial artery Surgeon: Olya Wooten Estimated Blood Loss (ml): 0 Disposition: ICU Indications for Procedure: Flexible bronchoscopy and BAL of the right upper lobe This procedure was done intensive care unit. The patient already intubated on a mechanical ventilator. Pulse ox was around 8687%. The flexible bronchoscope was introduced through the orotracheal tube and was advanced into the lower trachea. The tip of the orotracheal tube was seen on 1 cm above the andres. A quick airway inspection was done. Visualized airways into the right mainstem bronchus, right upper lobe bronchus, bronchus intermedius, right middle lobe and right lower lobe bronchus. Examination of the left side included left mainstem bronchus and the left upper lobe and left lower lobe bronchus. Segmented examination was also done. Some limited amount of frothy secretions was encountered and was suctioned out. Bronchoscope was then moved to the right upper lobe and a BAL of the right upper lobe was done. A total of 60 mL of fluid was infused and 20 mL was aspirated without any major difficulties. The procedure was quickly terminated and the bronchoscope was removed. The disposable bronchoscope was used to complete this procedure. Pulse ox remained above 85% throughout the procedure. Obviously the patient is an ARDS and the necessity ventilator changes will be done after obtaining a follow-up blood gas. Indication: Hemodynamic monitoring. A time-out was completed verifying correct patient, procedure, site, positioning, and implant(s) or special equipment if applicable. Allens test was performed to ensure adequate perfusion. The patient right wrist was prepped and draped in sterile fashion. 1% Lidocaine was used to anesthetize the area. An 18G Arrow arterial line was introduced into the right radial artery. The catheter was threaded over the guide wire and the needle was removed with appropriate pulsatile blood return. Blood loss was minimal. The catheter was then sutured in place to the skin and a sterile dressing applied. Perfusion to the extremity distal to the point of catheter insertion was checked and found to be adequate. The patient tolerated the procedure well and there were no complications.
[2020-02-09] MEDS ORDERED: methylPREDNISolone SOD SUCCI 40 MG/ML 1 ML VIAL IV SCH (09:30)
[2020-02-09 09:57] LABS: ABG Base Excess -4.6 mmol/L; ABG HCO3 23 mmol/L (21-25); ABG Oxygen Saturation 79.2 % (94-97); ABG PCO2 55 mmHg (35-45); ABG PH 7.23 (7.35-7.45); ABG TCO2 25 mmol/L (19-24); Allen Test Performed? Yes
[2020-02-09 10:06] LABS: ABG PO2 55 mmHg (83-108)
--- NOTE | 2020-02-09 10:08 | XR ---
EXAMINATION TYPE: XR chest 1V portable DATE OF EXAM: 02/09/2020 COMPARISON: Prior chest x-ray 02/09/2020 at earlier time HISTORY: Hypoxia and intubated TECHNIQUE: Single frontal view of the chest is obtained. FINDINGS: Endotracheal tube and NG tube are overlying appropriate position, distal tip the NG tube n ot included on exam. Left subclavian central venous catheter shows the distal tip over the superior v rossi cava. There are overlying cardiac leads. Bilateral airspace disease is again seen. Left hemidiaph ragm shows an interval obscured appearance. Heart size is stable. Prominence is noted of the aorticop ulmonary window, patient is rotated however. Heart is enlarged. No evident pneumothorax. IMPRESSION: Bilateral pneumonia. Difficult to exclude left pleural effusion. Cardiomegaly. Congestiv e heart failure felt to be less likely.
[2020-02-09 10:43] LABS: Amorphous Sediment,Urine Rare /hpf; Appearance,Urine Cloudy (Clear); Bilirubin,Urine Negative (Negative); Blood,Urine Moderate (Negative); Color,Urine Light Red; Glucose,Urine (UA) Negative (Negative); Hyaline Casts,Urine 10 /lpf (0-2); Ketones,Urine Negative (Negative); Leukocyte Esterase,Urine Small (Negative); Mucus,Urine Rare /hpf; Nitrite,Urine Negative (Negative); PH, Urine 5.5 (5.0-8.0); Protein,Urine 1+ (Negative); RBC,Urine >182 /hpf (0-5); Specific Gravity,Urine 1.016 (1.001-1.035); Squamous Epithelial Cell,Urine 1 /hpf (0-4); Urobilinogen,Urine <2.0 mg/dL (<2.0); WBC,Urine 27 /hpf (0-5)
[2020-02-09 10:57] VITALS: BMI 44.9
[2020-02-09] MEDS ORDERED: VANCOMYCIN 2,000 MG in SODIUM CHLORIDE 0.9% 500 ML 500 ML IVPB ONE (11:00)
[2020-02-09 11:27] LABS: ABG Base Excess -9.2 mmol/L; ABG HCO3 20 mmol/L (21-25); ABG Oxygen Saturation 78.5 % (94-97); ABG PCO2 63 mmHg (35-45); ABG PO2 60 mmHg (83-108); ABG TCO2 22 mmol/L (19-24); Allen Test Performed? Yes
[2020-02-09] MEDS ORDERED: SODIUM CHLORIDE 0.9% 150 ML with VASOPRESSIN 60 UNIT IV SCH ×2 (11:30)
[2020-02-09 11:31] LABS: ABG PH 7.12 (7.35-7.45)
[2020-02-09] MEDS: POTASSIUM CHLORIDE 20 MEQ in WATER FOR INJECTION 1 100ML.BAG IVPB SCH ×2 (11:47→13:07)
[2020-02-09 11:49] LABS: Glucose,Whole Blood 104 mg/dL (75-99)
[2020-02-09] MEDS: NOREPINEPHRINE 32 MG in SODIUM CHLORIDE 0.9% 218 ML IV SCH ×2 (11:53→14:10)
[2020-02-09] MEDS ORDERED: IPRATROPIUM-ALBUTEROL 3 ML NEB INHALATION SCH (12:00)
[2020-02-09 12:15] LABS: Appearance,BF Cloudy; Color,BF Yellow; Nucleated Cells, Body Fluid 963 /uL; RBC, Body Fluid 5813 /uL
[2020-02-09 12:18] LABS: Mononuclear WBC,Body Fluid 4 %; Polynuclear WBC,Body Fluid 96 %; Total Cells Counted,Body Fluid 100
[2020-02-09 14:13] VITALS: BP 87/50; PULSE 136; RESP 24; TEMP 98.6
[2020-02-09] MEDS ORDERED: ATROPINE OPHTH SOLN 1% 5ML BTL SUBLINGUAL PRN (14:25)
[2020-02-09] MEDS ORDERED: MORPHINE SULFATE 2 MG/ML SYRINGE IVP ONE (14:25)
[2020-02-09] MEDS ORDERED: MORPHINE SULFATE 2 MG/ML SYRINGE IV PRN (14:25)
[2020-02-09] MEDS ORDERED: ONDANSETRON 4 MG/2 ML VIAL IVP PRN (14:25)
[2020-02-09] MEDS ORDERED: LORazepam 2 MG/ML INJ IV ONE (14:28)
[2020-02-09] MEDS ORDERED: MORPHINE SULFATE (100 MG/2 ML) 100 MG in SODIUM CHLORIDE 0.9% 100 ML IV SCH (14:30)
[2020-02-09] MEDS: NYSTATIN 100,000 UNIT/ML SUSP 500,000 UNIT/5 ML CUP PO SCH (14:33)
[2020-02-09] MEDS: OXYBUTYNIN 15 MG TAB.ER.24 PO SCH (14:33)
[2020-02-09] MEDS: METOPROLOL TARTRATE 50 MG TAB PO SCH (14:33)
[2020-02-09] MEDS: SODIUM BICARBONATE TAB 650 MG TAB PO SCH (14:33)
[2020-02-09] MEDS: FUROSEMIDE 10 MG/ML 10 ML VIAL IV SCH (14:35)
[2020-02-09] MEDS: hydrALAZINE HCL 50 MG TAB PO SCH (14:35)
[2020-02-09] MEDS: ISOSORBIDE MONONITRATE ER 30 MG TAB.ER.24H PO SCH (14:35)
--- NOTE | 2020-02-09 14:59 | PN ---
PROGRESS NOTE Early this morning patient's general condition deteriorated. She had significant respiratory distress. She was transferred to the ICU and was intubated. Patient is also quite hypoxic, requiring large amount of Levophed at about 100 mcg currently. FiO2 is at 100%. Patient was dialyzed yesterday. However, we did not get much fluid off and patient was scheduled for treatment again today. She has not had any new fevers. Repeat cultures are all pending. Blood pressure this morning 99/60, heart rate 100 per minute. Patient is afebrile. Examination of the heart, S1, S2. Examination of the lungs, decreased breath sounds at bases, bilateral breath sounds are heard. Abdomen is soft, distended, nontender. Examination of the lower extremities shows chronic skin changes, edema 1+ bilaterally. REPAIR WEAVER exam cannot be performed. LABS: Show this morning sodium 141, potassium 3.4, chloride 110, CO2 is 21, BUN 73, creatinine 1.86. Troponin 0.058. ASSESSMENT: 1. Acute kidney injury, ATN, started on hemodialysis over the weekend. Patient has had two treatments and was scheduled for her third treatment today. However, currently her blood pressure is significantly low. We will try to perform SLED procedure with very low flows mainly for fluid removal. 2. Hypoxic respiratory failure, maintained on empiric antibiotics, status post bronchoscopy this morning as well. 3. Severe hypotension most likely underlying sepsis. 4. Status post right nephrectomy. 5. Influenza A with pneumonia on initial admission this hospitalization. 6. Metabolic acidosis secondary to shock. PLAN: Try SLED procedure today. need for fluid removal to help with oxygenation. Overall prognosis is guarded given the requirement of large doses of pressors. MMODL / IJN: [id number] /
[2020-02-09] MEDS ORDERED: SCOPOLAMINE 1.5MG/72HR PATCH TRANSDERM SCH (15:00)
[2020-02-09] MEDS ORDERED: CHLORHEXIDINE GLUCONATE 15 ML CUP MUCOUS MEM SCH (21:00)
--- NOTE | 2020-02-10 08:47 | DS ---
DISCHARGE SUMMARY CHIEF COMPLAINT: Shortness of breath and cough. HISTORY OF PRESENT ILLNESS AND PHYSICAL EXAM: Details of this lady's history and physical can be found in the initial workup. LABORATORY STUDIES: While she was in a hospital she had laboratory studies, details of which can be found in the laboratory section of her chart. COURSE IN THE HOSPITAL: After admission she was placed on bedrest and started on treatment for influenza. She went on to develop a severe influenza pneumonia and was on Tamiflu, IV fluids, nasal O2 and updrafts. She continued to deteriorate. She went into respiratory failure. She was seen and treated by Pulmonology and Infectious Disease. She subsequently also developed congestive heart failure and was followed by Cardiology. She was moved to the intensive care unit where she had to be intubated. In the meantime, her renal function also declined steadily and she was followed by Nephrology. Her GFR got down into the range of 15 and it was determined that she would have to be dialyzed. The dialysis catheter was replaced and she was started on dialysis. She seemed to be stable after roughly 2 weeks in ICU and was moved out to the step-down unit. That night she went into acute pulmonary edema and was transferred back to the intensive care unit where she was intubated and placed back on the ventilator. It was noted that her white blood cell count had gone up to 33,000 and there was concern that she was probably septic. Resuscitative measures were instituted including Levophed, but her blood pressure remained very erratic and so that steadily started to fall. The family was notified and came in. She did not have an advance directive, but they collectively made the decision that given her obviously failing state and unstable vital signs that it was felt advisable to make her comfort measures only, and they did. She was sedated and taken off the ventilator and . FINAL DIAGNOSES: 1. Influenza pneumonia. 2. Acute respiratory failure. 3. Congestive heart failure. 4. End-stage renal disease on dialysis. 5. Status post direct nephrectomy for renal cell carcinoma. 6. Insulin-dependent diabetes mellitus. 7. Delirium. 8. Hypovolemia. 9. Acute pulmonary edema. OPERATIONS: Dialysis catheter placement. CONSULTATIONS: Pulmonology, Infectious Disease, Cardiology, Intensive Medicine and Nephrology. She . MMODL / IJN: [id number] /
[2020-02-10] MEDS ORDERED: VANCOMYCIN 2,000 MG in SODIUM CHLORIDE 0.9% 500 ML 500 ML IVPB ONE (10:00)
--- NOTE | 2020-02-11 08:59 | CDI ---
Documentation Clarification Form Date: 02/11/2020 07:19:23 AM From: Betty FELIX,CCDS,RN Admit Date: 01/10/2020 08:09:00 PM Patient Name: Quiana Reynolds Visit Number: [id number] Discharge Date: 02/09/2020 08:44:00 PM ATTENTION: The Clinical Documentation Specialists (CDI) and [facility] Coding Staff appreciate your assistance in clarifying documentation. Please respond to the clarification below the line at the bottom and electronically sign. The CDI & [facility] Coding staff will review the response and follow-up if needed. Please note: Queries are made part of the Legal Health Record. If you have any questions, please contact the author of this message via ITS. Dr. Kong Barbosa Shock is documented in the Pulmonology and Nephrology notes 02/09/2020. As attending Physician further specification is requested regarding the diagnosis of Shock Patient history/risk factors s/p Nephrectomy presented with Influenza and pneumonia developed acute hypoxic respiratory failure requiring mechanical ventilation, Experienced Acute CHF, Notes pt was stable for about 2 weeks on SDU when she experienced increased dyspnea and hypoxic requiring reintubation, and required dialysis for ESRD Clinical Indicators: Per Query response from 01/14/2020 Sepsis was ruled out DS 02/08 notes she went into acute pulmonary edema and was transferred back to ICU and placed back on ventilator, it was noted that her WBCS count had gone up to 33,0000 and there was concern she was probably septic. Resuscitative measures including Levophed. Her BP steadily started to fall, Pt was made comfort measures PN 02/09/2020 Nephrology Acidosis 2nd to Shock PN 02/09/2020: ICU/Pulmonology consistent with ARDS/acute lung injury. This could be related to underlying infection/sepsis as the patient had an acute rise in the white cell count and she acutely became hypoglycemic. Acute Shock with profound hypotension, consider sepsis/Septic shock on high dose pressors, leukocytosis 2nd to this. 02/08 Bronchial washings show Gram negative bacilli preliminary BC 02/09/2020 show Gram negative bacilli preliminary WBCs /6 ->9.2 -> 10.7 on 02/06 -> 33.7 on 02/08 Vitals: BP 02/08 124:08 87/50 HR 136 RR 24 T98.6 FIO2 100% Treatment: D10; Levophed 4mg gtt increased to high dose gtt @ 32 mg gtt 02/09/2020 @ 11 am Solumedrol beginning 01/13/2020 with decreasing does to 40mg IV Q 12 hrs on 02/09/2020 IV Cefepime 02/08 Levaquin 01/11-01/23 Ceftriaxone 01/12-01/28 Vancomycin 01/11-01/14 and ordered for 02/08 In your professional opinion, can you please specify the type of shock if known? Septic Shock Suspected or known causative organism Any associated organ failure Cardiogenic Shock Cause Hypovolemic Shock Cause Other, please specify Unable to determine (Last Revision: September 2017) MTDD
--- NOTE | 2020-02-12 11:15 | MISC ---
MISCELLANOUS REPORT QUERY: This is regarding shock, unable to determine. MMODL / IJN: [id number] /
== END 2020-02-09 20:44 | disposition expired | DRG 208 ==
LOC: EC 17:36 → 5NMEDONC 20:09 → 6NMEDSUR 01-11 02:18 → 2SICU 01-26 10:37 → 3SCARD 02-07 22:25 → 2SICU 02-09 05:55
PROVIDERS: ADMIT Family Medicine; ATTEND Family Medicine
PROC: 5A09357 Assistance with Respiratory Ventilation, Less than 24 Consecutive Hours, Continuous Positive Airway Pressure (ICD-10-PCS; 2020-01-26)
PROC: 5A1945Z Respiratory Ventilation, 24-96 Consecutive Hours (ICD-10-PCS; principal; 2020-01-30)
PROC: 0BH17EZ Insertion of Endotracheal Airway into Trachea, Via Natural or Artificial Opening (ICD-10-PCS; principal; 2020-01-30)
PROC: 4A133B1 Monitoring of Arterial Pressure, Peripheral, Percutaneous Approach (ICD-10-PCS; 2020-02-01)
PROC: 03HY32Z Insertion of Monitoring Device into Upper Artery, Percutaneous Approach (ICD-10-PCS; 2020-02-01)
PROC: 4A133J1 Monitoring of Arterial Pulse, Peripheral, Percutaneous Approach (ICD-10-PCS; 2020-02-01)
PROC: 02HV33Z Insertion of Infusion Device into Superior Vena Cava, Percutaneous Approach (ICD-10-PCS; 2020-02-01)
PROC: 5A1D70Z Performance of Urinary Filtration, Intermittent, Less than 6 Hours Per Day (ICD-10-PCS; 2020-02-08)
PROC: 06HM33Z Insertion of Infusion Device into Right Femoral Vein, Percutaneous Approach (ICD-10-PCS; 2020-02-08)
PROC: 0BH17EZ Insertion of Endotracheal Airway into Trachea, Via Natural or Artificial Opening (ICD-10-PCS; 2020-02-09)
PROC: 5A1935Z Respiratory Ventilation, Less than 24 Consecutive Hours (ICD-10-PCS; 2020-02-09)
PROC: 4A133J1 Monitoring of Arterial Pulse, Peripheral, Percutaneous Approach (ICD-10-PCS; 2020-02-09)
PROC: 4A133B1 Monitoring of Arterial Pressure, Peripheral, Percutaneous Approach (ICD-10-PCS; 2020-02-09)
PROC: 0B9C8ZX Drainage of Right Upper Lung Lobe, Via Natural or Artificial Opening Endoscopic, Diagnostic (ICD-10-PCS; 2020-02-09)
PROC: 03HY32Z Insertion of Monitoring Device into Upper Artery, Percutaneous Approach (ICD-10-PCS; 2020-02-09)
DX: J10.08 Influenza due to other identified influenza virus with other specified pneumonia (principal); N17.0 Acute kidney failure with tubular necrosis; N18.6 End stage renal disease; B37.1 Pulmonary candidiasis; I50.31 Acute diastolic (congestive) heart failure; J96.01 Acute respiratory failure with hypoxia; A41.9 Sepsis, unspecified organism; N25.81 Secondary hyperparathyroidism of renal origin; R57.9 Shock, unspecified; Z68.42 Body mass index [BMI] 45.0-49.9, adult; B37.0 Candidal stomatitis; B37.89 Other sites of candidiasis; C64.1 Malignant neoplasm of right kidney, except renal pelvis; E87.2 Acidosis; I13.2 Hypertensive heart and chronic kidney disease with heart failure and with stage 5 chronic kidney disease, or end stage renal disease; I48.19 Other persistent atrial fibrillation; Z99.11 Dependence on respirator [ventilator] status; J44.1 Chronic obstructive pulmonary disease with (acute) exacerbation; J44.0 Chronic obstructive pulmonary disease with (acute) lower respiratory infection; J69.0 Pneumonitis due to inhalation of food and vomit; J15.9 Unspecified bacterial pneumonia; Z66 Do not resuscitate; E11.65 Type 2 diabetes mellitus with hyperglycemia; E86.1 Hypovolemia; Z51.5 Encounter for palliative care; B95.4 Other streptococcus as the cause of diseases classified elsewhere; B96.89 Other specified bacterial agents as the cause of diseases classified elsewhere; D64.9 Anemia, unspecified; E11.22 Type 2 diabetes mellitus with diabetic chronic kidney disease; E11.649 Type 2 diabetes mellitus with hypoglycemia without coma; E21.0 Primary hyperparathyroidism; E66.01 Morbid (severe) obesity due to excess calories; E78.5 Hyperlipidemia, unspecified; E86.0 Dehydration; F41.1 Generalized anxiety disorder; G47.00 Insomnia, unspecified; R79.89 Other specified abnormal findings of blood chemistry; Z98.51 Tubal ligation status; I27.20 Pulmonary hypertension, unspecified; K21.0 Gastro-esophageal reflux disease with esophagitis; W19.XXXA Unspecified fall, initial encounter; Z79.01 Long term (current) use of anticoagulants; Z79.2 Long term (current) use of antibiotics; Z79.4 Long term (current) use of insulin; Z79.899 Other long term (current) drug therapy; Z80.8 Family history of malignant neoplasm of other organs or systems; Z85.72 Personal history of non-Hodgkin lymphomas; Z90.5 Acquired absence of kidney; Z99.2 Dependence on renal dialysis; I07.1 Rheumatic tricuspid insufficiency; Z88.8 Allergy status to other drugs, medicaments and biological substances; F32.9 Major depressive disorder, single episode, unspecified
CPT/HCPCS: 31624; 36415; 36573; 36600; 70450; 71045; 71046; 71250; 76770; 78582; 80048; 80053; 80202; 81001; 82533; 82565; 82570; 82805; 82947; 83036; 83605; 83735; 83880; 84100; 84132; 84145; 84300; 84439; 84443; 84484; 84540; 85025; 85027; 85379; 85610; 85730; 86038; 86160; 86704; 86706; 87040; 87070; 87077; 87086; 87102; 87116; 87186; 87205; 87206; 87252; 87340; 87449; 87496; 87498; 87502; 87529; 87634; 87798; 88108; 88305; 89050; 90935; 93005; 93306; 93970; 94002; 94003; 94640; 94660; 94760; 96361; 96365; 96366; 96367; 99285